=== PATIENT | male | born 1965 | race Caucasian/White ===

== ENCOUNTER 2019-05-10 18:39 | Emergency (ER) | payer MEDICARE ==
[~2019-05-10] VITALS: Ht 177.8 cm; Wt 91.0 kg
[~2019-05-10 18:39] MED LIST: LITH450T2 PO; NO HOME MEDS; ONDA8TAB9 PO
[2019-05-10 18:40] VITALS: BP 141/73
== END 2019-05-10 19:07 ==
LOC: ER 18:39
DX: S70.311A Abrasion, right thigh, initial encounter (principal); Z02.89 Encounter for other administrative examinations; F29 Unspecified psychosis not due to a substance or known physiological condition; Z88.8 Allergy status to other drugs, medicaments and biological substances; Z79.899 Other long term (current) drug therapy; Z86.73 Personal history of transient ischemic attack (TIA), and cerebral infarction without residual deficits; Z59.0 Homelessness; Z56.0 Unemployment, unspecified; W54.0XXA Bitten by dog, initial encounter; Y93.89 Activity, other specified; Y92.89 Other specified places as the place of occurrence of the external cause; Y99.8 Other external cause status
CPT/HCPCS: 99283

== ENCOUNTER 2019-12-05 11:19 | Inpatient (IN) | payer MEDICAID, OTHER ==
[~2019-12-05] VITALS: Ht 177.8 cm; Wt 95.7 kg
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
[2019-12-05] MEDS ORDERED: LORazepam 1 MG tablet PO PRN ×3 (11:30→12:10)
[2019-12-05] MEDS ORDERED: haloperidol 5mg tablet PO PRN (11:30)
[2019-12-05] MEDS ORDERED: diphenhydrAMINE 25mg capsule PO PRN ×2 (11:30→11:35)
[2019-12-05] MEDS ORDERED: LORazepam 2 mg/ml vial ONE (11:38)
[2019-12-05] MEDS ORDERED: haloperidol lactate 5mg/ml inj ONE (11:39)
[2019-12-05] MEDS ORDERED: diphenhydrAMINE 50 mg/ml inj ONE (11:39)
[2019-12-05] MEDS ORDERED: LORazepam 2 mg/ml vial IM PRN (12:10)
[2019-12-05] MEDS ORDERED: ziprasidone 20mg capsule PO PRN (12:10)
[2019-12-05] MEDS ORDERED: ziprasidone IM 20mg inj **IM only IM PRN (12:10)
[2019-12-05] MEDS ORDERED: diphenhydrAMINE 50 mg/ml inj IM PRN (12:10)
[2019-12-05] MEDS ORDERED: loperamide 2mg capsule PO PRN (12:55)
[2019-12-05] MEDS ORDERED: acetaminophen 325mg tablet PO PRN (12:55)
--- NOTE | 2019-12-05 14:00 | NUR ---
Pt. awoke to use toilet. RN offered urinal but pt. reports he cannot use urinal. Pt. contracted for safety with this RN. Pt. states, "I'm sorry, please forgive me". Pt. released from restraints and used toilet. Pt. then escorted to his room and fell asleep.
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
[2019-12-05] MEDS: carBAMazepine Ext. Release 200 MG TAB.ER.12H PO SCH (20:00)
[2019-12-05 20:17] VITALS: BP 112/62
[2019-12-05] MEDS ORDERED: risperiDONE 0.5mg tablet PO SCH (21:00)
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
[2019-12-06 08:00] VITALS: BP 115/68
[2019-12-06] MEDS: carBAMazepine Ext. Release 200 MG TAB.ER.12H PO SCH ×2 (08:00→20:00)
[2019-12-06] MEDS ORDERED: OLANZapine **IM** 10 mg inj. IM PRN (18:00)
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
[2019-12-06 20:00] VITALS: BP 153/75
[2019-12-06] MEDS: OLANZapine 5mg rapidly disint. tablet PO SCH (20:15)
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
[2019-12-06] MEDS: LORazepam 1 MG tablet PO PRN ×2 (21:58→22:35)
[2019-12-07] MEDS: LORazepam 1 MG tablet PO PRN (04:56)
[2019-12-07] MEDS: OLANZapine 5mg rapidly disint. tablet PO SCH ×4 (07:30→21:30)
[2019-12-07] MEDS: carBAMazepine Ext. Release 200 MG TAB.ER.12H PO SCH (08:00)
[2019-12-07 08:58] VITALS: BP 93/48
[2019-12-07] MEDS: acetaminophen 325mg tablet PO PRN (11:39)
[2019-12-07] MEDS: lithium carbonate 150mg capsule PO SCH ×3 (12:51→21:30)
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
[2019-12-07 19:59] VITALS: BP 124/84
[2019-12-08] MEDS: LORazepam 1 MG tablet PO PRN (00:35)
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
[2019-12-08] MEDS: OLANZapine 5mg rapidly disint. tablet PO SCH ×2 (07:30→12:30)
[2019-12-08] MEDS: lithium carbonate 150mg capsule PO SCH ×3 (08:00→21:52)
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
[2019-12-08 20:00] VITALS: BP 142/79
[2019-12-08] MEDS ORDERED: OLANZapine 5mg rapidly disint. tablet PO SCH (21:00)
--- NOTE | 2019-12-08 23:43 | NUR ---
Nursing Progress Note: Legal hold: 1370 Client on involuntary status due to 1370 Report received from DAISY Honeycutt with use of SBAR Why are they here: Pt. admitted directly from the [facility] accompanied by state troopers. Pt. has been in the snf since May 10, 2019 after a misdemeanor of one count of "Resist Obstruct Delay Officer" and "possibly trespassing" at one of his friends house. Pt was demonstrating psychotic/paranoid behavior, trying to barricade himself into his friends house and "speaking in unknown languages". Pt. arrested in 2013 for cruelty to animals. During his incarceration, pt.'s behavior described as "constantly provocative", pt. "throwing water on people and dumping water under the doors of other inmates and continually yelling through his cell door and challenging both deputies and inmates to a fight". Pt. also had been refusing medical treatment. Pt. was considered a risk due to his aggression and refusal of treatment for his psychosis. According to Psychologist report, pt. is found incompetent to stand trial and requires antipsychotic medication in order to return him to competency and is a danger to himself and to others if unmedicated. Assessment What has happened this shift : Patient is intrusive with staff and peers, and is told to give peers thier own personal space. Pt is aggravated and delusional, talking about how he will ruben the [employer] for 400 trillion dollars and fix the [place]. Pt is scheduled to get 300 mg of lithium and 15 mg of zyprexa HS. PT will only take 150 mg of lithium and 10 mg of zyprexa because, "This is what I took last night and I will not take anymore, or I won't take it at all." Pt states that this is unconstitutional and wants a blood test done on him to prove the medications we are giving him are really the medications. He says he is going to bring us to court and engineering writer will have to testify. Pt is very persecutory, paranoid, and refuses any PRN medications. He paces the halls even after being encouraged to try to lay down. S/I, H/I: Denies A/VH: Denies Sleep: Currently sleeping, see sleep assessment ADL's: Independent Group attendance: None Were meds taken: refused half of medication dosage. Any med S/E: none Mental Status Exam Appearance: Wearing street clothes Eye contact: Direct Behavior: Labile, intrusive Speech: High volume; pressured at times Mood: Irritable, labile, energetic Affect: Congruent to mood Thought process: Delusional, grandiose Thought Content: Not needing medications, wanting to ruben everyone Cognition: Impaired Insight: Poor Judgment: poor Interventions PRN's used: NA Therapeutic interventions: therapeutic communication and active listening, medication administration/education/monitoring, encouraged group participation, Q 15 min safety checks. Restraints/seclusion/emergency medication: N/A Justification of Continued Inpatient Treatment: Pt is on court ordered 1370 for mental health stabilization
[2019-12-09] MEDS: LORazepam 1 MG tablet PO PRN (01:26)
[2019-12-09] MEDS: OLANZapine 5mg rapidly disint. tablet PO SCH (07:30)
[2019-12-09] MEDS ORDERED: lithium carbonate 150mg capsule PO SCH (08:30)
--- NOTE | 2019-12-09 11:56 | NUR ---
Eating 75-100%, meeting needs. No nutrition problems at this time. Will follow. Recommend: 1. continue regular diet 2. weekly weights 3. bowel care as needed Addendum: 12/09/19 at [address] Amended: Links added.
[2019-12-09] MEDS ORDERED: benztropine 1 mg/ml 2ml ampule IM PRN (13:10)
--- NOTE | 2019-12-09 18:10 | NUR ---
Nursing Progress Note: Legal hold: 1370 Client on involuntary status due to 1370 Report received from nurse with use of SBAR Why are they here: Pt. admitted directly from the [facility] accompanied by state troopers. Pt. has been in the assisted since May 10, 2019 after a misdemeanor of one count of "Resist Obstruct Delay Officer" and "possibly trespassing" at one of his friends house. Pt was demonstrating psychotic/paranoid behavior, trying to barricade himself into his friends house and "speaking in unknown languages". Pt. arrested in 2013 for cruelty to animals. During his incarceration, pt.'s behavior described as "constantly provocative", pt. "throwing water on people and dumping water under the doors of other inmates and continually yelling through his cell door and challenging both deputies and inmates to a fight". Pt. also had been refusing medical treatment. Pt. was considered a risk due to his aggression and refusal of treatment for his psychosis. According to Psychologist report, pt. is found incompetent to stand trial and requires antipsychotic medication in order to return him to competency and is a danger to himself and to others if unmedicated. Assessment What has happened this shift : Received Pt sleeping in bed on the ground w/o distress at change of shift. Pt refused vitals when aroused in morning and irritated about being woken up. Pt argued with staff about eating in the community room but conceded when security arrived on the unit, although he continued to express anger for a bit. 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 Pt got into argument with another Pt in group and was asked to leave. He became very angry and yelling when he was told he was confronted with the reality of his criminal charges. Pt escorted to his room and was able to de-escalate with verbal intervention. He enjoys listening to music with headphones and walking the halls. Spent time writing in his room. He continues to speak about grandiouse ideas of self and accomplishments. S/I, H/I: Denies A/VH: Denies Sleep: None ADL's: Independent Group attendance: Asked to leave AM group Were meds taken: No, pt refused Any med S/E: None Mental Status Exam Appearance: Casual in his own clothes Eye contact: Direct at times Behavior: Labile Speech: High volume; pressured at times Mood: Pleasant except when asked to do something he disagrees with. Affect: Congruent with behavior Thought process: Delusional Thought Content: Injustice in many forms. Cognition: Impaired Insight: Poor Judgment: Poor Interventions PRN's used: None Therapeutic interventions: therapeutic communication and active listening, medication administration/education/monitoring, encouraged group participation, Q 15 min safety checks. Restraints/seclusion/emergency medication: N/A Justification of Continued Inpatient Treatment: Pt is on court ordered 1370 for mental health stabilization/ Reeturn to competency.
[2019-12-09 20:00] VITALS: BP 118/65
[2019-12-09] MEDS: lithium carbonate 150mg capsule PO SCH (20:36)
[2019-12-09] MEDS: mag hydrox/Alum hydrox/simeth 30ml oral suspension PO PRN (20:58)
[2019-12-09] MEDS ORDERED: haloperidol lactate 5mg/ml inj IM SCH (21:00)
[2019-12-09] MEDS ORDERED: haloperidol 5mg tablet PO SCH (21:00)
--- NOTE | 2019-12-10 01:27 | NUR ---
Nursing Progress Note: Legal hold: 1370 Client on involuntary status due to 1370 Report received from DAISY Honeycutt with use of SBAR Why are they here: Pt. admitted directly from the [facility] accompanied by state troopers. Pt. has been in the correction since May 10, 2019 after a misdemeanor of one count of "Resist Obstruct Delay Officer" and "possibly trespassing" at one of his friends house. Pt was demonstrating psychotic/paranoid behavior, trying to barricade himself into his friends house and "speaking in unknown languages". Pt. arrested in 2013 for cruelty to animals. During his incarceration, pt.'s behavior described as "constantly provocative", pt. "throwing water on people and dumping water under the doors of other inmates and continually yelling through his cell door and challenging both deputies and inmates to a fight". Pt. also had been refusing medical treatment. Pt. was considered a risk due to his aggression and refusal of treatment for his psychosis. According to Psychologist report, pt. is found incompetent to stand trial and requires antipsychotic medication in order to return him to competency and is a danger to himself and to others if unmedicated. Assessment What has happened this shift : Patient listens to headphones and sits in community room at shift change. Structural Iron Erector approaches him and asks how his day has been and explains to him what medications he is prescribed for the night, 10 mg Haldol and 300 mg lithium PO. Pt escalates quickly and says he refuses to take Haldol and will only take 150mg of lithium. Structural Iron Erector informs patient that he has to take his medication and he begins yelling at field underwriter , "you are a fucking moron!" Security is called and stands by while patient berates staff. He finally agrees to take the medication, take sit, then afterwards says, "fuck you, and fuck you, and fuck you!." Pt escorted to his room because h is frightening his peers. Pt stands in his room and screams as loud as he can "Do you want me to get loud? Do you want to hear me fucking scream?" He screams for a few minutes straight profanities and tells staff to "go to hell" repeatedly. Structural Iron Erector offers pt ativan, but he refuses. Pt tells staff we will all be going to correction and that the legal hold he is on is illegal. Pt is left alone, given snacks in his room and headphones. Pt eventually calms down and remains in his room. S/I, H/I: Denies A/VH: Denies Sleep: Currently sleeping, see sleep assessment ADL's: Independent Group attendance: None Were meds taken: yes Any med S/E: none Mental Status Exam Appearance: Wearing street clothes Eye contact: Direct Behavior: aggressive, verbally abusive Speech: High volume; pressured at times Mood: Irritable, labile, accusatory Affect: Congruent to mood Thought process: Delusional, grandiose Thought Content: Not needing medications, wanting to ruben everyone Cognition: Impaired Insight: Poor Judgment: poor Interventions PRN's used: NA Therapeutic interventions: therapeutic communication and active listening, medication administration/education/monitoring, encouraged group participation, Q 15 min safety checks. Restraints/seclusion/emergency medication: N/A Justification of Continued Inpatient Treatment: Pt is on court ordered 1370 for mental health stabilization
[2019-12-10 07:00] VITALS: BP 107/67
[2019-12-10] MEDS ORDERED: haloperidol decanoate***LONG-ACTING*** 100mg/ml **IM only** inj. IM ONE ×2 (16:30→21:00)
--- NOTE | 2019-12-10 17:25 | NUR ---
Nursing Progress Note: Hayden Legal hold: 1370 Client on involuntary status due to 1370 Report received from nurse with use of SBAR Why are they here: Pt. admitted directly from the [facility] accompanied by state troopers. Pt. has been in the retirement since May 10, 2019 after a misdemeanor of one count of "Resist Obstruct Delay Officer" and "possibly trespassing" at one of his friends house. Pt was demonstrating psychotic/paranoid behavior, trying to barricade himself into his friends house and "speaking in unknown languages". Pt. arrested in 2013 for cruelty to animals. During his incarceration, pt.'s behavior described as "constantly provocative", pt. "throwing water on people and dumping water under the doors of other inmates and continually yelling through his cell door and challenging both deputies and inmates to a fight". Pt. also had been refusing medical treatment. Pt. was considered a risk due to his aggression and refusal of treatment for his psychosis. According to Psychologist report, pt. is found incompetent to stand trial and requires antipsychotic medication in order to return him to competency and is a danger to himself and to others if unmedicated. Assessment What has happened this shift : Patient laying on his mattress on the floor, sleeping. Patient awakens and requests to fold clothing from clothing closet. Another patient started to go into his room to look at clothes. NA stopped pt from entering room. Pt. Became verbally aggressive and was de-escalated by Yinka VILLA. Patient is having paranoid delusions, and delusions of grandeur AEB patient came to nurses station and starting telling us of all of his accomplishments. He states I have an endless supply of money, I want to buy everyone in the hospital a pizza. He also stated that he did a power move to take down the [employer] banking system. He also stated that I let someone have 1.5 billion [place] money and I wanted to become President in 2007. The police are trying to frame me with guns at my residence. Patient spends his time pacing hallways with earphones. Ordered double portions for patient as he stated he has lost 35 pounds from being in retirement and that he is always hungry. S/I, H/I: Denies A/VH: Denies Sleep: None ADL's: Independent Group attendance: No. Were meds taken: No a.m. meds Any med S/E: None Mental Status Exam Appearance: Clean and neat in personal attire. Eye contact: Direct Behavior: Labile Speech: High volume; pressured at times Mood: Elevated. Affect: Congruent with behavior Thought process: Paranoid delusions, delusions of grandeur. Thought Content: I am on the defensive. Cognition: Impaired Insight: Poor Judgment: Poor Interventions PRN's used: None Therapeutic interventions: therapeutic communication and active listening, medication administration/education/monitoring, encouraged group participation, Q 15 min safety checks. Restraints/seclusion/emergency medication: N/A Justification of Continued Inpatient Treatment: Pt is on court ordered 1370 for mental health stabilization/ Return to competency.
[2019-12-10] MEDS: ascorbic acid 500mg tablet PO SCH (17:42)
[2019-12-10] MEDS ORDERED: paliperidone palmitate inj 234 MG/1.5 ML SYRINGE IM ONE (19:15)
[2019-12-10] MEDS: omega-3 acid ethyl esters 1GM capsule PO SCH (20:00)
[2019-12-10 20:19] VITALS: BP 125/92
[2019-12-10] MEDS: lithium carbonate 150mg capsule PO SCH (21:31)
[2019-12-10] MEDS: LORazepam 1 MG tablet PO PRN ×2 (21:56→22:51)
[2019-12-10] MEDS ORDERED: zolpidem 5mg tablet PO ONE (23:35)
[2019-12-11] MEDS ORDERED: zolpidem 5mg tablet PO ONE (00:50)
--- NOTE | 2019-12-11 01:18 | NUR ---
Nursing Progress Note: Hayden Legal hold: 1370 Client on involuntary status due to 1370 Report received from nurse with use of SBAR Why are they here: Pt. admitted directly from the [facility] accompanied by state troopers. Pt. has been in the [facility]dc since May 10, 2019 after a misdemeanor of one count of "Resist Obstruct Delay Officer" and "possibly trespassing" at one of his friends house. Pt was demonstrating psychotic/paranoid behavior, trying to barricade himself into his friends house and "speaking in unknown languages". Pt. arrested in 2013 for cruelty to animals. During his incarceration, pt.'s behavior described as "constantly provocative", pt. "throwing water on people and dumping water under the doors of other inmates and continually yelling through his cell door and challenging both deputies and inmates to a fight". Pt. also had been refusing medical treatment. Pt. was considered a risk due to his aggression and refusal of treatment for his psychosis. According to Psychologist report, pt. is found incompetent to stand trial and requires antipsychotic medication in order to return him to competency and is a danger to himself and to others if unmedicated. Assessment What has happened this shift: Pt Was pleasant and cooperative at start of shift. No delusional or paranoid statements. Did not want to take Haldol long acting injection because per pt Haldol causes him to have restless leg syndrome. He said he would be willing to take long acting Invega injection. He talked to JUNI Moreno and the order was changed. Pt took injection and other HS meds willingly. Pt refuses to wear wrist band so meds given after pt supplies name and date of at each administration. Pt slept for about 45 minutes. When he woke up he paced hallways with earphones. He was agitated and delusional. Pt maintains he was framed and he committed no crimes. He says he saw 2 inmates murdered in nursing home. 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 Pt said he had been in [place] and they provided him with tennis shoes so we should too. Order for Ambien 5mg may repeat times one received. Pt given both doses. Patient laying on his mattress on the floor, sleeping at this time. S/I, H/I: Denies A/VH: Denies Sleep: None ADL's: Independent Group attendance: No. Were meds taken: Yes Any med S/E: None Mental Status Exam Appearance: Clean and neat in personal attire. Eye contact: Direct Behavior: Labile Speech: High volume; pressured at times Mood: Elevated. Affect: Congruent with behavior Thought process: Paranoid delusions, delusions of grandeur. Thought Content: I am on the defensive. Cognition: Impaired Insight: Poor Judgment: Poor Interventions PRN's used: None Therapeutic interventions: therapeutic communication and active listening, medication administration/education/monitoring, encouraged group participation, Q 15 min safety checks. Restraints/seclusion/emergency medication: N/A Justification of Continued Inpatient Treatment: Pt is on court ordered 1370 for mental health stabilization/ Return to competency.
[2019-12-11 08:00] VITALS: BP 102/61
[2019-12-11] MEDS: multivitamins, therapeutics tablet PO SCH (08:23)
[2019-12-11] MEDS: ascorbic acid 500mg tablet PO SCH ×2 (08:23→17:55)
[2019-12-11] MEDS: omega-3 acid ethyl esters 1GM capsule PO SCH ×2 (08:23→20:00)
--- NOTE | 2019-12-11 17:34 | NUR ---
Nursing Progress Note: Legal hold: 1370 Client on involuntary status due to 1370 Report received from nurse, Kimberly VILLA with use of SBAR Why are they here: Pt. admitted directly from the [facility] accompanied by state troopers. Pt. 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 Pt was demonstrating psychotic/paranoid behavior, trying to barricade himself into his friends house and "speaking in unknown languages". Pt. arrested in 2013 for cruelty to animals. During his incarceration, pt.'s behavior described as "constantly provocative", pt. "throwing water on people and dumping water under the doors of other inmates and continually yelling through his cell door and challenging both deputies and inmates to a fight". Pt. also had been refusing medical treatment. Pt. was considered a risk due to his aggression and refusal of treatment for his psychosis. According to Psychologist report, pt. is found incompetent to stand trial and requires antipsychotic medication in order to return him to competency and is a danger to himself and to others if unmedicated. Assessment What has happened this shift : Received patient awake on unit interacting with peers. Overheard the topic of conversation as complaining about staff and unit. Patient conversation able to be redirected in a different direction by staff. Patient visible on the unit most of the day with small periods of time standing in his room organizing his paperwork patient did go on both outdoor walks and was present on unit for all meals. Patient denies depression and denies suicidal thoughts. Patient denies auditory hallucinations. Patient thought process is overwhelmingly delusional with grandiose thoughts. Patient heard telling another patient, drinking [place] hot chocolate is better than taking psych meds Liset been framed by the Internet Im going to end the Internet [facility] linked to the [employer] I am a secret member of the [employer] I am [employer] these are just a few of his endless stream of grandiose delusions. Patient is hyper verbal and makes staff and patients uncomfortable with his constant stream of delusional thoughts. Patient given a behavioral plan which can be found in the treatment plan book. boundaries set with patient this afternoon and he was given his additional behavioral plan which includes three points: -When a person youre talking to disagrees with your point, do not become agitated. -Do not enter interject your thoughts when a staff member is talking to another patient. -Do not share negativity or complaints with other patients. S/I, H/I: Denies A/VH: Denies Sleep: None ADL's: Independent Group attendance: No. Were meds taken: No a.m. meds Any med S/E: None Mental Status Exam Appearance: Clean and neat in personal attire. Eye contact: Direct Behavior: Labile Speech: High volume; pressured at times Mood: Elevated. Affect: Congruent with behavior Thought process: Paranoid delusions, delusions of grandeur. Thought Content: I am on the defensive. Cognition: Impaired Insight: Poor Judgment: Poor Interventions PRN's used: None Therapeutic interventions: therapeutic communication and active listening, medication administration/education/monitoring, encouraged group participation, Q 15 min safety checks. Restraints/seclusion/emergency medication: N/A Justification of Continued Inpatient Treatment: Pt is on court ordered 1370 for mental health stabilization/ Return to competency.
[2019-12-11] MEDS: lithium carbonate 150mg capsule PO SCH (20:01)
[2019-12-11 20:39] VITALS: BP 146/89
[2019-12-11] MEDS: LORazepam 1 MG tablet PO PRN (22:40)
[2019-12-12] MEDS: zolpidem 5mg tablet PO PRN ×2 (00:05→23:02)
--- NOTE | 2019-12-12 01:58 | NUR ---
Nursing Progress Note: Hayden Legal hold: 1370 Client on involuntary status due to 1370 Report received from nurse with use of SBAR Why are they here: Pt. admitted directly from the [facility] accompanied by state troopers. Pt. has been in the long term since May 10, 2019 after a misdemeanor of one count of "Resist Obstruct Delay Officer" and "possibly trespassing" at one of his friends house. Pt was demonstrating psychotic/paranoid behavior, trying to barricade himself into his friends house and "speaking in unknown languages". Pt. arrested in 2013 for cruelty to animals. During his incarceration, pt.'s behavior described as "constantly provocative", pt. "throwing water on people and dumping water under the doors of other inmates and continually yelling through his cell door and challenging both deputies and inmates to a fight". Pt. also had been refusing medical treatment. Pt. was considered a risk due to his aggression and refusal of treatment for his psychosis. According to Psychologist report, pt. is found incompetent to stand trial and requires antipsychotic medication in order to return him to competency and is a danger to himself and to others if unmedicated. Assessment What has happened this shift: The patient was seen in the hallway. He was making delusional statements, "I'm a maniac...too dangerous to be out. I'm of the [employer] and I'm [employer]. I'm perfectly fine." The patient reports that there's an identical twin of his that he somehow came across in his daily living. He claims they were at and he never knew about his brother until recently, when he somehow came across him. Patient blames this twin of being the one doing crimes and getting him blamed for it. During 1:1 the patient stated, "all the young ladies around here love me. I don't know why...I'm ugly and have no hair, but they find me irresistible." The patient was cooperative with med pass, but stayed up late seeking attention from whoever he could get it from. S/I, H/I: Denies A/VH: Denies Sleep: See sleep assessment ADL's: Independent Group attendance: No night groups. Were meds taken: Yes Any med S/E: None Mental Status Exam Appearance: Clean and neat in personal attire. Eye contact: Direct Behavior: Labile, delusional, intrusive, loud, hyperverbal. Speech: High volume; pressured at times Mood: "I'm fine". Affect: Congruent with behavior Thought process: Paranoid delusions, delusions of grandeur. Thought Content: I am a maniac." Cognition: Impaired Insight: Poor Judgment: Poor Interventions PRN's used: Ativan Ambien. Therapeutic interventions: therapeutic communication and active listening, medication administration/education/monitoring, encouraged group participation, Q 15 min safety checks. Restraints/seclusion/emergency medication: N/A Justification of Continued Inpatient Treatment: Pt is on court ordered 1370 for mental health stabilization/ Return to competency.
[2019-12-12 08:05] VITALS: BP 109/61
[2019-12-12] MEDS: omega-3 acid ethyl esters 1GM capsule PO SCH (08:06)
[2019-12-12] MEDS: ascorbic acid 500mg tablet PO SCH ×2 (08:07→17:11)
[2019-12-12] MEDS: multivitamins, therapeutics tablet PO SCH (08:07)
[2019-12-12] MEDS: lithium carbonate 150mg capsule PO SCH ×2 (08:07→20:32)
--- NOTE | 2019-12-12 17:05 | NUR ---
Nursing Progress Note: Legal hold: 1370 Client on involuntary status due to 1370 Report received from nurse, Kimberly VILLA with use of SBAR Why are they here: Pt. admitted directly from the [facility] accompanied by state troopers. Pt. 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 Pt was demonstrating psychotic/paranoid behavior, trying to barricade himself into his friends house and "speaking in unknown languages". Pt. arrested in 2013 for cruelty to animals. During his incarceration, pt.'s behavior described as "constantly provocative", pt. "throwing water on people and dumping water under the doors of other inmates and continually yelling through his cell door and challenging both deputies and inmates to a fight". Pt. also had been refusing medical treatment. Pt. was considered a risk due to his aggression and refusal of treatment for his psychosis. According to Psychologist report, pt. is found incompetent to stand trial and requires antipsychotic medication in order to return him to competency and is a danger to himself and to others if unmedicated. Assessment What has happened this shift : Pt up and visible on the unit. Pt went to all meals in the dining room. Pt asking for many different things, but was polite and appropriate. Pt did not attend groups. Pt spent most of the day pacing in the hallway listening to music on the headphones. Pt remains hyperverbal, but less so than yesterday and presented as less agitated r/t his grandiose delusions, which remain present, but less encompasing. Pt continues to talk about his twin brother whom possibly doesnt exist and is actually himself. Pt voiced less persucatory delusions today as well. S/I, H/I: Denies A/VH: Denies Sleep: None ADL's: Independent Group attendance: No. Were meds taken: yes Any med S/E: None Mental Status Exam Appearance: Clean and neat in personal attire. Eye contact: Direct Behavior: Labile Speech: more appropriate; pressured at times Mood: Elevated. Affect: Congruent with behavior Thought process: Paranoid delusions, delusions of grandeur. Thought Content: r/t delusional material Cognition: Impaired Insight: Poor Judgment: Poor Interventions PRN's used: None Therapeutic interventions: therapeutic communication and active listening, medication administration/education/monitoring, encouraged group participation, Q 15 min safety checks. Restraints/seclusion/emergency medication: N/A Justification of Continued Inpatient Treatment: Pt is on court ordered 1370 for mental health stabilization/ Return to competency.
[2019-12-12] MEDS: OMEGA-3/DHA/EPA/FISH OIL 1 EACH CAPSULE.DR PO SCH (20:31)
[2019-12-12 20:58] VITALS: BP 125/74
[2019-12-12] MEDS: LORazepam 1 MG tablet PO PRN (22:03)
--- NOTE | 2019-12-13 03:57 | NUR ---
Nursing Progress Note: Legal hold: 1370 Client on involuntary status due to 1370 Report received from DAISY Honeycutt with use of SBAR Why are they here: Pt. admitted directly from the [facility] accompanied by state troopers. Pt. has been in the half-way since May 10, 2019 after a misdemeanor of one count of "Resist Obstruct Delay Officer" and "possibly trespassing" at one of his friends house. Pt was demonstrating psychotic/paranoid behavior, trying to barricade himself into his friends house and "speaking in unknown languages". Pt. arrested in 2013 for cruelty to animals. During his incarceration, pt.'s behavior described as "constantly provocative", pt. "throwing water on people and dumping water under the doors of other inmates and continually yelling through his cell door and challenging both deputies and inmates to a fight". Pt. also had been refusing medical treatment. Pt. was considered a risk due to his aggression and refusal of treatment for his psychosis. According to Psychologist report, pt. is found incompetent to stand trial and requires antipsychotic medication in order to return him to competency and is a danger to himself and to others if unmedicated. Assessment What has happened this shift: The patient was seen at his bedside. He started by ranting about art group and how stupid he thinks it is. "I told them art is stupid and if they want me to participate they need to go to [facility] and get me something to build." He didn't want to hear the reasons why that can't happen. "Then they ruined my day when they took my headphones away. They're denying my rights here. I have a right to those headphones." He doesn't. They are a privilege that can be taken away. Moving on, "I had a really good day. Been sharing life experiences. 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 Next he started on marijuana, "I won the [employer] twice in a row. 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 When it was med pass, the patient refused to take the increase in [place] to 450mg Bid. JUNI Moreno wrote in her note that she bartered with him to take it. "She's lying, nobody ever told me anything about an increase." The patient paced the halls with headphones until ~midnight, then finally went to bed. S/I, H/I: Denies A/VH: Denies Sleep: See sleep assessment ADL's: Independent Group attendance: No night groups. Were meds taken: Yes Any med S/E: None Mental Status Exam Appearance: Clean and neat in personal attire. Eye contact: Direct Behavior: Labile, delusional, intrusive, loud, hyperverbal. Speech: High volume; pressured at times Mood: "I'm fine". Affect: Congruent with behavior Thought process: Paranoid delusions, delusions of grandeur. Thought Content: His many perceived grievances Cognition: Impaired Insight: Poor Judgment: Poor Interventions PRN's used: Ativan, Ambien. Therapeutic interventions: therapeutic communication and active listening, medication administration/education/monitoring, encouraged group participation, Q 15 min safety checks. Restraints/seclusion/emergency medication: N/A Justification of Continued Inpatient Treatment: Pt is on court ordered 1370 for mental health stabilization/ Return to competency.
[2019-12-13] MEDS: vitamin D (cholecalciferol) 1,000 unit tablet PO SCH (08:04)
[2019-12-13] MEDS: vitamin E 400 unit capsule PO SCH (08:04)
[2019-12-13] MEDS: OMEGA-3/DHA/EPA/FISH OIL 1 EACH CAPSULE.DR PO SCH ×2 (08:04→20:34)
[2019-12-13] MEDS: multivitamins, therapeutics tablet PO SCH (08:05)
[2019-12-13] MEDS: lithium carbonate 150mg capsule PO SCH ×2 (08:05→20:36)
[2019-12-13] MEDS: ascorbic acid 500mg tablet PO SCH ×2 (10:53→17:22)
[2019-12-13] MEDS: magnesium hydroxide 30ml (MOM) UD suspension PO PRN (11:35)
--- NOTE | 2019-12-13 14:30 | NUR ---
Nursing Progress Note Legal hold: 1370 Client on involuntary status due to 1370 Report received from nurse, WALESKA Prather with use of SBAR Why are they here: Pt. admitted directly from the [facility]. Pt. has been in the halfway since May 10, 2019 after a misdemeanor of one count of "Resist Obstruct Delay Officer" and "possibly trespassing" at one of his friends house. Pt demonstrated psychotic/paranoid behavior, trying to barricade himself into his friends house and "speaking in unknown languages". Pt. arrested in 2013 for cruelty to animals. During his incarceration, pt.'s behavior described as "constantly provocative", pt. "throwing water on people and dumping water under the doors of other inmates and continually yelling through his cell door and challenging both deputies and inmates to a fight". Pt. also had been refusing medical treatment. Pt. was considered a risk due to his aggression and refusal of treatment for his psychosis. According to Psychologist report, pt. is found incompetent to stand trial and requires antipsychotic medication in order to return him to competency and is a danger to himself and to others if unmedicated. Assessment What has happened this shift: Pt up in the halls at start of shift. Pt is intrusive and hyperverbal. He is constantly walking up to staff and/or peers asking for anything and everything e.g. cologne, MOM, prune juice, coffee, water, clothing, phone, go outside, telephone, etc. Then once those needs are met he starts never ending conversations. He is respectable and cooperative when redirected by staff. S/I, H/I: Denies A/VH: Denies Sleep: None ADL's: Independent Group attendance: No. Were Meds taken: yes Any med S/E: None noted or reported Mental Status Exam Appearance: Personal clothes; clean Eye contact: Direct Behavior: Labile Speech: Rapid; somewhat pressured Mood: Elated Affect: Euphoric Thought process: Circumstantial Thought Content: jumps around from topic to topic Cognition: Impaired Insight: Poor Judgment: Poor Interventions PRN's used: None Therapeutic interventions: 1:1 assessment, therapeutic communication w/active listening, medication administration/education/monitoring, encouraged group participation, Q 15 min safety checks. Restraints/seclusion/emergency medication: N/A Justification of Continued Inpatient Treatment: Pt is on court ordered 1370 for mental health stabilization/ Return to competency.
[2019-12-13 20:50] VITALS: BP 131/85
[2019-12-13] MEDS: LORazepam 1 MG tablet PO PRN (22:18)
[2019-12-13] MEDS: zolpidem 5mg tablet PO PRN (22:18)
--- NOTE | 2019-12-14 02:23 | NUR ---
Nursing Progress Note: Legal hold: 1370 Client on involuntary status due to 1370 Report received from DAISY Honeycutt with use of SBAR Why are they here: Pt. admitted directly from the [facility] accompanied by state troopers. Pt. has been in the [facility] since May 10, 2019 after a misdemeanor of one count of "Resist Obstruct Delay Officer" and "possibly trespassing" at one of his friends house. Pt was demonstrating psychotic/paranoid behavior, trying to barricade himself into his friends house and "speaking in unknown languages". Pt. arrested in 2013 for cruelty to animals. During his incarceration, pt.'s behavior described as "constantly provocative", pt. "throwing water on people and dumping water under the doors of other inmates and continually yelling through his cell door and challenging both deputies and inmates to a fight". Pt. also had been refusing medical treatment. Pt. was considered a risk due to his aggression and refusal of treatment for his psychosis. According to Psychologist report, pt. is found incompetent to stand trial and requires antipsychotic medication in order to return him to competency and is a danger to himself and to others if unmedicated. Assessment What has happened this shift: The patient was in the hallway pacing quickly with headphones on. He agreed to assessment at bedside. 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 "My brother's ranch is next to mine in [place]. " I was Autistic...did you know that? I know I don't act like it, but my brother is expert at Autism. I was Autistic, fear is the problem, he cured it for me." The patient then asked this life insurance underwriter to pass another patient a note, I declined. The patient is 54 y/o and believes that a female patient cares for him. She does not, in fact, she is isolating in her room because she fears him. She has seen the "love letter" and is disgusted by it. See chart for a copy. The female patient believes she will leave tomorrow. "At least I can go home, and he can't." When the patient was told that she is not interested. He called this life insurance underwriter a liar and became very angry and made threatening posture, but did not act on it. "I was just helping her. I don't even need a radio, I know when people need help. She's better because I helped cure her. I'm from the [place] [facility]...My brother and I are the last of the line. They only brought me here because I got bit by a dog. Those fucking parer are evil and lie...I can prove it. I have our phones hidden at the law firm." During med pass, the patient again refused the increase in [place]. "I didn't even see a Doctor today, so there's no way I could have been told. They can't just change my meds without telling me. I have rights." The patient was reminded that he doesn't enjoy the same rights as the other patient's on the unit, due to his 1370 order. He was told that he must take the medicine or possibly be returned to [facility]. "I don't care, I margaret had fun there fucking with all them assholes. They claim that I gassed them, but it was milk. How can you gas someone with milk?" The patient still attempted to resist the medicine, but was told if he doesn't accept the [place] increase, he may be Reise'd again and forced to take them. The patient relented and took it. He will probably be writing more ill-perceived grievance letters. "I need to do this for my records and evidence when I ruben the police and this Hospital." S/I, H/I: Denies A/VH: Denies Sleep: See sleep assessment ADL's: Independent Group attendance: No night groups. Were meds taken: Yes Any med S/E: None Mental Status Exam Appearance: Clean and neat in personal attire, wearing headphones. Eye contact: Direct Behavior: Labile, delusional, intrusive, loud, hyperverbal, angry, predatory. Speech: High volume; pressured at times Mood: "I'm fine". Affect: Congruent with behavior Thought process: Paranoid delusions, delusions of grandeur. Thought Content: His many perceived grievances Cognition: Impaired Insight: Poor Judgment: Poor Interventions PRN's used: Opal Carr. Therapeutic interventions: therapeutic communication and active listening, medication administration/education/monitoring, encouraged group participation, Q 15 min safety checks. Restraints/seclusion/emergency medication: N/A Justification of Continued Inpatient Treatment: Pt is on court ordered 1370 for mental health stabilization/ Return to competency.
[2019-12-14 07:43] VITALS: BP 116/70
[2019-12-14 07:44] VITALS: BP 102/64
[2019-12-14] MEDS: multivitamins, therapeutics tablet PO SCH (07:50)
[2019-12-14] MEDS: OMEGA-3/DHA/EPA/FISH OIL 1 EACH CAPSULE.DR PO SCH ×2 (07:50→20:36)
[2019-12-14] MEDS: vitamin E 400 unit capsule PO SCH (07:50)
[2019-12-14] MEDS: vitamin D (cholecalciferol) 1,000 unit tablet PO SCH (07:50)
[2019-12-14] MEDS: lithium carbonate 150mg capsule PO SCH ×2 (07:53→20:36)
[2019-12-14] MEDS: ascorbic acid 500mg tablet PO SCH ×2 (07:56→17:28)
[2019-12-14] MEDS: LORazepam 1 MG tablet PO PRN ×2 (14:23→21:23)
--- NOTE | 2019-12-14 16:41 | NUR ---
Nursing Progress Note Legal hold: 1370 Client on involuntary status due to 1370 Report received from nurse, WALESKA Prather with use of SBAR Why are they here: Pt. admitted directly from the [facility]. Pt. has been in the [facility] since May 10, 2019 after a misdemeanor of one count of "Resist Obstruct Delay Officer" and "possibly trespassing" at one of his friends house. Pt demonstrated psychotic/paranoid behavior, trying to barricade himself into his friends house and "speaking in unknown languages". Pt. arrested in 2013 for cruelty to animals. During his incarceration, pt.'s behavior described as "constantly provocative", pt. "throwing water on people and dumping water under the doors of other inmates and continually yelling through his cell door and challenging both deputies and inmates to a fight". Pt. also had been refusing medical treatment. Pt. was considered a risk due to his aggression and refusal of treatment for his psychosis. According to Psychologist report, pt. is found incompetent to stand trial and requires antipsychotic medication in order to return him to competency and is a danger to himself and to others if unmedicated. Assessment What has happened this shift: Pt sleeping at start of shift. He was given strict boundaries on a younger female and followed them for most of the day. Prior to her discharge he began trying to get her to talk to him by standing at her door and making noises to get her attention. He stopped after being reminded of the boundaries he had agreed to earlier. He spent the rest of the day pacing the halls while wearing a headset. Labs for [place] level and BMP ordered for [address] Harrell. S/I, H/I: Denies A/VH: Denies Sleep: None ADL's: Independent Group attendance: No. Were Meds taken: yes Any med S/E: None noted or reported Mental Status Exam Appearance: Personal clothes; clean Eye contact: Direct Behavior: Labile Speech: less pressured this shift and less intrusive Mood: calm Affect: dysphoric Thought process: Circumstantial Thought Content: kept to himself today Cognition: Impaired Insight: Poor Judgment: Poor Interventions PRN's used: None Therapeutic interventions: 1:1 assessment, therapeutic communication w/active listening, medication administration/education/monitoring, encouraged group participation, Q 15 min safety checks. Restraints/seclusion/emergency medication: N/A
[2019-12-14] MEDS ORDERED: paliperidone palmitate 156 mg/ml inj.**IM only IM ONE (19:20)
[2019-12-14 19:52] LABS: ANION GAP 7 (8-16); BLOOD UREA NITROGEN 17 MG/DL (7-18); CALCIUM 9.4 MG/DL (8.5-10.1); CHLORIDE 104 MMOL/L (99-107); CREATININE 0.81 MG/DL (0.60-1.10); GLUCOSE 145 MG/DL (70-104); POTASSIUM 4.8 MMOL/L (3.5-5.1); SODIUM 143 MMOL/L (135-145); TOTAL CARBON DIOXIDE 31.9 MMOL/L (24-32); eGFR > 90 ML/MIN
[2019-12-14 20:59] VITALS: BP 127/72
[2019-12-14] MEDS: zolpidem 5mg tablet PO PRN (21:23)
--- NOTE | 2019-12-14 23:22 | NUR ---
Nursing Progress Note: Legal hold: 1370 Client on involuntary status due to 1370 Report received from DAISY Cardoza with use of SBAR Why are they here: Pt. admitted directly from the [facility] accompanied by state troopers. Pt. has been in the long-term since May 10, 2019 after a misdemeanor of one count of "Resist Obstruct Delay Officer" and "possibly trespassing" at one of his friends house. Pt was demonstrating psychotic/paranoid behavior, trying to barricade himself into his friends house and "speaking in unknown languages". Pt. arrested in 2013 for cruelty to animals. During his incarceration, pt.'s behavior described as "constantly provocative", pt. "throwing water on people and dumping water under the doors of other inmates and continually yelling through his cell door and challenging both deputies and inmates to a fight". Pt. also had been refusing medical treatment. Pt. was considered a risk due to his aggression and refusal of treatment for his psychosis. According to Psychologist report, pt. is found incompetent to stand trial and requires antipsychotic medication in order to return him to competency and is a danger to himself and to others if unmedicated. Assessment What has happened this shift: Pt. was observed wearing headphones and pacing the solomon at shift change. Pt. was pleasant upon introduction. 1:1 was completed at bedside. When asked about SI, pt. scoffs and becomes tangential about how he is here on bogus charges. The newspaper distributor supervisor are dirty and he is going to ruben the long-term. Pt. then showed this group underwriter his collection of folders with His legal documents. When I go to court I will be more prepared then they are. Pt. denies SI, A/VH. Pt. took medications without incident. Pt. continued with his pacing the requested his Ambien and Ativan around 2129 I just want to go to bed and sleep. Pt. sleeps with his mattress on the floor. Current [place] level 0.4 drawn on 12/14/19. S/I, H/I: Pt. denies, none observed. A/VH: Pt denies, none observed. Sleep: Currently sleeping, pt. administered Ambien 5mg. See Sleep Assessment for total hours. 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 Were meds taken: Takes medication without hesitation. Any med S/E: None reported or observed. Mental Status Exam Appearance: Clean and neat, wearing personal clothes. Eye contact: Direct Behavior: Labile, delusional, intrusive, loud, predatory. Speech: Pressured at times, hyperverbal Mood: "I'm fine". Affect: Congruent with behavior Thought process: Paranoid delusions, delusions of grandeur, tangential. Thought Content: His many perceived grievances Cognition: Impaired Insight: Poor Judgment: Poor Interventions PRN's used: AtOpal tanner. Therapeutic interventions: therapeutic communication and active listening, medication administration/education/monitoring, encouraged group participation, Q 15 min safety checks. Restraints/seclusion/emergency medication: None Justification of Continued Inpatient Treatment: Pt is on court ordered 1370 for mental health stabilization.
[2019-12-15] MEDS: vitamin E 400 unit capsule PO SCH (07:51)
[2019-12-15] MEDS: lithium carbonate 150mg capsule PO SCH ×2 (07:51→20:42)
[2019-12-15] MEDS: OMEGA-3/DHA/EPA/FISH OIL 1 EACH CAPSULE.DR PO SCH ×2 (07:52→20:41)
[2019-12-15] MEDS: ascorbic acid 500mg tablet PO SCH ×2 (07:52→17:38)
[2019-12-15] MEDS: vitamin D (cholecalciferol) 1,000 unit tablet PO SCH (07:52)
[2019-12-15] MEDS: multivitamins, therapeutics tablet PO SCH (07:52)
[2019-12-15 08:00] VITALS: BP 108/67
--- NOTE | 2019-12-15 11:20 | NUR ---
Reassessment: Pt PO 100% avg meals meeting needs. LBM 12/14. -5kg initial bed scale vs new standing scale wt likely no change. No nutrition concerns at this time. Will continue to monitor. Recommend: 1. continue regular diet 2. bowel care as needed 3. wt per rx Addendum: 12/15/19 at [address] Amended: Links added.
[2019-12-15] MEDS: LORazepam 1 MG tablet PO PRN ×2 (13:24→21:48)
--- NOTE | 2019-12-15 16:38 | NUR ---
Nursing Progress Note: VIVIANA Legal hold: 1370 Client on involuntary status due to 1370 Report received from DAISY Prather with use of SBAR Why are they here: Pt. admitted directly from the [facility] accompanied by state troopers. Pt. has been in the alf since May 10, 2019 after a misdemeanor of one count of "Resist Obstruct Delay Officer" and "possibly trespassing" at one of his friends house. Pt was demonstrating psychotic/paranoid behavior, trying to barricade himself into his friends house and "speaking in unknown languages". Pt. arrested in 2013 for cruelty to animals. During his incarceration, pt.'s behavior described as "constantly provocative", pt. "throwing water on people and dumping water under the doors of other inmates and continually yelling through his cell door and challenging both deputies and inmates to a fight". Pt. also had been refusing medical treatment. Pt. was considered a risk due to his aggression and refusal of treatment for his psychosis. According to Psychologist report, pt. is found incompetent to stand trial and requires antipsychotic medication in order to return him to competency and is a danger to himself and to others if unmedicated. Assessment What has happened this shift: Pt. was observed wearing headphones and pacing the solomon at shift change. Pt. was pleasant upon introduction. 1:1 was completed at bedside. He was very tangential in speech, defensive in nature. He speaks of the crooked justice system and how employees here are against me because I helped another female patient. He reports, Theres nothing wrong with a young woman and older man being together. Hydraulic Boom Operator reminded him of unit rules and encouraged him to focus on bettering himself. He reports that, I am fine, I shouldn'tt even be here. Im here to help other people. Pt appears to have grandeur delusions and does not believe he committed the crimes that he has been charged of. Pt got into a hostile verbal disagreement with another pt about religious. Pt was advised to go to his room and disengage. He was unable to refrain from pacing in front of the other pts room in an antagonizing manner. Hours later pt requests to have a PRN Ativan to unwind which was dispensed. Pt rested for many hours and was angry once awake. He denies any SEs to medications and none were objectively observed. S/I, H/I: Pt. denies, none observed. A/VH: Pt denies, none observed. Sleep: 6.5hrs NOC ADL's: Independent Group attendance: Yes Were meds taken: Yes Any med S/E: None reported or observed. Mental Status Exam Appearance: Clean and neat, wearing personal clothes. Eye contact: Direct Behavior: Labile, delusional, intrusive, loud, predatory. Speech: Pressured at times, hyperverbal Mood: "I shouldnt even be here, Im fine! Affect: Congruent with behavior Thought process: Paranoid delusions, delusions of grandeur, tangential. Thought Content: Many grievances Cognition: Impaired Insight: Poor Judgment: Poor Interventions PRN's used: Ativan X1 Therapeutic interventions: therapeutic communication and active listening, medication administration/education/monitoring, encouraged group participation, Q 15 min safety checks. Restraints/seclusion/emergency medication: None Justification of Continued Inpatient Treatment: Pt is on court ordered 1370 for mental health stabilization.
[2019-12-15 19:38] VITALS: BP 141/88
[2019-12-15] MEDS: zolpidem 5mg tablet PO PRN (21:48)
--- NOTE | 2019-12-15 23:51 | NUR ---
Nursing Progress Note: Legal hold: 1370 Client on involuntary status due to 1370 Report received from RN with use of SBAR Why are they here: Pt. admitted directly from the [facility] accompanied by state troopers. Pt. has been in the detention since May 10, 2019 after a misdemeanor of one count of "Resist Obstruct Delay Officer" and "possibly trespassing" at one of his friends house. Pt was demonstrating psychotic/paranoid behavior, trying to barricade himself into his friends house and "speaking in unknown languages". Pt. arrested in 2013 for cruelty to animals. During his incarceration, pt.'s behavior described as "constantly provocative", pt. "throwing water on people and dumping water under the doors of other inmates and continually yelling through his cell door and challenging both deputies and inmates to a fight". Pt. also had been refusing medical treatment. Pt. was considered a risk due to his aggression and refusal of treatment for his psychosis. According to Psychologist report, pt. is found incompetent to stand trial and requires antipsychotic medication in order to return him to competency and is a danger to himself and to others if unmedicated. Assessment What has happened this shift: Pt observed walking the halls with headphones and engaging in conversation with staff and peers. Pt is cooperative with 1:1 and medication compliant. Pt expresses to bond underwriter that the police are falsely charging him and that he didn't commit any of those crimes, his twin brother did. Pt is very grandiose and completely denies ever owning guns, or any charge that is brought up. He is hyperverbal and adamant that he has a twin brother with the same name. "Don't believe anything you read or hear about me. The reason why I haven't gone to court yet is because they know I have all the evidence to disprove the things they said I did and proof that they framed me." "They are scared of me." Pt is also perseverating on a female patient that is younger than him that he thinks is inlove with him. Pt requests Ambien and Ativan at 2200, which was given to him. Current [place] level 0.4 drawn on 12/14/19. S/I, H/I: Pt. denies, none observed. A/VH: Pt denies, none observed. Sleep:See Sleep Assessment for total hours. 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 Were meds taken: Takes medication without hesitation. Any med S/E: None reported or observed. Mental Status Exam Appearance: Clean and neat, wearing personal clothes. Eye contact: Direct Behavior: Labile, delusional, intrusive Speech: Pressured at times, hyperverbal Mood: labile Affect: Congruent with behavior Thought process: Paranoid delusions, delusions of grandeur, tangential. Thought Content: His many perceived grievances Cognition: Impaired Insight: Poor Judgment: Poor Interventions PRN's used: Opal Carr. Therapeutic interventions: therapeutic communication and active listening, medication administration/education/monitoring, encouraged group participation, Q 15 min safety checks. Restraints/seclusion/emergency medication: None Justification of Continued Inpatient Treatment: Pt is on court ordered 1370 for mental health stabilization.
[2019-12-16 08:00] VITALS: BP 120/57
[2019-12-16] MEDS: OMEGA-3/DHA/EPA/FISH OIL 1 EACH CAPSULE.DR PO SCH ×2 (08:01→20:35)
[2019-12-16] MEDS: multivitamins, therapeutics tablet PO SCH (08:01)
[2019-12-16] MEDS: ascorbic acid 500mg tablet PO SCH ×2 (08:01→17:38)
[2019-12-16] MEDS: vitamin D (cholecalciferol) 1,000 unit tablet PO SCH (08:01)
[2019-12-16] MEDS: vitamin E 400 unit capsule PO SCH (08:01)
[2019-12-16] MEDS: lithium carbonate 150mg capsule PO SCH ×2 (08:02→20:36)
[2019-12-16] MEDS: LORazepam 1 MG tablet PO PRN ×2 (10:59→21:52)
--- NOTE | 2019-12-16 14:18 | NUR ---
Nursing Progress Note: VIVIANA Legal hold: 1370 Client on involuntary status due to 1370 Report received from DAISY Aguilera with use of SBAR Why are they here: Pt. admitted directly from the [facility] accompanied by state troopers. Pt. has been in the intermediate since May 10, 2019 after a misdemeanor of one count of "Resist Obstruct Delay Officer" and "possibly trespassing" at one of his friends house. Pt was demonstrating psychotic/paranoid behavior, trying to barricade himself into his friends house and "speaking in unknown languages". Pt. arrested in 2013 for cruelty to animals. During his incarceration, pt.'s behavior described as "constantly provocative", pt. "throwing water on people and dumping water under the doors of other inmates and continually yelling through his cell door and challenging both deputies and inmates to a fight". Pt. also had been refusing medical treatment. Pt. was considered a risk due to his aggression and refusal of treatment for his psychosis. According to Psychologist report, pt. is found incompetent to stand trial and requires antipsychotic medication in order to return him to competency and is a danger to himself and to others if unmedicated. Assessment What has happened this shift: Pt is cooperative with 1:1 and medication compliant. Pt observed walking the halls with headphones. Pt continues to be grandiose and completely denies all of his charges. He remains hyperverbal and intrusive. Pt is narcissitic and often tries to bait this selling underwriter to compliment him. He continues to be inappropriate by calling this nurse "beautiful" and is reminded of unit rules and firm boundaries were set. Pt reports he is "an all natural rahul" and would like to switch his Ambien to Melatonin. Pt reports sleeping "10 hours" last night, denies nightmares. Page Technician advised the pt to speak with his provider about this. Pt took all medications offered and denies any SE's to medications. None were objectively observed by this selling underwriter. 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 Pt reports, "You know what else I like to do when I'm stressed is shop. Can you let me into the clothing closet to look for some clothes?" Page Technician educated pt on the clothing closet and informed him that the clothing is intended for homeless individuals. Current [place] level 0.4 drawn on 12/14/19. S/I, H/I: Pt. denies, none observed A/VH: Pt denies, none observed Sleep: 6.75hrs NOC ADL's: Independent Group attendance: Pt refused, "That doesnt help me" Were meds taken: Questions medications, pt educated and took them quickly. Any med S/E: None reported or observed Mental Status Exam Appearance: Clean and neat, wearing personal clothes. Eye contact: Direct Behavior: delusional, intrusive Speech: Pressured at times, hyperverbal Mood: Mostly euthymic Affect: Congruent with behavior Thought process: Paranoid delusions, delusions of grandeur, tangential. Thought Content: His many perceived grievances Cognition: Impaired Insight: Poor Judgment: Poor Interventions PRN's used: Ativan Therapeutic interventions: therapeutic communication and active listening, medication administration/education/monitoring, encouraged group participation, Q 15 min safety checks. Restraints/seclusion/emergency medication: None Justification of Continued Inpatient Treatment: Pt is on court ordered 1370 for mental health stabilization.
[2019-12-16] MEDS: benztropine 1mg tablet PO PRN (16:32)
[2019-12-16 19:00] VITALS: BP 141/71
[2019-12-16] MEDS: mag hydrox/Alum hydrox/simeth 30ml oral suspension PO PRN (20:56)
[2019-12-16] MEDS: zolpidem 5mg tablet PO PRN (21:52)
--- NOTE | 2019-12-17 00:42 | NUR ---
Nursing Progress Note: Legal hold: 1370 Client on involuntary status due to 1370 Report received from Charlotte VILLA with use of SBAR Why are they here: Pt. admitted directly from the [facility] accompanied by state troopers. Pt. has been in the alf since May 10, 2019 after a misdemeanor of one count of "Resist Obstruct Delay Officer" and "possibly trespassing" at one of his friends house. Pt was demonstrating psychotic/paranoid behavior, trying to barricade himself into his friends house and "speaking in unknown languages". Pt. arrested in 2013 for cruelty to animals. During his incarceration, pt.'s behavior described as "constantly provocative", pt. "throwing water on people and dumping water under the doors of other inmates and continually yelling through his cell door and challenging both deputies and inmates to a fight". Pt. also had been refusing medical treatment. Pt. was considered a risk due to his aggression and refusal of treatment for his psychosis. According to Psychologist report, pt. is found incompetent to stand trial and requires antipsychotic medication in order to return him to competency and is a danger to himself and to others if unmedicated. Assessment What has happened this shift: Pt remains delusional and grandiose. 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 He remains pleasant this shift with peers and staff but perseverates on police brutality and being commercial insulator. Pt requests Ambien and Ativan which was given to him. Current [place] level 0.4 drawn on 12/14/19. S/I, H/I: Pt. denies, none observed. A/VH: Pt denies, none observed. Sleep:See Sleep Assessment for total hours. 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 Were meds taken: Takes medication without hesitation. Any med S/E: None reported or observed. Mental Status Exam Appearance: Clean and neat, wearing personal clothes. Eye contact: Direct Behavior: Labile, delusional, intrusive Speech: Pressured at times, hyperverbal Mood: labile Affect: Congruent with behavior Thought process: Paranoid delusions, delusions of grandeur, tangential. Thought Content: His many perceived grievances Cognition: Impaired Insight: Poor Judgment: Poor Interventions PRN's used: Opal Carr. Therapeutic interventions: therapeutic communication and active listening, medication administration/education/monitoring, encouraged group participation, Q 15 min safety checks. Restraints/seclusion/emergency medication: None Justification of Continued Inpatient Treatment: Pt is on court ordered 1370 for mental health stabilization.
[2019-12-17] MEDS: LORazepam 1 MG tablet PO PRN ×2 (05:48→21:55)
[2019-12-17] MEDS: benztropine 1mg tablet PO PRN ×2 (05:48→23:49)
[2019-12-17 07:57] VITALS: BP 121/74
[2019-12-17] MEDS: vitamin E 400 unit capsule PO SCH (08:35)
[2019-12-17] MEDS: OMEGA-3/DHA/EPA/FISH OIL 1 EACH CAPSULE.DR PO SCH ×2 (08:35→20:21)
[2019-12-17] MEDS: vitamin D (cholecalciferol) 1,000 unit tablet PO SCH (08:36)
[2019-12-17] MEDS: multivitamins, therapeutics tablet PO SCH (08:36)
[2019-12-17] MEDS: lithium carbonate 150mg capsule PO SCH ×2 (08:36→20:20)
[2019-12-17] MEDS: ascorbic acid 500mg tablet PO SCH ×2 (08:39→17:34)
--- NOTE | 2019-12-17 15:13 | NUR ---
Nursing Progress Note: Hayden Legal hold: 1370 Client on involuntary status due to 1370 Report received from Patricia Aguilera RN with use of SBAR Why are they here: Pt. admitted directly from the [facility] accompanied by state troopers. Pt. 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 Pt was demonstrating psychotic/paranoid behavior, trying to barricade himself into his friends house and "speaking in unknown languages". Pt. arrested in 2013 for cruelty to animals. During his incarceration, pt.'s behavior described as "constantly provocative", pt. "throwing water on people and dumping water under the doors of other inmates and continually yelling through his cell door and challenging both deputies and inmates to a fight". Pt. also had been refusing medical treatment. Pt. was considered a risk due to his aggression and refusal of treatment for his psychosis. According to Psychologist report, pt. is found incompetent to stand trial and requires antipsychotic medication in order to return him to competency and is a danger to himself and to others if unmedicated. Assessment What has happened this shift: Patient was awake ambulating in hallway at change of shift. Immediately requested a juice box. Initially appeared to be appropriate with thought process and content however, once he began speaking about why he was admitted, became very agitated and defensive. States that he was set up by the police, that a dog was licking him then became vicious attacking and biting him. Continued this conversation for several minutes before being asked by this director underwriter sales to stop. It was explained to him, that he isnt here to determine guilt or innocence, but to assist in helping him to face his charges. Very intrusive with others, during visiting hours, interrupted others and engaged in conversations which he was not part of. Attempted to redirect without success. Continues to be hyperverbal requiring staff to actually walk away in order to complete other tasks. Remains delusional about factors leading up to arrest stating that all law enforcement, DA, and judges are crooked. S/I, H/I: Patient states no to both, no observed aggressive behaviors A/VH: Denies Sleep:7 hours ADL's: Independent Group attendance: No Were meds taken: took all medications Any med S/E: none observed, patient did not report any Mental Status Exam Appearance: neatly groomed, wearing street clothes Eye contact: Direct Behavior: initially calm, becomes agitated when speaking about pending legal matters. Speech: Normal tone, pressured, at times hyperverbal Mood: irritable Affect: Congruent with behavior Thought process: concrete, circumstantial Thought Content: delusional thoughts related to being arrested Cognition: A & O to person, place, time Insight: Poor Judgment: Poor Interventions PRN's used: Therapeutic interventions: therapeutic communication and active listening, medication administration/education/monitoring, encouraged group participation, Q 15 min safety checks. Restraints/seclusion/emergency medication: None Justification of Continued Inpatient Treatment: Pt is on court ordered 1370 for mental health stabilization.
[2019-12-17] MEDS ORDERED: PEG 400/HYPROMELLOSE/GLYCERIN 15ml bottle EACHEYE PRN (18:20)
[2019-12-17 20:00] VITALS: BP 143/87
--- NOTE | 2019-12-17 21:34 | NUR ---
Nursing Progress Note: Hayden Legal hold: 1370 Client on involuntary status due to 1370 Report received from Patricia Castillo RN with use of SBAR Why are they here: Pt. admitted directly from the [facility] accompanied by state troopers. Pt. has been in the detention since May 10, 2019 after a misdemeanor of one count of "Resist Obstruct Delay Officer" and "possibly trespassing" at one of his friends house. Pt was demonstrating psychotic/paranoid behavior, trying to barricade himself into his friends house and "speaking in unknown languages". Pt. arrested in 2013 for cruelty to animals. During his incarceration, pt.'s behavior described as "constantly provocative", pt. "throwing water on people and dumping water under the doors of other inmates and continually yelling through his cell door and challenging both deputies and inmates to a fight". Pt. also had been refusing medical treatment. Pt. was considered a risk due to his aggression and refusal of treatment for his psychosis. According to Psychologist report, pt. is found incompetent to stand trial and requires antipsychotic medication in order to return him to competency and is a danger to himself and to others if unmedicated. Assessment What has happened this shift: Patient was awake ambulating in hallway at change of shift. Initially appeared to be appropriate with thought process and content however, once he began speaking about how he is a law officer. He talked about how active he is in the community. Very intrusive with others, interrupted others and engaged in conversations which he was not part of. Continues to be hyperverbal requiring staff to actually walk away in order to complete other tasks. Remains delusional about factors leading up to arrest stating that all law enforcement, DA, and judges are crooked. S/I, H/I: Patient states no to both, no observed aggressive behaviors A/VH: Denies Sleep:7 hours ADL's: Independent Group attendance: No Were meds taken: took all medications Any med S/E: none observed, patient did not report any Mental Status Exam Appearance: neatly groomed, wearing street clothes Eye contact: Direct Behavior: initially calm, becomes agitated when speaking about pending legal matters. Speech: Normal tone, pressured, at times hyperverbal Mood: irritable Affect: Congruent with behavior Thought process: concrete, circumstantial Thought Content: delusional thoughts related to being arrested Cognition: A & O to person, place, time Insight: Poor Judgment: Poor Interventions PRN's used: Therapeutic interventions: therapeutic communication and active listening, medication administration/education/monitoring, encouraged group participation, Q 15 min safety checks. Restraints/seclusion/emergency medication: None Justification of Continued Inpatient Treatment: Pt is on court ordered 1370 for mental health stabilization.
[2019-12-17] MEDS: zolpidem 5mg tablet PO PRN (21:55)
[2019-12-18 07:15] VITALS: BP 118/67
[2019-12-18] MEDS: OMEGA-3/DHA/EPA/FISH OIL 1 EACH CAPSULE.DR PO SCH ×2 (08:00→20:32)
[2019-12-18] MEDS: vitamin E 400 unit capsule PO SCH (09:00)
[2019-12-18] MEDS: multivitamins, therapeutics tablet PO SCH (09:01)
[2019-12-18] MEDS: lithium carbonate 150mg capsule PO SCH ×2 (09:01→20:31)
[2019-12-18] MEDS: vitamin D (cholecalciferol) 1,000 unit tablet PO SCH (09:01)
[2019-12-18] MEDS: ascorbic acid 500mg tablet PO SCH ×2 (09:01→17:41)
[2019-12-18] MEDS: benztropine 1mg tablet PO PRN (13:41)
--- NOTE | 2019-12-18 15:14 | NUR ---
Nursing Progress Note Legal hold: 1370 Client on involuntary status due to 1370 Report received from with use of SBAR Why are they here: Pt. admitted directly from the [facility] accompanied by state troopers. Pt. has been in the long term since May 10, 2019 after a misdemeanor of one count of "Resist Obstruct Delay Officer" and "possibly trespassing" at one of his friends house. Pt was demonstrating psychotic/paranoid behavior, trying to barricade himself into his friends house and "speaking in unknown languages". Pt. arrested in 2013 for cruelty to animals. During his incarceration, pt.'s behavior described as "constantly provocative", pt. "throwing water on people and dumping water under the doors of other inmates and continually yelling through his cell door and challenging both deputies and inmates to a fight". Pt. also had been refusing medical treatment. Pt. was considered a risk due to his aggression and refusal of treatment for his psychosis. According to Psychologist report, pt. is found incompetent to stand trial and requires antipsychotic medication in order to return him to competency and is a danger to himself and to others if unmedicated. Assessment What has happened this shift: Pt up at start of shift. He spent most of the shift isolating and walking the halls listening to a headset, "music." Pt is calm and cooperative. He takes his medications as prescribed without compliant. Spent time alone drawing in his room. S/I, H/I: Denies A/VH: Denies Sleep: Up all shift ADL's: Independent Group attendance: No Were Meds taken: Yes Any med S/E: no s/s and none reported Mental Status Exam Appearance: Clean shorts and shirt Eye contact: Direct Behavior: Calm; able to take redirection Speech: Normal rate and rhythm; decreased verbal pressure Mood: Calm Affect: Congruent with behavior Thought process: concrete, circumstantial Thought Content: focused on a pain he had three months ago in the long term Cognition: A & O to person, place, time Insight: Poor Judgment: Poor Interventions PRN's used: Therapeutic interventions: therapeutic communication and active listening, medication administration/education/monitoring, encouraged group participation, Q 15 min safety checks. Restraints/seclusion/emergency medication: None Justification of Continued Inpatient Treatment: Pt is on court ordered 1370 for mental health stabilization.
[2019-12-18 20:00] VITALS: BP 133/75
--- NOTE | 2019-12-18 20:52 | NUR ---
Nursing Progress Note Legal hold: 1370 Client on involuntary status due to 1370 Report received from DAISY Castillo with use of SBAR Why are they here: Pt. admitted directly from the [facility] accompanied by state troopers. Pt. has been in the halfway since May 10, 2019 after a misdemeanor of one count of "Resist Obstruct Delay Officer" and "possibly trespassing" at one of his friends house. Pt was demonstrating psychotic/paranoid behavior, trying to barricade himself into his friends house and "speaking in unknown languages". Pt. arrested in 2013 for cruelty to animals. During his incarceration, pt.'s behavior described as "constantly provocative", pt. "throwing water on people and dumping water under the doors of other inmates and continually yelling through his cell door and challenging both deputies and inmates to a fight". Pt. also had been refusing medical treatment. Pt. was considered a risk due to his aggression and refusal of treatment for his psychosis. According to Psychologist report, pt. is found incompetent to stand trial and requires antipsychotic medication in order to return him to competency and is a danger to himself and to others if unmedicated. Assessment What has happened this shift: Pt up at start of shift. He spent most of the shift isolating and walking the halls listening to a headset, "music." Pt is calm and cooperative. He takes his medications as prescribed without compliant. Pt ate snack in group room S/I, H/I: Denies A/VH: Denies Sleep: Up all shift ADL's: Independent Group attendance: No Were Meds taken: Yes Any med S/E: no s/s and none reported Mental Status Exam Appearance: Clean shorts and shirt Eye contact: Direct Behavior: Calm; able to take redirection Speech: Normal rate and rhythm; decreased verbal pressure Mood: Calm Affect: Congruent with behavior Thought process: concrete, circumstantial Thought Content: focused on a pain he had three months ago in the halfway Cognition: A & O to person, place, time Insight: Poor Judgment: Poor Interventions PRN's used: Therapeutic interventions: therapeutic communication and active listening, medication administration/education/monitoring, encouraged group participation, Q 15 min safety checks. Restraints/seclusion/emergency medication: None Justification of Continued Inpatient Treatment: Pt is on court ordered 1370 for mental health stabilization.
[2019-12-18] MEDS: LORazepam 1 MG tablet PO PRN (21:29)
[2019-12-18] MEDS: zolpidem 5mg tablet PO PRN (21:29)
[2019-12-18] MEDS: diphenhydrAMINE 25mg capsule PO PRN (22:32)
[2019-12-19] MEDS: lithium carbonate 150mg capsule PO SCH ×2 (08:31→21:11)
[2019-12-19] MEDS: vitamin E 400 unit capsule PO SCH (08:32)
[2019-12-19] MEDS: ascorbic acid 500mg tablet PO SCH ×2 (08:32→18:04)
[2019-12-19] MEDS: multivitamins, therapeutics tablet PO SCH (08:32)
[2019-12-19] MEDS: OMEGA-3/DHA/EPA/FISH OIL 1 EACH CAPSULE.DR PO SCH ×2 (08:32→21:11)
[2019-12-19] MEDS: vitamin D (cholecalciferol) 1,000 unit tablet PO SCH (08:32)
[2019-12-19] MEDS: benztropine 1mg tablet PO PRN (11:22)
--- NOTE | 2019-12-19 13:39 | NUR ---
Nursing Progress Note Legal hold: 1370 Client on involuntary status due to 1370 Report received from with use of SBAR Why are they here: Pt. admitted directly from the [facility] accompanied by state troopers. Pt. has been in the senior living since May 10, 2019 after a misdemeanor of one count of "Resist Obstruct Delay Officer" and "possibly trespassing" at one of his friends house. Pt was demonstrating psychotic/paranoid behavior, trying to barricade himself into his friends house and "speaking in unknown languages". Pt. arrested in 2013 for cruelty to animals. During his incarceration, pt.'s behavior described as "constantly provocative", pt. "throwing water on people and dumping water under the doors of other inmates and continually yelling through his cell door and challenging both deputies and inmates to a fight". Pt. also had been refusing medical treatment. Pt. was considered a risk due to his aggression and refusal of treatment for his psychosis. According to Psychologist report, pt. is found incompetent to stand trial and requires antipsychotic medication in order to return him to competency and is a danger to himself and to others if unmedicated. Assessment What has happened this shift: Pt sleeping at start of shift. After breakfast he stayed up for the rest of the day. Pt paces halls wearing a headset occasionally sits and talks with staff rarely a patient. Again he tells Dr. Harrell he does not want to take his [place] then agrees to take it "for now." S/I, H/I: Denies A/VH: Denies Sleep: Up all shift ADL's: Independent Group attendance: No Were Meds taken: Yes Any med S/E: no s/s and none reported Mental Status Exam Appearance: Clean jeans and shirt Eye contact: Direct Behavior: Calm; able to take redirection Speech: Normal rate and rhythm; decreased verbal pressure Mood: Calm Affect: Congruent with behavior Thought process: concrete, circumstantial Thought Content: focused on a pain he had three months ago in the senior living Cognition: A & O to person, place, time Insight: Poor Judgment: Poor Interventions PRN's used: Therapeutic interventions: therapeutic communication and active listening, medication administration/education/monitoring, encouraged group participation, Q 15 min safety checks. Restraints/seclusion/emergency medication: None Justification of Continued Inpatient Treatment: Pt is on court ordered 1370 for mental health stabilization.
[2019-12-19 20:33] VITALS: BP 138/69
[2019-12-19] MEDS: diphenhydrAMINE 25mg capsule PO PRN (21:30)
[2019-12-19] MEDS: zolpidem 5mg tablet PO PRN (21:30)
--- NOTE | 2019-12-19 21:41 | NUR ---
Nursing Progress Note Legal hold: 1370 Client on involuntary status due to 1370 Report received from Anna with use of SBAR Why are they here: Pt. admitted directly from the [facility] accompanied by state troopers. Pt. has been in the long term since May 10, 2019 after a misdemeanor of one count of "Resist Obstruct Delay Officer" and "possibly trespassing" at one of his friends house. Pt was demonstrating psychotic/paranoid behavior, trying to barricade himself into his friends house and "speaking in unknown languages". Pt. arrested in 2013 for cruelty to animals. During his incarceration, pt.'s behavior described as "constantly provocative", pt. "throwing water on people and dumping water under the doors of other inmates and continually yelling through his cell door and challenging both deputies and inmates to a fight". Pt. also had been refusing medical treatment. Pt. was considered a risk due to his aggression and refusal of treatment for his psychosis. According to Psychologist report, pt. is found incompetent to stand trial and requires antipsychotic medication in order to return him to competency and is a danger to himself and to others if unmedicated. Assessment What has happened this shift: Pt up pacing at start of shift. Pt paces halls wearing a headset occasionally sits and talks with staff rarely a patient. Again he tells Dr. Harrell he does not want to take his [place] then agrees to take it "for now." Pt sleeping well and is compliant. S/I, H/I: Denies A/VH: Denies Sleep: Up all shift ADL's: Independent Group attendance: No Were Meds taken: Yes Any med S/E: no s/s and none reported Mental Status Exam Appearance: Clean jeans and shirt Eye contact: Direct Behavior: Calm; able to take redirection Speech: Normal rate and rhythm; decreased verbal pressure Mood: Calm Affect: Congruent with behavior Thought process: concrete, circumstantial Thought Content: focused on a pain he had three months ago in the long term Cognition: A & O to person, place, time Insight: Poor Judgment: Poor Interventions PRN's used: Katia Joseph Therapeutic interventions: therapeutic communication and active listening, medication administration/education/monitoring, encouraged group participation, Q 15 min safety checks. Restraints/seclusion/emergency medication: None Justification of Continued Inpatient Treatment: Pt is on court ordered 1370 for mental health stabilization.
[2019-12-20 08:00] VITALS: BP 134/79
[2019-12-20] MEDS: OMEGA-3/DHA/EPA/FISH OIL 1 EACH CAPSULE.DR PO SCH ×2 (08:22→20:20)
[2019-12-20] MEDS: vitamin E 400 unit capsule PO SCH (08:22)
[2019-12-20] MEDS: lithium carbonate 150mg capsule PO SCH (08:23)
[2019-12-20] MEDS: vitamin D (cholecalciferol) 1,000 unit tablet PO SCH (08:23)
[2019-12-20] MEDS: multivitamins, therapeutics tablet PO SCH (08:23)
[2019-12-20] MEDS: ascorbic acid 500mg tablet PO SCH ×2 (08:23→17:14)
[2019-12-20] MEDS: benztropine 1mg tablet PO PRN (14:05)
[2019-12-20] MEDS: LORazepam 1 MG tablet PO PRN (14:05)
--- NOTE | 2019-12-20 15:17 | NUR ---
Nursing Progress Note: Hayden Legal hold: 1370 Client on involuntary status due to 1370 Report received from Yamilka GALEANO with use of SBAR Why are they here: Pt. admitted directly from the [facility] accompanied by state troopers. Pt. has been in the prison since May 10, 2019 after a misdemeanor of one count of "Resist Obstruct Delay Officer" and "possibly trespassing" at one of his friends house. Pt was demonstrating psychotic/paranoid behavior, trying to barricade himself into his friends house and "speaking in unknown languages". Pt. arrested in 2013 for cruelty to animals. During his incarceration, pt.'s behavior described as "constantly provocative", pt. "throwing water on people and dumping water under the doors of other inmates and continually yelling through his cell door and challenging both deputies and inmates to a fight". Pt. also had been refusing medical treatment. Pt. was considered a risk due to his aggression and refusal of treatment for his psychosis. According to Psychologist report, pt. is found incompetent to stand trial and requires antipsychotic medication in order to return him to competency and is a danger to himself and to others if unmedicated. Assessment What has happened this shift: Patient awake, ambulating in hallway at time of shift change. Continues to have no loss of words and redirects any communication towards the injustices done to him in relation to his arrest and pending charges. Will direct more easily and allow one to end the conversation without showing irritation. Continues to deny any history of mental illnes, is medication compliant. Allowed RN to perform both physical and MH assessment. Requested shower, shaved and stated he felt more like himself. Continues to have mattress on the floor refusing to sleep on bed. Is out of room frequently pacing the hallway. Speaks of gradiouse delusions I am going to run for [employer] because [facility], when I found out they only appointed the [facility] Sherriff, I decided to run for [employer] here too. When evaluated by Dr. Mccarthy began stating that he had been poisoned in the prison, and other vague symptoms, I have lumps here pointing to bilateral groins. S/I, H/I: no I have never had depression A/VH: No, I dont Sleep: 6.75 ADL's: Independent Group attendance: No I talk to much Were Meds taken: Yes Any med S/E: none observed or reported Mental Status Exam Appearance: Clean shorts, and shirt, freshly shaven Eye contact: Direct Behavior: cooperative Speech: Clear, normal rate, rhythm difficult to interrupt Mood: cynical Affect: congruent with mood Thought process: concrete, circumstantial Thought Content: unfairness of treatment of arrest and time in prison they are all crocked, I am going to ruben them when I am out Cognition: A & O to person, place, time Insight: Poor Judgment: Poor Interventions PRN's used: Therapeutic interventions: therapeutic communication and active listening, medication administration/education/monitoring, encouraged group participation, Q 15 min safety checks. Restraints/seclusion/emergency medication: None Justification of Continued Inpatient Treatment: Pt is on court ordered 1370 for mental health stabilization.
[2019-12-20 20:00] VITALS: BP 129/68
[2019-12-20] MEDS: zolpidem 5mg tablet PO PRN (20:55)
[2019-12-20] MEDS: diphenhydrAMINE 25mg capsule PO PRN (20:56)
--- NOTE | 2019-12-20 21:09 | NUR ---
Nursing Progress Note: Hayden Legal hold: 1370 Client on involuntary status due to 1370 Report received from Anna GALEANO with use of SBAR Why are they here: Pt. admitted directly from the [facility] accompanied by state troopers. Pt. has been in the [facility] since May 10, 2019 after a misdemeanor of one count of "Resist Obstruct Delay Officer" and "possibly trespassing" at one of his friends house. Pt was demonstrating psychotic/paranoid behavior, trying to barricade himself into his friends house and "speaking in unknown languages". Pt. arrested in 2013 for cruelty to animals. During his incarceration, pt.'s behavior described as "constantly provocative", pt. "throwing water on people and dumping water under the doors of other inmates and continually yelling through his cell door and challenging both deputies and inmates to a fight". Pt. also had been refusing medical treatment. Pt. was considered a risk due to his aggression and refusal of treatment for his psychosis. According to Psychologist report, pt. is found incompetent to stand trial and requires antipsychotic medication in order to return him to competency and is a danger to himself and to others if unmedicated. Assessment What has happened this shift: Patient was asleep at shift change. He was awakened for meds. Pt states he is tired today "I got a lot of work done today and a lot of letters written. Pt was Med compliant and requested Prn Ambien and Benadryl for sleep. S/I, H/I: no I have never had depression A/VH: No, I dont Sleep: 6.75 ADL's: Independent Group attendance: No I talk to much Were Meds taken: Yes Any med S/E: none observed or reported Mental Status Exam Appearance: Clean shorts, and shirt, freshly shaven Eye contact: Direct Behavior: cooperative Speech: Clear, normal rate, rhythm difficult to interrupt Mood: cynical Affect: congruent with mood Thought process: concrete, circumstantial Thought Content: unfairness of treatment of arrest and time in [facility] they are all crocked, I am going to ruben them when I am out Cognition: A & O to person, place, time Insight: Poor Judgment: Poor Interventions PRN's used: Therapeutic interventions: therapeutic communication and active listening, medication administration/education/monitoring, encouraged group participation, Q 15 min safety checks. Restraints/seclusion/emergency medication: None Justification of Continued Inpatient Treatment: Pt is on court ordered 1370 for mental health stabilization
[2019-12-21] MEDS: multivitamins, therapeutics tablet PO SCH (07:55)
[2019-12-21] MEDS: vitamin D (cholecalciferol) 1,000 unit tablet PO SCH (07:55)
[2019-12-21] MEDS: vitamin E 400 unit capsule PO SCH (07:55)
[2019-12-21] MEDS: ascorbic acid 500mg tablet PO SCH ×2 (07:55→18:17)
[2019-12-21] MEDS: OMEGA-3/DHA/EPA/FISH OIL 1 EACH CAPSULE.DR PO SCH ×2 (07:55→20:19)
[2019-12-21 08:00] VITALS: BP 112/64
[2019-12-21] MEDS: LORazepam 1 MG tablet PO PRN (13:10)
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
[2019-12-21 20:00] VITALS: BP 131/69
[2019-12-21] MEDS: Melatonin 3mg tablet PO PRN ×2 (20:19→21:36)
[2019-12-21] MEDS: zolpidem 5mg tablet PO PRN (21:36)
--- NOTE | 2019-12-22 02:20 | NUR ---
Nursing Progress Note: Legal hold: 1370 Client on involuntary status due to 1370 Report received from Sony GALEANO with use of SBAR Why are they here: Pt. admitted directly from the [facility] accompanied by state troopers. Pt. has been in the senior living since May 10, 2019 after a misdemeanor of one count of "Resist Obstruct Delay Officer" and "possibly trespassing" at one of his friends house. Pt was demonstrating psychotic/paranoid behavior, trying to barricade himself into his friends house and "speaking in unknown languages". Pt. arrested in 2013 for cruelty to animals. During his incarceration, pt.'s behavior described as "constantly provocative", pt. "throwing water on people and dumping water under the doors of other inmates and continually yelling through his cell door and challenging both deputies and inmates to a fight". Pt. also had been refusing medical treatment. Pt. was considered a risk due to his aggression and refusal of treatment for his psychosis. According to Psychologist report, pt. is found incompetent to stand trial and requires antipsychotic medication in order to return him to competency and is a danger to himself and to others if unmedicated. Assessment What has happened this shift:Pt walking the halls sans headphones majority of shift. Pt conversational, and while talkative not as hyperverbal as previous encounters. Denies all signs and symptoms. 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 It's hard to talk about, ya know? 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 Pt remains grandiose, "Oh, I won a lot fo awards. But it was tough." Pt also discussed puzzle books, and shared his favorites. "They keep me occupied. Crosswords are difficult, though!" Pt friendly and all interactions with staff and peers was appropriate. Compliant with HS medications and requested PRNs to help him sleep. S/I, H/I: Denies Both, and states I have never had depression A/VH: Denies Both Sleep: See Sleep Assessment, Places mattress on the floor ADL's: Independent Group attendance: N/A Were Meds taken: Yes Any med S/E: none observed nor reported Mental Status Exam Appearance: Clean and neat in street clothes, and nonskid socks Eye contact: Direct Behavior: Cooperative, Conversational, Walking halls, attending HS snack Speech: Clear, talkative Mood: "I had an alright day" Pt presents as friendly and pleasant Affect: Bright Thought process: Linear, endorses a few delusions Thought Content: puzzle games, improving sleep hygiene Cognition: A&Ox3, off for circumstance Insight: Poor Judgment: Poor to fair Interventions PRN's used: Melatonin 6mg, Ambien 5mg Therapeutic interventions: therapeutic communication and active listening, medication administration/education/monitoring, encouraged group participation, Q 15 min safety checks. Restraints/seclusion/emergency medication: None Justification of Continued Inpatient Treatment: Pt is on court ordered 1370 for mental health stabilization.
[2019-12-22] MEDS: LORazepam 1 MG tablet PO PRN (04:15)
[2019-12-22] MEDS: ascorbic acid 500mg tablet PO SCH ×2 (08:26→17:45)
[2019-12-22] MEDS: vitamin E 400 unit capsule PO SCH (08:26)
[2019-12-22] MEDS: multivitamins, therapeutics tablet PO SCH (08:26)
[2019-12-22] MEDS: vitamin D (cholecalciferol) 1,000 unit tablet PO SCH (08:26)
[2019-12-22] MEDS: OMEGA-3/DHA/EPA/FISH OIL 1 EACH CAPSULE.DR PO SCH ×2 (08:26→20:54)
[2019-12-22] MEDS: lithium carbonate 150mg capsule PO SCH ×2 (08:28→20:55)
[2019-12-22 08:32] VITALS: BP 105/65
[2019-12-22] MEDS: diphenhydrAMINE 25mg capsule PO PRN ×2 (08:48→14:57)
--- NOTE | 2019-12-22 13:39 | NUR ---
Reassessment: Pt PO 100% avg meals meeting needs. LBM 12/21. No nutrition concerns at this time. Will continue to monitor. Recommend: 1. continue regular diet 2. bowel care as needed 3. wt per rx Addendum: 12/22/19 at [address] Amended: Links added.
--- NOTE | 2019-12-22 15:21 | NUR ---
Nursing Progress Note: Legal hold: 1370 Client on involuntary status due to 1370 Report received from nurse with use of SBAR Why are they here: Pt. admitted directly from the [facility] accompanied by state troopers. Pt. 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 Pt was demonstrating psychotic/paranoid behavior, trying to barricade himself into his friends house and "speaking in unknown languages". Pt. arrested in 2013 for cruelty to animals. During his incarceration, pt.'s behavior described as "constantly provocative", pt. "throwing water on people and dumping water under the doors of other inmates and continually yelling through his cell door and challenging both deputies and inmates to a fight". Pt. also had been refusing medical treatment. Pt. was considered a risk due to his aggression and refusal of treatment for his psychosis. According to Psychologist report, pt. is found incompetent to stand trial and requires antipsychotic medication in order to return him to competency and is a danger to himself and to others if unmedicated. Assessment What has happened this shift: Pt up for meals and groups. Hayden shared that he is feeling stressed after being brought some papers regarding court in the future. He states he is unsure if he wants to fill them out; then says, "but I will." PRN Benadryl given as requested for "stress causing anxiety." S/I, H/I: Denies A/VH: Denies Sleep: None ADL's: Independent Group attendance: No Were Meds taken: Yes Any med S/E: None Mental Status Exam Appearance: cut off shorts and a t-shirt Eye contact: Direct Behavior: Labile Speech: Can be pressured Mood: Pleasant Affect: Congruent with behavior Thought process: Concerned about papers he needs to fill out Thought Content: States he has been treated unfairly by the courts Cognition: Impaired Insight: Poor Judgment: Poor Interventions PRN's used: Benadryl x1 Therapeutic interventions: therapeutic communication and active listening, medication administration/education/monitoring, encouraged group participation, Q 15 min safety checks. Restraints/seclusion/emergency medication: N/A Justification of Continued Inpatient Treatment: Pt is on court ordered 1370 for mental health stabilization/ Reeturn to competency.
[2019-12-22 20:06] VITALS: BP 149/82
[2019-12-22] MEDS: hydrOXYzine 25 MG tablet PO PRN (20:55)
[2019-12-22] MEDS: Melatonin 3mg tablet PO PRN (20:55)
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
[2019-12-23 08:00] VITALS: BP 128/82
[2019-12-23] MEDS: multivitamins, therapeutics tablet PO SCH (08:23)
[2019-12-23] MEDS: lithium carbonate 150mg capsule PO SCH ×2 (08:23→20:11)
[2019-12-23] MEDS: OMEGA-3/DHA/EPA/FISH OIL 1 EACH CAPSULE.DR PO SCH ×2 (08:23→20:11)
[2019-12-23] MEDS: vitamin E 400 unit capsule PO SCH (08:23)
[2019-12-23] MEDS: vitamin D (cholecalciferol) 1,000 unit tablet PO SCH (08:23)
[2019-12-23] MEDS: ascorbic acid 500mg tablet PO SCH ×2 (08:23→17:35)
[2019-12-23] MEDS: LORazepam 1 MG tablet PO PRN (08:57)
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
[2019-12-23 19:50] VITALS: BP 119/73
[2019-12-23] MEDS: Melatonin 3mg tablet PO PRN (20:30)
[2019-12-23] MEDS: hydrOXYzine 25 MG tablet PO PRN (20:31)
--- NOTE | 2019-12-23 23:45 | NUR ---
Nursing Progress Note: Legal hold: 1370 Client on involuntary status due to 1370 Report received from DAISY Honeycutt with use of SBAR Why are they here: Pt. admitted directly from the [facility] accompanied by state troopers. Pt. has been in the nursing home since May 10, 2019 after a misdemeanor of one count of "Resist Obstruct Delay Officer" and "possibly trespassing" at one of his friends house. Pt was demonstrating psychotic/paranoid behavior, trying to barricade himself into his friends house and "speaking in unknown languages". Pt. arrested in 2013 for cruelty to animals. During his incarceration, pt.'s behavior described as "constantly provocative", pt. "throwing water on people and dumping water under the doors of other inmates and continually yelling through his cell door and challenging both deputies and inmates to a fight". Pt. also had been refusing medical treatment. Pt. was considered a risk due to his aggression and refusal of treatment for his psychosis. According to Psychologist report, pt. is found incompetent to stand trial and requires antipsychotic medication in order to return him to competency and is a danger to himself and to others if unmedicated. Assessment What has happened this shift: Patient was sleeping at shift change. Pt was easy to arouse, "I am just tired." Pt is remains in bed, but is up after HS medications were administered. Pt. request Atarax, Melatonin and a bag of chips then goes back to bed. 1:1 was completed at bedside. Pt. remains asleep, will continue to monitor. SI/HI: Denies both AH/VH: Denies both Sleep: Currently sleeping. Administered Melatonin 3mg and Atarax 50mg. See Sleep Assessment for total hours. Places mattress on the floor. 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 Were Meds taken: Takes medication without incident. Any med S/E: None reported or observed. Mental Status Exam Appearance: Clean and neat in street clothes, and nonskid socks Eye contact: Direct Behavior: Cooperative, sleepy. Speech: Clear, normal rate and rhythm. Mood: Sleepy Affect: Sleepy Thought process: Linear, Endorses fixed delusions Thought Content: Sleeping Cognition: A&Ox3 Insight: Poor Judgment: Poor to fair Interventions PRN's used: Melatonin 3mg, Atarax 50mg Therapeutic interventions: therapeutic communication and active listening, medication administration/education/monitoring, limit setting, Q 15 min safety checks. Restraints/seclusion/emergency medication: None Justification of Continued Inpatient Treatment: Pt is on court ordered 1370 for mental health stabilization.
[2019-12-24 07:30] VITALS: BP 126/82
[2019-12-24] MEDS: vitamin E 400 unit capsule PO SCH (08:01)
[2019-12-24] MEDS: OMEGA-3/DHA/EPA/FISH OIL 1 EACH CAPSULE.DR PO SCH ×2 (08:01→20:49)
[2019-12-24] MEDS: vitamin D (cholecalciferol) 1,000 unit tablet PO SCH (08:01)
[2019-12-24] MEDS: multivitamins, therapeutics tablet PO SCH (08:01)
[2019-12-24] MEDS: lithium carbonate 150mg capsule PO SCH ×2 (08:01→20:50)
[2019-12-24] MEDS: ascorbic acid 500mg tablet PO SCH ×2 (08:02→17:32)
[2019-12-24] MEDS: LORazepam 1 MG tablet PO PRN (09:10)
--- NOTE | 2019-12-24 16:08 | NUR ---
Nursing Progress Note: Legal hold: 1370 Client on involuntary status due to 1370 Report received from DAISY Gonzalez with use of SBAR Why are they here: Pt. admitted directly from the [facility] accompanied by state troopers. Pt. has been in the snf since May 10, 2019 after a misdemeanor of one count of "Resist Obstruct Delay Officer" and "possibly trespassing" at one of his friends house. Pt was demonstrating psychotic/paranoid behavior, trying to barricade himself into his friends house and "speaking in unknown languages". Pt. arrested in 2013 for cruelty to animals. During his incarceration, pt.'s behavior described as "constantly provocative", pt. "throwing water on people and dumping water under the doors of other inmates and continually yelling through his cell door and challenging both deputies and inmates to a fight". Pt. also had been refusing medical treatment. Pt. was considered a risk due to his aggression and refusal of treatment for his psychosis. According to Psychologist report, pt. is found incompetent to stand trial and requires antipsychotic medication in order to return him to competency and is a danger to himself and to others if unmedicated. Assessment What has happened this shift: Pt was up for breakfast. Pt requested prn Ativan 1 mg @ 0910, "I'm having some anxiety issues." Pt maintains that he is innocent, that he has never been jailed for an accurate charge. He perseverates on being wrongly charged. He stated that it was a "kangaroo case" and explains how this means that the trial's outcome was pre-decided. Pt stated that he decided to run for [facility] but it was a bad idea because he knew the rn cardiovascular icu of the [facility] at the time, stated that he attended youth camp through [employer] with him years ago. Pt is adamant that the police report is wrong, that he did not have an ax. Pt stated that he had a vision that his neighbor had kidnapped his daughter and had her in his house. Pt states that in the vision the neighbor had a split nose. Pt states he went to his neighbor's house with a walking stick in his hand as protection against the neighborhood dogs that were running loose. Pt describes seeing his neighbor with a split and blood on his nose. Pt admits to pushing the door in. Pt went on to defend and to justify his actions. Pt states, "you don't know what was going on in my mind...in my mind, he had my daughter." Reflection and reality testing/orientation utilized. Discussed how his thinking and behavior was not rational. Reminded him that he was in the situation as a consequence of his own behaviors. Pointed out that what he was describing were mental health symptoms; that he had paranoid ideas and thinking his neighbor kidnapped his daughter was a delusion. Pt went back to how this RN doesn't understand, that what he was trying to say was that he was unjustly charged. Acknowledged that perhaps some of the police reports may not have been entirely accurate,however the reason he ended up in snf was because he was mentally ill and needed help. Pointed out that what this RN wasn't hearing was acknowledgement that he did what he did because he was sick or any type of accountability for the outcome. Pt defensively stated that "I know I wasn't in my right mind." Also reluctantly admits that he may have needed help. Asked pt what he can do in the future to avoid ending up in snf again. Pt did not wish to continue the conversation. Pt was quiet and more isolative to self today, mostly avoided this RN except to ask for a snack right after lunch then to ask for a yogurt after eating popcorn for afternoon snack. SI/HI: Pt denies. AH/VH: Pt denies. Sleep: Pt slept 9.5 hours per noc shift report, napped for awhile this afternoon. ADL's: Independent Group attendance: No Were Meds taken: Yes Any med S/E: None noted or reported Mental Status Exam Appearance: Clean and neat in street clothes, and nonskid socks Eye contact: Good Behavior: Cooperative, snack-seeking, more isolative to self today Speech: Clear, audible Mood: Anxious Affect: Anxious Thought process: Reality distortion, perseverative delusions of persecution, ruminates, circumstantial at times. Thought Content: Apprehensive about court, maintains his innocence, perseverates on false charges and being railroaded, fixates on food. Cognition: A/O X 3, some disorientation to situation. Insight: Poor Judgment: Poor to fair Interventions PRN's used: Ativan 1 mg Therapeutic interventions: 1:1 assessment, active listening, therapeutic communication, reflection, reality testing, reality orientation, medication administration/education/monitoring, encouragement to attend groups, behavior monitoring, limit setting, Q 15 min safety checks. Restraints/seclusion/emergency medication: None Justification of Continued Inpatient Treatment: Pt is on court ordered 1370 for establishment of competency.
[2019-12-24 19:46] VITALS: BP 122/62
[2019-12-24] MEDS: Melatonin 3mg tablet PO PRN (20:49)
[2019-12-24] MEDS: hydrOXYzine 25 MG tablet PO PRN (20:49)
--- NOTE | 2019-12-24 22:58 | NUR ---
Nursing Progress Note: Legal hold: 1370 Client on involuntary status due to 1370 Report received from WALESKA Honeycutt with use of SBAR Why are they here: Pt. admitted directly from the [facility] accompanied by state troopers. Pt. has been in the correction since May 10, 2019 after a misdemeanor of one count of "Resist Obstruct Delay Officer" and "possibly trespassing" at one of his friends house. Pt was demonstrating psychotic/paranoid behavior, trying to barricade himself into his friends house and "speaking in unknown languages". Pt. arrested in 2013 for cruelty to animals. During his incarceration, pt.'s behavior described as "constantly provocative", pt. "throwing water on people and dumping water under the doors of other inmates and continually yelling through his cell door and challenging both deputies and inmates to a fight". Pt. also had been refusing medical treatment. Pt. was considered a risk due to his aggression and refusal of treatment for his psychosis. According to Psychologist report, pt. is found incompetent to stand trial and requires antipsychotic medication in order to return him to competency and is a danger to himself and to others if unmedicated. Assessment What has happened this shift: Pt is in his room during shift change and appeared to be sleeping. Pt got up for snack after napping for a while. This RN introduced self to pt and he was pleasant. Later he came up to this report writer and requested his HS meds. He states that he did not have such a great day. Jus been dealing with anxiety and other things. Pt appeared to be a bit guarded as he did not want to talk much. Asked pt about getting a lithium level lab drawn and he states I just wasn't in the mood to do it today." Says he might be agreeable to do this tomorrow. Explained pt why it is important to have this done. Pt was cooperative during 1:1 physical assessment and took all his HS meds without any issues. He requests Atarax and melatonin. He denies any S/I, H/I, AV/H, and states, no Im solid today. I've been having some rough times but I feel good today. Pt got up and paced the isles before going to sleep. SI/HI: Denies both AH/VH: Denies both Sleep: Currently sleeping, see sleep assessment for total hours. Places mattress on the floor. 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 Were Meds taken: Yes. Any med S/E: None reported or observed. Mental Status Exam Appearance: Clean and neat in street clothes, and nonskid socks Eye contact: Direct Behavior: Cooperative, calm, somewhat guarded Speech: Clear, normal rate and rhythm. Mood: Euthymic Affect: Congruent with mood Thought process: Linear Thought Content: Being able to sleep Cognition: A&Ox3 Insight: Poor Judgment: Poor to fair Interventions PRN's used: Melatonin 3mg, Atarax 50mg Therapeutic interventions: therapeutic communication and active listening, medication administration/education/monitoring, limit setting, Q 15 min safety checks. Restraints/seclusion/emergency medication: None Justification of Continued Inpatient Treatment: Pt is on court ordered 1370 for mental health stabilization.
[2019-12-25 08:00] VITALS: BP 106/69
[2019-12-25] MEDS ORDERED: lithium carbonate 150mg capsule PO SCH (08:00)
[2019-12-25] MEDS: vitamin D (cholecalciferol) 1,000 unit tablet PO SCH (08:21)
[2019-12-25] MEDS: multivitamins, therapeutics tablet PO SCH (08:21)
[2019-12-25] MEDS: OMEGA-3/DHA/EPA/FISH OIL 1 EACH CAPSULE.DR PO SCH ×2 (08:21→20:47)
[2019-12-25] MEDS: LORazepam 1 MG tablet PO PRN ×2 (08:21→18:02)
[2019-12-25] MEDS: ascorbic acid 500mg tablet PO SCH ×2 (08:22→17:46)
[2019-12-25] MEDS: vitamin E 400 unit capsule PO SCH (08:22)
--- NOTE | 2019-12-25 17:57 | NUR ---
Nursing Progress Note: Legal hold: 1370 Client on involuntary status due to 1370 Report received from DAISY Flores with use of SBAR Why are they here: Pt. admitted directly from the [facility] accompanied by state troopers. Pt. has been in the senior living since May 10, 2019 after a misdemeanor of one count of "Resist Obstruct Delay Officer" and "possibly trespassing" at one of his friends house. Pt was demonstrating psychotic/paranoid behavior, trying to barricade himself into his friends house and "speaking in unknown languages". Pt. arrested in 2013 for cruelty to animals. During his incarceration, pt.'s behavior described as "constantly provocative", pt. "throwing water on people and dumping water under the doors of other inmates and continually yelling through his cell door and challenging both deputies and inmates to a fight". Pt. also had been refusing medical treatment. Pt. was considered a risk due to his aggression and refusal of treatment for his psychosis. According to Psychologist report, pt. is found incompetent to stand trial and requires antipsychotic medication in order to return him to competency and is a danger to himself and to others if unmedicated. Assessment What has happened this shift: Pt up for meals and some pacing of the unit, but mostly he stayed in his room. When questioned at dinner that hed been pretty quiet and withdrawn today, pt became tearful and said he was just dealing with a lot of stuff. Pt was cooperative with am lithium level and took his lithium, but this afternoon, pt c/o that his vision was blurry and he was blaming it on the lithium. SI/HI: Pt denies. AH/VH: Pt denies. Sleep: nap on and off today ADL's: Independent Group attendance: No Were Meds taken: Yes Any med S/E: None noted or reported Mental Status Exam Appearance: Clean and neat in street clothes, and nonskid socks Eye contact: Good Behavior: Cooperative, snack-seeking, more isolative to self today Speech: Clear, audible Mood: Anxious Affect: Anxious Thought process: Reality distortion, perseverative delusions of persecution, ruminates, circumstantial at times. Thought Content: Apprehensive about court, maintains his innocence, perseverates on false charges and being railroaded, fixates on food. Cognition: A/O X 3, some disorientation to situation. Insight: Poor Judgment: Poor to fair Interventions PRN's used: Ativan 1 mg Therapeutic interventions: 1:1 assessment, active listening, therapeutic communication, reflection, reality testing, reality orientation, medication administration/education/monitoring, encouragement to attend groups, behavior monitoring, limit setting, Q 15 min safety checks. Restraints/seclusion/emergency medication: None Justification of Continued Inpatient Treatment: Pt is on court ordered 1370 for establishment of competency.
[2019-12-25 19:28] VITALS: BP 133/79
[2019-12-25] MEDS: hydrOXYzine 25 MG tablet PO PRN (20:47)
[2019-12-25] MEDS: lithium carbonate 150mg capsule PO SCH (20:47)
--- NOTE | 2019-12-26 03:31 | NUR ---
Nursing Progress Note: Legal hold: 1370 Client on involuntary status due to 1370 Report received from WALESKA Honeycutt with use of SBAR Why are they here: Pt. admitted directly from the [facility] accompanied by state troopers. Pt. has been in the correction since May 10, 2019 after a misdemeanor of one count of "Resist Obstruct Delay Officer" and "possibly trespassing" at one of his friends house. Pt was demonstrating psychotic/paranoid behavior, trying to barricade himself into his friends house and "speaking in unknown languages". Pt. arrested in 2013 for cruelty to animals. During his incarceration, pt.'s behavior described as "constantly provocative", pt. "throwing water on people and dumping water under the doors of other inmates and continually yelling through his cell door and challenging both deputies and inmates to a fight". Pt. also had been refusing medical treatment. Pt. was considered a risk due to his aggression and refusal of treatment for his psychosis. According to Psychologist report, pt. is found incompetent to stand trial and requires antipsychotic medication in order to return him to competency and is a danger to himself and to others if unmedicated. Assessment What has happened this shift: Pt up in [place] at start of shift Cheerful and pleasant Denies Depression or SI "just trying to catch up on my sleep they never let you sleep in care home" When asked about future plans pt said I am going to straighten things out in court. Came to group room for pt carol democrat asleep on mattress on floor by 2014 woke up for meds back to sleep. SI/HI: Pt denies. AH/VH: Pt denies. Sleep: Asleep at this time ADL's: Independent Group attendance: NA Were Meds taken: Yes Any med S/E: None noted or reported Mental Status Exam Appearance: Clean and neat in street clothes, and nonskid socks Eye contact: Good Behavior: Cooperative, snack-seeking, more isolative to self today Speech: Clear, audible Mood: Anxious Affect: Anxious Thought process: Reality distortion, perseverative delusions of persecution, ruminates, circumstantial at times. Thought Content: Apprehensive about court, maintains his innocence, perseverates on false charges and being railroaded, fixates on food. Cognition: A/O X 3, some disorientation to situation. Insight: Poor Judgment: Poor to fair Interventions PRN's used: Ativan 1 mg Therapeutic interventions: 1:1 assessment, active listening, therapeutic communication, reflection, reality testing, reality orientation, medication administration/education/monitoring, encouragement to attend groups, behavior monitoring, limit setting, Q 15 min safety checks. Restraints/seclusion/emergency medication: None Justification of Continued Inpatient Treatment: Pt is on court ordered 1370 for establishment of competency.
[2019-12-26 08:00] VITALS: BP 100/64
[2019-12-26] MEDS: OMEGA-3/DHA/EPA/FISH OIL 1 EACH CAPSULE.DR PO SCH ×2 (08:22→20:31)
[2019-12-26] MEDS: vitamin E 400 unit capsule PO SCH (08:22)
[2019-12-26] MEDS: multivitamins, therapeutics tablet PO SCH (08:23)
[2019-12-26] MEDS: vitamin D (cholecalciferol) 1,000 unit tablet PO SCH (08:23)
[2019-12-26] MEDS: ascorbic acid 500mg tablet PO SCH ×2 (08:23→17:37)
[2019-12-26] MEDS: LORazepam 1 MG tablet PO PRN ×2 (08:23→20:32)
[2019-12-26] MEDS: lithium carbonate 150mg capsule PO SCH ×2 (08:23→20:31)
--- NOTE | 2019-12-26 18:24 | NUR ---
Nursing Progress Note: Legal hold: 1370 Client on involuntary status due to 1370 Report received from DAISY Flores with use of SBAR Why are they here: Pt. admitted directly from the [facility] accompanied by state troopers. Pt. has been in the detention since May 10, 2019 after a misdemeanor of one count of "Resist Obstruct Delay Officer" and "possibly trespassing" at one of his friends house. Pt was demonstrating psychotic/paranoid behavior, trying to barricade himself into his friends house and "speaking in unknown languages". Pt. arrested in 2013 for cruelty to animals. During his incarceration, pt.'s behavior described as "constantly provocative", pt. "throwing water on people and dumping water under the doors of other inmates and continually yelling through his cell door and challenging both deputies and inmates to a fight". Pt. also had been refusing medical treatment. Pt. was considered a risk due to his aggression and refusal of treatment for his psychosis. According to Psychologist report, pt. is found incompetent to stand trial and requires antipsychotic medication in order to return him to competency and is a danger to himself and to others if unmedicated. Assessment What has happened this shift: Patient was asleep at change of shift and up for meals and afternoon snack only. Patient wanted to sleep the day away because he said he didn't get enough sleep in the detention. Patient denies depression and turned over and slept. SI/HI: Pt denies. AH/VH: Pt denies. Sleep: napped the entire day ADL's: Independent Group attendance: No Were Meds taken: Yes Any med S/E: None noted or reported Mental Status Exam Appearance: Clean and neat in street clothes, and nonskid socks Eye contact: Good Behavior: Cooperative, snack-seeking, more isolative to self today Speech: Clear, audible Mood: sleeping Affect: sleeping Thought process: Wanting to sleep Thought Content: UNK Cognition: A/O X 3, some disorientation to situation. Insight: Poor Judgment: Poor to fair Interventions PRN's used: None Therapeutic interventions: 1:1 assessment, active listening, therapeutic communication, reflection, reality testing, reality orientation, medication administration/education/monitoring, encouragement to attend groups, behavior monitoring, limit setting, Q 15 min safety checks. Restraints/seclusion/emergency medication: None Justification of Continued Inpatient Treatment: Pt is on court ordered 1370 for establishment of competency.
[2019-12-26] MEDS: Melatonin 3mg tablet PO PRN (20:31)
[2019-12-26] MEDS: hydrOXYzine 25 MG tablet PO PRN (20:32)
[2019-12-26 20:40] VITALS: BP 124/74
--- NOTE | 2019-12-26 21:18 | NUR ---
Nursing Progress Note: Legal hold: 1370 Client on involuntary status due to 1370 Report received from DAISY Honeycutt with use of SBAR Why are they here: Pt. admitted directly from the [facility] accompanied by state troopers. Pt. has been in the [facility] since May 10, 2019 after a misdemeanor of one count of "Resist Obstruct Delay Officer" and "possibly trespassing" at one of his friends house. Pt was demonstrating psychotic/paranoid behavior, trying to barricade himself into his friends house and "speaking in unknown languages". Pt. arrested in 2013 for cruelty to animals. During his incarceration, pt.'s behavior described as "constantly provocative", pt. "throwing water on people and dumping water under the doors of other inmates and continually yelling through his cell door and challenging both deputies and inmates to a fight". Pt. also had been refusing medical treatment. Pt. was considered a risk due to his aggression and refusal of treatment for his psychosis. According to Psychologist report, pt. is found incompetent to stand trial and requires antipsychotic medication in order to return him to competency and is a danger to himself and to others if unmedicated. Assessment What has happened this shift: Patient was up at change of shift walking the halls. Pt ate snack in group room with peers and took his medication. Pt asked for his Hs prns for sleep and went to bed Patient denies depression and turned over and slept. SI/HI: Pt denies. AH/VH: Pt denies. Sleep: napped the entire day ADL's: Independent Group attendance: No Were Meds taken: Yes Any med S/E: None noted or reported Mental Status Exam Appearance: Clean and neat in street clothes, and nonskid socks Eye contact: Good Behavior: Cooperative, snack-seeking, more isolative to self today Speech: Clear, audible Mood: sleeping Affect: sleeping Thought process: Wanting to sleep Thought Content: UNK Cognition: A/O X 3, some disorientation to situation. Insight: Poor Judgment: Poor to fair Interventions PRN's used: Atarax, Ativan,Melatonin Therapeutic interventions: 1:1 assessment, active listening, therapeutic communication, reflection, reality testing, reality orientation, medication administration/education/monitoring, encouragement to attend groups, behavior monitoring, limit setting, Q 15 min safety checks. Restraints/seclusion/emergency medication: None Justification of Continued Inpatient Treatment: Pt is on court ordered 1370 for establishment of competency.
[2019-12-27 08:00] VITALS: BP 101/63
[2019-12-27] MEDS: lithium carbonate 150mg capsule PO SCH ×3 (08:00→20:23)
[2019-12-27] MEDS: OMEGA-3/DHA/EPA/FISH OIL 1 EACH CAPSULE.DR PO SCH ×2 (08:39→20:22)
[2019-12-27] MEDS: vitamin E 400 unit capsule PO SCH (08:40)
[2019-12-27] MEDS: vitamin D (cholecalciferol) 1,000 unit tablet PO SCH (08:40)
[2019-12-27] MEDS: ascorbic acid 500mg tablet PO SCH ×2 (08:40→18:42)
[2019-12-27] MEDS: multivitamins, therapeutics tablet PO SCH (08:40)
[2019-12-27] MEDS: LORazepam 1 MG tablet PO PRN ×2 (08:40→20:23)
[2019-12-27] MEDS ORDERED: paliperidone palmitate 156 mg/ml inj.**IM only IM ONE (11:10)
--- NOTE | 2019-12-27 15:40 | NUR ---
Nursing Progress Note: Legal hold: 1370 Client on involuntary status due to 1370 Report received from DAISY Prather with use of SBAR Why are they here: Pt. admitted directly from the [facility] accompanied by state troopers. Pt. has been in the detention since May 10, 2019 after a misdemeanor of one count of "Resist Obstruct Delay Officer" and "possibly trespassing" at one of his friends house. Pt was demonstrating psychotic/paranoid behavior, trying to barricade himself into his friends house and "speaking in unknown languages". Pt. arrested in 2013 for cruelty to animals. During his incarceration, pt.'s behavior described as "constantly provocative", pt. "throwing water on people and dumping water under the doors of other inmates and continually yelling through his cell door and challenging both deputies and inmates to a fight". Pt. also had been refusing medical treatment. Pt. was considered a risk due to his aggression and refusal of treatment for his psychosis. According to Psychologist report, pt. is found incompetent to stand trial and requires antipsychotic medication in order to return him to competency and is a danger to himself and to others if unmedicated. Assessment What has happened this shift: Patient is observed sleeping at change of shift. He wakes to join others for breakfast and greets this RN appropriately. After breakfast he politely says that he is going to return to his room. Patient reports that he is feeling anxious and requests ativan with his morning medications. AM meds are gone over with patient and patient states that per discussion with prescriber yesterday, [place] was to be decreased to 450mg BID, prescribers note from 12/25 confirms this. Patient takes [place] 450mg and all other medications without issue. Patient returns to sleep. When he wakes he is tearful and states that he is feeling depressed. When asked if he feels like he cycles through highs and lows he states he does not. He says that he has a lot of court things going on and just too many things in the fire. Patient continues to discuss his fixed delusions in a grandiose manner. SI/HI: Pt denies. AH/VH: Pt denies. Sleep: 7.5hrs NOC and rested during the day ADL's: Independent Group attendance: No Were Meds taken: Yes Any med S/E: None noted or reported Mental Status Exam Appearance: Clean and neat in street clothes, and nonskid socks Eye contact: direct Behavior: Cooperative, isolative, depressed Speech: Clear, audible Mood: depressed Affect: congruent to mood Thought process: Disorganized, grandiose Thought Content: court and various injustices Cognition: A/O X 3, some disorientation to situation. Insight: Poor Judgment: Poor to fair Interventions PRN's used: Ativan for anxiety Therapeutic interventions: 1:1 assessment, active listening, therapeutic communication, reflection, reality testing, reality orientation, medication administration/education/monitoring, encouragement to attend groups, behavior monitoring, limit setting, Q 15 min safety checks. Restraints/seclusion/emergency medication: None Justification of Continued Inpatient Treatment: Pt is on court ordered 1370 for establishment of competency.
[2019-12-27 20:00] VITALS: BP 124/69
[2019-12-27] MEDS: Melatonin 3mg tablet PO PRN (20:23)
[2019-12-27] MEDS: hydrOXYzine 25 MG tablet PO PRN (20:23)
--- NOTE | 2019-12-27 21:52 | NUR ---
Nursing Progress Note: Legal hold: 1370 Client on involuntary status due to 1370 Report received from DAISY Honeycutt with use of SBAR Why are they here: Pt. admitted directly from the [facility] accompanied by state troopers. Pt. 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 Pt was demonstrating psychotic/paranoid behavior, trying to barricade himself into his friends house and "speaking in unknown languages". Pt. arrested in 2013 for cruelty to animals. During his incarceration, pt.'s behavior described as "constantly provocative", pt. "throwing water on people and dumping water under the doors of other inmates and continually yelling through his cell door and challenging both deputies and inmates to a fight". Pt. also had been refusing medical treatment. Pt. was considered a risk due to his aggression and refusal of treatment for his psychosis. According to Psychologist report, pt. is found incompetent to stand trial and requires antipsychotic medication in order to return him to competency and is a danger to himself and to others if unmedicated. Assessment What has happened this shift: Patient is observed sleeping at change of shift. He wakes to join others for snack . Patient states that per discussion with prescriber yesterday, [place] was to be decreased to 450mg BID, prescribers note from 12/25 confirms this. Patient takes [place] 450mg and all other medications without issue. Patient returns to bed. SI/HI: Pt denies. AH/VH: Pt denies. Sleep: 7.5hrs NOC and rested during the day ADL's: Independent Group attendance: No Were Meds taken: Yes Any med S/E: None noted or reported Mental Status Exam Appearance: Clean and neat in street clothes, and nonskid socks Eye contact: direct Behavior: Cooperative, isolative, depressed Speech: Clear, audible Mood: depressed Affect: congruent to mood Thought process: Disorganized, grandiose Thought Content: court and various injustices Cognition: A/O X 3, some disorientation to situation. Insight: Poor Judgment: Poor to fair Interventions PRN's used: Ativan ,Atarax,Melatonin Therapeutic interventions: 1:1 assessment, active listening, therapeutic communication, reflection, reality testing, reality orientation, medication administration/education/monitoring, encouragement to attend groups, behavior monitoring, limit setting, Q 15 min safety checks. Restraints/seclusion/emergency medication: None Justification of Continued Inpatient Treatment: Pt is on court ordered 1370 for establishment of competency.
[2019-12-28 07:57] VITALS: BP 106/61
[2019-12-28] MEDS: vitamin E 400 unit capsule PO SCH (08:21)
[2019-12-28] MEDS: OMEGA-3/DHA/EPA/FISH OIL 1 EACH CAPSULE.DR PO SCH ×2 (08:21→20:40)
[2019-12-28] MEDS: vitamin D (cholecalciferol) 1,000 unit tablet PO SCH (08:22)
[2019-12-28] MEDS: lithium carbonate 150mg capsule PO SCH ×2 (08:22→20:41)
[2019-12-28] MEDS: multivitamins, therapeutics tablet PO SCH (08:22)
[2019-12-28] MEDS: ascorbic acid 500mg tablet PO SCH ×2 (08:22→18:09)
[2019-12-28] MEDS: LORazepam 1 MG tablet PO PRN ×2 (08:24→20:41)
[2019-12-28 20:00] VITALS: BP 123/79
[2019-12-28] MEDS: Melatonin 3mg tablet PO PRN (20:41)
[2019-12-28] MEDS: hydrOXYzine 25 MG tablet PO PRN (20:41)
--- NOTE | 2019-12-28 21:42 | NUR ---
Nursing Progress Note: Legal hold: 1370 Client on involuntary status due to 1370 Report received from DAISY Barcenas with use of SBAR Why are they here: Pt. admitted directly from the [facility] accompanied by state troopers. Pt. 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 Pt was demonstrating psychotic/paranoid behavior, trying to barricade himself into his friends house and "speaking in unknown languages". Pt. arrested in 2013 for cruelty to animals. During his incarceration, pt.'s behavior described as "constantly provocative", pt. "throwing water on people and dumping water under the doors of other inmates and continually yelling through his cell door and challenging both deputies and inmates to a fight". Pt. also had been refusing medical treatment. Pt. was considered a risk due to his aggression and refusal of treatment for his psychosis. According to Psychologist report, pt. is found incompetent to stand trial and requires antipsychotic medication in order to return him to competency and is a danger to himself and to others if unmedicated. Assessment What has happened this shift: Patient is observed sleeping at change of shift. He wakes to join others for snack. Patient takes [place] 450mg and all other medications without issue.Pt stats he feels tired and concerned about his legal issue. Pt is social at times and paces the solomon.Prn's are effective for sleep. SI/HI: Pt denies. AH/VH: Pt denies. Sleep: 7.5hrs NOC and rested during the day ADL's: Independent Group attendance: No Were Meds taken: Yes Any med S/E: None noted or reported Mental Status Exam Appearance: Clean and neat in street clothes, and nonskid socks Eye contact: direct Behavior: Cooperative, isolative, depressed Speech: Clear, audible Mood: depressed Affect: congruent to mood Thought process: Disorganized, grandiose Thought Content: court and various injustices Cognition: A/O X 3, some disorientation to situation. Insight: Poor Judgment: Poor to fair Interventions PRN's used: Ativan ,Atarax,Melatonin Therapeutic interventions: 1:1 assessment, active listening, therapeutic communication, reflection, reality testing, reality orientation, medication administration/education/monitoring, encouragement to attend groups, behavior monitoring, limit setting, Q 15 min safety checks. Restraints/seclusion/emergency medication: None Justification of Continued Inpatient Treatment: Pt is on court ordered 1370 for establishment of competency.
[2019-12-29 07:54] VITALS: BP 120/63
[2019-12-29] MEDS: ascorbic acid 500mg tablet PO SCH ×2 (08:41→16:43)
[2019-12-29] MEDS: LORazepam 1 MG tablet PO PRN ×2 (08:41→23:21)
[2019-12-29] MEDS: lithium carbonate 150mg capsule PO SCH ×2 (08:41→21:15)
[2019-12-29] MEDS: multivitamins, therapeutics tablet PO SCH (08:42)
[2019-12-29] MEDS: OMEGA-3/DHA/EPA/FISH OIL 1 EACH CAPSULE.DR PO SCH ×2 (08:42→21:15)
[2019-12-29] MEDS: vitamin E 400 unit capsule PO SCH (08:42)
[2019-12-29] MEDS: vitamin D (cholecalciferol) 1,000 unit tablet PO SCH (08:42)
--- NOTE | 2019-12-29 09:59 | NUR ---
Reassessment: Patient's wt is -4 kg since admit, likely change is r/t bed scale vs standing scale. Pt continues with 100% PO intake of meals meeting nutrient needs. LBM 12/27. No nutrition intervention warranted at this time. Will continue to follow. Recommend: 1. continue regular diet 2. bowel care as needed 3. wt per rx Addendum: 12/29/19 at [address] Amended: Links added.
[2019-12-29 12:55] LABS: BASOPHILS % (AUTO) 0.6 % (0-1); EOSINOPHILS # (AUTO) 0.2 X10'3 (0-0.9); EOSINOPHILS % (AUTO) 2.3 % (0-6); HEMATOCRIT 45.1 % (42.0-52.0); HEMOGLOBIN 15.4 g/dl (14.0-17.9); LYMPHOCYTES # (AUTO) 1.4 X10'3 (1.1-4.8); LYMPHOCYTES % (AUTO) 20.3 % (21-51); MEAN CORPUSCULAR HEMOGLOBIN 31.4 PG (27.0-31.0); MEAN CORPUSCULAR HGB CONC 34.1 g/dL (33.0-36.5); MEAN PLATELET VOLUME 7.7 FL (7.4-10.4); MONOCYTES # (AUTO) 0.5 X10'3 (0-0.9); MONOCYTES % (AUTO) 6.7 % (2-12); NEUTROPHILS # (AUTO) 4.8 X10'3 (1.8-7.7); NEUTROPHILS % (AUTO) 70.1 % (42-75); PLATELET COUNT 198 X10'3 (140-440); RED CELL DISTRIBUTION WIDTH 13.7 % (11.5-14.5); WHITE BLOOD COUNT 6.8 X10'3 (4.5-11.0)
[2019-12-29] MEDS: diphenhydrAMINE 25mg capsule PO PRN (13:29)
--- NOTE | 2019-12-29 17:31 | NUR ---
Nursing Progress Note: Legal hold: 1370 Client on involuntary status due to 1370 Report received from DAISY Prather with use of SBAR Why are they here: Pt. admitted directly from the [facility] accompanied by state troopers. Pt. has been in the custodial since May 10, 2019 after a misdemeanor of one count of "Resist Obstruct Delay Officer" and "possibly trespassing" at one of his friends house. Pt was demonstrating psychotic/paranoid behavior, trying to barricade himself into his friends house and "speaking in unknown languages". Pt. arrested in 2013 for cruelty to animals. During his incarceration, pt.'s behavior described as "constantly provocative", pt. "throwing water on people and dumping water under the doors of other inmates and continually yelling through his cell door and challenging both deputies and inmates to a fight". Pt. also had been refusing medical treatment. Pt. was considered a risk due to his aggression and refusal of treatment for his psychosis. According to Psychologist report, pt. is found incompetent to stand trial and requires antipsychotic medication in order to return him to competency and is a danger to himself and to others if unmedicated. Assessment What has happened this shift: Patient is observed sleeping at change of shift. He wakes to join others for breakfast and greets this RN appropriately. After breakfast he agian politely says that he is going to return to his room. Patient, as per prior shifts, reports that he is feeling anxious and requests ativan with his morning medications. Patient returns to sleep. When patient wakes in the afternoon he requests to take a shower and shave. When asked if he is feeling better he states maybe 1/2 a step up the ladder. Patient agrees that even if small this is an improvement. SI/HI: Pt denies. AH/VH: Pt denies. Sleep: 8hrs NOC and rested during the day ADL's: Independent Group attendance: No Were Meds taken: Yes Any med S/E: None noted or reported Mental Status Exam Appearance: Clean and neat in street clothes, and nonskid socks Eye contact: direct Behavior: Cooperative, isolative, depressed Speech: Clear, audible Mood: depressed, very mildly improved Affect: congruent to mood with occasional brightening Thought process: linear Thought Content: court and various injustices Cognition: A/O X 3, some disorientation to situation. Insight: Poor Judgment: Poor to fair Interventions PRN's used: Ativan for anxiety Therapeutic interventions: 1:1 assessment, active listening, therapeutic communication, reflection, reality testing, reality orientation, medication administration/education/monitoring, encouragement to attend groups, behavior monitoring, limit setting, Q 15 min safety checks. Restraints/seclusion/emergency medication: None Justification of Continued Inpatient Treatment: Pt is on court ordered 1370 for establishment of competency.
[2019-12-29 20:00] VITALS: BP 139/77
[2019-12-29] MEDS ORDERED: CLOZAPINE 25 MG oral disintegrating tablet PO SCH (21:00)
[2019-12-29] MEDS: hydrOXYzine 25 MG tablet PO PRN (21:16)
[2019-12-29] MEDS: Melatonin 3mg tablet PO PRN (21:16)
[2019-12-29] MEDS: zolpidem 5mg tablet PO PRN ×2 (22:57→23:52)
[2019-12-30] MEDS: LORazepam 1 MG tablet PO PRN (00:24)
[2019-12-30 01:30] VITALS: BP 111/55
[2019-12-30] MEDS: diphenhydrAMINE 25mg capsule PO PRN (01:30)
--- NOTE | 2019-12-30 04:37 | NUR ---
Nursing Progress Note: Legal hold: 1370 Client on involuntary status for 1370 Report received from nurse with use of SBAR: DAISY Castillo Why are they here: Pt. admitted directly from the [facility] accompanied by state troopers. Pt. 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 Pt was demonstrating psychotic/paranoid behavior, trying to barricade himself into his friends house and "speaking in unknown languages". Pt. arrested in 2013 for cruelty to animals. During his incarceration, pt.'s behavior described as "constantly provocative", pt. "throwing water on people and dumping water under the doors of other inmates; and continually yelling through his cell door and challenging both deputies and inmates to a fight". Pt. also had been refusing medical treatment. Pt. was considered a risk due to his aggression and refusal of treatment for his psychosis. According to Psychologist report, pt. is found incompetent to stand trial and requires antipsychotic medication in order to return him to competency and is a danger to himself and to others if unmedicated. Assessment What has happened this shift: Pt. up pacing the hallway wearing headphones at the beginning of the shift. He later attends HS snack, and is observed to be interacting minimally, although appropriately with others throughout the shift. 1:1 completed later at bedside, pt. denies any S/I, H/I, A/V/JIMENEZ, or paranoid delusional thoughts. However, he speaks in a somewhat circumstantial/delusional manner about the injustices he feels he experienced while in retirement, and how he was forced by the officers to tell the poultry farmer meat that he wanted to hurt himself. Pt. also reports anxiety r/t his upcoming court date, and shows this manual writer the packet of questions he must answer in order to prepare himself. He states, "I don't even think I will have enough room on the paper to answer the questions, maybe I will just use a notepad to write on." Pt. is cooperative with HS medications, however continues to present as somewhat withdrawn, restless, and anxious throughout the shift. He experiences insomnia reportedly r/t anxiety AEB pacing, and making frequent requests for food throughout the shift. Despite administration of PRN anxiolytics and sleep aides, pt. is only able to sleep approximately 3 hours off-an-on throughout the shift. At approximately 0130, pt. states, "My chest feels anxious, I feel all spun out, like I am taking the corners too fast." V/S obtained and WNL, PRN Benadryl administered for slight agitation and pt. encouraged to try and relax. However, he remained able to only sleep in short intervals throughout the shift, will endorse to AM shift and continue to monitor. S/I, H/I: Denies A/VH: Denies, does not appear internally preoccupied Sleep: Pt. experiencing insomnia reportedly r/t anxiety AEB pacing, and making frequent requests throughout the shift. Despite administration of PRN anxiolytics and sleep aides, pt. was only able to sleep approximately 3 hours off-an-on throughout the shift. Pt. continues to sleep with his bed mattress on the floor. ADL's: Independent Group attendance: Pt. attends HS snack Were meds taken: Yes Any med S/E: Pt. repots feeling increased anxiety this shift, will endorse to AM shift and continue to monitor. Mental Status Exam Appearance: Neat and appropriately dressed Eye contact: Good Behavior: Cooperative, restless, and anxious Speech: WNL Mood: Guarded with restlessness Affect: Constricted Thought process: Circumstantial Thought Content: Possible ongoing paranoid delusions and anxiety r/t upcoming court date Cognition: A&O X4 Insight: Fair Judgment: Fair Interventions PRN's used: Atrax, Melatonin, Ativan X2, Ambien X2, and Benadryl Therapeutic interventions: Established rapport, maintained a safe and therapeutic environment, ensured contract for safety, provided clear and simple instructions, attempted to reorient to reality as needed, monitored behavior and need for intervention, provided positive encouragement, and maintained Q 15min safety checks. Restraints/seclusion/emergency medication: N/A Justification of Continued Inpatient Treatment: Pt. requires a safe and supportive environment and medication adjustments. Per JUNI Moreno, he continues to be restored to competency so he can be returned to retirement and stand trial.
[2019-12-30 07:30] VITALS: BP 102/51
[2019-12-30] MEDS: ascorbic acid 500mg tablet PO SCH ×2 (08:26→17:32)
[2019-12-30] MEDS: multivitamins, therapeutics tablet PO SCH (08:26)
[2019-12-30] MEDS: OMEGA-3/DHA/EPA/FISH OIL 1 EACH CAPSULE.DR PO SCH ×2 (08:26→20:55)
[2019-12-30] MEDS: lithium carbonate 150mg capsule PO SCH ×2 (08:27→20:57)
[2019-12-30] MEDS: vitamin E 400 unit capsule PO SCH (08:27)
[2019-12-30] MEDS: vitamin D (cholecalciferol) 1,000 unit tablet PO SCH (08:29)
--- NOTE | 2019-12-30 16:21 | NUR ---
Nursing Progress Note: Hayden Legal hold: 1370 Client on involuntary status for 1370 Report received from DAISY Daigle with use of SBAR: Why are they here: Pt. admitted directly from the [facility] accompanied by state troopers. Pt. 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 Pt was demonstrating psychotic/paranoid behavior, trying to barricade himself into his friends house and "speaking in unknown languages". Pt. arrested in 2013 for cruelty to animals. During his incarceration, pt.'s behavior described as "constantly provocative", pt. "throwing water on people and dumping water under the doors of other inmates; and continually yelling through his cell door and challenging both deputies and inmates to a fight". Pt. also had been refusing medical treatment. Pt. was considered a risk due to his aggression and refusal of treatment for his psychosis. According to Psychologist report, pt. is found incompetent to stand trial and requires antipsychotic medication in order to return him to competency and is a danger to himself and to others if unmedicated. Assessment What has happened this shift: Patient sleeping at shift change, attempted to administer meds and patient requested to take them after breakfast. C/O fatigue, states unable to sleep well the night before. Laying on bed appearing to be sleeping from just after breakfast until lunch. Did not get up for snacks. Spoke with patient briefly after lunch, continues to c/o of significant fatigue do to inability to sleep for the past two nights. Although encouraged to stay up this afternoon to help improve his ability to sleep tonight, he continues to sleep. S/I, H/I: Denies A/VH: Denies Sleep: 3.5 ADL's: Independent Group attendance: No Were meds taken: Yes Any med S/E: Patient reported chest fluttering after taking cogentin Mental Status Exam Appearance: Neatly groomed, wearing street clothes Eye contact: Direct Behavior: calm, cooperative Speech: normal rate, rhythm, tone Mood: Anxious related to court hearing Affect: Congruent with mood Thought process: constricted Thought Content: lack of sleep, medication SE Cognition: A & O X 4 Insight: poor Judgment: poor related to delusions regarding law enforcement Interventions PRN's used: Therapeutic interventions: Established rapport, maintained a safe and therapeutic environment, ensured contract for safety, provided clear and simple instructions, attempted to reorient to reality as needed, monitored behavior and need for intervention, provided positive encouragement, and maintained Q 15min safety checks. Restraints/seclusion/emergency medication: N/A Justification of Continued Inpatient Treatment: Pt. requires a safe and supportive environment and medication adjustments. Per JUNI Moreno, he continues to be restored to competency so he can be returned to retirement and stand trial.
[2019-12-30 19:28] VITALS: BP 110/70
[2019-12-30] MEDS: Melatonin 3mg tablet PO PRN (20:54)
[2019-12-30] MEDS: benztropine 1mg tablet PO SCH (20:55)
[2019-12-30] MEDS: hydrOXYzine 25 MG tablet PO PRN (20:56)
[2019-12-30] MEDS ORDERED: CLOZAPINE 25 MG oral disintegrating tablet PO SCH (21:00)
--- NOTE | 2019-12-31 01:21 | NUR ---
The next note is on the wrong patient. Please disregard.
--- NOTE | 2019-12-31 01:23 | NUR ---
Nursing Progress Note: Hayden Messina Legal hold: 1370 Client on involuntary status for 1370 Report received from DAISY Daigle with use of SBAR: Why are they here: Pt. admitted directly from the [facility] accompanied by state troopers. Pt. 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 Pt was demonstrating psychotic/paranoid behavior, trying to barricade himself into his friends house and "speaking in unknown languages". Pt. arrested in 2013 for cruelty to animals. During his incarceration, pt.'s behavior described as "constantly provocative", pt. "throwing water on people and dumping water under the doors of other inmates; and continually yelling through his cell door and challenging both deputies and inmates to a fight". Pt. also had been refusing medical treatment. Pt. was considered a risk due to his aggression and refusal of treatment for his psychosis. According to Psychologist report, pt. is found incompetent to stand trial and requires antipsychotic medication in order to return him to competency and is a danger to himself and to others if unmedicated. Assessment What has happened this shift: Patient is self isolating in his room. Patient exhibits anger and refuses to talk to this typewriter mechanic. Patient is also yelling at other staff. This is untoward his normal behavior. This typewriter mechanic engaged multiple strategies to engage the patient. Patient responded well to cars as a topic. Patients attitude brightened. Patient tells this typewriter mechanic he was angry with his mother. When talking patients hands trembled. Initially eye contact was poor. Gradually patient smiled and joked. Patient states "I've been depressed, nothing works." He then states, "Nothing turns me on more than my power, I can use it to take control." The patient then went for snacks and socialized some. Later the patient requested this typewriter mechanic to show him pictures of fast cars. Patient followed by coming medication compliant and went to sleep. Patient Denies S/I or H/I at this time. No signs of internal stimuli noted. S/I, H/I: Denies A/VH: Denies Sleep: Will tally in late am. ADL's: Independent Group attendance: Not on days. Were meds taken: Yes, patient is medication compliant. Any med S/E: None noted. Mental Status Exam Appearance: Clean, wearing street clothes. Eye contact: Direct Behavior: Patient interacting well with staff and others. Speech: Normal rate, rhythm, tone. Mood: Some anxiety. Affect: Congruent with mood. Thought process: Constricted Thought Content: Concerned about getting promised cogentin. Cognition: A & O X 4 Insight: Poor. Judgment: Poor. Interventions PRN's used: Therapeutic interventions: Established rapport, maintained a safe and therapeutic environment, ensured contract for safety, provided clear and simple instructions, attempted to reorient to reality as needed, monitored behavior and need for intervention, provided positive encouragement, and maintained Q 15min safety checks. Restraints/seclusion/emergency medication: N/A Justification of Continued Inpatient Treatment: Pt. requires a safe and supportive environment and medication adjustments. Per JUNI Moreno, he continues to be restored to competency so he can be returned to fdc and stand trial. Addendum: 12/31/19 at 0239 by Murphy Ham RN Disregard this note. It was put on the wrong patient.
--- NOTE | 2019-12-31 02:56 | NUR ---
Nursing Progress Note: Hayden Messina Legal hold: 1370 Client on involuntary status for 1370 Report received from DAISY Daigle with use of SBAR: Why are they here: Pt. admitted directly from the [facility] accompanied by state troopers. Pt. 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 Pt was demonstrating psychotic/paranoid behavior, trying to barricade himself into his friends house and "speaking in unknown languages". Pt. arrested in 2013 for cruelty to animals. During his incarceration, pt.'s behavior described as "constantly provocative", pt. "throwing water on people and dumping water under the doors of other inmates; and continually yelling through his cell door and challenging both deputies and inmates to a fight". Pt. also had been refusing medical treatment. Pt. was considered a risk due to his aggression and refusal of treatment for his psychosis. According to Psychologist report, pt. is found incompetent to stand trial and requires antipsychotic medication in order to return him to competency and is a danger to himself and to others if unmedicated. Assessment What has happened this shift: Patient is pacing the hallways and interacting with others. Patient is well oriented tonight. Patient complains of some anxiety. Patient states he desires cogentin for his anxiety and stress, the PA. This patient was informed that it is available. Patient has a complaint of hip pain where a recent Invegra shot was given. Patient denies S/I or H/I at this time. He denies hallucination. Patient is medication compliant. Patient is medication complaint. This morning this patient awoke and complained of stomach upset. He requested crackers and milk which he was provided. The patient then returned to his room and went to sleep. S/I, H/I: Denies A/VH: Denies Sleep: Will tally in late am. ADL's: Independent Group attendance: Not on days. Were meds taken: Yes, patient is medication compliant. Any med S/E: None noted. Mental Status Exam Appearance: Clean, wearing street clothes. Eye contact: Direct Behavior: Patient interacting well with staff and others. Speech: Normal rate, rhythm, tone. Mood: Some anxiety. Affect: Congruent with mood. Thought process: Constricted Thought Content: Concerned about getting promised cogentin. Cognition: A & O X 4 Insight: Poor. Judgment: Poor. Interventions PRN's used: Therapeutic interventions: Established rapport, maintained a safe and therapeutic environment, ensured contract for safety, provided clear and simple instructions, attempted to reorient to reality as needed, monitored behavior and need for intervention, provided positive encouragement, and maintained Q 15min safety checks. Restraints/seclusion/emergency medication: N/A
[2019-12-31 08:00] VITALS: BP 105/66
[2019-12-31] MEDS: OMEGA-3/DHA/EPA/FISH OIL 1 EACH CAPSULE.DR PO SCH ×2 (08:50→20:48)
[2019-12-31] MEDS: multivitamins, therapeutics tablet PO SCH (08:50)
[2019-12-31] MEDS: vitamin E 400 unit capsule PO SCH (08:50)
[2019-12-31] MEDS: lithium carbonate 150mg capsule PO SCH ×2 (08:50→20:49)
[2019-12-31] MEDS: vitamin D (cholecalciferol) 1,000 unit tablet PO SCH (08:51)
[2019-12-31] MEDS: ascorbic acid 500mg tablet PO SCH ×2 (08:53→17:39)
--- NOTE | 2019-12-31 15:26 | NUR ---
Nursing Progress Note: Hayden Legal hold: 1370 Client on involuntary status for 1370 Report received from DAISY Arrington with use of SBAR: Why are they here: Pt. admitted directly from the [facility] accompanied by state troopers. Pt. 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 Pt was demonstrating psychotic/paranoid behavior, trying to barricade himself into his friends house and "speaking in unknown languages". Pt. arrested in 2013 for cruelty to animals. During his incarceration, pt.'s behavior described as "constantly provocative", pt. "throwing water on people and dumping water under the doors of other inmates; and continually yelling through his cell door and challenging both deputies and inmates to a fight". Pt. also had been refusing medical treatment. Pt. was considered a risk due to his aggression and refusal of treatment for his psychosis. According to Psychologist report, pt. is found incompetent to stand trial and requires antipsychotic medication in order to return him to competency and is a danger to himself and to others if unmedicated. Assessment What has happened this shift: Out of room only for breakfast and then returned to bed, did not initially engage in any conversation, took meds. Caught patient out of room following lunch and he was willing to engage in conversation. States he isnt depressed but needs space to rest his mind. I have been dealing with theses legal issues for so long, I just need time to not focus on it.. Denies excessive anxiety but says he feels a constant fluttering in his chest (which is relieved with cogentin). Sometimes it gets worse but has been okay. Returned to room and remained isolated. Did not discuss previous anger with law enforcement, stated he knows of 3 misdemeanor charges and has heard that one was dropped. States he is feeling significantly better than when he was in fpc. Observed out of room late afternoon, pacing in hallway while listening to headphones. S/I, H/I: Denies A/VH: Denies Sleep: 8 ADL's: independent Group attendance: no Were meds taken: yes Any med S/E: non reported Mental Status Exam Appearance: bed head, remains in room lying down only up for meals Eye contact: direct Behavior: cooperative Speech: Calm, normal rate, rhythm Mood: overwhelmed Affect: Calm, withdrawn Thought process: linear Thought Content: calming brain Cognition: Oriented X 4 Insight: Fair Judgment: Poor. Interventions PRN's used: Therapeutic interventions: Established rapport, maintained a safe and therapeutic environment, ensured contract for safety, provided clear and simple instructions, attempted to reorient to reality as needed, monitored behavior and need for intervention, provided positive encouragement, and maintained Q 15min safety checks. Restraints/seclusion/emergency medication: N/A
[2019-12-31 20:00] VITALS: BP 116/68
[2019-12-31] MEDS: Melatonin 3mg tablet PO PRN (20:49)
[2019-12-31] MEDS: hydrOXYzine 25 MG tablet PO PRN (20:49)
[2019-12-31] MEDS: benztropine 1mg tablet PO SCH (20:53)
[2019-12-31] MEDS: LORazepam 1 MG tablet PO PRN (20:53)
[2019-12-31] MEDS: CLOZAPINE 25 MG oral disintegrating tablet PO SCH (21:23)
--- NOTE | 2019-12-31 22:09 | NUR ---
Nursing Progress Note: Hayden Legal hold: 1370 Client on involuntary status for 1370 Report received from DAISY Castillo with use of SBAR: Why are they here: Pt. admitted directly from the [facility] accompanied by state troopers. Pt. 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 Pt was demonstrating psychotic/paranoid behavior, trying to barricade himself into his friends house and "speaking in unknown languages". Pt. arrested in 2013 for cruelty to animals. During his incarceration, pt.'s behavior described as "constantly provocative", pt. "throwing water on people and dumping water under the doors of other inmates; and continually yelling through his cell door and challenging both deputies and inmates to a fight". Pt. also had been refusing medical treatment. Pt. was considered a risk due to his aggression and refusal of treatment for his psychosis. According to Psychologist report, pt. is found incompetent to stand trial and requires antipsychotic medication in order to return him to competency and is a danger to himself and to others if unmedicated. Assessment What has happened this shift: Patient is pacing the hallways, he later rests in his room. Patient is well oriented. He ate his dinner. Patient is medication compliant. Patient denies S/I or H/I, he denies hallucinations. Patients affect is flat. Patient exhibits anxiety on two occasions. Atarax was given. Patients nigh time clozapine was increased from 50mg to 75mg. This was discussed with the patient by this underwriter solicitation director. The patient exhibits understanding. S/I, H/I: Denies. A/VH: Denies. Sleep: Will tally in am. ADL's: Independent. Group attendance: No groups on nights. Were meds taken: Yes, patient is medication compliant. Any med S/E: None. Mental Status Exam Appearance: Patient is clean but unkept. Eye contact: Direct. Behavior: Cooperative with staff. Speech: WNL. Mood: Patient presents as anxious, at one point he thought he was hyperventilating. Affect: Self isolating with some intermittent anxiety. Thought process: Linear. Thought Content: Just wants to rest. Cognition: Oriented X 4 Insight: Fair Judgment: Poor. Interventions PRN's used: Therapeutic interventions: Established rapport, maintained a safe and therapeutic environment, ensured contract for safety, provided clear and simple instructions, attempted to reorient to reality as needed, monitored behavior and need for intervention, provided positive encouragement, and maintained Q 15min safety checks. Restraints/seclusion/emergency medication: N/A
[2019-12-31] MEDS: zolpidem 5mg tablet PO PRN (22:43)
--- NOTE | 2019-12-31 22:43 | NUR ---
Patient is awake and complaining of anxiety, patient states he can't sleep. Patient requests and was given an Ambien.
[2020-01-01] MEDS: diphenhydrAMINE 25mg capsule PO PRN (00:59)
[2020-01-01 07:54] VITALS: BP 114/65
[2020-01-01] MEDS: OMEGA-3/DHA/EPA/FISH OIL 1 EACH CAPSULE.DR PO SCH ×2 (08:23→20:24)
[2020-01-01] MEDS: lithium carbonate 150mg capsule PO SCH ×2 (08:23→20:24)
[2020-01-01] MEDS: vitamin E 400 unit capsule PO SCH (08:24)
[2020-01-01] MEDS: multivitamins, therapeutics tablet PO SCH (08:24)
[2020-01-01] MEDS: vitamin B comp w/Vit. C tab 1 TAB TABLET PO SCH (08:24)
[2020-01-01] MEDS: ascorbic acid 500mg tablet PO SCH ×2 (08:24→17:14)
[2020-01-01] MEDS: vitamin D (cholecalciferol) 1,000 unit tablet PO SCH (08:24)
[2020-01-01] MEDS: benztropine 1mg tablet PO PRN (10:19)
[2020-01-01] MEDS ORDERED: benztropine 1mg tablet PO ONE (12:30)
--- NOTE | 2020-01-01 15:39 | NUR ---
Nursing Progress Note: Hayden Legal hold: 1370 Client on involuntary status for 1370 Report received from DAISY Hurley with use of SBAR: Why are they here: Pt. admitted directly from the [facility] accompanied by state troopers. Pt. 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 Pt was demonstrating psychotic/paranoid behavior, trying to barricade himself into his friends house and "speaking in unknown languages". Pt. arrested in 2013 for cruelty to animals. During his incarceration, pt.'s behavior described as "constantly provocative", pt. "throwing water on people and dumping water under the doors of other inmates; and continually yelling through his cell door and challenging both deputies and inmates to a fight". Pt. also had been refusing medical treatment. Pt. was considered a risk due to his aggression and refusal of treatment for his psychosis. According to Psychologist report, pt. is found incompetent to stand trial and requires antipsychotic medication in order to return him to competency and is a danger to himself and to others if unmedicated. Assessment What has happened this shift: Approached patient following breakfast to administer medications. Although reported to have only had one hour of sleep, he states he slept okay and felt he had at least several hours of sleep. When asked about AVH, depression or anxiety he became agitated why do you people have to always ask these questions then began speaking about his experience at the long term and how the deputies tortured him into saying he wanted to hurt himself. Continued with grandiose delusions regarding being set up and falsely accused of the crimes, though does not add any specifics. Also, c/o slurred speech and feeling extremely jittery. S/I, H/I: Denies and becomes agitated when asked A/VH: denies, states appearance of mental illness due to being tortured by SO Sleep: reported 1 hours but states slept longer ADL's: Independent Group attendance: no Were meds taken: yes Any med S/E: slurred speech, and jitters (reported by patient) Mental Status Exam Appearance: wearing street clothes, disheveled but demonstrates effective hygiene Eye contact: direct Behavior: withdrawn, agitated at times Speech: slightly pressured when making delusional statements regarding arrest and incarceration Mood: guarded Affect: flat Thought process: linear, able to stay on one topic Thought Content: delusions of mistreatment and being set up by law enforcement, SE of meds Cognition: Oriented X 4 Insight: Poor Judgment: Poor Interventions PRN's used: Benztropine Therapeutic interventions: Established rapport, maintained a safe and therapeutic environment, ensured contract for safety, provided clear and simple instructions, attempted to reorient to reality as needed, monitored behavior and need for intervention, provided positive encouragement, and maintained Q 15min safety checks. Restraints/seclusion/emergency medication: N/A Justification of Continued Inpatient Treatment: Pt. Remains delusional in relation to his mental health diagnosis and criminal charges. Will need to remain under treatment until competency can be determined.
[2020-01-01 19:52] VITALS: BP 129/67
[2020-01-01] MEDS: benztropine 1mg tablet PO SCH (20:24)
[2020-01-01] MEDS: CLOZAPINE 25 MG oral disintegrating tablet PO SCH (20:24)
[2020-01-01] MEDS: zolpidem 5mg tablet PO PRN (20:25)
[2020-01-01] MEDS: hydrOXYzine 25 MG tablet PO PRN (20:25)
--- NOTE | 2020-01-02 00:20 | NUR ---
Nursing Progress Note: Hayden Legal hold: 1370 Client on involuntary status for 1370 Report received from DAISY Castillo with use of SBAR: Why are they here: Pt. admitted directly from the [facility] accompanied by state troopers. Pt. 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 Pt was demonstrating psychotic/paranoid behavior, trying to barricade himself into his friends house and "speaking in unknown languages". Pt. arrested in 2013 for cruelty to animals. During his incarceration, pt.'s behavior described as "constantly provocative", pt. "throwing water on people and dumping water under the doors of other inmates; and continually yelling through his cell door and challenging both deputies and inmates to a fight". Pt. also had been refusing medical treatment. Pt. was considered a risk due to his aggression and refusal of treatment for his psychosis. According to Psychologist report, pt. is found incompetent to stand trial and requires antipsychotic medication in order to return him to competency and is a danger to himself and to others if unmedicated. Assessment What has happened this shift: The patient was found sleeping in his room. he was sleeping on the floor which is his normal. He later got up for med pass and snack time. He reports that he's having a hard time with his meds, "I got that long-acting Invega shot and it hurt for 2 days." At this time, the patient stopped answering questions, "I got a lot of things going on, but I don't want to talk about it." After HS med pass, the patient went back to bed. S/I, H/I: Denies. A/VH: Denies. Sleep: See sleep assessment. ADL's: Independent. Group attendance: No groups on nights. Were meds taken: Yes. Any med S/E: patient reports fine hand tremors. Mental Status Exam Appearance: Disheveled, unkept, hair uncombed, wears street clothes. Eye contact: Direct. Behavior: Isolative, fatigues, anxious.. Speech: Normal. Mood: "I don't know". Affect: flat. Thought process: Linear. Thought Content: Just wants to rest. Cognition: Oriented X 4 Insight: Fair Judgment: Poor. Interventions PRN's used: Ambien, Melatonin Therapeutic interventions: Established rapport, maintained a safe and therapeutic environment, ensured contract for safety, provided clear and simple instructions, attempted to reorient to reality as needed, monitored behavior and need for intervention, provided positive encouragement, and maintained Q 15min safety checks. Restraints/seclusion/emergency medication: N/A
[2020-01-02 07:30] VITALS: BP 119/74
[2020-01-02] MEDS: vitamin B comp w/Vit. C tab 1 TAB TABLET PO SCH (07:53)
[2020-01-02] MEDS: benztropine 1mg tablet PO SCH ×2 (07:54→20:28)
[2020-01-02] MEDS: vitamin E 400 unit capsule PO SCH (07:54)
[2020-01-02] MEDS: vitamin D (cholecalciferol) 1,000 unit tablet PO SCH (07:54)
[2020-01-02] MEDS: lithium carbonate 150mg capsule PO SCH ×2 (07:54→20:28)
[2020-01-02] MEDS: multivitamins, therapeutics tablet PO SCH (07:54)
[2020-01-02] MEDS: OMEGA-3/DHA/EPA/FISH OIL 1 EACH CAPSULE.DR PO SCH ×2 (07:54→20:28)
[2020-01-02] MEDS: ascorbic acid 500mg tablet PO SCH ×2 (07:54→17:44)
--- NOTE | 2020-01-02 16:24 | NUR ---
Nursing Progress Note: Hayden Legal hold: 1370 Client on involuntary status for 1370 Report received from DAISY Mccauley with use of SBAR: Why are they here: Pt. admitted directly from the [facility] accompanied by state troopers. Pt. 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 Pt was demonstrating psychotic/paranoid behavior, trying to barricade himself into his friends house and "speaking in unknown languages". Pt. arrested in 2013 for cruelty to animals. During his incarceration, pt.'s behavior described as "constantly provocative", pt. "throwing water on people and dumping water under the doors of other inmates; and continually yelling through his cell door and challenging both deputies and inmates to a fight". Pt. also had been refusing medical treatment. Pt. was considered a risk due to his aggression and refusal of treatment for his psychosis. According to Psychologist report, pt. is found incompetent to stand trial and requires antipsychotic medication in order to return him to competency and is a danger to himself and to others if unmedicated. Assessment What has happened this shift: Was up at change of shift. States he slept well and continues to have difficulty speaking clearly and significant hand tremors. Also states that he was told by the provider there would be some adjustments to his medications but as of this am, no changes have been made. Clozapine dosage decreased to 50mg. Observed walking in hallway intermittently, and joined others on the patio, otherwise only out of room for meals. /I, H/I: Denies A/VH: denies Sleep: 4.0 ADL's: Independent Group attendance: no Were meds taken: yes Any med S/E: difficulty speaking clearly and demonstrates hand tremors Mental Status Exam Appearance: wearing pajamas disheveled but demonstrates effective hygiene Eye contact: direct Behavior: guarded Speech: slightly slurred, slow Mood: guarded Affect: flat Thought process: linear, able to stay on one topic Thought Content: delusions of mistreatment and being set up by law enforcement, SE of meds Cognition: Oriented X 4 Insight: Poor Judgment: Poor Interventions PRN's used: Therapeutic interventions: Established rapport, maintained a safe and therapeutic environment, ensured contract for safety, provided clear and simple instructions, attempted to reorient to reality as needed, monitored behavior and need for intervention, provided positive encouragement, and maintained Q 15min safety checks. Restraints/seclusion/emergency medication: N/A Justification of Continued Inpatient Treatment: Pt. Remains delusional in relation to his mental health diagnosis and criminal charges. Will need to remain under treatment until competency can be determined.
[2020-01-02 20:00] VITALS: BP 125/57
[2020-01-02] MEDS: Melatonin 3mg tablet PO PRN (20:29)
[2020-01-02] MEDS: LORazepam 1 MG tablet PO PRN (20:29)
[2020-01-02] MEDS: zolpidem 5mg tablet PO PRN (20:29)
[2020-01-02] MEDS ORDERED: CLOZAPINE 25 MG oral disintegrating tablet PO SCH (21:00)
[2020-01-02 21:04] VITALS: BP 125/57
--- NOTE | 2020-01-02 22:48 | NUR ---
Nursing Progress Note: Hayden Legal hold: 1370 Client on involuntary status for 1370 Report received from DAISY Castillo with use of SBAR: Why are they here: Pt. admitted directly from the [facility] accompanied by state troopers. Pt. 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 Pt was demonstrating psychotic/paranoid behavior, trying to barricade himself into his friends house and "speaking in unknown languages". Pt. arrested in 2013 for cruelty to animals. During his incarceration, pt.'s behavior described as "constantly provocative", pt. "throwing water on people and dumping water under the doors of other inmates; and continually yelling through his cell door and challenging both deputies and inmates to a fight". Pt. also had been refusing medical treatment. Pt. was considered a risk due to his aggression and refusal of treatment for his psychosis. According to Psychologist report, pt. is found incompetent to stand trial and requires antipsychotic medication in order to return him to competency and is a danger to himself and to others if unmedicated. Assessment What has happened this shift: Patient asleep at shift change. He woke to his name. The patient appears fatigued and confused, "what day is it, how long have I been asleep?" When he was told that he's been asleep since I got here, he denied it and said it's only been an hour. He had been sleeping 2 hours at least. "I'm done talking, you people want to talk all the time about same stuff." He was found in his room for med pass. He was compliant for med pass, and lay back down. The patient still having trouble talking and making sense. he comes out to look around frequentl, but goes back to bed. S/I, H/I: Denies. A/VH: Denies. Sleep: See sleep assessment. ADL's: Independent. Group attendance: No groups on nights. Were meds taken: Yes. Any med S/E: patient reports fine hand tremors. Mental Status Exam Appearance: Disheveled, unkept, hair uncombed, wears street clothes. Eye contact: Direct. Behavior: Isolative, fatigues, anxious.. Speech: Slowed. Mood: "Bad". Affect: flat. Thought process: Linear. Thought Content: Just wants to rest. Cognition: Oriented X 4 Insight: Fair Judgment: Poor. Interventions PRN's used: Ambien, Melatonin, Ativan Therapeutic interventions: Established rapport, maintained a safe and therapeutic environment, ensured contract for safety, provided clear and simple instructions, attempted to reorient to reality as needed, monitored behavior and need for intervention, provided positive encouragement, and maintained Q 15min safety checks. Restraints/seclusion/emergency medication: N/A
--- NOTE | 2020-01-03 05:15 | NUR ---
Multiple times through the night the patient would get up, ask questions that were odd, he appeared confused, his speech was slurred, I instructed the patient to return to bed as he appeared sedated.
[2020-01-03 07:00] VITALS: BP 118/70
[2020-01-03] MEDS: OMEGA-3/DHA/EPA/FISH OIL 1 EACH CAPSULE.DR PO SCH ×2 (08:38→20:19)
[2020-01-03] MEDS: vitamin E 400 unit capsule PO SCH (08:38)
[2020-01-03] MEDS: benztropine 1mg tablet PO SCH ×2 (08:39→20:20)
[2020-01-03] MEDS: lithium carbonate 150mg capsule PO SCH ×2 (08:39→20:20)
[2020-01-03] MEDS: ascorbic acid 500mg tablet PO SCH ×2 (08:39→17:52)
[2020-01-03] MEDS: multivitamins, therapeutics tablet PO SCH (08:39)
[2020-01-03] MEDS: vitamin B comp w/Vit. C tab 1 TAB TABLET PO SCH (08:39)
[2020-01-03] MEDS: vitamin D (cholecalciferol) 1,000 unit tablet PO SCH (08:39)
--- NOTE | 2020-01-03 17:22 | NUR ---
Nursing Progress Note: Hayden Legal hold: 1370 Client on involuntary status for 1370 Report received from DAISY Prather with use of SBAR: Why are they here: Pt. admitted directly from the [facility] accompanied by state troopers. Pt. 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 Pt was demonstrating psychotic/paranoid behavior, trying to barricade himself into his friends house and "speaking in unknown languages". Pt. arrested in 2013 for cruelty to animals. During his incarceration, pt.'s behavior described as "constantly provocative", pt. "throwing water on people and dumping water under the doors of other inmates; and continually yelling through his cell door and challenging both deputies and inmates to a fight". Pt. also had been refusing medical treatment. Pt. was considered a risk due to his aggression and refusal of treatment for his psychosis. According to Psychologist report, pt. is found incompetent to stand trial and requires antipsychotic medication in order to return him to competency and is a danger to himself and to others if unmedicated. Assessment What has happened this shift: It was reported during shift change that patient is overmedicated. Notified Dr. Harrell in a.m. Patient did awaken enough to take his morning medications, but then went right back to sleep. He is laying on his mattress on the floor sleeping this shift. Patient is having difficulty waking up today, but is arousable to calling name repetitively. Pt. awoke at 13:00 for lunch and was able to hold a conversation. Dr. Harrell will DC Clozaril since patient is on Invega Sustenna. S/I, H/I: Denies A/VH: denies Sleep: 7.25 hrs NOC, slept until 13:00. ADL's: Independent Group attendance: no Were meds taken: yes Any med S/E: difficulty speaking clearly and demonstrates hand tremors, oversedation. Mental Status Exam Appearance: Sleeping in pajama bottoms, shirtless. Eye contact: direct Behavior: Sleeping, sedated Speech: slightly slurred, slow Mood: Depressed Affect: flat Thought process: Circumstantial. Thought Content: Sleeping. Satellites in the celso. Cognition: Confused. Insight: Poor Judgment: Poor Interventions PRN's used: None. Therapeutic interventions: Established rapport, maintained a safe and therapeutic environment, ensured contract for safety, provided clear and simple instructions, attempted to reorient to reality as needed, monitored behavior and need for intervention, provided positive encouragement, and maintained Q 15min safety checks. Restraints/seclusion/emergency medication: N/A Justification of Continued Inpatient Treatment: Pt. Remains delusional in relation to his mental health diagnosis and criminal charges. Will need to remain under treatment until competency can be determined.
[2020-01-03 20:00] VITALS: BP 122/72
[2020-01-03] MEDS: zolpidem 5mg tablet PO PRN (20:20)
[2020-01-03] MEDS: Melatonin 3mg tablet PO PRN (20:20)
[2020-01-03] MEDS: LORazepam 1 MG tablet PO PRN (20:23)
--- NOTE | 2020-01-03 21:53 | NUR ---
Nursing Progress Note: Legal hold: 1370 Client on involuntary status for 1370 Report received from DAISY Castillo with use of SBAR: Why are they here: Pt. admitted directly from the [facility] accompanied by state troopers. Pt. 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 Pt was demonstrating psychotic/paranoid behavior, trying to barricade himself into his friends house and "speaking in unknown languages". Pt. arrested in 2013 for cruelty to animals. During his incarceration, pt.'s behavior described as "constantly provocative", pt. "throwing water on people and dumping water under the doors of other inmates; and continually yelling through his cell door and challenging both deputies and inmates to a fight". Pt. also had been refusing medical treatment. Pt. was considered a risk due to his aggression and refusal of treatment for his psychosis. According to Psychologist report, pt. is found incompetent to stand trial and requires antipsychotic medication in order to return him to competency and is a danger to himself and to others if unmedicated. Assessment What has happened this shift: Patient asleep at shift change. He woke to his name and sat up. "Today, I feel more wiped out than ever before. I got up for dinner and ate, but my body was saying go lay down. After all I've been through I just feel like my body needs rest." When he was asked if he feels better tonight, "I don't know if I feel better. I'm not ready for conversation right now." When he spoke, he was much more clear than last night and could be understood. Clozaril has been DC'd and patient took all other medication then went back to his room. He still appears fatigued and guarded. S/I, H/I: Denies. A/VH: Denies. Sleep: See sleep assessment. ADL's: Independent. Group attendance: No groups on nights. Were meds taken: Yes. Any med S/E: patient reports fine hand tremors. Mental Status Exam Appearance: Disheveled, unkept, hair uncombed, face unshaved, wears street clothes. Eye contact: Direct. Behavior: Isolative, fatigues, anxious.. Speech: Slowed. Mood: "I'm feeling subdued." Affect: flat. Thought process: Linear. Thought Content: Just wants to rest. Cognition: Oriented X 4 Insight: Fair Judgment: Poor. Interventions PRN's used: Ambien, Melatonin, Ativan Therapeutic interventions: Established rapport, maintained a safe and therapeutic environment, ensured contract for safety, provided clear and simple instructions, attempted to reorient to reality as needed, monitored behavior and need for intervention, provided positive encouragement, and maintained Q 15min safety checks. Restraints/seclusion/emergency medication: N/A Justification of Continued Inpatient Treatment: Pt is on court ordered 1370 for mental health stabilization/ Return to competency.
[2020-01-03 22:33] VITALS: BP 125/75
[2020-01-04 07:40] VITALS: BP 108/65
[2020-01-04] MEDS: benztropine 1mg tablet PO SCH ×2 (08:21→20:29)
[2020-01-04] MEDS: vitamin E 400 unit capsule PO SCH (08:21)
[2020-01-04] MEDS: multivitamins, therapeutics tablet PO SCH (08:21)
[2020-01-04] MEDS: OMEGA-3/DHA/EPA/FISH OIL 1 EACH CAPSULE.DR PO SCH ×2 (08:21→20:28)
[2020-01-04] MEDS: vitamin B comp w/Vit. C tab 1 TAB TABLET PO SCH (08:21)
[2020-01-04] MEDS: vitamin D (cholecalciferol) 1,000 unit tablet PO SCH (08:21)
[2020-01-04] MEDS: ascorbic acid 500mg tablet PO SCH ×2 (08:21→17:55)
[2020-01-04] MEDS: lithium carbonate 150mg capsule PO SCH ×2 (08:22→20:28)
--- NOTE | 2020-01-04 17:40 | NUR ---
Nursing Progress Note: Hayden Legal hold: 1370 Client on involuntary status for 1370 Report received from DAISY Prather with use of SBAR: Why are they here: Pt. admitted directly from the [facility] accompanied by state troopers. Pt. 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 Pt was demonstrating psychotic/paranoid behavior, trying to barricade himself into his friends house and "speaking in unknown languages". Pt. arrested in 2013 for cruelty to animals. During his incarceration, pt.'s behavior described as "constantly provocative", pt. "throwing water on people and dumping water under the doors of other inmates; and continually yelling through his cell door and challenging both deputies and inmates to a fight". Pt. also had been refusing medical treatment. Pt. was considered a risk due to his aggression and refusal of treatment for his psychosis. According to Psychologist report, pt. is found incompetent to stand trial and requires antipsychotic medication in order to return him to competency and is a danger to himself and to others if unmedicated. Assessment What has happened this shift: Received pt. sleeping on mattress on floor in his room. Patient attends all meals in the dining room and takes medications without incident. Patient states that he is feeling much better today with the discontinuation of his Clozaril. He is pacing hallways with headphones on for several hours today. S/I, H/I: Denies A/VH: denies Sleep: 9 hrs NOC, napped after breakfast. ADL's: Independent Group attendance: Patio group Were meds taken: yes Any med S/E: None noted. Mental Status Exam Appearance: Clean and neat wearing personal attire. Eye contact: direct Behavior: Calm and cooperative. Speech: Clear, normal rhythm/volume. Mood: Depressed. Affect: Blunted. Thought process: Linear. Guarded. Thought Content: Feeling better. Cognition: A&O x 4 Insight: Poor Judgment: Poor Interventions PRN's used: None. Therapeutic interventions: Established rapport, maintained a safe and therapeutic environment, ensured contract for safety, provided clear and simple instructions, attempted to reorient to reality as needed, monitored behavior and need for intervention, provided positive encouragement, and maintained Q 15min safety checks. Restraints/seclusion/emergency medication: N/A Justification of Continued Inpatient Treatment: Pt. Remains delusional in relation to his mental health diagnosis and criminal charges. Will need to remain under treatment until competency can be determined.
[2020-01-04 20:00] VITALS: BP 120/72
[2020-01-04] MEDS: LORazepam 1 MG tablet PO PRN (20:28)
[2020-01-04] MEDS: zolpidem 5mg tablet PO PRN (20:29)
[2020-01-04] MEDS: Melatonin 3mg tablet PO PRN (20:54)
--- NOTE | 2020-01-05 00:50 | NUR ---
Nursing Progress Note: Hayden Legal hold: 1370 Client on involuntary status for 1370 Report received from DAISY Cardoza with use of SBAR: Why are they here: Pt. admitted directly from the [facility] accompanied by state troopers. Pt. 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 Pt was demonstrating psychotic/paranoid behavior, trying to barricade himself into his friends house and "speaking in unknown languages". Pt. arrested in 2013 for cruelty to animals. During his incarceration, pt.'s behavior described as "constantly provocative", pt. "throwing water on people and dumping water under the doors of other inmates; and continually yelling through his cell door and challenging both deputies and inmates to a fight". Pt. also had been refusing medical treatment. Pt. was considered a risk due to his aggression and refusal of treatment for his psychosis. According to Psychologist report, pt. is found incompetent to stand trial and requires antipsychotic medication in order to return him to competency and is a danger to himself and to others if unmedicated. Assessment What has happened this shift: Patient is up pacing the unit at change of shift. He is friendly when approached. He reports "Feeling better today." and talks about how he was on a medication that made him drowsy and stay in bed. He then reports "This is the first day I've actually had energy and walked around." He reports being pleased with his current medication changes and requests evening PRN medications to help him get rest this evening. Patient spends the majority of the evening pacing the halls and listening to headphones. He is complaint with all his evening medications and gores to bed shortly after HS medication pas. S/I, H/I: Denies A/VH: Denies Sleep: Currently sleeping, see sleep assessment ADL's: Independent Group attendance: No group this shift Were meds taken: Yes Any med S/E: None noted or observed Mental Status Exam Appearance: Clean and neat wearing personal attire. Eye contact: Direct Behavior: Calm and cooperative. Speech: Clear, normal rhythm/volume. Mood: Depressed. Affect: Blunted. Thought process: Linear. Guarded. Thought Content: Feeling better, having more energy Cognition: A&O x 4 Insight: Poor Judgment: Poor Interventions PRN's used: Ambien, Ativan, Melatonin Therapeutic interventions: Established rapport, maintained a safe and therapeutic environment, ensured contract for safety, provided clear and simple instructions, attempted to reorient to reality as needed, monitored behavior and need for intervention, provided positive encouragement, and maintained Q 15min safety checks. Restraints/seclusion/emergency medication: N/A Justification of Continued Inpatient Treatment: Pt. Remains delusional in relation to his mental health diagnosis and criminal charges. Will need to remain under treatment until competency can be established.
[2020-01-05] MEDS: diphenhydrAMINE 25mg capsule PO PRN (03:45)
[2020-01-05 08:00] VITALS: BP 106/66
[2020-01-05] MEDS: multivitamins, therapeutics tablet PO SCH (08:31)
[2020-01-05] MEDS: vitamin B comp w/Vit. C tab 1 TAB TABLET PO SCH (08:31)
[2020-01-05] MEDS: vitamin E 400 unit capsule PO SCH (08:31)
[2020-01-05] MEDS: ascorbic acid 500mg tablet PO SCH ×2 (08:31→17:30)
[2020-01-05] MEDS: lithium carbonate 150mg capsule PO SCH ×2 (08:31→20:20)
[2020-01-05] MEDS: vitamin D (cholecalciferol) 1,000 unit tablet PO SCH (08:31)
[2020-01-05] MEDS: benztropine 1mg tablet PO SCH ×2 (08:31→20:19)
[2020-01-05] MEDS: OMEGA-3/DHA/EPA/FISH OIL 1 EACH CAPSULE.DR PO SCH ×2 (08:31→20:19)
[2020-01-05 08:43] LABS: BASOPHILS % (AUTO) 0.7 % (0-1); EOSINOPHILS # (AUTO) 0.2 X10'3 (0-0.9); EOSINOPHILS % (AUTO) 3.6 % (0-6); HEMATOCRIT 42.7 % (42.0-52.0); HEMOGLOBIN 14.6 g/dl (14.0-17.9); LYMPHOCYTES # (AUTO) 1.4 X10'3 (1.1-4.8); LYMPHOCYTES % (AUTO) 22.2 % (21-51); MEAN CORPUSCULAR HEMOGLOBIN 31.4 PG (27.0-31.0); MEAN CORPUSCULAR HGB CONC 34.3 g/dL (33.0-36.5); MEAN CORPUSCULAR VOLUME 91.6 FL (78-98); MEAN PLATELET VOLUME 7.9 FL (7.4-10.4); MONOCYTES # (AUTO) 0.5 X10'3 (0-0.9); MONOCYTES % (AUTO) 7.5 % (2-12); NEUTROPHILS # (AUTO) 4.3 X10'3 (1.8-7.7); PLATELET COUNT 163 X10'3 (140-440); RED BLOOD COUNT 4.66 X10'6 (4.70-6.10); RED CELL DISTRIBUTION WIDTH 13.5 % (11.5-14.5); WHITE BLOOD COUNT 6.5 X10'3 (4.5-11.0)
[2020-01-05] MEDS: LORazepam 1 MG tablet PO PRN ×2 (09:00→20:20)
--- NOTE | 2020-01-05 11:25 | NUR ---
Reassessment: No changes in wt since last RD assessment. Pt continues with 75-100% PO intake meeting nutrient needs. LB 01/02. No nutrition intervention warranted at this time. Will continue to follow. Recommend: 1. continue regular diet 2. bowel care as needed 3. wt per rx Addendum: 01/05/20 at [address] Amended: Links added.
--- NOTE | 2020-01-05 17:32 | NUR ---
Nursing Progress Note: Legal hold: 1370 Client on involuntary status for 1370 Report received from DAISY Prather with use of SBAR: Why are they here: Pt. admitted directly from the [facility] accompanied by state troopers. Pt. 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 Pt was demonstrating psychotic/paranoid behavior, trying to barricade himself into his friends house and "speaking in unknown languages". Pt. arrested in 2013 for cruelty to animals. During his incarceration, pt.'s behavior described as "constantly provocative", pt. "throwing water on people and dumping water under the doors of other inmates; and continually yelling through his cell door and challenging both deputies and inmates to a fight". Pt. also had been refusing medical treatment. Pt. was considered a risk due to his aggression and refusal of treatment for his psychosis. According to Psychologist report, pt. is found incompetent to stand trial and requires antipsychotic medication in order to return him to competency and is a danger to himself and to others if unmedicated. Assessment What has happened this shift: Pt slept until breakfast. Pt up for meal, interacting appropriately with staff and peers. Pt did request ativan stating he felt anxiety; though, he appeared calm with relaxed facial expression. Pt pacing at times, but spent most of the days free time lying in bed. S/I, H/I: Denies A/VH: denies Sleep: 6.25 hrs NOC, napped after breakfast. ADL's: Independent Group attendance: Patio group Were meds taken: yes Any med S/E: None noted. Mental Status Exam Appearance: Clean and neat wearing personal attire. Eye contact: direct Behavior: Calm and cooperative. Speech: Clear, normal rhythm/volume. Mood: Depressed. Affect: Blunted. Thought process: Linear. Guarded. Thought Content: Feeling better. Cognition: A&O x 4 Insight: Poor Judgment: Poor Interventions PRN's used: ativan Therapeutic interventions: Established rapport, maintained a safe and therapeutic environment, ensured contract for safety, provided clear and simple instructions, attempted to reorient to reality as needed, monitored behavior and need for intervention, provided positive encouragement, and maintained Q 15min safety checks. Restraints/seclusion/emergency medication: N/A Justification of Continued Inpatient Treatment: Pt. Remains delusional in relation to his mental health diagnosis and criminal charges. Will need to remain under treatment until competency can be determined.
[2020-01-05 19:00] VITALS: BP 128/80
[2020-01-05] MEDS: Melatonin 3mg tablet PO PRN (20:19)
[2020-01-05] MEDS: zolpidem 5mg tablet PO PRN (20:20)
--- NOTE | 2020-01-06 03:51 | NUR ---
Nursing Progress Note: Hayden Legal hold: 1370 Client on involuntary status for 1370 Report received from DAISY Honeycutt with use of SBAR: Why are they here: Pt. admitted directly from the [facility] accompanied by state troopers. Pt. 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 Pt was demonstrating psychotic/paranoid behavior, trying to barricade himself into his friends house and "speaking in unknown languages". Pt. arrested in 2013 for cruelty to animals. During his incarceration, pt.'s behavior described as "constantly provocative", pt. "throwing water on people and dumping water under the doors of other inmates; and continually yelling through his cell door and challenging both deputies and inmates to a fight". Pt. also had been refusing medical treatment. Pt. was considered a risk due to his aggression and refusal of treatment for his psychosis. According to Psychologist report, pt. is found incompetent to stand trial and requires antipsychotic medication in order to return him to competency and is a danger to himself and to others if unmedicated. Assessment What has happened this shift: Patient is up pacing the unit at change of shift. He reports that his day was uneventful and spent his day trying to keep busy by walking the halls and listening to head phones. He does not make any delusional or grandiose statements this shift. He is compliant with all HS medications and puts himself to bed shortly after medication pass. S/I, H/I: Denies A/VH: Denies Sleep: Currently sleeping, see sleep assessment ADL's: Independent Group attendance: No group this shift Were meds taken: Yes Any med S/E: None noted or observed Mental Status Exam Appearance: Clean and neat wearing personal attire. Eye contact: Direct Behavior: Calm and cooperative. Speech: Clear, normal rhythm/volume. Mood: Depressed. Affect: Blunted. Thought process: Linear. Guarded. Thought Content: Feeling better, having more energy Cognition: A&O x 4 Insight: Poor Judgment: Poor Interventions PRN's used: Ambien, Ativan, Melatonin Therapeutic interventions: Established rapport, maintained a safe and therapeutic environment, ensured contract for safety, provided clear and simple instructions, attempted to reorient to reality as needed, monitored behavior and need for intervention, provided positive encouragement, and maintained Q 15min safety checks. Restraints/seclusion/emergency medication: N/A Justification of Continued Inpatient Treatment: Pt. Remains delusional in relation to his mental health diagnosis and criminal charges. Will need to remain under treatment until competency can be established
[2020-01-06 07:34] VITALS: BP 100/59
[2020-01-06] MEDS: multivitamins, therapeutics tablet PO SCH (08:16)
[2020-01-06] MEDS: vitamin D (cholecalciferol) 1,000 unit tablet PO SCH (08:16)
[2020-01-06] MEDS: ascorbic acid 500mg tablet PO SCH ×2 (08:16→17:48)
[2020-01-06] MEDS: LORazepam 1 MG tablet PO PRN ×2 (08:16→20:10)
[2020-01-06] MEDS: benztropine 1mg tablet PO SCH ×2 (08:16→20:10)
[2020-01-06] MEDS: lithium carbonate 150mg capsule PO SCH ×2 (08:16→20:11)
[2020-01-06] MEDS: OMEGA-3/DHA/EPA/FISH OIL 1 EACH CAPSULE.DR PO SCH ×2 (08:16→20:10)
[2020-01-06] MEDS: vitamin B comp w/Vit. C tab 1 TAB TABLET PO SCH (08:16)
[2020-01-06] MEDS: vitamin E 400 unit capsule PO SCH (08:16)
--- NOTE | 2020-01-06 15:18 | NUR ---
Nursing Progress Note: Legal hold: 1370 Client on involuntary status for 1370 Report received from DAISY Prather with use of SBAR: Why are they here: Pt. admitted directly from the [facility] accompanied by state troopers. Pt. 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 Pt was demonstrating psychotic/paranoid behavior, trying to barricade himself into his friends house and "speaking in unknown languages". Pt. arrested in 2013 for cruelty to animals. During his incarceration, pt.'s behavior described as "constantly provocative", pt. "throwing water on people and dumping water under the doors of other inmates; and continually yelling through his cell door and challenging both deputies and inmates to a fight". Pt. also had been refusing medical treatment. Pt. was considered a risk due to his aggression and refusal of treatment for his psychosis. According to Psychologist report, pt. is found incompetent to stand trial and requires antipsychotic medication in order to return him to competency and is a danger to himself and to others if unmedicated. Assessment What has happened this shift: Pt visible in the dayroom for all meals and partially for groups. Pt has flat affect and says hes trying to figure things out, I know point A and point B, Im just trying to figure out how to get there Pt partially attended group and did walk in hallway for a while, at one point interacting appropriately with female pt. Pt denies S.I. / H.I. Pt denies AV hallucinations.. Pt napped on and off throughout the day. S/I, H/I: Denies A/VH: denies Sleep: 6.25 hrs NOC, napped after breakfast. ADL's: Independent Group attendance: Patio group Were meds taken: yes Any med S/E: None noted. Mental Status Exam Appearance: Clean and neat wearing personal attire. Eye contact: direct Behavior: Calm and cooperative. Speech: Clear, normal rhythm/volume. Mood: Depressed. Affect: Blunted. Thought process: Linear. Guarded. Thought Content: Feeling better. Cognition: A&O x 4 Insight: Poor Judgment: Poor Interventions PRN's used: ativan Therapeutic interventions: Established rapport, maintained a safe and therapeutic environment, ensured contract for safety, provided clear and simple instructions, attempted to reorient to reality as needed, monitored behavior and need for intervention, provided positive encouragement, and maintained Q 15min safety checks. Restraints/seclusion/emergency medication: N/A Justification of Continued Inpatient Treatment: Pt. Remains delusional in relation to his mental health diagnosis and criminal charges. Will need to remain under treatment until competency can be determined.
[2020-01-06 20:04] VITALS: BP 125/79
[2020-01-06] MEDS: Melatonin 3mg tablet PO PRN (20:11)
[2020-01-06] MEDS: zolpidem 5mg tablet PO PRN (20:13)
--- NOTE | 2020-01-07 01:52 | NUR ---
Nursing Progress Note: Legal hold: 1370 Client on involuntary status for 1370 Report received from DAISY Honeycutt with use of SBAR: Why are they here: Pt. admitted directly from the [facility] accompanied by state troopers. Pt. 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 Pt was demonstrating psychotic/paranoid behavior, trying to barricade himself into his friends house and "speaking in unknown languages". Pt. arrested in 2013 for cruelty to animals. During his incarceration, pt.'s behavior described as "constantly provocative", pt. "throwing water on people and dumping water under the doors of other inmates; and continually yelling through his cell door and challenging both deputies and inmates to a fight". Pt. also had been refusing medical treatment. Pt. was considered a risk due to his aggression and refusal of treatment for his psychosis. According to Psychologist report, pt. is found incompetent to stand trial and requires antipsychotic medication in order to return him to competency and is a danger to himself and to others if unmedicated. Assessment What has happened this shift: Patient is visible on the unit at change of shift, listening to headphones and pacing the halls as he does most evenings. He reports that his day was "uneventful" and that he is "just trying to keep busy." He spends time in the group room eating snack but does not interact with his peers. Patient requests his medications early this shift stating that he is "Tired and falling out fast." Patient is given evening medications shortly after 1999, then patient puts himself to bed. S/I, H/I: Denies A/VH: Denies Sleep: Currently sleeping, see sleep assessment ADL's: Independent Group attendance: No groups this shift Were meds taken: Yes Any med S/E: None noted or observed Mental Status Exam Appearance: Clean and neat wearing personal attire. Eye contact: Direct Behavior: Calm and cooperative. Speech: Clear, normal rhythm/volume. Mood: Depressed. Affect: Blunted, flat. Thought process: Linear. Guarded. Thought Content: Trying to keep self busy Cognition: A&O x 4 Insight: Poor Judgment: Poor Interventions PRN's used: Melatonin, Ativan, Ambien Therapeutic interventions: Established rapport, maintained a safe and therapeutic environment, ensured contract for safety, provided clear and simple instructions, attempted to reorient to reality as needed, monitored behavior and need for intervention, provided positive encouragement, and maintained Q 15min safety checks. Restraints/seclusion/emergency medication: N/A Justification of Continued Inpatient Treatment: Pt. Remains delusional in relation to his mental health diagnosis and criminal charges. Will need to remain under treatment until competency can be determined.
[2020-01-07 08:00] VITALS: BP 120/81
[2020-01-07] MEDS: lithium carbonate 150mg capsule PO SCH ×2 (08:27→20:59)
[2020-01-07] MEDS: multivitamins, therapeutics tablet PO SCH (08:27)
[2020-01-07] MEDS: OMEGA-3/DHA/EPA/FISH OIL 1 EACH CAPSULE.DR PO SCH ×2 (08:27→20:59)
[2020-01-07] MEDS: benztropine 1mg tablet PO SCH ×2 (08:27→20:59)
[2020-01-07] MEDS: vitamin E 400 unit capsule PO SCH (08:27)
[2020-01-07] MEDS: vitamin B comp w/Vit. C tab 1 TAB TABLET PO SCH (08:27)
[2020-01-07] MEDS: ascorbic acid 500mg tablet PO SCH ×2 (08:27→17:45)
[2020-01-07] MEDS: vitamin D (cholecalciferol) 1,000 unit tablet PO SCH (08:27)
[2020-01-07] MEDS: LORazepam 1 MG tablet PO PRN (08:27)
[2020-01-07] MEDS: hydrOXYzine 25 MG tablet PO PRN (13:25)
--- NOTE | 2020-01-07 17:14 | NUR ---
Nursing Progress Note: Legal hold: 1370 Client on involuntary status for 1370 Report received from DAISY Lezama with use of SBAR: Why are they here: Pt. admitted directly from the [facility] accompanied by state troopers. Pt. 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 Pt was demonstrating psychotic/paranoid behavior, trying to barricade himself into his friends house and "speaking in unknown languages". Pt. arrested in 2013 for cruelty to animals. During his incarceration, pt.'s behavior described as "constantly provocative", pt. "throwing water on people and dumping water under the doors of other inmates; and continually yelling through his cell door and challenging both deputies and inmates to a fight". Pt. also had been refusing medical treatment. Pt. was considered a risk due to his aggression and refusal of treatment for his psychosis. According to Psychologist report, pt. is found incompetent to stand trial and requires antipsychotic medication in order to return him to competency and is a danger to himself and to others if unmedicated. Assessment What has happened this shift: Pt up for meals, calm and cooperative. Pt affect is flat, and pt states he is just trying to figure things out. Pt took his meds without complaint. Pt did request ativan this morning for anxiety. Pt states this was effective. Pt did pace the unit at times. Pt mostly stays to himself without much interaction with others. S/I, H/I: Denies A/VH: denies Sleep: 67.5 hrs NOC, napped after breakfast. ADL's: Independent Group attendance: partial Were meds taken: yes Any med S/E: None noted. Mental Status Exam Appearance: Clean and neat wearing personal attire. Eye contact: direct Behavior: Calm and cooperative. Speech: Clear, normal rhythm/volume. Mood: Depressed. Affect: Blunted. Thought process: Linear. Guarded. Thought Content: Feeling better. Cognition: A&O x 4 Insight: Poor Judgment: Poor Interventions PRN's used: ativan Therapeutic interventions: Established rapport, maintained a safe and therapeutic environment, ensured contract for safety, provided clear and simple instructions, attempted to reorient to reality as needed, monitored behavior and need for intervention, provided positive encouragement, and maintained Q 15min safety checks. Restraints/seclusion/emergency medication: N/A Justification of Continued Inpatient Treatment: Pt. Remains delusional in relation to his mental health diagnosis and criminal charges. Will need to remain under treatment until competency can be determined.
[2020-01-07 19:00] VITALS: BP 119/72
[2020-01-07] MEDS: zolpidem 5mg tablet PO PRN (20:59)
[2020-01-07] MEDS: Melatonin 3mg tablet PO PRN (21:03)
--- NOTE | 2020-01-08 01:47 | NUR ---
Nursing Progress Note: Legal hold: 1370 Client on involuntary status for 1370 Report received from DAISY Honeycutt with use of SBAR: Why are they here: Pt. admitted directly from the [facility] accompanied by state troopers. Pt. 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 Pt was demonstrating psychotic/paranoid behavior, trying to barricade himself into his friends house and "speaking in unknown languages". Pt. arrested in 2013 for cruelty to animals. During his incarceration, pt.'s behavior described as "constantly provocative", pt. "throwing water on people and dumping water under the doors of other inmates; and continually yelling through his cell door and challenging both deputies and inmates to a fight". Pt. also had been refusing medical treatment. Pt. was considered a risk due to his aggression and refusal of treatment for his psychosis. According to Psychologist report, pt. is found incompetent to stand trial and requires antipsychotic medication in order to return him to competency and is a danger to himself and to others if unmedicated. Assessment What has happened this shift: Patient self isolates in room following shift change. Patient is well oriented, laying on his bed mattress which he has placed on the floor. 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 The patient denies S/I, H/I, or any hallucinations. Patients thought process is linear. Patients focus is the paperwork he needs to complete, "I've been procrastinating." Patients thought process is linear. He is cooperative with staff and medication compliant. Folling dinner and medication administration the patient paces the hallway and listens to music on headphones. S/I, H/I: Denies. A/VH: Patient denies. Sleep: Will tally in am. ADL's: Independent. 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 Were meds taken: Yes, patient is medication compliant. Any med S/E: None. Mental Status Exam Appearance: Clean and neat wearing personal attire. Eye contact: Direct. Behavior: Calm and cooperative. Speech: Clear, normal rhythm/volume. Mood: Depressed. Affect: Blunted. Thought process: Linear.. Thought Content: On completing paperwork to leave the unit. Cognition: A&O x 4. Insight: Poor. Judgment: Poor. Interventions PRN's used: Atarax/Ativan. Therapeutic interventions: Established rapport, maintained a safe and therapeutic environment, ensured contract for safety, provided clear and simple instructions, attempted to reorient to reality as needed, monitored behavior and need for intervention, provided positive encouragement, and maintained Q 15min safety checks. Restraints/seclusion/emergency medication: N/A Justification of Continued Inpatient Treatment: Pt. Remains delusional in relation to his mental health diagnosis and criminal charges. Will need to remain under treatment until competency can be determined.
[2020-01-08 07:00] VITALS: BP 103/61
[2020-01-08] MEDS: vitamin B comp w/Vit. C tab 1 TAB TABLET PO SCH (08:08)
[2020-01-08] MEDS: OMEGA-3/DHA/EPA/FISH OIL 1 EACH CAPSULE.DR PO SCH ×2 (08:08→20:22)
[2020-01-08] MEDS: lithium carbonate 150mg capsule PO SCH ×2 (08:08→20:23)
[2020-01-08] MEDS: benztropine 1mg tablet PO SCH ×2 (08:09→20:22)
[2020-01-08] MEDS: vitamin D (cholecalciferol) 1,000 unit tablet PO SCH (08:09)
[2020-01-08] MEDS: vitamin E 400 unit capsule PO SCH (08:09)
[2020-01-08] MEDS: multivitamins, therapeutics tablet PO SCH (08:09)
[2020-01-08] MEDS: ascorbic acid 500mg tablet PO SCH ×2 (08:12→18:07)
[2020-01-08] MEDS: LORazepam 1 MG tablet PO PRN ×2 (08:18→18:14)
[2020-01-08] MEDS: diphenhydrAMINE 25mg capsule PO PRN ×2 (13:41→22:48)
--- NOTE | 2020-01-08 17:10 | NUR ---
Nursing Progress Note: Hayden Legal hold: 1370 Client on involuntary status for 1370 Report received from DAISY Gonzalez with use of SBAR: Why are they here: Pt. admitted directly from the [facility] accompanied by state troopers. Pt. 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 Pt was demonstrating psychotic/paranoid behavior, trying to barricade himself into his friends house and "speaking in unknown languages". Pt. arrested in 2013 for cruelty to animals. During his incarceration, pt.'s behavior described as "constantly provocative", pt. "throwing water on people and dumping water under the doors of other inmates; and continually yelling through his cell door and challenging both deputies and inmates to a fight". Pt. also had been refusing medical treatment. Pt. was considered a risk due to his aggression and refusal of treatment for his psychosis. According to Psychologist report, pt. is found incompetent to stand trial and requires antipsychotic medication in order to return him to competency and is a danger to himself and to others if unmedicated. Assessment What has happened this shift: Received pt. sleeping in bed at shift change. Patient attends all meals in the dining room, eats 100% of meals. Patient requests Atarax, but only available at h.s., Ativan given with good result. Patient states that he is stresssed getting his paperwork ready for court. Later in shift, patient requests Benadryl and was administered. Patient has been quiet, withdrawn and isolative. S/I, H/I: Denies A/VH: denies Sleep: 7.25 hrs NOC, napped x 2 ADL's: Independent Group attendance: No. Were meds taken: yes Any med S/E: None noted. Mental Status Exam Appearance: Clean and neat wearing personal attire. Eye contact: direct Behavior: Calm and cooperative. Speech: Clear, normal rhythm/volume. Mood: Depressed. Affect: Blunted. Thought process: Linear. Constricted. Thought Content: Patient states he is feeling stressed about getting ready for court. Cognition: A&O x 4 Insight: Poor Judgment: Poor Interventions PRN's used: ativan, Benadryl Therapeutic interventions: Established rapport, maintained a safe and therapeutic environment, ensured contract for safety, provided clear and simple instructions, attempted to reorient to reality as needed, monitored behavior and need for intervention, provided positive encouragement, and maintained Q 15min safety checks. Restraints/seclusion/emergency medication: N/A Justification of Continued Inpatient Treatment: Pt. Remains delusional in relation to his mental health diagnosis and criminal charges. Will need to remain under treatment until competency can be determined.
[2020-01-08 20:14] VITALS: BP 120/70
[2020-01-08] MEDS: Melatonin 3mg tablet PO PRN (20:23)
[2020-01-08] MEDS: zolpidem 5mg tablet PO PRN (20:23)
[2020-01-08] MEDS: hydrOXYzine 25 MG tablet PO PRN (20:23)
--- NOTE | 2020-01-08 22:01 | NUR ---
Nursing Progress Note: Hayden Legal hold: 1370 Client on involuntary status for 1370 Report received from DAISY Honeycutt with use of SBAR: Why are they here: Pt. admitted directly from the [facility] accompanied by state troopers. Pt. 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 Pt was demonstrating psychotic/paranoid behavior, trying to barricade himself into his friends house and "speaking in unknown languages". Pt. arrested in 2013 for cruelty to animals. During his incarceration, pt.'s behavior described as "constantly provocative", pt. "throwing water on people and dumping water under the doors of other inmates; and continually yelling through his cell door and challenging both deputies and inmates to a fight". Pt. also had been refusing medical treatment. Pt. was considered a risk due to his aggression and refusal of treatment for his psychosis. According to Psychologist report, pt. is found incompetent to stand trial and requires antipsychotic medication in order to return him to competency and is a danger to himself and to others if unmedicated. Assessment What has happened this shift: Received pt. sleeping in bed at shift change. Patient attends snack in the dining room. Patient requests Atarax, Ambien and Melatonin with good result. Patient states that he is stressed getting his paperwork ready for court. Patient has been quiet, withdrawn and isolativeor pacing the solomon with headphones on. S/I, H/I: Denies A/VH: denies Sleep: 7.25 hrs NOC, napped x 2 ADL's: Independent Group attendance: No. Were meds taken: yes Any med S/E: None noted. Mental Status Exam Appearance: Clean and neat wearing personal attire. Eye contact: direct Behavior: Calm and cooperative. Speech: Clear, normal rhythm/volume. Mood: Depressed. Affect: Blunted. Thought process: Linear. Constricted. Thought Content: Patient states he is feeling stressed about getting ready for court. Cognition: A&O x 4 Insight: Poor Judgment: Poor Interventions PRN's used: Ambien,Atarax,Melatonin Therapeutic interventions: Established rapport, maintained a safe and therapeutic environment, ensured contract for safety, provided clear and simple instructions, attempted to reorient to reality as needed, monitored behavior and need for intervention, provided positive encouragement, and maintained Q 15min safety checks. Restraints/seclusion/emergency medication: N/A Justification of Continued Inpatient Treatment: Pt. Remains delusional in relation to his mental health diagnosis and criminal charges. Will need to remain under treatment until competency can be determined.
[2020-01-09 08:00] VITALS: BP 110/62
[2020-01-09] MEDS: vitamin E 400 unit capsule PO SCH (08:24)
[2020-01-09] MEDS: LORazepam 1 MG tablet PO PRN ×2 (08:24→20:26)
[2020-01-09] MEDS: OMEGA-3/DHA/EPA/FISH OIL 1 EACH CAPSULE.DR PO SCH ×2 (08:24→20:26)
[2020-01-09] MEDS: vitamin D (cholecalciferol) 1,000 unit tablet PO SCH (08:25)
[2020-01-09] MEDS: vitamin B comp w/Vit. C tab 1 TAB TABLET PO SCH (08:26)
[2020-01-09] MEDS: benztropine 1mg tablet PO SCH ×2 (08:26→20:26)
[2020-01-09] MEDS: multivitamins, therapeutics tablet PO SCH (08:26)
[2020-01-09] MEDS: ascorbic acid 500mg tablet PO SCH ×2 (08:26→18:10)
[2020-01-09] MEDS: lithium carbonate 150mg capsule PO SCH ×2 (08:26→20:27)
--- NOTE | 2020-01-09 18:04 | NUR ---
Nursing Progress Note Legal hold: 1370 Client on involuntary status for 1370 Report received from ERIC Chavez with use of SBAR: Why are they here: Pt. admitted directly from the [facility] accompanied by state troopers. Pt. 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 Pt was demonstrating psychotic/paranoid behavior, trying to barricade himself into his friends house and "speaking in unknown languages". Pt. arrested in 2013 for cruelty to animals. During his incarceration, pt.'s behavior described as "constantly provocative", pt. "throwing water on people and dumping water under the doors of other inmates; and continually yelling through his cell door and challenging both deputies and inmates to a fight". Pt. also had been refusing medical treatment. Pt. was considered a risk due to his aggression and refusal of treatment for his psychosis. According to Psychologist report, pt. is found incompetent to stand trial and requires antipsychotic medication in order to return him to competency and is a danger to himself and to others if unmedicated. Assessment What has happened this shift: Received pt. sleeping in bed at shift change. Patient attends all meals in the dining room, eats 100% of meals. Patient requests Ativan for anxiety with good effect. Pt. stressed about paper work. Pt. denies SI/HI, A/V halluciantions. S/I, H/I: Denies A/VH: denies Sleep: Pt. did not nap on day shift. ADL's: Independent Group attendance: No. Were meds taken: yes Any med S/E: None noted. Mental Status Exam Appearance: Clean and neat wearing street clothes Eye contact: direct Behavior: Calm and cooperative. Speech: Clear, normal rhythm/volume. Mood: Depressed Affect: Congruent with mood Thought process: Linear. Thought Content: Focused on court Cognition: A&O x 4 Insight: Poor Judgment: Poor Interventions PRN's used: Ativan Therapeutic interventions: Established rapport, maintained a safe and therapeutic environment, ensured contract for safety, provided clear and simple instructions, attempted to reorient to reality as needed, monitored behavior and need for intervention, provided positive encouragement, and maintained Q 15min safety checks. Restraints/seclusion/emergency medication: N/A Justification of Continued Inpatient Treatment: Pt. Remains delusional in relation to his mental health diagnosis and criminal charges. Will need to remain under treatment until competency can be determined.
[2020-01-09 20:00] VITALS: BP 128/76
[2020-01-09] MEDS: Melatonin 3mg tablet PO PRN (20:26)
[2020-01-09] MEDS: zolpidem 5mg tablet PO PRN (20:26)
--- NOTE | 2020-01-09 21:27 | NUR ---
Nursing Progress Note Legal hold: 1370 Client on involuntary status for 1370 Report received from DAISY Cardoza with use of SBAR: Why are they here: Pt. admitted directly from the [facility] accompanied by state troopers. Pt. 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 Pt was demonstrating psychotic/paranoid behavior, trying to barricade himself into his friends house and "speaking in unknown languages". Pt. arrested in 2013 for cruelty to animals. During his incarceration, pt.'s behavior described as "constantly provocative", pt. "throwing water on people and dumping water under the doors of other inmates; and continually yelling through his cell door and challenging both deputies and inmates to a fight". Pt. also had been refusing medical treatment. Pt. was considered a risk due to his aggression and refusal of treatment for his psychosis. According to Psychologist report, pt. is found incompetent to stand trial and requires antipsychotic medication in order to return him to competency and is a danger to himself and to others if unmedicated. Assessment What has happened this shift: Received pt. up and pacing the solomon at shift change. Patient attended snack in the dining room. Patient requests Ativan for anxiety with good effect. Pt. stressed about paper work. Pt. denies SI/HI, A/V hallucinations. S/I, H/I: Denies A/VH: denies Sleep: Pt. did not nap on day shift. ADL's: Independent Group attendance: No. Were meds taken: yes Any med S/E: None noted. Mental Status Exam Appearance: Clean and neat wearing street clothes Eye contact: direct Behavior: Calm and cooperative. Speech: Clear, normal rhythm/volume. Mood: Depressed Affect: Congruent with mood Thought process: Linear. Thought Content: Focused on court Cognition: A&O x 4 Insight: Poor Judgment: Poor Interventions PRN's used: Ativan Therapeutic interventions: Established rapport, maintained a safe and therapeutic environment, ensured contract for safety, provided clear and simple instructions, attempted to reorient to reality as needed, monitored behavior and need for intervention, provided positive encouragement, and maintained Q 15min safety checks. Restraints/seclusion/emergency medication: N/A Justification of Continued Inpatient Treatment: Pt. Remains delusional in relation to his mental health diagnosis and criminal charges. Will need to remain under treatment until competency can be determined.
[2020-01-10 07:44] VITALS: BP 107/70
[2020-01-10] MEDS: lithium carbonate 150mg capsule PO SCH ×2 (08:11→20:23)
[2020-01-10] MEDS: vitamin B comp w/Vit. C tab 1 TAB TABLET PO SCH (08:11)
[2020-01-10] MEDS: ascorbic acid 500mg tablet PO SCH ×2 (08:12→18:15)
[2020-01-10] MEDS: OMEGA-3/DHA/EPA/FISH OIL 1 EACH CAPSULE.DR PO SCH ×2 (08:12→20:23)
[2020-01-10] MEDS: vitamin E 400 unit capsule PO SCH (08:12)
[2020-01-10] MEDS: vitamin D (cholecalciferol) 1,000 unit tablet PO SCH (08:13)
[2020-01-10] MEDS: benztropine 1mg tablet PO SCH ×2 (08:13→20:23)
[2020-01-10] MEDS: multivitamins, therapeutics tablet PO SCH (08:15)
[2020-01-10] MEDS: LORazepam 1 MG tablet PO PRN ×2 (08:17→20:23)
--- NOTE | 2020-01-10 18:03 | NUR ---
Nursing Progress Note Legal hold: 1370 Client on involuntary status for 1370 Report received from ERIC Chavez with use of SBAR: Why are they here: Pt. admitted directly from the [facility] accompanied by state troopers. Pt. 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 Pt was demonstrating psychotic/paranoid behavior, trying to barricade himself into his friends house and "speaking in unknown languages". Pt. arrested in 2013 for cruelty to animals. During his incarceration, pt.'s behavior described as "constantly provocative", pt. "throwing water on people and dumping water under the doors of other inmates; and continually yelling through his cell door and challenging both deputies and inmates to a fight". Pt. also had been refusing medical treatment. Pt. was considered a risk due to his aggression and refusal of treatment for his psychosis. According to Psychologist report, pt. is found incompetent to stand trial and requires antipsychotic medication in order to return him to competency and is a danger to himself and to others if unmedicated. Assessment What has happened this shift: Received pt. sleeping in bed at shift change. Patient attends all meals in the community room, eats 100% of meals. Patient requests Ativan for anxiety with good effect. Pt. reports being stressed about defending himself in court. Pt. reports he is writing a lot about his past but does not want to discuss this. Pt. denies SI/HI, A/V halluciantions. S/I, H/I: Denies A/VH: Denies Sleep: Pt. did not nap on day shift. ADL's: Independent Group attendance: No Were meds taken: Yes Any med S/E: None noted. Mental Status Exam Appearance: Clean and neat wearing street clothes Eye contact: direct Behavior: Calm and cooperative. Speech: Clear, normal rhythm/volume. Mood: Depressed Affect: Congruent with mood Thought process: Linear. Thought Content: Focused on documenting his past Cognition: A&O x 4 Insight: Poor Judgment: Poor Interventions PRN's used: Ativan Therapeutic interventions: Established rapport, maintained a safe and therapeutic environment, ensured contract for safety, provided clear and simple instructions, attempted to reorient to reality as needed, monitored behavior and need for intervention, provided positive encouragement, and maintained Q 15min safety checks. Restraints/seclusion/emergency medication: N/A Justification of Continued Inpatient Treatment: Pt. Remains delusional in relation to his mental health diagnosis and criminal charges. Will need to remain under treatment until competency can be determined.
[2020-01-10 19:41] VITALS: BP 126/78
[2020-01-10] MEDS: zolpidem 5mg tablet PO PRN (20:23)
[2020-01-10] MEDS: Melatonin 3mg tablet PO PRN (20:23)
--- NOTE | 2020-01-10 22:13 | NUR ---
Nursing Progress Note Legal hold: 1370 Client on involuntary status for 1370 Report received from ERIC Chavez with use of SBAR: Why are they here: Pt. admitted directly from the [facility] accompanied by state troopers. Pt. 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 Pt was demonstrating psychotic/paranoid behavior, trying to barricade himself into his friends house and "speaking in unknown languages". Pt. arrested in 2013 for cruelty to animals. During his incarceration, pt.'s behavior described as "constantly provocative", pt. "throwing water on people and dumping water under the doors of other inmates; and continually yelling through his cell door and challenging both deputies and inmates to a fight". Pt. also had been refusing medical treatment. Pt. was considered a risk due to his aggression and refusal of treatment for his psychosis. According to Psychologist report, pt. is found incompetent to stand trial and requires antipsychotic medication in order to return him to competency and is a danger to himself and to others if unmedicated. Assessment What has happened this shift: Pt was walking in the hallway at change of shift. Pt c/o having a new roommate states he couldnt sleep much last night and his feeling anxious. Pt requested prn ativan and melatonin at bedtime. Pt spent evening isolating to himself and listening to headphones. He sat alone in the group room eating his snack. S/I, H/I: Denies A/VH: Denies Sleep: Pt states didnt sleep well last night . ADL's: Independent Group attendance: No Were meds taken: Yes Any med S/E: None noted. Mental Status Exam Appearance: Clean and neat wearing street clothes Eye contact: direct Behavior: Calm and cooperative. Speech: Clear, normal rhythm/volume. Mood: Depressed Affect: Congruent with mood Thought process: Linear. Thought Content: wanting to sleep better tonight Cognition: A&O x 4 Insight: Poor Judgment: Poor Interventions PRN's used: Ativan, melatonin Therapeutic interventions: Established rapport, maintained a safe and therapeutic environment, ensured contract for safety, provided clear and simple instructions, attempted to reorient to reality as needed, monitored behavior and need for intervention, provided positive encouragement, and maintained Q 15min safety checks. Restraints/seclusion/emergency medication: N/A Justification of Continued Inpatient Treatment: Pt. Remains delusional in relation to his mental health diagnosis and criminal charges. Will need to remain under treatment until competency can be determined.
[2020-01-11] MEDS: vitamin D (cholecalciferol) 1,000 unit tablet PO SCH (08:14)
[2020-01-11] MEDS: vitamin B comp w/Vit. C tab 1 TAB TABLET PO SCH (08:14)
[2020-01-11] MEDS: ascorbic acid 500mg tablet PO SCH ×2 (08:14→17:23)
[2020-01-11] MEDS: vitamin E 400 unit capsule PO SCH (08:14)
[2020-01-11] MEDS: benztropine 1mg tablet PO SCH ×2 (08:14→20:09)
[2020-01-11] MEDS: lithium carbonate 150mg capsule PO SCH ×2 (08:14→20:08)
[2020-01-11] MEDS: OMEGA-3/DHA/EPA/FISH OIL 1 EACH CAPSULE.DR PO SCH ×2 (08:14→20:08)
[2020-01-11] MEDS: multivitamins, therapeutics tablet PO SCH (08:14)
[2020-01-11] MEDS: LORazepam 1 MG tablet PO PRN ×3 (08:18→20:12)
[2020-01-11 08:21] VITALS: BP 120/61
--- NOTE | 2020-01-11 13:41 | NUR ---
NURSING PROGRESS NOTE Legal hold: 1370 Client on involuntary status for 1370 Report received from WALESKA Prather with use of SBAR Why are they here: Pt. admitted directly from the [facility] accompanied by state troopers. Pt. 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 Pt was demonstrating psychotic/paranoid behavior, trying to barricade himself into his friends house and "speaking in unknown languages". Pt. arrested in 2013 for cruelty to animals. During his incarceration, pt.'s behavior described as "constantly provocative", pt. "throwing water on people and dumping water under the doors of other inmates; and continually yelling through his cell door and challenging both deputies and inmates to a fight". Pt. also had been refusing medical treatment. Pt. was considered a risk due to his aggression and refusal of treatment for his psychosis. According to Psychologist report, pt. is found incompetent to stand trial and requires antipsychotic medication in order to return him to competency and is a danger to himself and to others if unmedicated. Assessment What has happened this shift: Up walking in hallway before breakfast. Eats all meals 100%. Asked for Ativan at breakfast due to increased anxiety. Reports increased anxiety due to disturbances with other patients on the unit last night as well as his roommate being noisy and dropping a bloody bandaid on the floor of their room. He was given Ativan with good effect. He paced all morning but remained calm, polite and conversational. Denies SI/Hi, A/V hallucinations and made no delusional statements this shift. S/I, H/I: Denies A/VH: Denies Sleep: none ADL's: Independent Group attendance: No Were meds taken: Yes Any med S/E: None noted. Mental Status Exam Appearance: Clean and groomed Eye contact: direct Behavior: Calm and cooperative. Speech: Clear Mood: Depressed with some brightening Affect: blunted Thought process: Linear. Thought Content: Focused on roommate Cognition: Alert Insight: Poor Judgment: Poor Interventions PRN's used: Ativan Therapeutic interventions: Established rapport, maintained a safe and therapeutic environment, ensured contract for safety, provided clear and simple instructions, attempted to reorient to reality as needed, monitored behavior and need for intervention, provided positive encouragement, and maintained Q 15min safety checks. Restraints/seclusion/emergency medication: N/A Justification of Continued Inpatient Treatment: Pt. Remains delusional in relation to his mental health diagnosis and criminal charges. Will need to remain under treatment until competency can be determined.
--- NOTE | 2020-01-11 14:37 | NUR ---
Reassessment: Pt 100% PO intake meeting nutrient needs. LBM 01/10. No nutrition intervention warranted at this time. Will continue to follow. Recommend: 1. continue regular diet 2. bowel care as needed 3. wt per rx Addendum: 01/11/20 at [address] Amended: Links added.
[2020-01-11 20:00] VITALS: BP 122/75
[2020-01-11] MEDS: zolpidem 5mg tablet PO PRN (20:08)
[2020-01-11] MEDS: Melatonin 3mg tablet PO PRN (20:09)
--- NOTE | 2020-01-11 23:32 | NUR ---
NURSING PROGRESS NOTE Legal hold: 1370 Client on involuntary status for 1370 Report received from WALESKA Prather with use of SBAR Why are they here: Pt. admitted directly from the [facility] accompanied by state troopers. Pt. 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 Pt was demonstrating psychotic/paranoid behavior, trying to barricade himself into his friends house and "speaking in unknown languages". Pt. arrested in 2013 for cruelty to animals. During his incarceration, pt.'s behavior described as "constantly provocative", pt. "throwing water on people and dumping water under the doors of other inmates; and continually yelling through his cell door and challenging both deputies and inmates to a fight". Pt. also had been refusing medical treatment. Pt. was considered a risk due to his aggression and refusal of treatment for his psychosis. According to Psychologist report, pt. is found incompetent to stand trial and requires antipsychotic medication in order to return him to competency and is a danger to himself and to others if unmedicated. Assessment What has happened this shift: Pt was watching tv at change of shift. Pt is pleasant and cooperative this evening. Denies s/i, denies h/i, reports not being able to sleep well at night because of roommate and requests ambien, ativan and melatonin at bedtime. S/I, H/I: Denies A/VH: Denies Sleep: reports not sleeping well due to having roommate ADL's: Independent Group attendance: No Were meds taken: Yes Any med S/E: None noted. Mental Status Exam Appearance: Clean and groomed Eye contact: direct Behavior: Calm and cooperative. Speech: Clear Mood: Depressed with some brightening Affect: blunted Thought process: Linear. Thought Content: Focused on roommate Cognition: Alert Insight: Poor Judgment: Poor Interventions PRN's used: Ativan Therapeutic interventions: Established rapport, maintained a safe and therapeutic environment, ensured contract for safety, provided clear and simple instructions, attempted to reorient to reality as needed, monitored behavior and need for intervention, provided positive encouragement, and maintained Q 15min safety checks. Restraints/seclusion/emergency medication: N/A Justification of Continued Inpatient Treatment: Pt. Remains delusional in relation to his mental health diagnosis and criminal charges. Will need to remain under treatment until competency can be determined.
[2020-01-12 08:00] VITALS: BP 130/84
[2020-01-12] MEDS: OMEGA-3/DHA/EPA/FISH OIL 1 EACH CAPSULE.DR PO SCH ×2 (08:00→20:14)
[2020-01-12] MEDS: lithium carbonate 150mg capsule PO SCH ×2 (08:01→20:13)
[2020-01-12] MEDS: ascorbic acid 500mg tablet PO SCH ×2 (08:01→16:28)
[2020-01-12] MEDS: vitamin E 400 unit capsule PO SCH (08:01)
[2020-01-12] MEDS: vitamin B comp w/Vit. C tab 1 TAB TABLET PO SCH (08:01)
[2020-01-12] MEDS: benztropine 1mg tablet PO SCH ×2 (08:01→20:14)
[2020-01-12] MEDS: multivitamins, therapeutics tablet PO SCH (08:01)
[2020-01-12] MEDS: vitamin D (cholecalciferol) 1,000 unit tablet PO SCH (08:01)
[2020-01-12] MEDS: LORazepam 1 MG tablet PO PRN ×2 (08:17→20:14)
[2020-01-12] MEDS: diphenhydrAMINE 25mg capsule PO PRN (08:35)
--- NOTE | 2020-01-12 15:49 | NUR ---
NURSING PROGRESS NOTE Legal hold: 1370 Client on involuntary status for 1370 Report received from WALESKA Prather with use of SBAR Why are they here: Pt. admitted directly from the [facility] accompanied by state troopers. Pt. 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 Pt was demonstrating psychotic/paranoid behavior, trying to barricade himself into his friends house and "speaking in unknown languages". Pt. arrested in 2013 for cruelty to animals. During his incarceration, pt.'s behavior described as "constantly provocative", pt. "throwing water on people and dumping water under the doors of other inmates; and continually yelling through his cell door and challenging both deputies and inmates to a fight". Pt. also had been refusing medical treatment. Pt. was considered a risk due to his aggression and refusal of treatment for his psychosis. According to Psychologist report, pt. is found incompetent to stand trial and requires antipsychotic medication in order to return him to competency and is a danger to himself and to others if unmedicated. Assessment What has happened this shift: Slept in this morning, up to breakfast stating he is very tired and anxious due to his roommate's noise at night. He requests Ativan and would like to go back to sleep which he did. A bit later was given benedryl for anxiety which had good effect. Stated twice to nurse he had been working and writing on his court questions and was observed in his room doing so. Denies hallucinations and made no delusional statements this shift. S/I, H/I: Denies A/VH: Denies Sleep: none ADL's: Independent Group attendance: No Were meds taken: Yes Any med S/E: None noted. Mental Status Exam Appearance: Clean and groomed Eye contact: direct Behavior: Calm and cooperative. Speech: Clear Mood: Depressed with some brightening Affect: blunted Thought process: Linear. Thought Content: Focused on sleep Cognition: Alert Insight: Poor Judgment: good Interventions PRN's used: Ativan, benedryl Therapeutic interventions: Established rapport, maintained a safe and therapeutic environment, ensured contract for safety, provided clear and simple instructions, attempted to reorient to reality as needed, monitored behavior and need for intervention, provided positive encouragement, and maintained Q 15min safety checks. Restraints/seclusion/emergency medication: N/A Justification of Continued Inpatient Treatment: Pt. Remains delusional in relation to his mental health diagnosis and criminal charges. Will need to remain under treatment until competency can be determined.
[2020-01-12] MEDS: Melatonin 3mg tablet PO PRN (20:14)
[2020-01-12] MEDS: zolpidem 5mg tablet PO PRN (20:14)
[2020-01-12 20:30] VITALS: BP 122/73
--- NOTE | 2020-01-12 22:59 | NUR ---
NURSING PROGRESS NOTE Legal hold: 1370 Client on involuntary status for 1370 Report received from WALESKA Castillo with use of SBAR Why are they here: Pt. admitted directly from the [facility] accompanied by state troopers. Pt. 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 Pt was demonstrating psychotic/paranoid behavior, trying to barricade himself into his friends house and "speaking in unknown languages". Pt. arrested in 2013 for cruelty to animals. During his incarceration, pt.'s behavior described as "constantly provocative", pt. "throwing water on people and dumping water under the doors of other inmates; and continually yelling through his cell door and challenging both deputies and inmates to a fight". Pt. also had been refusing medical treatment. Pt. was considered a risk due to his aggression and refusal of treatment for his psychosis. According to Psychologist report, pt. is found incompetent to stand trial and requires antipsychotic medication in order to return him to competency and is a danger to himself and to others if unmedicated. Assessment What has happened this shift: Pt was walking in the hallway at change of shift. Pt states he had a good day but continues to be bothered by having a roommate. He states his roommate has "gotten better". He states he is getting used to wearing ear plugs to sleep but maintains that he needs prns at bedtime or he doesnt sleep. pt isolates to himself for duration of shift. He sits alone during time in group room. S/I, H/I: Denies A/VH: Denies Sleep: none ADL's: Independent Group attendance: No Were meds taken: Yes Any med S/E: None noted. Mental Status Exam Appearance: Clean and groomed Eye contact: direct Behavior: Calm and cooperative. Speech: Clear Mood: Depressed with some brightening Affect: blunted Thought process: Linear. Thought Content: Focused on noise roommate makes Cognition: Alert Insight: Poor Judgment: good Interventions PRN's used: Ativan, Melatonin Therapeutic interventions: Established rapport, maintained a safe and therapeutic environment, ensured contract for safety, provided clear and simple instructions, attempted to reorient to reality as needed, monitored behavior and need for intervention, provided positive encouragement, and maintained Q 15min safety checks. Restraints/seclusion/emergency medication: N/A Justification of Continued Inpatient Treatment: Pt. Remains delusional in relation to his mental health diagnosis and criminal charges. Will need to remain under treatment until competency can be determined.
[2020-01-13 07:47] VITALS: BP 113/76
[2020-01-13] MEDS: vitamin B comp w/Vit. C tab 1 TAB TABLET PO SCH (08:13)
[2020-01-13] MEDS: multivitamins, therapeutics tablet PO SCH (08:13)
[2020-01-13] MEDS: diphenhydrAMINE 25mg capsule PO PRN (08:13)
[2020-01-13] MEDS: vitamin D (cholecalciferol) 1,000 unit tablet PO SCH (08:14)
[2020-01-13] MEDS: ascorbic acid 500mg tablet PO SCH ×2 (08:14→17:01)
[2020-01-13] MEDS: OMEGA-3/DHA/EPA/FISH OIL 1 EACH CAPSULE.DR PO SCH ×2 (08:14→20:27)
[2020-01-13] MEDS: LORazepam 1 MG tablet PO PRN ×2 (08:14→20:34)
[2020-01-13] MEDS: lithium carbonate 150mg capsule PO SCH ×2 (08:14→20:26)
[2020-01-13] MEDS: benztropine 1mg tablet PO SCH (08:14)
[2020-01-13] MEDS: vitamin E 400 unit capsule PO SCH (08:15)
--- NOTE | 2020-01-13 11:45 | NUR ---
NURSING PROGRESS NOTE Legal hold: 1370 Client on involuntary status for 1370 Report received from DAISY Curran with use of SBAR Why are they here: Pt. admitted directly from the [facility] accompanied by state troopers. Pt. 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 Pt was demonstrating psychotic/paranoid behavior, trying to barricade himself into his friends house and "speaking in unknown languages". Pt. arrested in 2013 for cruelty to animals. During his incarceration, pt.'s behavior described as "constantly provocative", pt. "throwing water on people and dumping water under the doors of other inmates; and continually yelling through his cell door and challenging both deputies and inmates to a fight". Pt. also had been refusing medical treatment. Pt. was considered a risk due to his aggression and refusal of treatment for his psychosis. According to Psychologist report, pt. is found incompetent to stand trial and requires antipsychotic medication in order to return him to competency and is a danger to himself and to others if unmedicated. Assessment What has happened this shift: Slept in this morning, up to breakfast stating he is very tired stating although he is getting used to his roommate's noise level at night he is still not sleeping well. He requests Ativan for increased anxiety and benedryl as he would like to go back to sleep which he did. He continues to work on court documents. Doing well, cooperative. Denies hallucinations and made no delusional statements this shift. S/I, H/I: Denies A/VH: Denies Sleep: none ADL's: Independent Group attendance: No Were meds taken: Yes Any med S/E: None noted. Mental Status Exam Appearance: Clean and groomed Eye contact: direct Behavior: Calm and cooperative. Speech: Clear Mood: Depressed with some brightening Affect: blunted Thought process: Linear. Thought Content: Focused on sleep Cognition: Alert Insight: Poor Judgment: good Interventions PRN's used: Ativan, benedryl Therapeutic interventions: Established rapport, maintained a safe and therapeutic environment, ensured contract for safety, provided clear and simple instructions, attempted to reorient to reality as needed, monitored behavior and need for intervention, provided positive encouragement, and maintained Q 15min safety checks. Restraints/seclusion/emergency medication: N/A Justification of Continued Inpatient Treatment: Pt. Remains delusional in relation to his mental health diagnosis and criminal charges. Will need to remain under treatment until competency can be determined.
--- NOTE | 2020-01-13 18:42 | NUR ---
Patient is on bed 23. Patient is awake and well oriented. Patient states recent anxiety and depression. Patient states he was going to soon feel suicidal, he has no plan. Patient states "I got a nasty moy from the [employer]." Patient states that the IRS letter was a stressor. Patient states marital problems with his estranged over child issues. Patient states he consumed homemade wine, about a 5 gallon consumption since this past Thursday. Patient denies alcoholism, he states Bipolar Type 1 with psychotic features history. Patient states a PTSD history too. Patients medication history is stated. [facility] Patient states mild nausea now, he had N/V the past few days, he consumed approximately 1 gallon of water today. Mild nausea is present.
--- NOTE | 2020-01-13 18:56 | NUR ---
Wrong patient, wrong room.
[2020-01-13 19:00] VITALS: BP 123/75
[2020-01-13] MEDS: Melatonin 3mg tablet PO PRN (20:27)
[2020-01-13] MEDS: benztropine 1mg tablet PO PRN (20:27)
[2020-01-13] MEDS: zolpidem 5mg tablet PO PRN (20:27)
--- NOTE | 2020-01-13 23:00 | NUR ---
NURSING PROGRESS NOTE Legal hold: 1370 Client on involuntary status for 1370 Report received from DAISY Vallejo with use of SBAR Why are they here: Pt. admitted directly from the [facility] accompanied by state troopers. Pt. 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 Pt was demonstrating psychotic/paranoid behavior, trying to barricade himself into his friends house and "speaking in unknown languages". Pt. arrested in 2013 for cruelty to animals. During his incarceration, pt.'s behavior described as "constantly provocative", pt. "throwing water on people and dumping water under the doors of other inmates; and continually yelling through his cell door and challenging both deputies and inmates to a fight". Pt. also had been refusing medical treatment. Pt. was considered a risk due to his aggression and refusal of treatment for his psychosis. According to Psychologist report, pt. is found incompetent to stand trial and requires antipsychotic medication in order to return him to competency and is a danger to himself and to others if unmedicated. Assessment What has happened this shift: Patient is up walking the unit at change of shift. He is friendly and cooperative for assessment. He spends the majority of his evening just pacing the halls and makes a couple jokes during his assessment and laughs. He is appropriate to all peers and staff and does not make any delusional or grandiose statements this evening. If not talking to staff patient keeps to himself. He is cooperative for all HS medications and goes to bed on his own. S/I, H/I: Denies A/VH: Denies Sleep: Currently sleeping, see sleep assessment ADL's: Independent Group attendance: No groups this shift Were meds taken: Yes Any med S/E: Patient reports feeling restless and requests Cogentin this evening Mental Status Exam Appearance: Clean and groomed Eye contact: Direct Behavior: Calm and cooperative. Speech: Clear Mood: Depressed with some brightening Affect: Blunted Thought process: Linear. Thought Content: Focused on sleep Cognition: Alert Insight: Poor Judgment: Good Interventions PRN's used: Ativan, Cogentin, Ambien, Melatonin Therapeutic interventions: Established rapport, maintained a safe and therapeutic environment, ensured contract for safety, provided clear and simple instructions, attempted to reorient to reality as needed, monitored behavior and need for intervention, provided positive encouragement, and maintained Q 15min safety checks. Restraints/seclusion/emergency medication: N/A Justification of Continued Inpatient Treatment: Pt. Remains delusional in relation to his mental health diagnosis and criminal charges. Will need to remain under treatment until competency can be determined.
[2020-01-14 07:37] VITALS: BP 113/68
[2020-01-14] MEDS: multivitamins, therapeutics tablet PO SCH (08:35)
[2020-01-14] MEDS: lithium carbonate 150mg capsule PO SCH ×2 (08:35→20:21)
[2020-01-14] MEDS: vitamin B comp w/Vit. C tab 1 TAB TABLET PO SCH (08:35)
[2020-01-14] MEDS: OMEGA-3/DHA/EPA/FISH OIL 1 EACH CAPSULE.DR PO SCH ×2 (08:36→20:21)
[2020-01-14] MEDS: ascorbic acid 500mg tablet PO SCH ×2 (08:36→17:47)
[2020-01-14] MEDS: vitamin D (cholecalciferol) 1,000 unit tablet PO SCH (08:36)
[2020-01-14] MEDS: vitamin E 400 unit capsule PO SCH (08:36)
[2020-01-14] MEDS: LORazepam 1 MG tablet PO PRN ×2 (08:37→20:21)
[2020-01-14] MEDS: hydrOXYzine 25 MG tablet PO PRN (16:12)
--- NOTE | 2020-01-14 17:44 | NUR ---
[facility] NURSING PROGRESS NOTE Legal hold: 1370 Client on involuntary status for 1370 Report received from nayeli Perdue RN with use of SBAR Why are they here: Pt. admitted directly from the [facility] accompanied by state troopers. Pt. 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 Pt was demonstrating psychotic/paranoid behavior, trying to barricade himself into his friends house and "speaking in unknown languages". Pt. arrested in 2013 for cruelty to animals. During his incarceration, pt.'s behavior described as "constantly provocative", pt. "throwing water on people and dumping water under the doors of other inmates; and continually yelling through his cell door and challenging both deputies and inmates to a fight". Pt. also had been refusing medical treatment. Pt. was considered a risk due to his aggression and refusal of treatment for his psychosis. According to Psychologist report, pt. is found incompetent to stand trial and requires antipsychotic medication in order to return him to competency and is a danger to himself and to others if unmedicated. Assessment What has happened this shift: Patient is quiet today and his eyes are red. He asked for medication for anxiety right away. During 1:1 pt states he is having a rough day today as he is feeling emotional about his kids. 12 and 17 y/o. He states he talked to Isabel about it a lot today and doesnt feel like talking more. RN offered therapeutic listening if needed. He took naps in room and paced the halls with headphones on. He requested prns a few times for feeling restless and anxious. He states he wants to save Cogentin to take before bed tonight. S/I, H/I: Denies A/VH: Denies Sleep: 8.25 h per assessment ADL's: Independent Group attendance: No groups at this time. Were meds taken: Yes Any med S/E: None noted Mental Status Exam Appearance: Wearing pajama pants, t- shirt a hat and crocs shoes. Eye contact: Direct Behavior: Calm and cooperative, withdrawn. Speech: WNL Mood: Emotional Affect: Sad Thought process: Linear. Thought Content: Thinking about his kids. Cognition: AxOx4 Insight: Poor Judgment: Good Interventions PRN's used: Ativan, Atarax. Therapeutic interventions: Established rapport, maintained a safe and therapeutic environment, ensured contract for safety, provided clear and simple instructions, attempted to reorient to reality as needed, monitored behavior and need for intervention, provided positive encouragement, and maintained Q 15min safety checks. Restraints/seclusion/emergency medication: N/A Justification of Continued Inpatient Treatment: Pt. Remains delusional in relation to his mental health diagnosis and criminal charges. Will need to remain under treatment until competency can be determined.
[2020-01-14 19:00] VITALS: BP 102/65
[2020-01-14] MEDS: oseltamivir phos 75mg capsule PO SCH (20:00)
[2020-01-14] MEDS: Melatonin 3mg tablet PO PRN (20:21)
[2020-01-14] MEDS: zolpidem 5mg tablet PO PRN (20:21)
[2020-01-14] MEDS: benztropine 1mg tablet PO PRN (20:21)
--- NOTE | 2020-01-15 03:57 | NUR ---
NURSING PROGRESS NOTE Legal hold: 1370 Client on involuntary status for 1370 Report received from DAISY Castillo with use of SBAR Why are they here: Pt. admitted directly from the [facility] accompanied by state troopers. Pt. 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 Pt was demonstrating psychotic/paranoid behavior, trying to barricade himself into his friends house and "speaking in unknown languages". Pt. arrested in 2013 for cruelty to animals. During his incarceration, pt.'s behavior described as "constantly provocative", pt. "throwing water on people and dumping water under the doors of other inmates; and continually yelling through his cell door and challenging both deputies and inmates to a fight". Pt. also had been refusing medical treatment. Pt. was considered a risk due to his aggression and refusal of treatment for his psychosis. According to Psychologist report, pt. is found incompetent to stand trial and requires antipsychotic medication in order to return him to competency and is a danger to himself and to others if unmedicated. Assessment What has happened this shift: Patient is in his room sleeping at change of shift. he gets up around snack time and reports to this RN during his assessment that "It was a rough day, but I am doing a bit better now." He spends some time pacing the halls this evening before requesting his evening medications for bed. He requests his Cogentin this evening for feeling "restless". Patient takes all his medications without difficulty, then goes to bed. S/I, H/I: Denies A/VH: Denies Sleep: Currently sleeping, see sleep assessment ADL's: Independent Group attendance: No groups at this time. Were meds taken: Yes Any med S/E: None noted Mental Status Exam Appearance: Dressed on street clothes, unkempt Eye contact: Direct Behavior: Calm and cooperative, withdrawn. Speech: WNL Mood: "Rough day" Affect: Sad, isolative Thought process: Linear. Thought Content: Thinking about his kids. Cognition: AxOx4 Insight: Poor Judgment: Good Interventions PRN's used: Ativan, Cogentin, Ambien, Melatonin Therapeutic interventions: Established rapport, maintained a safe and therapeutic environment, ensured contract for safety, provided clear and simple instructions, attempted to reorient to reality as needed, monitored behavior and need for intervention, provided positive encouragement, and maintained Q 15min safety checks. Restraints/seclusion/emergency medication: N/A Justification of Continued Inpatient Treatment: Pt. Remains delusional in relation to his mental health diagnosis and criminal charges. Will need to remain under treatment until competency can be determined.
[2020-01-15 08:00] VITALS: BP 115/61
[2020-01-15] MEDS: oseltamivir phos 75mg capsule PO SCH (08:00)
[2020-01-15] MEDS: OMEGA-3/DHA/EPA/FISH OIL 1 EACH CAPSULE.DR PO SCH ×2 (08:19→20:18)
[2020-01-15] MEDS: vitamin E 400 unit capsule PO SCH (08:20)
[2020-01-15] MEDS: vitamin B comp w/Vit. C tab 1 TAB TABLET PO SCH (08:20)
[2020-01-15] MEDS: LORazepam 1 MG tablet PO PRN (08:20)
[2020-01-15] MEDS: vitamin D (cholecalciferol) 1,000 unit tablet PO SCH (08:20)
[2020-01-15] MEDS: ascorbic acid 500mg tablet PO SCH ×2 (08:20→17:39)
[2020-01-15] MEDS: lithium carbonate 150mg capsule PO SCH ×2 (08:20→20:19)
[2020-01-15] MEDS: multivitamins, therapeutics tablet PO SCH (08:20)
--- NOTE | 2020-01-15 17:55 | NUR ---
Nursing Progress Note: VIVIANA Legal hold: 1370 Client on involuntary status for 1370 Report received from Veronica Zapata RN with use of SBAR Why are they here: Pt. admitted directly from the [facility] accompanied by state troopers. Pt. 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 Pt was demonstrating psychotic/paranoid behavior, trying to barricade himself into his friends house and "speaking in unknown languages". Pt. arrested in 2013 for cruelty to animals. During his incarceration, pt.'s behavior described as "constantly provocative", pt. "throwing water on people and dumping water under the doors of other inmates; and continually yelling through his cell door and challenging both deputies and inmates to a fight". Pt. also had been refusing medical treatment. Pt. was considered a risk due to his aggression and refusal of treatment for his psychosis. According to Psychologist report, pt. is found incompetent to stand trial and requires antipsychotic medication in order to return him to competency and is a danger to himself and to others if unmedicated. Assessment What has happened this shift: Patient is asleep in his room at change of shift. He appears tired and melancholy. He reports feeling bad today because he had a rough day yesterday. Reports that he misses his two kids and feels guilty that he cannot be more active in their lives. Pt reflects on his past with regret but still harbors ill feelings because of his fixated delusions of the police harming him. He denies any SEs to medications, none were objectively observed. Pt had 99.1F temp, Tamiflu was educated on and administered. S/I, H/I: Denies A/VH: Denies Sleep: 8hrs NOC ADL's: Independent Group attendance: Yes Were meds taken: Yes Any med S/E: None noted Mental Status Exam Appearance: Dressed on street clothes, unkempt Eye contact: Direct Behavior: Calm and cooperative Speech: WNL Mood: "Rough day" Affect: Sad, isolative Thought process: Linear. Thought Content: Thinking about his kids, past bx Cognition: AxOx4 Insight: Poor Judgment: Good Interventions PRN's used: Ativan X1 Therapeutic interventions: Established rapport, maintained a safe and therapeutic environment, ensured contract for safety, provided clear and simple instructions, attempted to reorient to reality as needed, monitored behavior and need for intervention, provided positive encouragement, and maintained Q 15min safety checks. Restraints/seclusion/emergency medication: N/A Justification of Continued Inpatient Treatment: Pt. Remains delusional in relation to his mental health diagnosis and criminal charges. Will need to remain under treatment until competency can be determined.
[2020-01-15] MEDS: Melatonin 3mg tablet PO PRN (20:19)
[2020-01-15] MEDS: hydrOXYzine 25 MG tablet PO PRN (20:20)
[2020-01-15] MEDS: zolpidem 5mg tablet PO PRN (20:20)
[2020-01-15 20:45] VITALS: BP 151/70
--- NOTE | 2020-01-15 21:11 | NUR ---
Nursing Progress Note: VIVIANA Legal hold: 1370 Client on involuntary status for 1370 Report received from DAISY Castillo with use of SBAR Why are they here: Pt. admitted directly from the [facility] accompanied by state troopers. Pt. 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 Pt was demonstrating psychotic/paranoid behavior, trying to barricade himself into his friends house and "speaking in unknown languages". Pt. arrested in 2013 for cruelty to animals. During his incarceration, pt.'s behavior described as "constantly provocative", pt. "throwing water on people and dumping water under the doors of other inmates; and continually yelling through his cell door and challenging both deputies and inmates to a fight". Pt. also had been refusing medical treatment. Pt. was considered a risk due to his aggression and refusal of treatment for his psychosis. According to Psychologist report, pt. is found incompetent to stand trial and requires antipsychotic medication in order to return him to competency and is a danger to himself and to others if unmedicated. Assessment What has happened this shift: Patient is up walking in [place] at change of shift. He appears tired and melancholy. He reports feeling depressed today. Reports that he misses his two kids and feels guilty that he cannot be more active in their lives. He denies any SEs to medications, none were objectively observed. Pt had 99.1F temp, Tamiflu was educated on and administered. Influenza rapid test done waiting results. S/I, H/I: Denies A/VH: Denies Sleep: 8hrs NOC ADL's: Independent Group attendance: Yes Were meds taken: Yes Any med S/E: None noted Mental Status Exam Appearance: Dressed on street clothes, unkempt Eye contact: Direct Behavior: Calm and cooperative Speech: WNL Mood: "Rough day" Affect: Sad, isolative Thought process: Linear. Thought Content: Thinking about his kids, past bx Cognition: AxOx4 Insight: Poor Judgment: Good Interventions PRN's used: Ambien,Atarax,Melatonin Therapeutic interventions: Established rapport, maintained a safe and therapeutic environment, ensured contract for safety, provided clear and simple instructions, attempted to reorient to reality as needed, monitored behavior and need for intervention, provided positive encouragement, and maintained Q 15min safety checks. Restraints/seclusion/emergency medication: N/A Justification of Continued Inpatient Treatment: Pt. Remains delusional in relation to his mental health diagnosis and criminal charges. Will need to remain under treatment until competency can be determined.
[2020-01-16 07:49] VITALS: BP 105/60
[2020-01-16] MEDS: vitamin E 400 unit capsule PO SCH (08:13)
[2020-01-16] MEDS: lithium carbonate 450mg CR tablet PO SCH (08:13)
[2020-01-16] MEDS: multivitamins, therapeutics tablet PO SCH (08:13)
[2020-01-16] MEDS: oseltamivir phos 75mg capsule PO SCH (08:13)
[2020-01-16] MEDS: LORazepam 1 MG tablet PO PRN (08:13)
[2020-01-16] MEDS: ascorbic acid 500mg tablet PO SCH ×2 (08:13→18:01)
[2020-01-16] MEDS: vitamin D (cholecalciferol) 1,000 unit tablet PO SCH (08:13)
[2020-01-16] MEDS: vitamin B comp w/Vit. C tab 1 TAB TABLET PO SCH (08:13)
[2020-01-16] MEDS: OMEGA-3/DHA/EPA/FISH OIL 1 EACH CAPSULE.DR PO SCH ×2 (08:13→20:21)
[2020-01-16] MEDS: diphenhydrAMINE 25mg capsule PO PRN (13:03)
--- NOTE | 2020-01-16 16:23 | NUR ---
Nursing Progress Note: VIVIANA Legal hold: 1370 Client on involuntary status for 1370 Report received from DAISY Chavez with use of SBAR Why are they here: Pt. admitted directly from the [facility] accompanied by state troopers. Pt. 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 Pt was demonstrating psychotic/paranoid behavior, trying to barricade himself into his friends house and "speaking in unknown languages". Pt. arrested in 2013 for cruelty to animals. During his incarceration, pt.'s behavior described as "constantly provocative", pt. "throwing water on people and dumping water under the doors of other inmates; and continually yelling through his cell door and challenging both deputies and inmates to a fight". Pt. also had been refusing medical treatment. Pt. was considered a risk due to his aggression and refusal of treatment for his psychosis. According to Psychologist report, pt. is found incompetent to stand trial and requires antipsychotic medication in order to return him to competency and is a danger to himself and to others if unmedicated. Assessment What has happened this shift: Patient is up walking in [place] at change of shift. He requests Ativan with his morning medications, states that he is feeling anxious for unknown reasons. He appears tired. He reports feeling depressed today. He denies any SEs to medications, none were objectively observed. Pt reports feeling out of it after lunch, requests Benadryl to assist him with rest. No other concerns voiced at this time. S/I, H/I: Denies A/VH: Denies Sleep: 5.75 hrs NOC ADL's: Independent Group attendance: n/a Were meds taken: Yes Any med S/E: None noted Mental Status Exam Appearance: Dressed on street clothes, unkempt Eye contact: Direct Behavior: Calm and cooperative Speech: WNL Mood: "Out of it" Affect: isolative Thought process: Linear. Thought Content: mood, lack of interest Cognition: AxOx4 Insight: Poor Judgment: Good Interventions PRN's used: Benadryl X1, Ativan X1 Therapeutic interventions: Established rapport, maintained a safe and therapeutic environment, ensured contract for safety, provided clear and simple instructions, attempted to reorient to reality as needed, monitored behavior and need for intervention, provided positive encouragement, and maintained Q 15min safety checks. Restraints/seclusion/emergency medication: N/A Justification of Continued Inpatient Treatment: Pt. Remains delusional in relation to his mental health diagnosis and criminal charges. Will need to remain under treatment until competency can be determined.
[2020-01-16] MEDS: benztropine 1mg tablet PO PRN (18:42)
[2020-01-16 20:20] VITALS: BP 108/71
[2020-01-16] MEDS: Melatonin 3mg tablet PO PRN (20:22)
[2020-01-16] MEDS: hydrOXYzine 25 MG tablet PO PRN (20:22)
[2020-01-16] MEDS: zolpidem 5mg tablet PO PRN (20:22)
[2020-01-16] MEDS: lithium carbonate 150mg capsule PO SCH (20:23)
--- NOTE | 2020-01-16 20:57 | NUR ---
Nursing Progress Note: VIVIANA Legal hold: 1370 Client on involuntary status for 1370 Report received from DAISY Castillo with use of SBAR Why are they here: Pt. admitted directly from the [facility] accompanied by state troopers. Pt. 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 Pt was demonstrating psychotic/paranoid behavior, trying to barricade himself into his friends house and "speaking in unknown languages". Pt. arrested in 2013 for cruelty to animals. During his incarceration, pt.'s behavior described as "constantly provocative", pt. "throwing water on people and dumping water under the doors of other inmates; and continually yelling through his cell door and challenging both deputies and inmates to a fight". Pt. also had been refusing medical treatment. Pt. was considered a risk due to his aggression and refusal of treatment for his psychosis. According to Psychologist report, pt. is found incompetent to stand trial and requires antipsychotic medication in order to return him to competency and is a danger to himself and to others if unmedicated. Assessment What has happened this shift: Patient is up walking in [place] at change of shift. He appears tired. He reports feeling depressed today. He denies any SEs to medications, none were objectively observed. Pt reports feeling out of it No other concerns voiced at this time. S/I, H/I: Denies A/VH: Denies Sleep: 5.75 hrs NOC ADL's: Independent Group attendance: n/a Were meds taken: Yes Any med S/E: None noted Mental Status Exam Appearance: Dressed on street clothes, unkempt Eye contact: Direct Behavior: Calm and cooperative Speech: WNL Mood: "Out of it" Affect: isolative Thought process: Linear. Thought Content: mood, lack of interest Cognition: AxOx4 Insight: Poor Judgment: Good Interventions PRN's used: Atarax,Ambien,Melatonin Therapeutic interventions: Established rapport, maintained a safe and therapeutic environment, ensured contract for safety, provided clear and simple instructions, attempted to reorient to reality as needed, monitored behavior and need for intervention, provided positive encouragement, and maintained Q 15min safety checks. Restraints/seclusion/emergency medication: N/A Justification of Continued Inpatient Treatment: Pt. Remains delusional in relation to his mental health diagnosis and criminal charges. Will need to remain under treatment until competency can be determined.
[2020-01-17 07:52] VITALS: BP 97/60
[2020-01-17] MEDS: LORazepam 1 MG tablet PO PRN ×3 (08:15→20:32)
[2020-01-17] MEDS: lithium carbonate 450mg CR tablet PO SCH (08:16)
[2020-01-17] MEDS: OMEGA-3/DHA/EPA/FISH OIL 1 EACH CAPSULE.DR PO SCH ×2 (08:16→20:33)
[2020-01-17] MEDS: ascorbic acid 500mg tablet PO SCH ×2 (08:16→16:52)
[2020-01-17] MEDS: vitamin B comp w/Vit. C tab 1 TAB TABLET PO SCH (08:16)
[2020-01-17] MEDS: vitamin E 400 unit capsule PO SCH (08:17)
[2020-01-17] MEDS: multivitamins, therapeutics tablet PO SCH (08:17)
[2020-01-17] MEDS: oseltamivir phos 75mg capsule PO SCH (08:17)
[2020-01-17] MEDS: vitamin D (cholecalciferol) 1,000 unit tablet PO SCH (08:17)
[2020-01-17] MEDS: hydrOXYzine 25 MG tablet PO PRN (12:21)
[2020-01-17] MEDS: benztropine 1mg tablet PO PRN (16:52)
--- NOTE | 2020-01-17 17:34 | NUR ---
Nursing Progress Note: Legal hold: 1370 Client on involuntary status for 1370 Report received from DAISY Bowens with use of SBAR Why are they here: Pt. admitted directly from the [facility] accompanied by state troopers. Pt. 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 Pt was demonstrating psychotic/paranoid behavior, trying to barricade himself into his friends house and "speaking in unknown languages". Pt. arrested in 2013 for cruelty to animals. During his incarceration, pt.'s behavior described as "constantly provocative", pt. "throwing water on people and dumping water under the doors of other inmates; and continually yelling through his cell door and challenging both deputies and inmates to a fight". Pt. also had been refusing medical treatment. Pt. was considered a risk due to his aggression and refusal of treatment for his psychosis. According to Psychologist report, pt. is found incompetent to stand trial and requires antipsychotic medication in order to return him to competency and is a danger to himself and to others if unmedicated. Assessment What has happened this shift: Pt. is asleep at start of shift. Pt. laying on mat on floor instead of bed due to paranoia about the bed monitoring him. Pt. ate all his meals. Pt. took all medications. Pt. requesting Ativan with morning medications, pt. reporting anxiety that he "does not want to go into right now". Pt. denies SI/HI, A/V hallucinations. Pt. guarded and withdrawn. Pt. requested Atarx in afternoon reporting anxiety due to his roomates paranoia. @ 1400 pt. requested another Ativan due to continued anxiety. Pt. then slept. Pt. awake after an hour and requesting cogentin for restlessness. Pt. receiving cogentin 1mg with good effect. S/I, H/I: Denies A/VH: Denies Sleep: Pt. napped during day shift. ADL's: Independent Group attendance: n/a Were meds taken: Yes Any med S/E: None noted Mental Status Exam Appearance: Dressed on street clothes, unkempt Eye contact: Direct Behavior: Cooperative, guarded, isolates to room. Speech: WNL Mood: "Anious" Affect: Depressed Thought process: Linear. Thought Content: Agitation with roomate. Cognition: AxOx4 Insight: Fair Judgment: Good Interventions PRN's used: Atarax x1, Ativan x2 Therapeutic interventions: Established rapport, maintained a safe and therapeutic environment, ensured contract for safety, provided clear and simple instructions, attempted to reorient to reality as needed, monitored behavior and need for intervention, provided positive encouragement, and maintained Q 15min safety checks. Restraints/seclusion/emergency medication: N/A Justification of Continued Inpatient Treatment: Pt. Remains delusional in relation to his mental health diagnosis and criminal charges. Will need to remain under treatment until competency can be determined.
[2020-01-17 18:55] LABS: ALBUMIN 3.8 G/DL (3.4-5.0); ANION GAP 7 (8-16); BLOOD UREA NITROGEN 20 MG/DL (7-18); BUN/CREATININE RATIO 18.9 (5.4-32.0); CALCIUM 9.4 MG/DL (8.5-10.1); CHLORIDE 104 MMOL/L (99-107); CREATININE 1.06 MG/DL (0.60-1.10); GLUCOSE 123 MG/DL (70-104); POTASSIUM 3.9 MMOL/L (3.5-5.1); SODIUM 142 MMOL/L (135-145); TOTAL CARBON DIOXIDE 31.3 MMOL/L (24-32); eGFR 73 ML/MIN
[2020-01-17 20:00] VITALS: BP 127/75
[2020-01-17] MEDS: Melatonin 3mg tablet PO PRN (20:32)
[2020-01-17] MEDS: benztropine 1mg tablet PO SCH (20:32)
[2020-01-17] MEDS: lithium carbonate 150mg capsule PO SCH (20:33)
[2020-01-17] MEDS: zolpidem 5mg tablet PO PRN (20:33)
--- NOTE | 2020-01-17 21:07 | NUR ---
Nursing Progress Note: Legal hold: 1370 Client on involuntary status for 1370 Report received from DAISY Cardoza with use of SBAR Why are they here: Pt. admitted directly from the [facility] accompanied by state troopers. Pt. 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 Pt was demonstrating psychotic/paranoid behavior, trying to barricade himself into his friends house and "speaking in unknown languages". Pt. arrested in 2013 for cruelty to animals. During his incarceration, pt.'s behavior described as "constantly provocative", pt. "throwing water on people and dumping water under the doors of other inmates; and continually yelling through his cell door and challenging both deputies and inmates to a fight". Pt. also had been refusing medical treatment. Pt. was considered a risk due to his aggression and refusal of treatment for his psychosis. According to Psychologist report, pt. is found incompetent to stand trial and requires antipsychotic medication in order to return him to competency and is a danger to himself and to others if unmedicated. Assessment What has happened this shift: Pt. was up in [place] at start of shift. Pt. took all medications. Pt. denies SI/HI, A/V hallucinations. Pt. guarded and withdrawn. Pt states he feels down but not as bad I feel like it's getting better. S/I, H/I: Denies A/VH: Denies Sleep: Pt. napped during day shift. ADL's: Independent Group attendance: n/a Were meds taken: Yes Any med S/E: None noted Mental Status Exam Appearance: Dressed on street clothes, unkempt Eye contact: Direct Behavior: Cooperative, guarded, isolates to room. Speech: WNL Mood: "Anious" Affect: Depressed Thought process: Linear. Thought Content: Agitation with roomate. Cognition: AxOx4 Insight: Fair Judgment: Good Interventions PRN's used: Ativan, Melatonin,Ambien Therapeutic interventions: Established rapport, maintained a safe and therapeutic environment, ensured contract for safety, provided clear and simple instructions, attempted to reorient to reality as needed, monitored behavior and need for intervention, provided positive encouragement, and maintained Q 15min safety checks. Restraints/seclusion/emergency medication: N/A Justification of Continued Inpatient Treatment: Pt. Remains delusional in relation to his mental health diagnosis and criminal charges. Will need to remain under treatment until competency can be determined.
[2020-01-18] MEDS: ascorbic acid 500mg tablet PO SCH ×2 (07:52→17:28)
[2020-01-18] MEDS: vitamin D (cholecalciferol) 1,000 unit tablet PO SCH (07:52)
[2020-01-18] MEDS: OMEGA-3/DHA/EPA/FISH OIL 1 EACH CAPSULE.DR PO SCH ×2 (07:52→20:56)
[2020-01-18] MEDS: oseltamivir phos 75mg capsule PO SCH (07:52)
[2020-01-18] MEDS: benztropine 1mg tablet PO SCH ×2 (07:52→20:56)
[2020-01-18] MEDS: multivitamins, therapeutics tablet PO SCH (07:52)
[2020-01-18] MEDS: vitamin B comp w/Vit. C tab 1 TAB TABLET PO SCH (07:52)
[2020-01-18] MEDS: vitamin E 400 unit capsule PO SCH (07:52)
[2020-01-18] MEDS: lithium carbonate 450mg CR tablet PO SCH (07:52)
[2020-01-18] MEDS: LORazepam 1 MG tablet PO PRN ×3 (07:58→20:21)
[2020-01-18] MEDS: diphenhydrAMINE 25mg capsule PO PRN ×2 (07:58→14:10)
[2020-01-18 08:38] VITALS: BP 98/60
--- NOTE | 2020-01-18 09:45 | NUR ---
Reassessment: Pt 100% PO intake meeting nutrient needs. LBM 01/15. No nutrition intervention warranted at this time. Will continue to follow. Recommend: 1. continue regular diet 2. bowel care as needed 3. wt per rx Addendum: 01/18/20 at [address] Amended: Links added.
--- NOTE | 2020-01-18 14:49 | NUR ---
Nursing Progress Note: Legal hold: 1370 Client on involuntary status for 1370 Report received from DAISY Prather with use of SBAR Why are they here: Pt. admitted directly from the [facility] accompanied by state troopers. Pt. 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 Pt was demonstrating psychotic/paranoid behavior, trying to barricade himself into his friends house and "speaking in unknown languages". Pt. arrested in 2013 for cruelty to animals. During his incarceration, pt.'s behavior described as "constantly provocative", pt. "throwing water on people and dumping water under the doors of other inmates; and continually yelling through his cell door and challenging both deputies and inmates to a fight". Pt. also had been refusing medical treatment. Pt. was considered a risk due to his aggression and refusal of treatment for his psychosis. According to Psychologist report, pt. is found incompetent to stand trial and requires antipsychotic medication in order to return him to competency and is a danger to himself and to others if unmedicated. Assessment What has happened this shift: Pt initially stated that he didn't wish to take his medications this morning until 0830 but then changed his mind and took them sooner. Pt requested prn Ativan 1 mg and Benadryl 50 mg @ 0758 and again at 1410 for increased anxiety. Pt was mostly isolative to self today. Pt stated that he spoke with Dr Harrell about some medications being changed,"...getting it straightened out." Pt stated that he had a lot on his mind, that he was stressed about court, "this next part of the paperwork I have to do is pretty extensive." Pt also expressed that his roommate was contributing to his stress and anxiety due to the tension in the room. Pt stated that it's "not anything he's saying to me or anything like that but he's just going through a lot." S/I, H/I: Pt denies A/VH: Pt denies Sleep: Pt slept 8.75 hours last night per noc shift report, pt will not sleep in the bed but places his mattress on the floor. ADL's: Independent Group attendance: N/A, no groups today. Were meds taken: Yes Any med S/E: None noted or reported. Mental Status Exam Appearance: Dressed on sweats, messy hair, unkempt. Eye contact: Good. Behavior: Cooperative, mostly isolative to self though comes out of room and approaches RN when needs something. Speech: Clear, audible. Mood: Anxious Affect: WNL Thought process: Linear Thought Content: Focused on court paperwork, feels increased anxiety/stress because of unhappy roommate. Cognition: A/O X 4 Insight: Poor Judgment: Fair Interventions PRN's used: Ativan 1 mg and Benadryl 50 mg X 2 Therapeutic interventions: 1:1 assessment, encouragement to express thoughts and feelings, active listening, medication administration/education/monitoring, positive reinforcement, Q 15 minute safety checks. Restraints/seclusion/emergency medication: N/A Justification of Continued Inpatient Treatment: Pt. Remains delusional in relation to his mental health diagnosis and criminal charges. Will need to remain under treatment until competency can be determined.
[2020-01-18 20:33] VITALS: BP 108/73
[2020-01-18] MEDS: lithium carbonate 150mg capsule PO SCH (20:56)
[2020-01-18] MEDS: Melatonin 3mg tablet PO PRN (20:56)
[2020-01-18] MEDS: zolpidem 5mg tablet PO PRN (20:56)
--- NOTE | 2020-01-19 02:12 | NUR ---
Nursing Progress Note: Legal hold: 1370 Client on involuntary status for 1370 Report received from DAISY Barcenas with use of SBAR Why are they here: Pt. admitted directly from the [facility] accompanied by state troopers. Pt. 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 Pt was demonstrating psychotic/paranoid behavior, trying to barricade himself into his friends house and "speaking in unknown languages". Pt. arrested in 2013 for cruelty to animals. During his incarceration, pt.'s behavior described as "constantly provocative", pt. "throwing water on people and dumping water under the doors of other inmates; and continually yelling through his cell door and challenging both deputies and inmates to a fight". Pt. also had been refusing medical treatment. Pt. was considered a risk due to his aggression and refusal of treatment for his psychosis. According to Psychologist report, pt. is found incompetent to stand trial and requires antipsychotic medication in order to return him to competency and is a danger to himself and to others if unmedicated. Assessment What has happened this shift: Pt paced during most of the shift and stated he is feeling better today since his roommate discharge "he just had a lot of stuff going on yeah know" that he is concerned regarding his court paperwork. "I have to fill out a lot, and I just need to make sure I fill it out really well. Make it count this time." Pt states he is anxious 5/10 but denies all other signs and symptoms. No delusional or paranoid statements, and pt further inquired about the pandemic and checked to see whether this RN had any insight as to when the courts would open and it would business as usual. Unable to give a time frame, pt repeated the sentiment that he must try his hardest completing his court paperwork in the meantime. S/I, H/I: Denies Both A/VH: Denies Both Sleep: See Sleep Assessment ADL's: Independent Group attendance: N/A Were meds taken: Yes Any med S/E: None noted nor reported Mental Status Exam Appearance: Dressed on sweats and tshirt, nonskid socks, with cap. Eye contact: Good Behavior: Cooperative, Pacing halls until bedtime, watching TV Speech: Clear, audible Mood: "Better", Presents as anxious Affect: Blunted Thought process: Linear Thought Content: Doing court paperwork "really well", Feeling less stress since roommate was discharged Cognition: A/Ox4 Insight: Poor Judgment: Fair Interventions PRN's used: Ativan 1 mg, Ambien 5mg, Melatonin 3mg Therapeutic interventions: 1:1 assessment, encouragement to express thoughts and feelings, active listening, medication administration/education/monitoring, positive reinforcement, Q 15 minute safety checks. Restraints/seclusion/emergency medication: N/A Justification of Continued Inpatient Treatment: Pt. Remains delusional in relation to his mental health diagnosis and criminal charges. Will need to remain under treatment until competency can be determined.
[2020-01-19 07:58] VITALS: BP 101/62
[2020-01-19] MEDS: vitamin D (cholecalciferol) 1,000 unit tablet PO SCH (08:22)
[2020-01-19] MEDS: vitamin E 400 unit capsule PO SCH (08:22)
[2020-01-19] MEDS: benztropine 1mg tablet PO SCH ×2 (08:22→20:56)
[2020-01-19] MEDS: ascorbic acid 500mg tablet PO SCH ×2 (08:22→17:46)
[2020-01-19] MEDS: vitamin B comp w/Vit. C tab 1 TAB TABLET PO SCH (08:22)
[2020-01-19] MEDS: multivitamins, therapeutics tablet PO SCH (08:22)
[2020-01-19] MEDS: oseltamivir phos 75mg capsule PO SCH (08:22)
[2020-01-19] MEDS: OMEGA-3/DHA/EPA/FISH OIL 1 EACH CAPSULE.DR PO SCH ×2 (08:23→20:56)
[2020-01-19] MEDS: diphenhydrAMINE 25mg capsule PO PRN ×2 (08:23→14:25)
[2020-01-19] MEDS: LORazepam 1 MG tablet PO PRN ×3 (08:23→20:56)
[2020-01-19] MEDS: lithium carbonate 450mg CR tablet PO SCH (08:23)
--- NOTE | 2020-01-19 14:30 | NUR ---
Nursing Progress Note: Legal hold: 1370 Client on involuntary status for 1370 Report received from DAISY Prather with use of SBAR Why are they here: Pt. admitted directly from the [facility] accompanied by state troopers. Pt. 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 Pt was demonstrating psychotic/paranoid behavior, trying to barricade himself into his friends house and "speaking in unknown languages". Pt. arrested in 2013 for cruelty to animals. During his incarceration, pt.'s behavior described as "constantly provocative", pt. "throwing water on people and dumping water under the doors of other inmates; and continually yelling through his cell door and challenging both deputies and inmates to a fight". Pt. also had been refusing medical treatment. Pt. was considered a risk due to his aggression and refusal of treatment for his psychosis. According to Psychologist report, pt. is found incompetent to stand trial and requires antipsychotic medication in order to return him to competency and is a danger to himself and to others if unmedicated. Assessment What has happened this shift: Pt c/o an upset stomach this morning after breakfast. He stated that he wished to go back to bed soon and wanted to know how soon he could get his morning medications. Medications administered at 0815. Pt asked if there was a difference between the Lamesa capsules with the powder and the 450 mg tablets he is now receiving. He stated that he thought the tablet made him feel "a little weird" one day. Educated that that 450 mg tab was CR, a gradual release and that pt had taken the pill yesterday morning and not noticed anything unusual. Pt did not c/o feeling "weird" from the med today. Pt requested prn Ativan 1 mg and Benadryl 50 mg X 2 today for anxiety at 0823 & 1425. Asked pt if he felt he had been sleeping too much lately. Pt replied that it was the first time these past couple of days where he really felt like he could sleep and unwind. Pt appeared disheveled today with greasy hair sticking up like horns. Asked pt when he had last showered. Pt stated that he thinks it was a couple of days ago and he was thinking about taking a shower tonight. Pt refuses to wear a wristband and continues to sleep with his mattress on the floor, will not sleep in the bed. S/I, H/I: Pt denies A/VH: Pt denies Sleep: Pt slept 9 hours last night per noc shift report, pt will not sleep in the bed but places his mattress on the floor. ADL's: Independent Group attendance: N/A, no groups today. Were meds taken: Yes Any med S/E: None noted or reported today, stated a few days ago the Lamesa CR 450 mg tab made him feel "a little weird." Mental Status Exam Appearance: Unkempt, dressed in sweats and a T-shirt with disheveled/messy hair. Eye contact: Good. Behavior: Cooperative, mostly isolative to self though comes out of room and approaches RN when needs something. Speech: Clear, audible. Mood: Anxious Affect: Calm Thought process: Linear Thought Content: Focused on relaxing and getting sleep. Cognition: A/O X 4 Insight: Poor Judgment: Fair Interventions PRN's used: Ativan 1 mg and Benadryl 50 mg X 2 Therapeutic interventions: 1:1 assessment, encouragement to express thoughts and feelings, active listening, therapeutic conversation,medication administration/education/monitoring, encouragement to shower/perform personal hygiene, positive reinforcement, Q 15 minute safety checks. Restraints/seclusion/emergency medication: N/A Justification of Continued Inpatient Treatment: Pt remains delusional in relation to his mental health diagnosis and criminal charges. He is here to establish competency for court hearing. Addendum: 01/19/20 at 1626 by Beth Brush RN (Lee) Pt c/o "deonnaess" and wondered when he could next have his Cogentin, let him know it is due at 1999, reminded him that he had taken Ativan and Benadryl not too long ago which should help with this. Pt showered.
[2020-01-19 19:00] VITALS: BP 111/72
[2020-01-19] MEDS: lithium carbonate 150mg capsule PO SCH (20:56)
[2020-01-19] MEDS: Melatonin 3mg tablet PO PRN (20:56)
[2020-01-19] MEDS: zolpidem 5mg tablet PO PRN (21:39)
--- NOTE | 2020-01-20 05:04 | NUR ---
Nursing Progress Note: Legal hold: 1370 Client on involuntary status for 1370 Report received from DAISY Honeycutt with use of SBAR Why are they here: Pt. admitted directly from the [facility] accompanied by state troopers. Pt. 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 Pt was demonstrating psychotic/paranoid behavior, trying to barricade himself into his friends house and "speaking in unknown languages". Pt. arrested in 2013 for cruelty to animals. During his incarceration, pt.'s behavior described as "constantly provocative", pt. "throwing water on people and dumping water under the doors of other inmates; and continually yelling through his cell door and challenging both deputies and inmates to a fight". Pt. also had been refusing medical treatment. Pt. was considered a risk due to his aggression and refusal of treatment for his psychosis. According to Psychologist report, pt. is found incompetent to stand trial and requires antipsychotic medication in order to return him to competency and is a danger to himself and to others if unmedicated. Assessment What has happened this shift: Patient laying on his mattress, continues to refuse to keep mattress on bed, at the beginning of shift. Patient is pleasant and cooperative with care; compliant with medication. Began pacing the hallway before approaching technical proposal writer for Ambien, Ativan and Cogentin. Patient remains slightly anxious for court. He denies SI, HI, A/VH this shift. Patient pleasant and cooperative with med pass and when technical proposal writer explained order reads Ambien only to be given if Melatonin ineffective he remained pleasant. Patient later requested Ambien and went to bed for the remainder of the shift. Patient shaved this shift and agreed to shower next shift. S/I, H/I: Pt denies A/VH: Pt denies Sleep: Refer to sleep assessment ADL's: Independent Group attendance: No groups this shift Were meds taken: Yes Any med S/E: None reported or observed Mental Status Exam Appearance: Facial shave, unshowered (agreed to shower next shift), sweats and sweater. Eye contact: Good. Behavior: Cooperative, mostly isolative to self but continues to express needs Speech: Clear, audible, steady rate and rhythm Mood: Anxious Affect: Calm Thought process: Linear Thought Content: Getting sleep. Cognition: A/O X 4 Insight: Poor Judgment: Fair Interventions PRN's used: Ativan, Melatonin, Ambien Therapeutic interventions: 1:1 assessment, encouragement to express thoughts and feelings, active listening, therapeutic conversation,medication administration/education/monitoring, encouragement to shower/perform personal hygiene, positive reinforcement, Q 15 minute safety checks. Restraints/seclusion/emergency medication: N/A Justification of Continued Inpatient Treatment: Pt remains delusional in relation to his mental health diagnosis and criminal charges. He is here to establish competency for court hearing.
[2020-01-20 07:17] VITALS: BP 108/71
[2020-01-20] MEDS: multivitamins, therapeutics tablet PO SCH (08:05)
[2020-01-20] MEDS: vitamin D (cholecalciferol) 1,000 unit tablet PO SCH (08:05)
[2020-01-20] MEDS: vitamin B comp w/Vit. C tab 1 TAB TABLET PO SCH (08:05)
[2020-01-20] MEDS: benztropine 1mg tablet PO SCH ×2 (08:05→20:19)
[2020-01-20] MEDS: lithium carbonate 450mg CR tablet PO SCH (08:05)
[2020-01-20] MEDS: vitamin E 400 unit capsule PO SCH (08:05)
[2020-01-20] MEDS: OMEGA-3/DHA/EPA/FISH OIL 1 EACH CAPSULE.DR PO SCH ×2 (08:05→20:19)
[2020-01-20] MEDS: ascorbic acid 500mg tablet PO SCH ×2 (08:05→17:57)
[2020-01-20] MEDS: oseltamivir phos 75mg capsule PO SCH (08:06)
[2020-01-20] MEDS: LORazepam 1 MG tablet PO PRN ×2 (10:31→20:19)
--- NOTE | 2020-01-20 13:09 | NUR ---
1:1 with Hayden Paced the halls with Hayden. He reported he was feeling anxious today and had a panic attack. He continues to endorse paranoid and grandiose delusions regarding his legal issues. He reported in his defense he was under "psychological warfare" and someone was putting medications in his coffee against his will. Hayden talked at length about his plans for [facility] as he was running for [facility]. ELLI Burciaga
--- NOTE | 2020-01-20 15:24 | NUR ---
Nursing Progress Note: Legal hold: 1370 Client on involuntary status for 1370 Report received from Veronica Zapata RN with use of SBAR Why are they here: Pt. admitted directly from the [facility] accompanied by state troopers. Pt. 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 Pt was demonstrating psychotic/paranoid behavior, trying to barricade himself into his friends house and "speaking in unknown languages". Pt. arrested in 2013 for cruelty to animals. During his incarceration, pt.'s behavior described as "constantly provocative", pt. "throwing water on people and dumping water under the doors of other inmates; and continually yelling through his cell door and challenging both deputies and inmates to a fight". Pt. also had been refusing medical treatment. Pt. was considered a risk due to his aggression and refusal of treatment for his psychosis. According to Psychologist report, pt. is found incompetent to stand trial and requires antipsychotic medication in order to return him to competency and is a danger to himself and to others if unmedicated. Assessment What has happened this shift: Pt approached this RN before breakfast to request that Ativan and Benadryl be brought with his morning meds. Pt appeared fatigued. Discussed with patient how he seemed to be sleeping too much during the day lately and requesting the prn Ativan and Benadryl routinely in the morning and afternoon on day shift. Pt stated, "I just wanted to go back to bed and not have to deal with my paperwork this morning." Pt seems to be using sleep as a form of procrastination or escape from having to cope/deal with his problems. Suggested that pt take his routine meds which included Tabiona CR 450 mg and then see if he can nap after breakfast for awhile without taking the Ativan and the Benadryl. Reminded pt that Tabiona has the effect of making him a little tired. Pt was able to return to bed after breakfast and nap without taking any prn medication. Pt approached this RN around 1015 to say that he felt like he was having "a little panic attack." Administered prn Ativan 1 mg @ 1031. When went to give pt the medication he was sitting on his mattress on the floor in his room wearing only underwear though he had a blanket wrapped around his waist. Pt stated that he had been sleeping with his earplugs in and when he woke up he couldn't hear so it freaked him out. Pt's Atarax time was changed to 50 mg HS PRN. S/I, H/I: Pt denies A/VH: Pt denies Sleep: Pt slept 7.25 hours last night per noc shift report, pt will not sleep in the bed but places his mattress on the floor. ADL's: Independent Group attendance: N/A, no groups today. Were meds taken: Yes Any med S/E: None noted or reported. Mental Status Exam Appearance: Unkempt, dressed in sweats and a T-shirt with disheveled/messy hair. Eye contact: Good. Behavior: Cooperative, mostly isolative to self though comes out of room and approaches RN when needs something, paces the unit and watches TV in the rec room at times. Speech: Clear, audible. Mood: Anxious Affect: Calm Thought process: Linear Thought Content: Wants to sleep and not have to think about or deal with his court paperwork. Cognition: A/O X 4 Insight: Poor Judgment: Poor Interventions PRN's used: Ativan 1 mg Therapeutic interventions: 1:1 assessment, encouragement to express thoughts and feelings, active listening, therapeutic conversation, medication administration/education/monitoring, encouragement to sleep less during the day, encouragement to try other coping mechanisms besides prn anxiety medication, positive reinforcement, Q 15 minute safety checks. Restraints/seclusion/emergency medication: N/A Justification of Continued Inpatient Treatment: Pt remains delusional in relation to his mental health diagnosis and criminal charges. He is here to establish competency for court hearing.
[2020-01-20 19:07] VITALS: BP 117/74
[2020-01-20] MEDS: Melatonin 3mg tablet PO PRN ×2 (20:19→21:41)
[2020-01-20] MEDS: lithium carbonate 150mg capsule PO SCH (20:19)
[2020-01-20] MEDS: ibuprofen tablet 400 MG TABLET PO PRN (21:41)
--- NOTE | 2020-01-21 03:45 | NUR ---
Nursing Progress Note: Legal hold: 1370 Client on involuntary status for 1370 Report received from DAISY Honeycutt with use of SBAR Why are they here: Pt. admitted directly from the [facility] accompanied by state troopers. Pt. 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 Pt was demonstrating psychotic/paranoid behavior, trying to barricade himself into his friends house and "speaking in unknown languages". Pt. arrested in 2013 for cruelty to animals. During his incarceration, pt.'s behavior described as "constantly provocative", pt. "throwing water on people and dumping water under the doors of other inmates; and continually yelling through his cell door and challenging both deputies and inmates to a fight". Pt. also had been refusing medical treatment. Pt. was considered a risk due to his aggression and refusal of treatment for his psychosis. According to Psychologist report, pt. is found incompetent to stand trial and requires antipsychotic medication in order to return him to competency and is a danger to himself and to others if unmedicated. Assessment What has happened this shift: Patient pacing the solomon at the beginning of shift and immediately approached staff to request Ambien and Ativan with his HS medications. Patient reminded Ambien can only be given if Melatonin is ineffective. Patient pleasant and cooperative; compliant with all medication. Patient provided Ativan and Melatonin with HS medication and shortly after requested Ambien once again, however, it was explained to patient that he has a may repeat for Melatonin and he agreed to take it. Patient has not requested sleep aid and appears to be sleeping without difficulty since. Patient denies SI, HI, A/VH with no delusion thought content provided this shift. Patient describes himself as bored and anxious. Anxiety reported to be r/t court. He continued to report he just wants to sleep. S/I, H/I: Pt denies A/VH: Pt denies Sleep: Refer to sleep assessment, Melatonin 3mg x2 provided ADL's: Independent Group attendance: No groups this shift Were meds taken: Yes Any med S/E: None reported or observed Mental Status Exam Appearance: Facial hair well groomed, appropriate personal attire Eye contact: Good. Behavior: Cooperative, pacing solomon, isolative to self Speech: Clear, audible, steady rate and rhythm Mood: Anxious, bored Affect: Blunted Thought process: Linear Thought Content: Sleep and court Cognition: A/O X 4 Insight: Poor Judgment: Fair Interventions PRN's used: Ativan 1mg, Melatonin 3mgx2 Therapeutic interventions: 1:1 assessment, encouragement to express thoughts and feelings, active listening, therapeutic conversation,medication administration/education/monitoring, encouragement to shower/perform personal hygiene, positive reinforcement, Q 15 minute safety checks. Restraints/seclusion/emergency medication: N/A Justification of Continued Inpatient Treatment: Pt remains delusional in relation to his mental health diagnosis and criminal charges. He is here to establish competency for court hearing. Addendum: 01/21/20 at 0448 by Edna King RN Patient awoke at 0430 requesting sleep aid. Operations Trainer explained it is too late in the shift to provide sleep aid. Patient stated, "I don't understand why they took my Ambien away." Operations Trainer explained they did not take away Ambien but order reads Ambien to be provided only if Melatonin ineffective and it was explained to patient it was received in report that patient appears over sedated in the mornings. At this time patient has received approximately six hours on this shift. Patient cooperative and went back to bed.
[2020-01-21] MEDS: vitamin D (cholecalciferol) 1,000 unit tablet PO SCH (08:20)
[2020-01-21] MEDS: lithium carbonate 450mg CR tablet PO SCH (08:20)
[2020-01-21] MEDS: benztropine 1mg tablet PO SCH ×2 (08:20→21:09)
[2020-01-21] MEDS: oseltamivir phos 75mg capsule PO SCH (08:20)
[2020-01-21] MEDS: OMEGA-3/DHA/EPA/FISH OIL 1 EACH CAPSULE.DR PO SCH ×2 (08:20→21:09)
[2020-01-21] MEDS: ascorbic acid 500mg tablet PO SCH ×2 (08:20→17:40)
[2020-01-21] MEDS: vitamin E 400 unit capsule PO SCH (08:20)
[2020-01-21] MEDS: multivitamins, therapeutics tablet PO SCH (08:20)
[2020-01-21] MEDS: vitamin B comp w/Vit. C tab 1 TAB TABLET PO SCH (08:20)
[2020-01-21] MEDS: LORazepam 1 MG tablet PO PRN ×2 (08:25→21:09)
[2020-01-21 08:53] VITALS: BP 104/63
--- NOTE | 2020-01-21 13:34 | NUR ---
Nursing Progress Note: Legal hold: 1370 Client on involuntary status for 1370 Report received from Veronica Zapata RN with use of SBAR Why are they here: Pt. admitted directly from the [facility] accompanied by state troopers. Pt. 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 Pt was demonstrating psychotic/paranoid behavior, trying to barricade himself into his friends house and "speaking in unknown languages". Pt. arrested in 2013 for cruelty to animals. During his incarceration, pt.'s behavior described as "constantly provocative", pt. "throwing water on people and dumping water under the doors of other inmates; and continually yelling through his cell door and challenging both deputies and inmates to a fight". Pt. also had been refusing medical treatment. Pt. was considered a risk due to his aggression and refusal of treatment for his psychosis. According to Psychologist report, pt. is found incompetent to stand trial and requires antipsychotic medication in order to return him to competency and is a danger to himself and to others if unmedicated. Assessment What has happened this shift: Slept in until breakfast, ate well, c/o being tired and getting "no sleep." Calm and cooperative most of day. Mid morning asks for prn Ativan for anxiety related to "not being able to sleep." Pacing in hallway at times, otherwise no changes. No delusional statements this shift. Denies SI.HI, VH, AH. Per Dr. Harrell will stop melatonin and put back on Ambien. S/I, H/I: Pt denies A/VH: Pt denies Sleep: naps ADL's: Independent Group attendance: N/A, no groups today. Were meds taken: Yes Any med S/E: None Mental Status Exam Appearance: mildly disheveled Eye contact: Good. Behavior: Cooperative, calm Speech: Clear Mood: depressed Affect: blunted Thought process: Linear Thought Content: sleeping Cognition: Alert Insight: Poor Judgment: Poor Interventions PRN's used: Ativan 1 mg Therapeutic interventions: 1:1 assessment, encouragement to express thoughts and feelings, active listening, therapeutic conversation, medication administration/education/monitoring, encouragement to sleep less during the day, encouragement to try other coping mechanisms besides prn anxiety medication, positive reinforcement, Q 15 minute safety checks. Restraints/seclusion/emergency medication: N/A Justification of Continued Inpatient Treatment: Pt remains delusional in relation to his mental health diagnosis and criminal charges. He is here to establish competency for court hearing.
[2020-01-21 19:36] VITALS: BP 117/79
[2020-01-21] MEDS: lithium carbonate 150mg capsule PO SCH (21:08)
[2020-01-21] MEDS: zolpidem 5mg tablet PO PRN (21:09)
[2020-01-21] MEDS: ibuprofen tablet 400 MG TABLET PO PRN (21:48)
--- NOTE | 2020-01-22 04:34 | NUR ---
Nursing Progress Note: Legal hold: 1370 Client on involuntary status for 1370 Report received from DAISY Honeycutt with use of SBAR Why are they here: Pt. admitted directly from the [facility] accompanied by state troopers. Pt. 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 Pt was demonstrating psychotic/paranoid behavior, trying to barricade himself into his friends house and "speaking in unknown languages". Pt. arrested in 2013 for cruelty to animals. During his incarceration, pt.'s behavior described as "constantly provocative", pt. "throwing water on people and dumping water under the doors of other inmates; and continually yelling through his cell door and challenging both deputies and inmates to a fight". Pt. also had been refusing medical treatment. Pt. was considered a risk due to his aggression and refusal of treatment for his psychosis. According to Psychologist report, pt. is found incompetent to stand trial and requires antipsychotic medication in order to return him to competency and is a danger to himself and to others if unmedicated. Assessment What has happened this shift: Patient pacing the solomon at the beginning of shifted and greeted freelance writer immediately while requesting he receive Ambien and Ativan with HS medication; provided per order. Patient denies SI, HI, A/VH and no delusional thought content provided this shifty. Patient c/o R hip pain and provided PRN Motrin per request. Patient laid down shortly after. Patient appears to have slept well, observed checking the clock around 0300 and went back to bed. S/I, H/I: Pt denies A/VH: Pt denies Sleep: Refer to sleep assessment, Ambien provided ADL's: Independent Group attendance: No groups this shift Were meds taken: Yes Any med S/E: None reported or observed Mental Status Exam Appearance: Facial hair well groomed, appropriate personal attire Eye contact: Good. Behavior: Cooperative, pacing solomon, isolative to self Speech: Clear, audible, steady rate and rhythm Mood: Anxious Affect: Blunted Thought process: Linear, perseverating on sleep aid Thought Content: Sleep medication Cognition: A/O X 4 Insight: Poor Judgment: Fair Interventions PRN's used: Ativan and Ambien Therapeutic interventions: 1:1 assessment, encouragement to express thoughts and feelings, active listening, therapeutic conversation,medication administration/education/monitoring, encouragement to shower/perform personal hygiene, positive reinforcement, Q 15 minute safety checks. Restraints/seclusion/emergency medication: N/A Justification of Continued Inpatient Treatment: Pt remains delusional in relation to his mental health diagnosis and criminal charges. He is here to establish competency for court hearing.
[2020-01-22 07:27] VITALS: BP 96/62
[2020-01-22] MEDS: vitamin D (cholecalciferol) 1,000 unit tablet PO SCH (08:16)
[2020-01-22] MEDS: lithium carbonate 450mg CR tablet PO SCH (08:16)
[2020-01-22] MEDS: oseltamivir phos 75mg capsule PO SCH (08:16)
[2020-01-22] MEDS: OMEGA-3/DHA/EPA/FISH OIL 1 EACH CAPSULE.DR PO SCH ×2 (08:16→20:33)
[2020-01-22] MEDS: ascorbic acid 500mg tablet PO SCH ×2 (08:16→17:58)
[2020-01-22] MEDS: vitamin B comp w/Vit. C tab 1 TAB TABLET PO SCH (08:16)
[2020-01-22] MEDS: benztropine 1mg tablet PO SCH ×2 (08:16→20:35)
[2020-01-22] MEDS: vitamin E 400 unit capsule PO SCH (08:16)
[2020-01-22] MEDS: multivitamins, therapeutics tablet PO SCH (08:16)
[2020-01-22] MEDS: LORazepam 1 MG tablet PO PRN ×2 (08:16→14:36)
--- NOTE | 2020-01-22 17:49 | NUR ---
Nursing Progress Note: Legal hold: 1370 Client on involuntary status for 1370 Report received from Veronica Zapata RN with use of SBAR Why are they here: Pt. admitted directly from the [facility] accompanied by state troopers. Pt. 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 Pt was demonstrating psychotic/paranoid behavior, trying to barricade himself into his friends house and "speaking in unknown languages". Pt. arrested in 2013 for cruelty to animals. During his incarceration, pt.'s behavior described as "constantly provocative", pt. "throwing water on people and dumping water under the doors of other inmates; and continually yelling through his cell door and challenging both deputies and inmates to a fight". Pt. also had been refusing medical treatment. Pt. was considered a risk due to his aggression and refusal of treatment for his psychosis. According to Psychologist report, pt. is found incompetent to stand trial and requires antipsychotic medication in order to return him to competency and is a danger to himself and to others if unmedicated. Assessment What has happened this shift: Received pt asleep in bed. Pt awoke for breakfast. Pt denies depression and suicidal ideation. Pt also denies a/v hallucinations. Pt spent much of the morning and after lunch, writing in his room. Pt requested Ativan x 2 for anxiety. Pt did nap some in the afternoon. Pt pacing at times. Pt affect bright upon approach. S/I, H/I: Pt denies A/VH: Pt denies Sleep: naps ADL's: Independent Group attendance: N/A, no groups today. Were meds taken: Yes Any med S/E: None Mental Status Exam Appearance: mildly disheveled Eye contact: Good. Behavior: Cooperative, calm Speech: Clear Mood: depressed Affect: blunted Thought process: Linear Thought Content: sleeping Cognition: Alert Insight: Poor Judgment: Poor Interventions PRN's used: Ativan 1 mg x 2 Therapeutic interventions: 1:1 assessment, encouragement to express thoughts and feelings, active listening, therapeutic conversation, medication administration/education/monitoring, encouragement to sleep less during the day, encouragement to try other coping mechanisms besides prn anxiety medication, positive reinforcement, Q 15 minute safety checks. Restraints/seclusion/emergency medication: N/A Justification of Continued Inpatient Treatment: Pt remains delusional in relation to his mental health diagnosis and criminal charges. He is here to establish competency for court hearing.
[2020-01-22 19:05] VITALS: BP 137/74
[2020-01-22] MEDS: lithium carbonate 150mg capsule PO SCH (20:34)
[2020-01-22] MEDS: zolpidem 5mg tablet PO PRN ×2 (20:35→21:21)
[2020-01-22] MEDS: diphenhydrAMINE 25mg capsule PO PRN (20:35)
--- NOTE | 2020-01-22 21:15 | NUR ---
Nursing Progress Note: Legal hold: 1370 Client on involuntary status for 1370 Report received from Veronica Zapata RN with use of SBAR Why are they here: Pt. admitted directly from the [facility] accompanied by state troopers. Pt. 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 Pt was demonstrating psychotic/paranoid behavior, trying to barricade himself into his friends house and "speaking in unknown languages". Pt. arrested in 2013 for cruelty to animals. During his incarceration, pt.'s behavior described as "constantly provocative", pt. "throwing water on people and dumping water under the doors of other inmates; and continually yelling through his cell door and challenging both deputies and inmates to a fight". Pt. also had been refusing medical treatment. Pt. was considered a risk due to his aggression and refusal of treatment for his psychosis. According to Psychologist report, pt. is found incompetent to stand trial and requires antipsychotic medication in order to return him to competency and is a danger to himself and to others if unmedicated. Assessment What has happened this shift: Received pt up and pacing the solomon. Pt reports feeling good today stating I completed a lot of paper work today. Pt denies depression and suicidal ideation. Pt also denies a/v hallucinations. Pt requested Ambien and Benadryl for sleep. Pt pacing at times. Pt affect bright upon approach. S/I, H/I: Pt denies A/VH: Pt denies Sleep: naps ADL's: Independent Group attendance: N/A, no groups today. Were meds taken: Yes Any med S/E: None Mental Status Exam Appearance: mildly disheveled Eye contact: Good. Behavior: Cooperative, calm Speech: Clear Mood: depressed Affect: blunted Thought process: Linear Thought Content: sleeping Cognition: Alert Insight: Poor Judgment: Poor Interventions PRN's used: Ambien,Benadryl Therapeutic interventions: 1:1 assessment, encouragement to express thoughts and feelings, active listening, therapeutic conversation, medication administration/education/monitoring, encouragement to sleep less during the day, encouragement to try other coping mechanisms besides prn anxiety medication, positive reinforcement, Q 15 minute safety checks. Restraints/seclusion/emergency medication: N/A Justification of Continued Inpatient Treatment: Pt remains delusional in relation to his mental health diagnosis and criminal charges. He is here to establish competency for court hearing.
[2020-01-23 07:18] VITALS: BP 96/60
[2020-01-23] MEDS: benztropine 1mg tablet PO SCH ×2 (07:59→20:47)
[2020-01-23] MEDS: ascorbic acid 500mg tablet PO SCH ×2 (07:59→17:47)
[2020-01-23] MEDS: lithium carbonate 450mg CR tablet PO SCH (07:59)
[2020-01-23] MEDS: multivitamins, therapeutics tablet PO SCH (07:59)
[2020-01-23] MEDS: vitamin E 400 unit capsule PO SCH (07:59)
[2020-01-23] MEDS: OMEGA-3/DHA/EPA/FISH OIL 1 EACH CAPSULE.DR PO SCH ×2 (07:59→20:47)
[2020-01-23] MEDS: oseltamivir phos 75mg capsule PO SCH (07:59)
[2020-01-23] MEDS: vitamin D (cholecalciferol) 1,000 unit tablet PO SCH (07:59)
[2020-01-23] MEDS: vitamin B comp w/Vit. C tab 1 TAB TABLET PO SCH (07:59)
[2020-01-23] MEDS: LORazepam 1 MG tablet PO PRN (12:22)
--- NOTE | 2020-01-23 14:08 | NUR ---
Nursing Progress Note: Legal hold: 1370 Client on involuntary status for 1370 Report received from Scott REYES with use of SBAR Why are they here: Pt. admitted directly from the [facility] accompanied by state troopers. Pt. 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 Pt was demonstrating psychotic/paranoid behavior, trying to barricade himself into his friends house and "speaking in unknown languages". Pt. arrested in 2013 for cruelty to animals. During his incarceration, pt.'s behavior described as "constantly provocative", pt. "throwing water on people and dumping water under the doors of other inmates; and continually yelling through his cell door and challenging both deputies and inmates to a fight". Pt. also had been refusing medical treatment. Pt. was considered a risk due to his aggression and refusal of treatment for his psychosis. According to Psychologist report, pt. is found incompetent to stand trial and requires antipsychotic medication in order to return him to competency and is a danger to himself and to others if unmedicated. Assessment What has happened this shift: Pt was up before breakfast. Pt stated that he got a lot of paperwork done, "I think I was just stuck for awhile, I might be able to actually finish it today." Pt approached this RN before lunch and stated, "I just got a lot of paperwork done and I'm feeling anxious." PRN Ativan 1 mg given at 1222 with good effect. Pt paces around the unit, socializes with staff and select peers. S/I, H/I: Pt denies A/VH: Pt denies Sleep: Pt slept 7.5 hours per noc shift report ADL's: Independent Group attendance: N/A, no groups today. Were meds taken: Yes Any med S/E: None noted or reported. Mental Status Exam Appearance: Clean, appropriate, pt has a new haircut, shaved his head, he is wearing a baseball cap and street clothes. Eye contact: Good. Behavior: Pleasant, calm, cooperative Speech: Clear, audible Mood: Anxious Affect: Anxious Thought process: Linear, some reality distortion when comes to legal charges and mental health status. Thought Content: Focused on completing court paperwork. Cognition: A/O X 4 Insight: Poor Judgment: Fair Interventions PRN's used: Ativan 1 mg Therapeutic interventions: 1:1 assessment, active listening, therapeutic conversation, medication administration/education/monitoring, positive reinforcement, Q 15 minute safety checks. Restraints/seclusion/emergency medication: N/A Justification of Continued Inpatient Treatment: Pt remains delusional in relation to his mental health diagnosis and criminal charges. He is here to establish competency for court hearing.
[2020-01-23 20:27] VITALS: BP 128/79
[2020-01-23] MEDS: lithium carbonate 150mg capsule PO SCH (20:47)
[2020-01-23] MEDS: diphenhydrAMINE 25mg capsule PO PRN (20:47)
[2020-01-23] MEDS: zolpidem 5mg tablet PO PRN ×2 (20:47→21:38)
--- NOTE | 2020-01-23 21:51 | NUR ---
Nursing Progress Note: Legal hold: 1370 Client on involuntary status for 1370 Report received from DAISY Honeycutt with use of SBAR Why are they here: Pt. admitted directly from the [facility] accompanied by state troopers. Pt. 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 Pt was demonstrating psychotic/paranoid behavior, trying to barricade himself into his friends house and "speaking in unknown languages". Pt. arrested in 2013 for cruelty to animals. During his incarceration, pt.'s behavior described as "constantly provocative", pt. "throwing water on people and dumping water under the doors of other inmates; and continually yelling through his cell door and challenging both deputies and inmates to a fight". Pt. also had been refusing medical treatment. Pt. was considered a risk due to his aggression and refusal of treatment for his psychosis. According to Psychologist report, pt. is found incompetent to stand trial and requires antipsychotic medication in order to return him to competency and is a danger to himself and to others if unmedicated. Assessment What has happened this shift: Pt pacing most of shift, appears somewhat anxious but denies all sx/s, stating "Today is better, I took a shower and shaved my head, and I am really moving forward with the court paperwork." Pt states he "got over the hump" but still feeling a "little bogged down with the paperwork but much better than before". Pt requesting the same PRN medications he took last night to help him sleep because 'It really helped me calm down and sleep through the night." S/I, H/I: Pt denies both A/VH: Pt denies both Sleep: See Sleep Assessment ADL's: Independent Group attendance: N/A Were meds taken: Yes Any med S/E: None reported, None observed Mental Status Exam Appearance: Appropriate and clean, wearing personal clothes and ball cap Eye contact: Good Behavior: Cooperative, calm, pacing Speech: Clear Mood:"Better" Affect: Blunted Thought process: Linear Thought Content: Getting adequate sleep, finishing court paperwork Cognition: A/Ox4 Insight: Poor Judgment: Poor Interventions PRN's used: Ambien 10mg total, Benadryl 50mg Therapeutic interventions: 1:1 assessment, encouragement to express thoughts and feelings, active listening, therapeutic conversation, medication administration/education/monitoring, encouragement to sleep less during the day, encouragement to try other coping mechanisms besides prn anxiety medication, positive reinforcement, Q 15 minute safety checks. Restraints/seclusion/emergency medication: N/A Justification of Continued Inpatient Treatment: Pt remains delusional in relation to his mental health diagnosis and criminal charges. He is here to establish competency for court hearing.
[2020-01-24 07:51] VITALS: BP 100/63
[2020-01-24] MEDS: oseltamivir phos 75mg capsule PO SCH (08:20)
[2020-01-24] MEDS: benztropine 1mg tablet PO SCH ×2 (08:20→20:35)
[2020-01-24] MEDS: multivitamins, therapeutics tablet PO SCH (08:20)
[2020-01-24] MEDS: vitamin B comp w/Vit. C tab 1 TAB TABLET PO SCH (08:20)
[2020-01-24] MEDS: vitamin E 400 unit capsule PO SCH (08:20)
[2020-01-24] MEDS: OMEGA-3/DHA/EPA/FISH OIL 1 EACH CAPSULE.DR PO SCH ×2 (08:20→20:34)
[2020-01-24] MEDS: lithium carbonate 450mg CR tablet PO SCH (08:20)
[2020-01-24] MEDS: ascorbic acid 500mg tablet PO SCH ×2 (08:20→17:54)
[2020-01-24] MEDS: vitamin D (cholecalciferol) 1,000 unit tablet PO SCH (08:20)
[2020-01-24 08:50] VITALS: BP 100/63
[2020-01-24] MEDS: LORazepam 1 MG tablet PO PRN (09:41)
--- NOTE | 2020-01-24 14:02 | NUR ---
Nursing Progress Note: Legal hold: 1370 Client on involuntary status for 1370 Report received from DAISY Prather with use of SBAR Why are they here: Pt. admitted directly from the [facility] accompanied by state troopers. Pt. 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 Pt was demonstrating psychotic/paranoid behavior, trying to barricade himself into his friends house and "speaking in unknown languages". Pt. arrested in 2013 for cruelty to animals. During his incarceration, pt.'s behavior described as "constantly provocative", pt. "throwing water on people and dumping water under the doors of other inmates; and continually yelling through his cell door and challenging both deputies and inmates to a fight". Pt. also had been refusing medical treatment. Pt. was considered a risk due to his aggression and refusal of treatment for his psychosis. According to Psychologist report, pt. is found incompetent to stand trial and requires antipsychotic medication in order to return him to competency and is a danger to himself and to others if unmedicated. Assessment What has happened this shift: Pt was up pacing the unit today. Watches TV in the rec room at times and socializes with select peers. Pt approached this RN to state that he had been doing paperwork and that the paperwork brings back bad memories "...things I don't want to talk about." Pt requested prn Ativan 1 mg @ 0941 for increased anxiety with good effect. Pt calm, pleasant, and cooperative with medications and unit procedure. No delusional statements made this shift. Pt stated that he prefers the [place] capsules he receives at bedtime to the CR tab he gets in the morning. Encouraged him to discuss this with the doctor. S/I, H/I: Pt denies. A/VH: Pt denies. Sleep: Pt slept 7 hours per noc shift report. ADL's: Independent Group attendance: N/A Were meds taken: Yes Any med S/E: None reported, None observed Mental Status Exam Appearance: Appropriate and clean, wearing PJ pants, long sleeved shirt, baseball cap, and slippers. Eye contact: Good Behavior: Cooperative, calm, paces the unit, watches TV, socializes with select peers Speech: Clear Mood: Anxious Affect: WNL Thought process: Linear Thought Content: He is pleased he is making progress on his paperwork but it brings back bad memories. Cognition: A/O X 4 Insight: Fair Judgment: Fair Interventions PRN's used: Ativan 1 mg Therapeutic interventions: 1:1 assessment, encouragement to express thoughts and feelings, active listening, therapeutic conversation, medication administration/education/monitoring, positive reinforcement, Q 15 minute safety checks. Restraints/seclusion/emergency medication: N/A Justification of Continued Inpatient Treatment: Pt remains delusional in relation to his mental health diagnosis and criminal charges. He is here to establish competency for court hearing.
[2020-01-24 20:00] VITALS: BP 128/81
[2020-01-24] MEDS: lithium carbonate 150mg capsule PO SCH (20:34)
[2020-01-24] MEDS: zolpidem 5mg tablet PO PRN ×2 (20:34→21:26)
[2020-01-24] MEDS: diphenhydrAMINE 25mg capsule PO PRN (20:36)
--- NOTE | 2020-01-24 23:52 | NUR ---
Nursing Progress Note: Legal hold: 1370 Client on involuntary status for 1370 Report received from DAISY Honeycutt with use of SBAR Why are they here: Pt. admitted directly from the [facility] accompanied by state troopers. Pt. 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 Pt was demonstrating psychotic/paranoid behavior, trying to barricade himself into his friends house and "speaking in unknown languages". Pt. arrested in 2013 for cruelty to animals. During his incarceration, pt.'s behavior described as "constantly provocative", pt. "throwing water on people and dumping water under the doors of other inmates; and continually yelling through his cell door and challenging both deputies and inmates to a fight". Pt. also had been refusing medical treatment. Pt. was considered a risk due to his aggression and refusal of treatment for his psychosis. According to Psychologist report, pt. is found incompetent to stand trial and requires antipsychotic medication in order to return him to competency and is a danger to himself and to others if unmedicated. Assessment What has happened this shift: Pt pacing the halls this evening at change of shift, approached this chief writer and said brightly Youre my nurse again? Oh good. I slept so well last night, I think we should do the same combination of pills. Pt pacing most of shift, not winding down and attempting to sleep until 2230. Pt states he is having an alright day but would like to discuss his lithium " with the provider, he doesn't like the amount he is taking in the morning stating it makes him "feel out of it". Pt says he continues to make progress on his court paperwork. S/I, H/I: Pt denies both A/VH: Pt denies both Sleep: See Sleep Assessment ADL's: Independent Group attendance: N/A Were meds taken: Yes Any med S/E: None reported, None observed Mental Status Exam Appearance: Appropriate and clean, wearing personal clothes and ball cap Eye contact: Good Behavior: Cooperative, calm, pacing, occasionally engaging with staff and peers Speech: Clear Mood:"Alright" Affect: Blunted with brightening Thought process: Linear Thought Content: Getting adequate sleep, finishing court paperwork, medication changes Cognition: A/Ox4 Insight: Poor Judgment: Poor Interventions PRN's used: Ambien 10mg total, Benadryl 50mg Therapeutic interventions: 1:1 assessment, encouragement to express thoughts and feelings, active listening, therapeutic conversation, medication administration/education/monitoring, encouragement to sleep less during the day, encouragement to try other coping mechanisms besides prn anxiety medication, positive reinforcement, Q 15 minute safety checks. Restraints/seclusion/emergency medication: N/A Justification of Continued Inpatient Treatment: Pt remains delusional in relation to his mental health diagnosis and criminal charges. He is here to establish competency for court hearing.
[2020-01-25 07:58] VITALS: BP 115/67
[2020-01-25] MEDS: vitamin E 400 unit capsule PO SCH (08:02)
[2020-01-25] MEDS: OMEGA-3/DHA/EPA/FISH OIL 1 EACH CAPSULE.DR PO SCH ×2 (08:02→20:15)
[2020-01-25] MEDS: vitamin B comp w/Vit. C tab 1 TAB TABLET PO SCH (08:03)
[2020-01-25] MEDS: lithium carbonate 450mg CR tablet PO SCH (08:03)
[2020-01-25] MEDS: vitamin D (cholecalciferol) 1,000 unit tablet PO SCH (08:03)
[2020-01-25] MEDS: benztropine 1mg tablet PO SCH ×2 (08:03→20:15)
[2020-01-25] MEDS: ascorbic acid 500mg tablet PO SCH ×2 (08:03→17:33)
[2020-01-25] MEDS: multivitamins, therapeutics tablet PO SCH (08:03)
[2020-01-25] MEDS: LORazepam 1 MG tablet PO PRN ×2 (08:10→14:22)
--- NOTE | 2020-01-25 08:31 | NUR ---
Reassessment: Pt 100% PO intake meeting nutrient needs. [facility] 01/23. No nutrition problem at this time. Will continue to follow. Recommend: 1. continue regular diet 2. bowel care as needed 3. wt per rx Addendum: 01/25/20 at [address] Amended: Links added.
--- NOTE | 2020-01-25 08:38 | NUR ---
Hayden reported feeling depressed today and "struggling". He reported his father February 22 a couple years ago and this anniversary is difficult for him. He reported he tried to reconcile with his dad prior to his and his dad would not talk to him. Hayden was tearful when discussing this. Provided supportive listening and empathy. ELLI Burciaga
--- NOTE | 2020-01-25 14:50 | NUR ---
Nursing Progress Note: Legal hold: 1370 Client on involuntary status for 1370 Report received from DAISY Prather with use of SBAR Why are they here: Pt. admitted directly from the [facility] accompanied by state troopers. Pt. 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 Pt was demonstrating psychotic/paranoid behavior, trying to barricade himself into his friends house and "speaking in unknown languages". Pt. arrested in 2013 for cruelty to animals. During his incarceration, pt.'s behavior described as "constantly provocative", pt. "throwing water on people and dumping water under the doors of other inmates; and continually yelling through his cell door and challenging both deputies and inmates to a fight". Pt. also had been refusing medical treatment. Pt. was considered a risk due to his aggression and refusal of treatment for his psychosis. According to Psychologist report, pt. is found incompetent to stand trial and requires antipsychotic medication in order to return him to competency and is a danger to himself and to others if unmedicated. Assessment What has happened this shift: Pt requested a prn Ativan 1 mg at 0810. Pt stated that he was struggling with some bad memories, "my whole longterm experience." Pt also stated that he was on the 6th page, the last page of his court paperwork and that he may finish it today. Pt stated that he wished to speak with the doctor today about changing his morning [place] tab to capsules. Asked pt why he hadn't spoken to the doctor about it yesterday as he had mentioned the same thing to this RN during yesterday's med pass. Pt replied, "No, it was later in the day when we talked about it...I'm pretty sure it was later in the day." (It wasn't.) Suggested that he write it down so as not to forget today. Pt seemed a little offended at the suggestion, like there was not way he would forget to do something. At 0937, pt approached this RN again and stated, "I'm really struggling." He wanted to know if there was any more medication he could take for anxiety, mentioned Benadryl. Explained that the Benadryl would just make him feel like sleeping and not really help with his anxiety. Asked pt what was increasing his anxiety today. He stated that it was his roommate, "he's talking on the phone, he has his chair and I have my chair but he's sitting in my chair...it's okay, I don't want any confrontation, I'll just wait until he's off the phone." Pt indicated that he would just try to take a nap without taking anymore medication. Pt approached this RN awhile later to say that he had finished his paperwork and that all he had left to do was to proofread it. Pt went on to describe some of his experiences in longterm, he became a bit tearful, "they made me sleep on a cement floor for 45 days, the toilet didn't flush for 45 days, the daytime light was broken, there was no light...they treated me like an animal." After lunch, pt requested another Ativan. He mentioned how his father in January and so this was a hard month for him. Ativan 1 mg given again at 1422. S/I, H/I: Pt denies. A/VH: Pt denies. Sleep: Pt slept 8 hours per noc shift report. ADL's: Independent Group attendance: N/A Were meds taken: Yes Any med S/E: None noted or reported. Mental Status Exam Appearance: Appropriate and clean, wearing PJ pants, a t-shirt, a baseball cap, and Crocs. Eye contact: Good Behavior: Cooperative, paces the unit. Seems to have difficulty and increased anxiety when has a roommate, increased requests for anxiety meds. Speech: Clear, audible, normal rate & rhythm Mood: Anxious Affect: Anxious Thought process: Ruminates on past persecutions and losses. Thought Content: Detention was a terrible experience, January is a tough month. Cognition: A/O X 4 Insight: Fair Judgment: Fair Interventions PRN's used: Ativan 1 mg X 2 at 0810 & 1422 Therapeutic interventions: 1:1 assessment, encouragement to express thoughts and feelings, active listening, therapeutic conversation, medication administration/education/monitoring, positive reinforcement, encouragement to try other coping skills than Ativan, Q 15 minute safety checks. Restraints/seclusion/emergency medication: N/A Justification of Continued Inpatient Treatment: Pt remains delusional in relation to his mental health diagnosis and criminal charges. He is here to establish competency for court hearing.
[2020-01-25 19:55] VITALS: BP 127/78
[2020-01-25] MEDS: zolpidem 5mg tablet PO PRN ×2 (20:15→21:32)
[2020-01-25] MEDS: lithium carbonate 150mg capsule PO SCH (20:15)
--- NOTE | 2020-01-25 21:02 | NUR ---
Nursing Progress Note: Legal hold: 1370 Client on involuntary status for 1370 Report received from DAISY Cardoza with use of SBAR Why are they here: Pt. admitted directly from the [facility] accompanied by state troopers. Pt. 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 Pt was demonstrating psychotic/paranoid behavior, trying to barricade himself into his friends house and "speaking in unknown languages". Pt. arrested in 2013 for cruelty to animals. During his incarceration, pt.'s behavior described as "constantly provocative", pt. "throwing water on people and dumping water under the doors of other inmates; and continually yelling through his cell door and challenging both deputies and inmates to a fight". Pt. also had been refusing medical treatment. Pt. was considered a risk due to his aggression and refusal of treatment for his psychosis. According to Psychologist report, pt. is found incompetent to stand trial and requires antipsychotic medication in order to return him to competency and is a danger to himself and to others if unmedicated. Assessment What has happened this shift: Pt was walking in the hallway at change of shift. Pt reports that he had an "up and down" day. He states it was hard for him to work on his paperwork and recall his past. Pt states he still has more to do to finish it and states the copy machine doesnt correctly record everything so he will need to review it all. Pt spent time watching tv w/peers before bed. S/I, H/I: Pt denies. A/VH: Pt denies. Sleep: sleeps well "when I take both ambien" ADL's: Independent Group attendance: N/A Were meds taken: Yes Any med S/E: None noted or reported. Mental Status Exam Appearance: Appropriate and clean, wearing PJ pants, a t-shirt, a baseball cap, and Crocs. Eye contact: Good Behavior: Cooperative, paces the unit. Speech: Clear, audible, normal rate & rhythm Mood: Anxious Affect: congruent Thought process: linear Thought Content: getting paperwork done Cognition: A/O X 4 Insight: Fair Judgment: Fair Interventions PRN's used: nicolás Therapeutic interventions: 1:1 assessment, encouragement to express thoughts and feelings, active listening, therapeutic conversation, medication administration/education/monitoring, positive reinforcement, encouragement to try other coping skills than Ativan, Q 15 minute safety checks. Restraints/seclusion/emergency medication: N/A Justification of Continued Inpatient Treatment: Pt remains delusional in relation to his mental health diagnosis and criminal charges. He is here to establish competency for court hearing.
[2020-01-26 07:43] VITALS: BP 109/70
[2020-01-26] MEDS: vitamin D (cholecalciferol) 1,000 unit tablet PO SCH (08:36)
[2020-01-26] MEDS: ascorbic acid 500mg tablet PO SCH ×2 (08:36→18:07)
[2020-01-26] MEDS: benztropine 1mg tablet PO SCH ×2 (08:36→20:32)
[2020-01-26] MEDS: lithium carbonate 450mg CR tablet PO SCH (08:36)
[2020-01-26] MEDS: vitamin B comp w/Vit. C tab 1 TAB TABLET PO SCH (08:37)
[2020-01-26] MEDS: OMEGA-3/DHA/EPA/FISH OIL 1 EACH CAPSULE.DR PO SCH ×2 (08:37→20:32)
[2020-01-26] MEDS: multivitamins, therapeutics tablet PO SCH (08:37)
[2020-01-26] MEDS: vitamin E 400 unit capsule PO SCH (08:37)
[2020-01-26] MEDS: LORazepam 1 MG tablet PO PRN (08:40)
[2020-01-26] MEDS: ibuprofen tablet 400 MG TABLET PO PRN (13:10)
[2020-01-26] MEDS: diphenhydrAMINE 25mg capsule PO PRN (13:10)
--- NOTE | 2020-01-26 15:09 | NUR ---
Nursing Progress Note: Legal hold: 1370 Client on involuntary status for 1370 Report received from DAISY Prather with use of SBAR Why are they here: Pt. admitted directly from the [facility] accompanied by state troopers. Pt. 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 Pt was demonstrating psychotic/paranoid behavior, trying to barricade himself into his friends house and "speaking in unknown languages". Pt. arrested in 2013 for cruelty to animals. During his incarceration, pt.'s behavior described as "constantly provocative", pt. "throwing water on people and dumping water under the doors of other inmates; and continually yelling through his cell door and challenging both deputies and inmates to a fight". Pt. also had been refusing medical treatment. Pt. was considered a risk due to his aggression and refusal of treatment for his psychosis. According to Psychologist report, pt. is found incompetent to stand trial and requires antipsychotic medication in order to return him to competency and is a danger to himself and to others if unmedicated. Assessment What has happened this shift: Received Pt in bed resting w/o distress at change of shift. Pt woke for vitals and was calm and cooperative. He ate breakfast in his room and tolerated assessments well. Pt engagable in conversation. Pt depressed today r/t bad memories associated with family, deaths and poor experiences in snf. Walked halls a bit and interacted with staff and others appropriately. Pt anxious in AM and received ativan with good effect. Also c/o back pain/tightness and received motron. He napped in afternoon and did not want to be around people much. S/I, H/I: Pt denies. A/VH: Pt denies. Sleep: Napped in afternoon ADL's: Independent Group attendance: N/A Were meds taken: Yes Any med S/E: None noted or reported. Mental Status Exam Appearance: Casual in own clothes Eye contact: Good Behavior: Calm and cooperative. Speech: Clear, audible, normal rate & rhythm Mood: Anxious Affect: Anxious Thought process: Ruminating on losses. Thought Content: Halfway and fathers . Cognition: A/O X 4 Insight: Fair Judgment: Fair Interventions PRN's used: Ativan 1 mg X 1, Motrin 400mg, Benadryl 50mg. Therapeutic interventions: 1:1 assessment, encouragement to express thoughts and feelings, active listening, therapeutic conversation, medication administration/education/monitoring, positive reinforcement, encouragement to try other coping skills than Ativan, Q 15 minute safety checks. Restraints/seclusion/emergency medication: N/A Justification of Continued Inpatient Treatment: Pt remains delusional in relation to his mental health diagnosis and criminal charges. He is here to establish competency for court hearing.
[2020-01-26 19:00] VITALS: BP 117/61
[2020-01-26] MEDS: lithium carbonate 150mg capsule PO SCH (20:32)
[2020-01-26] MEDS: zolpidem 5mg tablet PO PRN ×2 (20:32→22:15)
--- NOTE | 2020-01-27 05:59 | NUR ---
Nursing Progress Note: Legal hold: 1370 Client on involuntary status for 1370 Report received from WALESKA Castillo with use of SBAR Why are they here: Pt. admitted directly from the [facility] accompanied by state troopers. Pt. 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 Pt was demonstrating psychotic/paranoid behavior, trying to barricade himself into his friends house and "speaking in unknown languages". Pt. arrested in 2013 for cruelty to animals. During his incarceration, pt.'s behavior described as "constantly provocative", pt. "throwing water on people and dumping water under the doors of other inmates; and continually yelling through his cell door and challenging both deputies and inmates to a fight". Pt. also had been refusing medical treatment. Pt. was considered a risk due to his aggression and refusal of treatment for his psychosis. According to Psychologist report, pt. is found incompetent to stand trial and requires antipsychotic medication in order to return him to competency and is a danger to himself and to others if unmedicated. Assessment What has happened this shift: Patient observed on the unit socializing and walking the solomon at the beginning of shift. Pleasant and cooperative with care; complaint with medications. PRN Ambien 5mg provide x2 per patient request for insomnia. Patient denies SI, HI, A/VH this shift and does not appear to be responding to internal stimuli. Patient provided fixed delusional thought content this shift, talking about why he's to go to court, "I was framed by the deputies." Patient expressed not wanting to continue conversation because "I don't want to re-visit bad memories." S/I, H/I: Pt denies. A/VH: Pt denies. Sleep: Refer to sleep assessment; PRN Ambien 5mg x2 provided ADL's: Independent Group attendance: N/A Were meds taken: Yes Any med S/E: None observed or reported. Mental Status Exam Appearance: Neat, clean, personal attire appropriate for the unit. Eye contact: Good Behavior: Active on the unit, socializing and walking the solomon Speech: Clear, audible, normal rate & rhythm Mood: "Better" Affect: Animated Thought process: Linear with fixed delusions Thought Content: Avoiding conversations of court. Cognition: A/O X 4 Insight: Fair Judgment: Fair Interventions PRN's used: Ambien 5mg x2 Therapeutic interventions: 1:1 assessment, encouragement to express thoughts and feelings, active listening, therapeutic conversation, medication administration/education/monitoring, positive reinforcement, encouragement to try other coping skills than Ativan, Q 15 minute safety checks. Restraints/seclusion/emergency medication: N/A Justification of Continued Inpatient Treatment: Pt remains delusional in relation to his mental health diagnosis and criminal charges. He is here to establish competency for court hearing.
[2020-01-27 07:37] VITALS: BP 115/70
[2020-01-27] MEDS ORDERED: paliperidone palmitate inj 234 MG/1.5 ML SYRINGE IM ONE (08:00)
[2020-01-27] MEDS: multivitamins, therapeutics tablet PO SCH (08:15)
[2020-01-27] MEDS: vitamin E 400 unit capsule PO SCH (08:15)
[2020-01-27] MEDS: benztropine 1mg tablet PO SCH ×2 (08:15→21:30)
[2020-01-27] MEDS: vitamin D (cholecalciferol) 1,000 unit tablet PO SCH (08:15)
[2020-01-27] MEDS: ascorbic acid 500mg tablet PO SCH ×2 (08:15→17:30)
[2020-01-27] MEDS: LORazepam 1 MG tablet PO PRN (08:15)
[2020-01-27] MEDS: OMEGA-3/DHA/EPA/FISH OIL 1 EACH CAPSULE.DR PO SCH ×2 (08:15→21:28)
[2020-01-27] MEDS: lithium carbonate 450mg CR tablet PO SCH (08:15)
[2020-01-27] MEDS: vitamin B comp w/Vit. C tab 1 TAB TABLET PO SCH (08:15)
[2020-01-27] MEDS: diphenhydrAMINE 25mg capsule PO PRN ×2 (08:16→14:26)
--- NOTE | 2020-01-27 13:21 | NUR ---
Nursing Progress Note: Legal hold: 1370 Client on involuntary status for 1370 Report received from WALESKA Hurley with use of SBAR Why are they here: Pt. admitted directly from the [facility] accompanied by state troopers. Pt. 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 Pt was demonstrating psychotic/paranoid behavior, trying to barricade himself into his friends house and "speaking in unknown languages". Pt. arrested in 2013 for cruelty to animals. During his incarceration, pt.'s behavior described as "constantly provocative", pt. "throwing water on people and dumping water under the doors of other inmates; and continually yelling through his cell door and challenging both deputies and inmates to a fight". Pt. also had been refusing medical treatment. Pt. was considered a risk due to his aggression and refusal of treatment for his psychosis. According to Psychologist report, pt. is found incompetent to stand trial and requires antipsychotic medication in order to return him to competency and is a danger to himself and to others if unmedicated. Assessment What has happened this shift: Up and was pacing the hallway. Got Invega Sustenna injection. c/o stomach upset and jaw tightening also of not sleeping well last night. Received Benedryl and Ativan with good efect. Continues delusional thought, "I was framed by the police." Otherwise cooperative and redirectable. Denies SI, HI, and AH. S/I, H/I: denies. A/VH: denies. Sleep: Napped ADL's: Independent Group attendance: N/A Were meds taken: Yes Any med S/E: None noted or reported. Mental Status Exam Appearance: Appropriate and clean Eye contact: Good Behavior: Cooperative Speech: Clear Mood: Depressed Affect: Anxious Thought process: Rumination Thought Content: "I was framed" Cognition: Alert Insight: poor Judgment: Fair Interventions PRN's used: Ativan and benedryl Therapeutic interventions: 1:1 assessment, encouragement to express thoughts and feelings, active listening, therapeutic conversation, medication administration/education/monitoring, positive reinforcement, encouragement to try other coping skills than Ativan, Q 15 minute safety checks. Restraints/seclusion/emergency medication: N/A Justification of Continued Inpatient Treatment: Pt remains delusional in relation to his mental health diagnosis and criminal charges. He is here to establish competency for court hearing.
[2020-01-27 19:16] VITALS: BP 126/72
[2020-01-27] MEDS: zolpidem 5mg tablet PO PRN (21:28)
[2020-01-27] MEDS: lithium carbonate 150mg capsule PO SCH (21:28)
--- NOTE | 2020-01-28 02:44 | NUR ---
Nursing Progress Note: Legal hold: 1370 Client on involuntary status for 1370 Report received from WALESKA Castillo with use of SBAR Why are they here: Pt. admitted directly from the [facility] accompanied by state troopers. Pt. 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 Pt was demonstrating psychotic/paranoid behavior, trying to barricade himself into his friends house and "speaking in unknown languages". Pt. arrested in 2013 for cruelty to animals. During his incarceration, pt.'s behavior described as "constantly provocative", pt. "throwing water on people and dumping water under the doors of other inmates; and continually yelling through his cell door and challenging both deputies and inmates to a fight". Pt. also had been refusing medical treatment. Pt. was considered a risk due to his aggression and refusal of treatment for his psychosis. According to Psychologist report, pt. is found incompetent to stand trial and requires antipsychotic medication in order to return him to competency and is a danger to himself and to others if unmedicated. Assessment What has happened this shift: Patient socializing and playing board game with peers at the beginning of shift. Pleasant and cooperative with care; complaint with medications. PRN Ambien provided upon request. Patient continues to perseverate on his next dose of Ambien. Patient fell asleep before second dose available and patient appears to be sleeping without difficulty at this time. Patient denies SI, HI, A/VH. Described having a "hard day" r/t receiving Invega Sustenna. S/I, H/I: Pt denies. A/VH: Pt denies. Sleep: Refer to sleep assessment; PRN Ambien 5mg provided ADL's: Independent Group attendance: N/A Were meds taken: Yes Any med S/E: None observed or reported. Mental Status Exam Appearance: Neat, clean, personal attire appropriate for the unit. Eye contact: Good Behavior: Active on the unit, socializing and walking the solomon Speech: Clear, audible, normal rate & rhythm Mood: "Hard day" Affect: Flat Thought process: Linear with fixed delusion Thought Content: Difficult day r/t Invega Sustenna; continues to avoid conversation r/t court Cognition: A/O X 4 Insight: Fair Judgment: Fair Interventions PRN's used: Ambien 5mg Therapeutic interventions: 1:1 assessment, encouragement to express thoughts and feelings, active listening, therapeutic conversation, medication administration/education/monitoring, positive reinforcement, encouragement to try other coping skills than Ativan, Q 15 minute safety checks. Restraints/seclusion/emergency medication: N/A Justification of Continued Inpatient Treatment: Pt remains delusional in relation to his mental health diagnosis and criminal charges. He is here to establish competency for court hearing.
[2020-01-28 07:07] VITALS: BP 96/58
[2020-01-28] MEDS: vitamin E 400 unit capsule PO SCH (08:13)
[2020-01-28] MEDS: ascorbic acid 500mg tablet PO SCH ×2 (08:13→18:00)
[2020-01-28] MEDS: vitamin D (cholecalciferol) 1,000 unit tablet PO SCH (08:13)
[2020-01-28] MEDS: lithium carbonate 450mg CR tablet PO SCH (08:13)
[2020-01-28] MEDS: LORazepam 1 MG tablet PO PRN (08:13)
[2020-01-28] MEDS: benztropine 1mg tablet PO SCH ×2 (08:13→20:49)
[2020-01-28] MEDS: multivitamins, therapeutics tablet PO SCH (08:13)
[2020-01-28] MEDS: OMEGA-3/DHA/EPA/FISH OIL 1 EACH CAPSULE.DR PO SCH ×2 (08:13→20:49)
[2020-01-28] MEDS: diphenhydrAMINE 25mg capsule PO PRN (08:13)
[2020-01-28] MEDS: vitamin B comp w/Vit. C tab 1 TAB TABLET PO SCH (08:14)
--- NOTE | 2020-01-28 17:29 | NUR ---
Nursing Progress Note: Hayden Legal hold: Involuntary Client on involuntary status for 1370 Report received from WALESKA Montiel with use of SBAR Why are they here: Pt. admitted directly from the [facility] accompanied by state troopers. Pt. 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 Pt was demonstrating psychotic/paranoid behavior, trying to barricade himself into his friends house and "speaking in unknown languages". Pt. arrested in 2013 for cruelty to animals. During his incarceration, pt.'s behavior described as "constantly provocative", pt. "throwing water on people and dumping water under the doors of other inmates; and continually yelling through his cell door and challenging both deputies and inmates to a fight". Pt. also had been refusing medical treatment. Pt. was considered a risk due to his aggression and refusal of treatment for his psychosis. According to Psychologist report, pt. is found incompetent to stand trial and requires antipsychotic medication in order to return him to competency and is a danger to himself and to others if unmedicated. Assessment What has happened this shift: Patient up for breakfast, reports that he did not sleep very well last night and that he had a bad day yesterday due to Invega injection. He states that he would like to take Ativan and Benadryl and go back to bed. Patient takes his medications without incident. Late in the afternoon patient awakened and was pacing hallways. S/I, H/I: denies. A/VH: denies. Sleep: Slept until 3 pm ADL's: Independent Group attendance: N/A Were meds taken: Yes Any med S/E: None noted or reported. Mental Status Exam Appearance: Clean and neat wearing personal attire. Eye contact: Good Behavior: Fatigued, cooperative. Speech: Clear Mood: Depressed Affect: Anxious Thought process: Linear, circumstantial. Thought Content: Exhaustion. Cognition: Alert Insight: poor Judgment: Fair Interventions PRN's used: Ativan and Benadryl Therapeutic interventions: 1:1 assessment, encouragement to express thoughts and feelings, active listening, therapeutic conversation, medication administration/education/monitoring, positive reinforcement, encouragement to try other coping skills than Ativan, Q 15 minute safety checks. Restraints/seclusion/emergency medication: N/A Justification of Continued Inpatient Treatment: Pt remains delusional in relation to his mental health diagnosis and criminal charges. He is here to establish competency for court hearing.
[2020-01-28] MEDS ORDERED: benztropine 1mg tablet PO ONE (18:55)
[2020-01-28 19:30] VITALS: BP 120/77
[2020-01-28] MEDS: zolpidem 5mg tablet PO PRN (20:49)
[2020-01-28] MEDS: lithium carbonate 150mg capsule PO SCH (20:51)
[2020-01-29] MEDS: zolpidem 5mg tablet PO PRN ×2 (01:45→20:32)
--- NOTE | 2020-01-29 02:30 | NUR ---
Nursing Progress Note: Legal hold: 1370 Client on involuntary status for 1370 Report received from WALESKA Castillo with use of SBAR Why are they here: Pt. admitted directly from the [facility] accompanied by state troopers. Pt. 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 Pt was demonstrating psychotic/paranoid behavior, trying to barricade himself into his friends house and "speaking in unknown languages". Pt. arrested in 2013 for cruelty to animals. During his incarceration, pt.'s behavior described as "constantly provocative", pt. "throwing water on people and dumping water under the doors of other inmates; and continually yelling through his cell door and challenging both deputies and inmates to a fight". Pt. also had been refusing medical treatment. Pt. was considered a risk due to his aggression and refusal of treatment for his psychosis. According to Psychologist report, pt. is found incompetent to stand trial and requires antipsychotic medication in order to return him to competency and is a danger to himself and to others if unmedicated. Assessment What has happened this shift: Patient c/o increased anxiety causing him to excessively clench his jaw at the beginning of shift and reported to Suzanne ALFREDO. One time order 0.5mg Cogentin PO ordered/provided and patient reported positive effect. Patient continues to perseverate on how early he's able to receive second dose of PRN Ambien. Patient awoke around 0100 and provided repeat PRN Ambien at this time. Patient continues to avoid talking about court and denies SI, HI, A/VH. Patient continues to believe he's going to court because he's been framed by deputies. S/I, H/I: Pt denies. A/VH: Pt denies. Sleep: Refer to sleep assessment; PRN Ambien 5mg provided x2 ADL's: Independent Group attendance: N/A Were meds taken: Yes Any med S/E: None observed or reported. Mental Status Exam Appearance: Neat, clean, personal attire appropriate for the unit. Eye contact: Good Behavior: Active on the unit, socializing and walking the solomon Speech: Clear, audible, normal rate & rhythm Mood: "Anxious" Affect: Depressed Thought process: Linear with fixed delusion Thought Content: Sleep Cognition: A/O X 4 Insight: Fair Judgment: Fair Interventions PRN's used: Ambien 5mg x2 Therapeutic interventions: 1:1 assessment, encouragement to express thoughts and feelings, active listening, therapeutic conversation, medication administration/education/monitoring, positive reinforcement, encouragement to try other coping skills than Ativan, Q 15 minute safety checks. Restraints/seclusion/emergency medication: N/A Justification of Continued Inpatient Treatment: Pt remains delusional in relation to his mental health diagnosis and criminal charges. He is here to establish competency for court hearing.
[2020-01-29 07:34] VITALS: BP 101/61
[2020-01-29] MEDS: diphenhydrAMINE 25mg capsule PO PRN (08:10)
[2020-01-29] MEDS: vitamin E 400 unit capsule PO SCH (08:10)
[2020-01-29] MEDS: OMEGA-3/DHA/EPA/FISH OIL 1 EACH CAPSULE.DR PO SCH ×2 (08:10→20:32)
[2020-01-29] MEDS: LORazepam 1 MG tablet PO PRN (08:10)
[2020-01-29] MEDS: benztropine 1mg tablet PO SCH ×2 (08:11→20:32)
[2020-01-29] MEDS: vitamin B comp w/Vit. C tab 1 TAB TABLET PO SCH (08:11)
[2020-01-29] MEDS: lithium carbonate 450mg CR tablet PO SCH (08:11)
[2020-01-29] MEDS: vitamin D (cholecalciferol) 1,000 unit tablet PO SCH (08:11)
[2020-01-29] MEDS: multivitamins, therapeutics tablet PO SCH (08:11)
[2020-01-29] MEDS: ascorbic acid 500mg tablet PO SCH ×2 (08:11→17:25)
[2020-01-29 08:12] LABS: BASOPHILS % (AUTO) 0.6 % (0-1); EOSINOPHILS # (AUTO) 0.2 X10'3 (0-0.9); EOSINOPHILS % (AUTO) 3.2 % (0-6); HEMATOCRIT 44.3 % (42.0-52.0); LYMPHOCYTES # (AUTO) 1.5 X10'3 (1.1-4.8); MEAN CORPUSCULAR HEMOGLOBIN 31.4 PG (27.0-31.0); MEAN CORPUSCULAR VOLUME 92.3 FL (78-98); MEAN PLATELET VOLUME 7.9 FL (7.4-10.4); MONOCYTES # (AUTO) 0.5 X10'3 (0-0.9); MONOCYTES % (AUTO) 6.4 % (2-12); NEUTROPHILS # (AUTO) 5.2 X10'3 (1.8-7.7); NEUTROPHILS % (AUTO) 69.8 % (42-75); PLATELET COUNT 159 X10'3 (140-440); RED CELL DISTRIBUTION WIDTH 13.2 % (11.5-14.5); WHITE BLOOD COUNT 7.4 X10'3 (4.5-11.0)
--- NOTE | 2020-01-29 17:02 | NUR ---
Nursing Progress Note: Legal hold: 1370 Client on involuntary status for 1370 Report received from WALESKA Montiel with use of SBAR Why are they here: Pt. admitted directly from the [facility] accompanied by state troopers. Pt. 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 Pt was demonstrating psychotic/paranoid behavior, trying to barricade himself into his friends house and "speaking in unknown languages". Pt. arrested in 2013 for cruelty to animals. During his incarceration, pt.'s behavior described as "constantly provocative", pt. "throwing water on people and dumping water under the doors of other inmates; and continually yelling through his cell door and challenging both deputies and inmates to a fight". Pt. also had been refusing medical treatment. Pt. was considered a risk due to his aggression and refusal of treatment for his psychosis. According to Psychologist report, pt. is found incompetent to stand trial and requires antipsychotic medication in order to return him to competency and is a danger to himself and to others if unmedicated. Assessment What has happened this shift: Patient awakens for medications and breakfast, requests Ativan and Benadryl so that he can go back to sleep. Patient sleeps most of the day and then gets up and vigorously walks hallways for exercise. S/I, H/I: denies. A/VH: denies. Sleep: Slept until 1 pm ADL's: Independent Group attendance: N/A Were meds taken: Yes Any med S/E: None noted or reported. Mental Status Exam Appearance: Clean and neat wearing personal attire. Eye contact: Good Behavior: Fatigued, cooperative. Speech: Clear Mood: Depressed Affect: Anxious Thought process: Linear, circumstantial. Thought Content: Exhaustion. Wanting to sleep. Cognition: Alert Insight: poor Judgment: Fair Interventions PRN's used: Ativan and Benadryl Therapeutic interventions: 1:1 assessment, encouragement to express thoughts and feelings, active listening, therapeutic conversation, medication administration/education/monitoring, positive reinforcement, encouragement to try other coping skills than Ativan, Q 15 minute safety checks. Restraints/seclusion/emergency medication: N/A Justification of Continued Inpatient Treatment: Pt remains delusional in relation to his mental health diagnosis and criminal charges. He is here to establish competency for court hearing.
[2020-01-29 19:26] VITALS: BP 136/73
[2020-01-29] MEDS: lithium carbonate 150mg capsule PO SCH (20:32)
--- NOTE | 2020-01-30 00:06 | NUR ---
Nursing Progress Note: Legal hold: 1370 Client on involuntary status for 1370 Report received from WALESKA Castillo with use of SBAR Why are they here: Pt. admitted directly from the [facility] accompanied by state troopers. Pt. 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 Pt was demonstrating psychotic/paranoid behavior, trying to barricade himself into his friends house and "speaking in unknown languages". Pt. arrested in 2013 for cruelty to animals. During his incarceration, pt.'s behavior described as "constantly provocative", pt. "throwing water on people and dumping water under the doors of other inmates; and continually yelling through his cell door and challenging both deputies and inmates to a fight". Pt. also had been refusing medical treatment. Pt. was considered a risk due to his aggression and refusal of treatment for his psychosis. According to Psychologist report, pt. is found incompetent to stand trial and requires antipsychotic medication in order to return him to competency and is a danger to himself and to others if unmedicated. Assessment What has happened this shift: Patient observed talking on the phone at the beginning of shift. Pleasant and cooperative with all care; compliant with all medication. PRN Ambien 10mg PO provided upon request with positive effect. Patient Cogentin increased to 2mg this shift; no ASE noted or reported. Patient received new roommate this shift and appears to be getting along well; they were observed socializing and in the group room before bed. Continues to deny SI, HI, A/VH and does not appear to be internally preoccupied this shift. S/I, H/I: Pt denies. A/VH: Pt denies. Sleep: Refer to sleep assessment; PRN Ambien 10mg provided. ADL's: Independent Group attendance: N/A Were meds taken: Yes Any med S/E: None observed or reported. Mental Status Exam Appearance: Neat, clean, personal attire appropriate for the unit. Eye contact: Good Behavior: Active on the unit, socializing with peers and staff, talking on the phone and walking the solomon Speech: Clear, audible, normal rate & rhythm Mood: "Alright" Affect: Bright Thought process: Linear with fixed delusion Thought Content: Happy with his med changes and new roommate Cognition: A/O X 4 Insight: Fair Judgment: Fair Interventions PRN's used: Ambien 10mg Therapeutic interventions: 1:1 assessment, encouragement to express thoughts and feelings, active listening, therapeutic conversation, medication administration/education/monitoring, positive reinforcement, encouragement to try other coping skills than Ativan, Q 15 minute safety checks. Restraints/seclusion/emergency medication: N/A Justification of Continued Inpatient Treatment: Pt remains delusional in relation to his mental health diagnosis and criminal charges. He is here to establish competency for court hearing.
[2020-01-30 07:16] VITALS: BP 108/65
[2020-01-30] MEDS: OMEGA-3/DHA/EPA/FISH OIL 1 EACH CAPSULE.DR PO SCH ×2 (07:56→20:30)
[2020-01-30] MEDS: multivitamins, therapeutics tablet PO SCH (07:56)
[2020-01-30] MEDS: vitamin B comp w/Vit. C tab 1 TAB TABLET PO SCH (07:56)
[2020-01-30] MEDS: vitamin E 400 unit capsule PO SCH (07:56)
[2020-01-30] MEDS: benztropine 1mg tablet PO SCH ×2 (07:57→20:31)
[2020-01-30] MEDS: lithium carbonate 450mg CR tablet PO SCH (07:57)
[2020-01-30] MEDS: ascorbic acid 500mg tablet PO SCH ×2 (07:57→17:44)
[2020-01-30] MEDS: vitamin D (cholecalciferol) 1,000 unit tablet PO SCH (07:57)
[2020-01-30] MEDS: LORazepam 1 MG tablet PO PRN ×2 (10:40→17:44)
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
[2020-01-30 19:31] VITALS: BP 119/73
[2020-01-30] MEDS: zolpidem 5mg tablet PO PRN (20:31)
[2020-01-30] MEDS: lithium carbonate 150mg capsule PO SCH (20:32)
--- NOTE | 2020-01-31 03:36 | NUR ---
Nursing Progress Note: Legal hold: 1370 Client on involuntary status for 1370 Report received from WALESKA Castillo with use of SBAR Why are they here: Pt. admitted directly from the [facility] accompanied by state troopers. Pt. 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 Pt was demonstrating psychotic/paranoid behavior, trying to barricade himself into his friends house and "speaking in unknown languages". Pt. arrested in 2013 for cruelty to animals. During his incarceration, pt.'s behavior described as "constantly provocative", pt. "throwing water on people and dumping water under the doors of other inmates; and continually yelling through his cell door and challenging both deputies and inmates to a fight". Pt. also had been refusing medical treatment. Pt. was considered a risk due to his aggression and refusal of treatment for his psychosis. According to Psychologist report, pt. is found incompetent to stand trial and requires antipsychotic medication in order to return him to competency and is a danger to himself and to others if unmedicated. Assessment What has happened this shift: Patient in his bedroom at the beginning of shift and shortly after observed on the unit socializing, walking the solomon and watching TV with peers. Patient reported difficulty sleeping last night and sated, "maybe it was a bad batch." Flour Tester explained he may have felt over-stimulated before bed as he had gotten a new roommate and he agreed to the possibility. Patient received PRN Ambien 10mg with HS medication with positive effect; patient went to bed approximately 2200 and has remained in bed since with no c/o insomnia. Continues to deny SI, HI, A/VH and does not appear to be responding to internal stimuli this shift. S/I, H/I: Pt denies. A/VH: Pt denies. Sleep: Refer to sleep assessment; PRN Ambien 10mg provided. ADL's: Independent Group attendance: N/A Were meds taken: Yes Any med S/E: None observed or reported. Mental Status Exam Appearance: Neat, clean, personal attire appropriate for the unit. Eye contact: Good Behavior: Active on the unit, socializing with peers and staff, talking on the phone and walking the solomon Speech: Clear, audible, normal rate & rhythm Mood: Euthymic Affect: Bright Thought process: Linear with fixed delusion Thought Content: Difficulty sleeping previous night, friends on the unit Cognition: A/O X 4 Insight: Fair Judgment: Fair Interventions PRN's used: Ambien 10mg Therapeutic interventions: 1:1 assessment, encouragement to express thoughts and feelings, active listening, therapeutic conversation, medication administration/education/monitoring, positive reinforcement, encouragement to try other coping skills than Ativan, Q 15 minute safety checks. Restraints/seclusion/emergency medication: N/A Justification of Continued Inpatient Treatment: Pt remains delusional in relation to his mental health diagnosis and criminal charges. He is here to establish competency for court hearing.
[2020-01-31] MEDS: ascorbic acid 500mg tablet PO SCH ×2 (07:52→17:49)
[2020-01-31] MEDS: vitamin E 400 unit capsule PO SCH (07:52)
[2020-01-31] MEDS: vitamin B comp w/Vit. C tab 1 TAB TABLET PO SCH (07:52)
[2020-01-31] MEDS: OMEGA-3/DHA/EPA/FISH OIL 1 EACH CAPSULE.DR PO SCH ×2 (07:52→21:10)
[2020-01-31] MEDS: vitamin D (cholecalciferol) 1,000 unit tablet PO SCH (07:52)
[2020-01-31] MEDS: multivitamins, therapeutics tablet PO SCH (07:52)
[2020-01-31] MEDS: benztropine 1mg tablet PO SCH ×2 (07:53→21:11)
[2020-01-31] MEDS: lithium carbonate 450mg CR tablet PO SCH (07:53)
[2020-01-31 08:00] VITALS: BP 100/63
[2020-01-31] MEDS: LORazepam 1 MG tablet PO PRN (08:08)
[2020-01-31] MEDS ORDERED: hydrOXYzine 25 MG tablet PO PRN ×2 (12:55)
[2020-01-31] MEDS ORDERED: LORazepam 0.5 MG tablet PO PRN (12:55)
--- NOTE | 2020-01-31 17:08 | NUR ---
Nursing Progress Note: Hayden Legal hold: 1370 Client on involuntary status for 1370 Report received from DAISY Honeycutt with use of SBAR Why are they here: Pt. admitted directly from the [facility] accompanied by state troopers. Pt. 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 Pt was demonstrating psychotic/paranoid behavior, trying to barricade himself into his friends house and "speaking in unknown languages". Pt. arrested in 2013 for cruelty to animals. During his incarceration, pt.'s behavior described as "constantly provocative", pt. "throwing water on people and dumping water under the doors of other inmates; and continually yelling through his cell door and challenging both deputies and inmates to a fight". Pt. also had been refusing medical treatment. Pt. was considered a risk due to his aggression and refusal of treatment for his psychosis. According to Psychologist report, pt. is found incompetent to stand trial and requires antipsychotic medication in order to return him to competency and is a danger to himself and to others if unmedicated. Assessment What has happened this shift: Observed patient sleeping at shift change. Up for breakfast and medications. Patient requests Ativan with a.m. meds which was provided. Patient then went back to bed to sleep. Up and social on unit after lunch time. Playing dice in group room with peers in afternoon S/I, H/I: denied A/VH: denies. Sleep: Sleeps most of the day; up for meals and meetings w/MD ADL's: Independent Group attendance: N/A Were Meds taken: Yes Any med S/E: None noted or reported. Mental Status Exam Appearance: Clean and neat wearing personal attire. Eye contact: Good Behavior: Calm and cooperative Speech: Clear Mood: Euthymic Affect: Constricted Thought process: Circumstantial. Thought Content: Worried about returning to senior care Cognition: A/O x4 Insight: Poor Judgment: Fair Interventions PRN's used: Ativan x2 Therapeutic interventions: provided therapeutic communication and active listening, medication administration/education/monitoring, positive reinforcement, Q 15 minute safety checks. Restraints/seclusion/emergency medication: N/A Justification of Continued Inpatient Treatment: Pt remains delusional in relation to his mental health diagnosis and criminal charges. He is here to establish competency for court hearing.
[2020-01-31 20:12] VITALS: BP 121/75
[2020-01-31] MEDS: lithium carbonate 150mg capsule PO SCH (21:10)
[2020-01-31] MEDS: zolpidem 5mg tablet PO PRN (21:11)
--- NOTE | 2020-02-01 00:44 | NUR ---
Nursing Progress Note: Legal hold: 1370 Client on involuntary status for 1370 Report received from WALESKA Castillo with use of SBAR Why are they here: Pt. admitted directly from the [facility] accompanied by state troopers. Pt. 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 Pt was demonstrating psychotic/paranoid behavior, trying to barricade himself into his friends house and "speaking in unknown languages". Pt. arrested in 2013 for cruelty to animals. During his incarceration, pt.'s behavior described as "constantly provocative", pt. "throwing water on people and dumping water under the doors of other inmates; and continually yelling through his cell door and challenging both deputies and inmates to a fight". Pt. also had been refusing medical treatment. Pt. was considered a risk due to his aggression and refusal of treatment for his psychosis. According to Psychologist report, pt. is found incompetent to stand trial and requires antipsychotic medication in order to return him to competency and is a danger to himself and to others if unmedicated. Assessment What has happened this shift: The patient was seen at bedside for 1:1. He reports that he's felling a little depressed and subdued. "I don't really feel like talking about anything." The patient may be feeling like this due to his starting mock trials, and the possibility of his going back to snf. He seems to have legitimate fear related to his time in snf. He seems to be at his baseline, and is able to have a decent conversation without delusional content, although there are subjects that he won't respond to. The patient spent early evening playing dice with other clients, then the remainder spent walking the halls before retiring to bed. S/I, H/I: Pt denies. A/VH: Pt denies. Sleep: See sleep assessment. ADL's: Independent Group attendance: N/A Were meds taken: Yes Any med S/E: None observed or reported. Mental Status Exam Appearance: Neat, clean, personal attire appropriate for the unit. Eye contact: Good Behavior: Appropriate, playing dice and pacing the halls Speech: Clear, audible, normal rate & rhythm Mood: Euthymic Affect: Blunted Thought process: Linear with fixed delusion Thought Content: Mock trials. Cognition: A/O X 4 Insight: Fair Judgment: Fair Interventions PRN's used: Ambien 10mg Therapeutic interventions: 1:1 assessment, encouragement to express thoughts and feelings, active listening, therapeutic conversation, medication administration/education/monitoring, positive reinforcement, encouragement to try other coping skills than Ativan, Q 15 minute safety checks. Restraints/seclusion/emergency medication: N/A Justification of Continued Inpatient Treatment: Pt remains delusional in relation to his mental health diagnosis and criminal charges. He is here to establish competency for court hearing.
[2020-02-01 08:00] VITALS: BP 101/69
[2020-02-01] MEDS: ascorbic acid 500mg tablet PO SCH ×2 (08:31→17:42)
[2020-02-01] MEDS: vitamin E 400 unit capsule PO SCH (08:31)
[2020-02-01] MEDS: OMEGA-3/DHA/EPA/FISH OIL 1 EACH CAPSULE.DR PO SCH ×2 (08:31→20:00)
[2020-02-01] MEDS: vitamin D (cholecalciferol) 1,000 unit tablet PO SCH (08:31)
[2020-02-01] MEDS: multivitamins, therapeutics tablet PO SCH (08:31)
[2020-02-01] MEDS: benztropine 1mg tablet PO SCH ×2 (08:32→20:00)
[2020-02-01] MEDS: lithium carbonate 450mg CR tablet PO SCH (08:32)
[2020-02-01] MEDS: vitamin B comp w/Vit. C tab 1 TAB TABLET PO SCH (08:32)
[2020-02-01] MEDS: LORazepam 1 MG tablet PO SCH (08:41)
--- NOTE | 2020-02-01 10:46 | NUR ---
Reassessment: Pt 75-100% PO meals intake meeting nutrient needs. LBM 01/30. No nutrition problem at this time. Will continue to follow. Recommend: 1. continue regular diet 2. bowel care as needed 3. wt per rx Addendum: 02/01/20 at [address] Amended: Links added.
--- NOTE | 2020-02-01 16:35 | NUR ---
Nursing Progress Note: Legal hold: 1370 Client on involuntary status for 1370 Report received from RN with use of SBAR Why are they here: Pt. admitted directly from the [facility] accompanied by state troopers. Pt. 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 Pt was demonstrating psychotic/paranoid behavior, trying to barricade himself into his friends house and "speaking in unknown languages". Pt. arrested in 2013 for cruelty to animals. During his incarceration, pt.'s behavior described as "constantly provocative", pt. "throwing water on people and dumping water under the doors of other inmates; and continually yelling through his cell door and challenging both deputies and inmates to a fight". Pt. also had been refusing medical treatment. Pt. was considered a risk due to his aggression and refusal of treatment for his psychosis. According to Psychologist report, pt. is found incompetent to stand trial and requires antipsychotic medication in order to return him to competency and is a danger to himself and to others if unmedicated. Assessment What has happened this shift: Received Pt in walking hallway at change of shift. Pt vitals taken, and was cooperative. He ate breakfast in his room and tolerated assessments well. Pt engagable in short conversation, although anxious about leaving and going back to [facility]. Unpleasant experiences from [facility], and the unknown causing anxiety. Pt met with Dr Harrell in AM and calmed just a little after AM meds. He was able to interact with other Pts and play dice for a short while in morning. Pt walked halls a bit and in afternoon stated I dont want to talk about it anymore. Pt enjoyed going out on patio. Pt did not engage in delusional talk, but did express fear of going back to [facility]. S/I, H/I: Pt denies. A/VH: Pt denies. Sleep: No ADL's: Independent Group attendance: N/A Were meds taken: Yes Any med S/E: None noted or reported. Mental Status Exam Appearance: Casual in own clothes Eye contact: Good Behavior: Calm and cooperative. Speech: Clear, audible, normal rate & rhythm Mood: Anxious Affect: Anxious Thought process: Ruminating on future. Thought Content: Going back to [facility]. Cognition: A/O X 4 Insight: Fair Judgment: Fair Interventions PRN's used: Therapeutic interventions: 1:1 assessment, encouragement to express thoughts and feelings, active listening, therapeutic conversation, medication administration/education/monitoring, positive reinforcement, encouragement to try other coping skills than Ativan, Q 15 minute safety checks. Restraints/seclusion/emergency medication: N/A Justification of Continued Inpatient Treatment: Pt remains delusional in relation to his mental health diagnosis and criminal charges. He is here to establish competency for court hearing.
[2020-02-01 19:30] VITALS: BP 147/76
[2020-02-01] MEDS: zolpidem 5mg tablet PO PRN (21:29)
[2020-02-01] MEDS: clonazePAM 0.5mg tablet PO SCH (21:30)
[2020-02-01] MEDS: lithium carbonate 150mg capsule PO SCH (21:31)
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
[2020-02-02] MEDS: LORazepam 1 MG tablet PO SCH (07:48)
[2020-02-02] MEDS: vitamin B comp w/Vit. C tab 1 TAB TABLET PO SCH (07:52)
[2020-02-02] MEDS: benztropine 1mg tablet PO SCH ×2 (07:52→20:56)
[2020-02-02] MEDS: lithium carbonate 450mg CR tablet PO SCH (07:52)
[2020-02-02] MEDS: clonazePAM 0.5mg tablet PO SCH ×2 (07:52→19:46)
[2020-02-02] MEDS: OMEGA-3/DHA/EPA/FISH OIL 1 EACH CAPSULE.DR PO SCH ×2 (07:52→20:56)
[2020-02-02] MEDS: multivitamins, therapeutics tablet PO SCH (07:53)
[2020-02-02] MEDS: vitamin D (cholecalciferol) 1,000 unit tablet PO SCH (07:53)
[2020-02-02] MEDS: vitamin E 400 unit capsule PO SCH (07:53)
[2020-02-02] MEDS: ascorbic acid 500mg tablet PO SCH ×2 (07:53→17:40)
[2020-02-02 08:03] VITALS: BP 108/66
[2020-02-02] MEDS: LORazepam 0.5 MG tablet PO PRN (17:56)
--- NOTE | 2020-02-02 18:18 | NUR ---
Nursing Progress Note: Legal hold: 1370 Client on involuntary status for 1370 Report received from RN with use of SBAR Why are they here: Pt. admitted directly from the [facility] accompanied by state troopers. Pt. 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 Pt was demonstrating psychotic/paranoid behavior, trying to barricade himself into his friends house and "speaking in unknown languages". Pt. arrested in 2013 for cruelty to animals. During his incarceration, pt.'s behavior described as "constantly provocative", pt. "throwing water on people and dumping water under the doors of other inmates; and continually yelling through his cell door and challenging both deputies and inmates to a fight". Pt. also had been refusing medical treatment. Pt. was considered a risk due to his aggression and refusal of treatment for his psychosis. According to Psychologist report, pt. is found incompetent to stand trial and requires antipsychotic medication in order to return him to competency and is a danger to himself and to others if unmedicated. Assessment What has happened this shift: Received pt. lying on mattress layed out on floor beside bed. Pt receptive to care and cooperative with assessments and vital sign taking. Patient had a good appetite this morning and tolerated all his medications. Engaged in short conversation, responds appropriately, although anxious about leaving and going back to [facility]. Unpleasant experiences from [facility], and the unknown causing anxiety. He was able to interact with other Pts and go out to the patio for a short while in the afternoon and enjoyed his time there. Pt did not engage in delusional talk, but did express fear of going back to [facility]. Spent most of the isolating in his room. Pt. Did initiate conversation during shift chage and was able to give a few smiles. S/I, H/I: Denies. A/VH: Denies. Sleep: No ADL's: Independent Group attendance: N/A Were meds taken: Yes Any med S/E: None observed or reported. Mental Status Exam Appearance: Casual attire with selinaie on Eye contact: Good Behavior: Calm and cooperative. Speech: Clear, audible, normal rate & rhythm Mood: Anxious Affect: Anxious Thought process: Ruminating on future. Thought Content: Going back to [facility]. Cognition: A/O X 4 Insight: Fair Judgment: Fair Interventions PRN's used: Ativan Therapeutic interventions: 1:1 assessment, encouragement to express thoughts and feelings, active listening, therapeutic conversation, medication administration/education/monitoring, positive reinforcement, encouragement to try other coping skills than Ativan, Q 15 minute safety checks. Restraints/seclusion/emergency medication: N/A Justification of Continued Inpatient Treatment: Pt remains delusional in relation to his mental health diagnosis and criminal charges. He is here to establish competency for court hearing.
[2020-02-02 19:00] VITALS: BP 128/72
[2020-02-02] MEDS: lithium carbonate 150mg capsule PO SCH (20:57)
[2020-02-02] MEDS: zolpidem 5mg tablet PO PRN (20:57)
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
[2020-02-03 07:33] VITALS: BP 97/66
[2020-02-03] MEDS: LORazepam 1 MG tablet PO SCH (08:15)
[2020-02-03] MEDS: clonazePAM 0.5mg tablet PO SCH ×2 (08:16→21:09)
[2020-02-03] MEDS: lithium carbonate 450mg CR tablet PO SCH (08:16)
[2020-02-03] MEDS: benztropine 1mg tablet PO SCH ×2 (08:16→21:09)
[2020-02-03] MEDS: OMEGA-3/DHA/EPA/FISH OIL 1 EACH CAPSULE.DR PO SCH ×2 (08:16→21:09)
[2020-02-03] MEDS: vitamin B comp w/Vit. C tab 1 TAB TABLET PO SCH (08:17)
[2020-02-03] MEDS: vitamin D (cholecalciferol) 1,000 unit tablet PO SCH (08:17)
[2020-02-03] MEDS: vitamin E 400 unit capsule PO SCH (08:17)
[2020-02-03] MEDS: multivitamins, therapeutics tablet PO SCH (08:17)
[2020-02-03] MEDS: ascorbic acid 500mg tablet PO SCH ×2 (08:22→17:36)
--- NOTE | 2020-02-03 16:37 | NUR ---
Nursing Progress Note: Legal hold: 1370 Client on involuntary status for 1370 Report received from RN with use of SBAR Why are they here: Pt. admitted directly from the [facility] accompanied by state troopers. Pt. 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 Pt was demonstrating psychotic/paranoid behavior, trying to barricade himself into his friends house and "speaking in unknown languages". Pt. arrested in 2013 for cruelty to animals. During his incarceration, pt.'s behavior described as "constantly provocative", pt. "throwing water on people and dumping water under the doors of other inmates; and continually yelling through his cell door and challenging both deputies and inmates to a fight". Pt. also had been refusing medical treatment. Pt. was considered a risk due to his aggression and refusal of treatment for his psychosis. According to Psychologist report, pt. is found incompetent to stand trial and requires antipsychotic medication in order to return him to competency and is a danger to himself and to others if unmedicated. Assessment What has happened this shift: Received Pt in bed resting w/o distress at change of shift. Pt cooperative with vitals and assessments. C/O anxiety and received AM meds which helped according to him. He isolated for most of the day and spent time in bed. He interacted minimally with others, but when he did, he was appropriate. Pt remains anxious and depressed r/t returning to custodial and traumatic experiences from past and custodial. S/I, H/I: Pt denies. A/VH: Pt denies. Sleep: No ADL's: Independent Group attendance: N/A Were meds taken: Yes Any med S/E: None noted or reported. Mental Status Exam Appearance: Casual in own clothes Eye contact: Good Behavior: Calm and cooperative. Speech: Clear, audible, normal rate & rhythm Mood: Anxious/depressed Affect: Anxious Thought process: Ruminating on future. Thought Content: Going back to custodial. Cognition: A/O X 4 Insight: Fair Judgment: Fair Interventions PRN's used: None Therapeutic interventions: 1:1 assessment, encouragement to express thoughts and feelings, active listening, therapeutic conversation, medication administration/education/monitoring, positive reinforcement, encouragement to try other coping skills than Ativan, Q 15 minute safety checks. Restraints/seclusion/emergency medication: N/A Justification of Continued Inpatient Treatment: Pt remains delusional in relation to his mental health diagnosis and criminal charges. He is here to establish competency for court hearing.
[2020-02-03] MEDS ORDERED: hydrOXYzine 25 MG tablet PO PRN (18:30)
[2020-02-03 19:00] VITALS: BP 99/69
[2020-02-03] MEDS: zolpidem 5mg tablet PO PRN (21:09)
[2020-02-03] MEDS: lithium carbonate 150mg capsule PO SCH (21:10)
--- NOTE | 2020-02-03 23:46 | NUR ---
Nursing Progress Note: Legal hold: 1370 Client on involuntary status for 1370 Report received from nurse with use of SBAR: DAISY Honeycutt Why are they here: Pt. admitted directly from the [facility] accompanied by state troopers. Pt. 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 Pt was demonstrating psychotic/paranoid behavior, trying to barricade himself into his friends house and "speaking in unknown languages". Pt. arrested in 2013 for cruelty to animals. During his incarceration, pt.'s behavior described as "constantly provocative", pt. "throwing water on people and dumping water under the doors of other inmates; and continually yelling through his cell door and challenging both deputies and inmates to a fight". Pt. also had been refusing medical treatment. Pt. was considered a risk due to his aggression and refusal of treatment for his psychosis. According to Psychologist report, pt. is found incompetent to stand trial and requires antipsychotic medication in order to return him to competency and is a danger to himself and to others if unmedicated. Assessment What has happened this shift: Pt. in his room laying in bed at the beginning of the shift, he awakens later and begins pacing the halls as he appears to do nightly. Pt. appropriately greets this freelance writer, however affect appears flat and he is much less talkative than the previous shift. 1:1 completed later at bedside, pt. denies any depression and reports decreased anxiety this shift. He states, "I just ruminate on my nightmares from a couple nights back about the deputies and then I get down." However, pt. denies having any nightmares last night and reports he slept well, but feels fatigued today. Pt. continues to deny any A/V/JIMENEZ and no delusional statements made this shift. He is later observed to be interacting appropriately with others and watching a movie in the Recreation Room. Pt. then retreats to bed where he continues to sleep on a mattress on the floor at bedside. S/I, H/I: Denies A/VH: Denies, does not appear internally preoccupied Sleep: Pt. denies having any nightmares last night and reports he slept well, but feels fatigued today. ADL's: Independent Group attendance: N/A Were meds taken: Yes Any med S/E: Pt. reports fatigue, will endorse to AM shift Mental Status Exam Appearance: Neat and appropriately dressed Eye contact: Good Behavior: Cooperative, less restlessness Mood: Pleasant, however fatigued Affect: Flat Thought process: Poverty of thought Thought Content: Ongoing fixed paranoid delusions Cognition: A&O X4 Insight: Fair Judgment: Fair Interventions PRN's used: Opal Therapeutic interventions: Maintained a safe and therapeutic environment, ensured contract for safety, provided clear and simple instructions, attempted to reorient to reality as needed, monitored behavior and need for intervention, provided active listening and positive encouragement, and maintained Q 15min safety checks. Restraints/seclusion/emergency medication: N/A Justification of Continued Inpatient Treatment: Pt. continues to be restored to competency so he can be returned to intermediate and stand trial.
[2020-02-04 07:09] VITALS: BP 102/66
[2020-02-04] MEDS: lithium carbonate 450mg CR tablet PO SCH (07:47)
[2020-02-04] MEDS: vitamin B comp w/Vit. C tab 1 TAB TABLET PO SCH (07:47)
[2020-02-04] MEDS: vitamin D (cholecalciferol) 1,000 unit tablet PO SCH (07:47)
[2020-02-04] MEDS: ascorbic acid 500mg tablet PO SCH ×2 (07:47→17:09)
[2020-02-04] MEDS: benztropine 1mg tablet PO SCH ×2 (07:47→20:46)
[2020-02-04] MEDS: clonazePAM 0.5mg tablet PO SCH (07:47)
[2020-02-04] MEDS: vitamin E 400 unit capsule PO SCH (07:47)
[2020-02-04] MEDS: multivitamins, therapeutics tablet PO SCH (07:47)
[2020-02-04] MEDS: OMEGA-3/DHA/EPA/FISH OIL 1 EACH CAPSULE.DR PO SCH ×2 (07:48→20:46)
--- NOTE | 2020-02-04 13:17 | NUR ---
NURSING PROGRESS NOTE Legal hold: 1370 Client on involuntary status for 1370 Report received from DAISY Hurley with use of SBAR Why are they here: Pt. admitted directly from the [facility] accompanied by state troopers. Pt. 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 Pt was demonstrating psychotic/paranoid behavior, trying to barricade himself into his friends house and "speaking in unknown languages". Pt. arrested in 2013 for cruelty to animals. During his incarceration, pt.'s behavior described as "constantly provocative", pt. "throwing water on people and dumping water under the doors of other inmates; and continually yelling through his cell door and challenging both deputies and inmates to a fight". Pt. also had been refusing medical treatment. Pt. was considered a risk due to his aggression and refusal of treatment for his psychosis. According to Psychologist report, pt. is found incompetent to stand trial and requires antipsychotic medication in order to return him to competency and is a danger to himself and to others if unmedicated. Assessment What has happened this shift: Slept in and then ate breakfast with minimal contact with others. Isolated to room most of day, did go out on the patio with group and stated he "walked around out there." Appeared to be sleeping but patient stated he is "very tired, just because I'm laying down doesn't mean I'm asleep, the medication is making me so tired." Reports having "paperwork" to do but he is too sleepy. Denies being depressed. S/I, H/I: denies. A/VH: denies. Sleep: napped ADL's: Independent Group attendance: yes patio Were meds taken: Yes Any med S/E: Reports sleepiness Mental Status Exam Appearance: neat and clean Eye contact: Good Behavior: Calm and cooperative. Speech: Clear Mood: appears depressed Affect: blunted Thought process: Linear Thought Content: sleepiness Cognition: Alert Insight: poor Judgment: Fair Interventions PRN's used: None Therapeutic interventions: 1:1 assessment, encouragement to express thoughts and feelings, active listening, therapeutic conversation, medication administration/education/monitoring, positive reinforcement, encouragement to try other coping skills than Ativan, Q 15 minute safety checks. Restraints/seclusion/emergency medication: N/A Justification of Continued Inpatient Treatment: Pt remains delusional in relation to his mental health diagnosis and criminal charges. He is here to establish competency for court hearing.
[2020-02-04 20:00] VITALS: BP 125/81
[2020-02-04] MEDS: lithium carbonate 150mg capsule PO SCH (20:46)
[2020-02-04] MEDS: zolpidem 5mg tablet PO PRN (20:46)
[2020-02-04] MEDS: hydrOXYzine 25 MG tablet PO PRN (21:45)
--- NOTE | 2020-02-04 23:21 | NUR ---
Nursing Progress Note: Legal hold: 1370 Client on involuntary status for 1370 Report received from nurse with use of SBAR: DAISY Honeycutt Why are they here: Pt. admitted directly from the [facility] accompanied by state troopers. Pt. 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 Pt was demonstrating psychotic/paranoid behavior, trying to barricade himself into his friends house and "speaking in unknown languages". Pt. arrested in 2013 for cruelty to animals. During his incarceration, pt.'s behavior described as "constantly provocative", pt. "throwing water on people and dumping water under the doors of other inmates; and continually yelling through his cell door and challenging both deputies and inmates to a fight". Pt. also had been refusing medical treatment. Pt. was considered a risk due to his aggression and refusal of treatment for his psychosis. According to Psychologist report, pt. is found incompetent to stand trial and requires antipsychotic medication in order to return him to competency and is a danger to himself and to others if unmedicated. Assessment What has happened this shift: Pt pacing at change of shift Stopped to inform this nurse that the PA would be putting in medication changes because I just am too tired during the day and feel over medicated. Pt appears withdrawn ans stressed, states feeling overwhelmed with the letters. I wanted to write two today but only got to one. Denies sx/symptoms. RN expressed encouragement and setting manageable goals, to which pt replied thanks for the vote of confidence. I think Ill feel better tomorrow with the med changes. Pt paced up until turning in to go to bed., only stopping to have a snack and visit with peers. During medication pass, the pt was updated pt on recent medication changes, pt was agreeable to new orders and hopes he will feel less tired over the next few days. S/I, H/I: Denies A/VH: Denies, does not appear internally preoccupied Sleep: See Sleep Assessment ADL's: Independent Group attendance: N/A Were meds taken: Yes Any med S/E: Fatigue - See MAR for medication changes to help alleviate this c/o Mental Status Exam Appearance: Neat and appropriately dressed in personal shirt, scrub pants, hat, and nonskid socks Eye contact: Good Behavior: Cooperative, Pacing Mood: Overwhelmed Affect: Blunted Thought process: Linear Thought Content: needing to complete court paperwork, wanting to alleviate fatigue from medication regimen Cognition: A&Ox4 Insight: Fair Judgment: Fair Interventions PRNs used: Ambien 10mg for sleep, Atarax 50mg for anxiety Therapeutic interventions: Maintained a safe and therapeutic environment, ensured contract for safety, provided clear and simple instructions, attempted to reorient to reality as needed, monitored behavior and need for intervention, provided active listening and positive encouragement, and maintained Q 15min safety checks. Restraints/seclusion/emergency medication: N/A Justification of Continued Inpatient Treatment: Pt. continues to be restored to competency so he can be returned to penitentiary and stand trial.
[2020-02-05 08:00] VITALS: BP 100/63
[2020-02-05] MEDS ORDERED: clonazePAM 0.5mg tablet PO SCH (08:00)
[2020-02-05] MEDS: vitamin E 400 unit capsule PO SCH (08:02)
[2020-02-05] MEDS: multivitamins, therapeutics tablet PO SCH (08:02)
[2020-02-05] MEDS: OMEGA-3/DHA/EPA/FISH OIL 1 EACH CAPSULE.DR PO SCH ×2 (08:02→20:53)
[2020-02-05] MEDS: vitamin D (cholecalciferol) 1,000 unit tablet PO SCH (08:03)
[2020-02-05] MEDS: benztropine 1mg tablet PO SCH ×2 (08:03→20:53)
[2020-02-05] MEDS: vitamin B comp w/Vit. C tab 1 TAB TABLET PO SCH (08:03)
[2020-02-05] MEDS: ascorbic acid 500mg tablet PO SCH ×2 (08:03→16:52)
[2020-02-05] MEDS: lithium carbonate 450mg CR tablet PO SCH (08:03)
[2020-02-05] MEDS: LORazepam 0.5 MG tablet PO PRN (14:47)
--- NOTE | 2020-02-05 16:42 | NUR ---
NURSING PROGRESS NOTE Legal hold: 1370 Client on involuntary status for 1370 Report received from DAISY Hurley with use of SBAR Why are they here: Pt. admitted directly from the [facility] accompanied by state troopers. Pt. 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 Pt was demonstrating psychotic/paranoid behavior, trying to barricade himself into his friends house and "speaking in unknown languages". Pt. arrested in 2013 for cruelty to animals. During his incarceration, pt.'s behavior described as "constantly provocative", pt. "throwing water on people and dumping water under the doors of other inmates; and continually yelling through his cell door and challenging both deputies and inmates to a fight". Pt. also had been refusing medical treatment. Pt. was considered a risk due to his aggression and refusal of treatment for his psychosis. According to Psychologist report, pt. is found incompetent to stand trial and requires antipsychotic medication in order to return him to competency and is a danger to himself and to others if unmedicated. Assessment What has happened this shift: Isolated to room most of day. Minimal contact with others. Eating well, denies SI and depression. S/I, H/I: denies. A/VH: denies. Sleep: napped ADL's: Independent Group attendance: no Were meds taken: Yes Any med S/E: Reports sleepiness Mental Status Exam Appearance: neat and clean Eye contact: Good Behavior: Calm and cooperative. Speech: Clear Mood: euthymic Affect: congruent to mood Thought process: Linear Thought Content: sleepiness Cognition: Alert Insight: poor Judgment: Fair Interventions PRN's used: Ativan x1 Therapeutic interventions: 1:1 assessment, encouragement to express thoughts and feelings, active listening, therapeutic conversation, medication administration/education/monitoring, positive reinforcement, encouragement to try other coping skills than Ativan, Q 15 minute safety checks. Restraints/seclusion/emergency medication: N/A Justification of Continued Inpatient Treatment: Pt remains delusional in relation to his mental health diagnosis and criminal charges. He is here to establish competency for court hearing.
[2020-02-05 19:14] VITALS: BP 131/78
[2020-02-05] MEDS: zolpidem 5mg tablet PO PRN (20:53)
[2020-02-05] MEDS: lithium carbonate 150mg capsule PO SCH (20:53)
[2020-02-05] MEDS: CLONAZEPAM 0.25 MG oral disentigrating tablet (ODT) PO SCH (20:53)
--- NOTE | 2020-02-06 03:10 | NUR ---
Nursing Progress Note: Legal hold: 1370 Client on involuntary status for 1370 Report received from nurse with use of SBAR: DAISY Honeycutt Why are they here: Pt. admitted directly from the [facility] accompanied by state troopers. Pt. 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 Pt was demonstrating psychotic/paranoid behavior, trying to barricade himself into his friends house and "speaking in unknown languages". Pt. arrested in 2013 for cruelty to animals. During his incarceration, pt.'s behavior described as "constantly provocative", pt. "throwing water on people and dumping water under the doors of other inmates; and continually yelling through his cell door and challenging both deputies and inmates to a fight". Pt. also had been refusing medical treatment. Pt. was considered a risk due to his aggression and refusal of treatment for his psychosis. According to Psychologist report, pt. is found incompetent to stand trial and requires antipsychotic medication in order to return him to competency and is a danger to himself and to others if unmedicated. Assessment What has happened this shift: Patient pacing the unit and socializing with peers at the beginning of shift. Pleasant and cooperative with care; compliant with medications. Patient expressed, " feeling over-medicated." He continued to explain that he felt bogged down during the previous shift and he had goals of getting ready for court and mock trials but was unable to get out of bed today. Patient participated with HS snack and continued to briefly socialize with peers prior to laying down for the remainder of shift. Denies SI, HI, A/VH and did not appear to be responding to internal stimuli. S/I, H/I: Denies A/VH: Denies, does not appear internally preoccupied Sleep: See Sleep Assessment ADL's: Independent Group attendance: N/A Were meds taken: Yes Any med S/E: Fatigue Mental Status Exam Appearance: Neat and appropriately dressed in personal shirt, scrub pants, hat, and nonskid socks Eye contact: Good Behavior: Cooperative, Pacing Mood: Overwhelmed Affect: Anxious Thought process: Linear Thought Content: needing to complete court paperwork, wanting to alleviate fatigue r/t medication Cognition: A&Ox4 Insight: Fair Judgment: Fair Interventions PRNs used: Ambien 10mg for sleep Therapeutic interventions: Maintained a safe and therapeutic environment, ensured contract for safety, provided clear and simple instructions, attempted to reorient to reality as needed, monitored behavior and need for intervention, provided active listening and positive encouragement, and maintained Q 15min safety checks. Restraints/seclusion/emergency medication: N/A Justification of Continued Inpatient Treatment: Pt. continues to be restored to competency so he can be returned to [facility] and stand trial.
[2020-02-06] MEDS: lithium carbonate 450mg CR tablet PO SCH (07:47)
[2020-02-06] MEDS: multivitamins, therapeutics tablet PO SCH (07:47)
[2020-02-06] MEDS: vitamin E 400 unit capsule PO SCH (07:48)
[2020-02-06] MEDS: benztropine 1mg tablet PO SCH ×2 (07:48→20:17)
[2020-02-06] MEDS: vitamin B comp w/Vit. C tab 1 TAB TABLET PO SCH (07:48)
[2020-02-06] MEDS: vitamin D (cholecalciferol) 1,000 unit tablet PO SCH (07:48)
[2020-02-06] MEDS: ascorbic acid 500mg tablet PO SCH ×2 (07:48→17:21)
[2020-02-06] MEDS: OMEGA-3/DHA/EPA/FISH OIL 1 EACH CAPSULE.DR PO SCH ×2 (07:48→20:17)
[2020-02-06 08:00] VITALS: BP 99/60
[2020-02-06] MEDS: LORazepam 0.5 MG tablet PO PRN ×2 (09:52→19:27)
--- NOTE | 2020-02-06 16:39 | NUR ---
NURSING PROGRESS NOTE Legal hold: 1370 Client on involuntary status for 1370 Report received from DAISY Harris with use of SBAR Why are they here: Pt. admitted directly from the [facility] accompanied by state troopers. Pt. 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 Pt was demonstrating psychotic/paranoid behavior, trying to barricade himself into his friends house and "speaking in unknown languages". Pt. arrested in 2013 for cruelty to animals. During his incarceration, pt.'s behavior described as "constantly provocative", pt. "throwing water on people and dumping water under the doors of other inmates; and continually yelling through his cell door and challenging both deputies and inmates to a fight". Pt. also had been refusing medical treatment. Pt. was considered a risk due to his aggression and refusal of treatment for his psychosis. According to Psychologist report, pt. is found incompetent to stand trial and requires antipsychotic medication in order to return him to competency and is a danger to himself and to others if unmedicated. Assessment What has happened this shift: Patient was asleep at change of shift, up for breakfast and med compliant. C/O tiredness, not sleeping well. Asked for Ativan mid morning for increased internal anxiety which was given with good effect. Did some pacing in hallway in afternoon. Isolated to room the rest of day. Denies depression and SI. Reports feeling anxious at times about court. S/I, H/I: denies. A/VH: denies. Sleep: napped ADL's: Independent Group attendance: no Were meds taken: Yes Any med S/E: Reports sleepiness Mental Status Exam Appearance: neat and clean Eye contact: Good Behavior: Calm and cooperative. Speech: Clear Mood: euthymic Affect: congruent to mood Thought process: Linear Thought Content: sleepiness, court proceedings Cognition: Alert Insight: poor Judgment: Fair Interventions PRN's used: Ativan x1 Therapeutic interventions: 1:1 assessment, encouragement to express thoughts and feelings, active listening, therapeutic conversation, medication administration/education/monitoring, positive reinforcement, encouragement to try other coping skills than Ativan, Q 15 minute safety checks. Restraints/seclusion/emergency medication: N/A Justification of Continued Inpatient Treatment: Pt remains delusional in relation to his mental health diagnosis and criminal charges. He is here to establish competency for court hearing.
[2020-02-06 20:00] VITALS: BP 127/78
[2020-02-06] MEDS: lithium carbonate 150mg capsule PO SCH (20:17)
[2020-02-06] MEDS: CLONAZEPAM 0.25 MG oral disentigrating tablet (ODT) PO SCH (20:17)
[2020-02-06] MEDS: zolpidem 5mg tablet PO PRN (20:21)
--- NOTE | 2020-02-07 01:16 | NUR ---
Nursing Progress Note: Legal hold: 1370 Client on involuntary status for 1370 Report received from nurse with use of SBAR: DAISY Honeycutt Why are they here: Pt. admitted directly from the [facility] accompanied by state troopers. Pt. 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 Pt was demonstrating psychotic/paranoid behavior, trying to barricade himself into his friends house and "speaking in unknown languages". Pt. arrested in 2013 for cruelty to animals. During his incarceration, pt.'s behavior described as "constantly provocative", pt. "throwing water on people and dumping water under the doors of other inmates; and continually yelling through his cell door and challenging both deputies and inmates to a fight". Pt. also had been refusing medical treatment. Pt. was considered a risk due to his aggression and refusal of treatment for his psychosis. According to Psychologist report, pt. is found incompetent to stand trial and requires antipsychotic medication in order to return him to competency and is a danger to himself and to others if unmedicated. Assessment What has happened this shift: The patient was found watching a movie in the community room at shift change. Patient pacing the unit and socializing with peers at the beginning of shift. Pleasant and cooperative with care; compliant with medications. Patient expressed, " feeling over-medicated." He continued to explain that he felt bogged down during the previous shift and he had goals of getting ready for court and mock trials but was unable to get out of bed today. Patient participated with HS snack and continued to briefly socialize with peers prior to laying down for the remainder of shift. Denies SI, HI, A/VH and did not appear to be responding to internal stimuli. S/I, H/I: Denies A/VH: Denies, does not appear internally preoccupied Sleep: See Sleep Assessment ADL's: Independent Group attendance: N/A Were meds taken: Yes Any med S/E: Fatigue Mental Status Exam Appearance: Neat and appropriately dressed in personal shirt, scrub pants, hat, and nonskid socks Eye contact: Good Behavior: Cooperative, Pacing Mood: Overwhelmed Affect: Anxious Thought process: Linear Thought Content: needing to complete court paperwork, wanting to alleviate fatigue r/t medication Cognition: A&Ox4 Insight: Fair Judgment: Fair Interventions PRNs used: Ambien 10mg for sleep Therapeutic interventions: Maintained a safe and therapeutic environment, ensured contract for safety, provided clear and simple instructions, attempted to reorient to reality as needed, monitored behavior and need for intervention, provided active listening and positive encouragement, and maintained Q 15min safety checks. Restraints/seclusion/emergency medication: N/A Justification of Continued Inpatient Treatment: Pt. continues to be restored to competency so he can be returned to skilled nursing and stand trial. Addendum: 02/07/20 at 0146 by Wayne Cerda RN Disregard this note.
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
[2020-02-07 07:00] VITALS: BP 122/68
[2020-02-07] MEDS: vitamin E 400 unit capsule PO SCH (07:47)
[2020-02-07] MEDS: lithium carbonate 450mg CR tablet PO SCH (07:47)
[2020-02-07] MEDS: ascorbic acid 500mg tablet PO SCH ×2 (07:47→17:30)
[2020-02-07] MEDS: OMEGA-3/DHA/EPA/FISH OIL 1 EACH CAPSULE.DR PO SCH ×2 (07:47→20:14)
[2020-02-07] MEDS: benztropine 1mg tablet PO SCH ×2 (07:47→20:18)
[2020-02-07] MEDS: multivitamins, therapeutics tablet PO SCH (07:48)
[2020-02-07] MEDS: vitamin D (cholecalciferol) 1,000 unit tablet PO SCH (07:48)
[2020-02-07] MEDS: vitamin B comp w/Vit. C tab 1 TAB TABLET PO SCH (07:48)
[2020-02-07] MEDS: LORazepam 0.5 MG tablet PO PRN (09:20)
--- NOTE | 2020-02-07 12:51 | NUR ---
Reassessment: Pt 75-100% PO meals intake meeting nutrient needs. LBM 02/04. No nutrition problem at this time. Will continue to follow. Recommend: 1. continue regular diet 2. bowel care as needed 3. wt per rx Addendum: 02/07/20 at [address] Amended: Links added.
--- NOTE | 2020-02-07 16:36 | NUR ---
NURSING PROGRESS NOTE Legal hold: 1370 Client on involuntary status for 1370 Report received from DAISY Harris with use of SBAR Why are they here: Pt. admitted directly from the [facility] accompanied by state troopers. Pt. 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 Pt was demonstrating psychotic/paranoid behavior, trying to barricade himself into his friends house and "speaking in unknown languages". Pt. arrested in 2013 for cruelty to animals. During his incarceration, pt.'s behavior described as "constantly provocative", pt. "throwing water on people and dumping water under the doors of other inmates; and continually yelling through his cell door and challenging both deputies and inmates to a fight". Pt. also had been refusing medical treatment. Pt. was considered a risk due to his aggression and refusal of treatment for his psychosis. According to Psychologist report, pt. is found incompetent to stand trial and requires antipsychotic medication in order to return him to competency and is a danger to himself and to others if unmedicated. Assessment What has happened this shift: Patient up for breakfast and medications. States that he is going to have mock court today and is anxious about this. Requested Ativan with good effect. Pt. states that he is still having daytime drowsiness, states that he feels like he is 500 lbs. Recommended he speak to M.D. regarding medication changes. Pt. again this afternoon complaining about feeling fatigued, will discuss with Dr. Harrell in a.m. S/I, H/I: denies. A/VH: denies. Sleep: napped ADL's: Independent Group attendance: NA Were meds taken: Yes Any med S/E: Reports sleepiness Mental Status Exam Appearance: Clean and neat in personal attire. Eye contact: Good Behavior: Anxious, cooperative. Speech: Clear. Normal rate and rhythm. Mood: euthymic Affect: congruent to mood Thought process: Linear Thought Content: sleepiness, court proceedings Cognition: Alert & oriented. Insight: poor Judgment: Fair Interventions PRN's used: Ativan x1 Therapeutic interventions: 1:1 assessment, encouragement to express thoughts and feelings, active listening, therapeutic conversation, medication administration/education/monitoring, positive reinforcement, encouragement to try other coping skills than Ativan, Q 15 minute safety checks. Restraints/seclusion/emergency medication: N/A Justification of Continued Inpatient Treatment: Pt remains delusional in relation to his mental health diagnosis and criminal charges. He is here to establish competency for court hearing.
[2020-02-07 19:32] VITALS: BP 126/74
[2020-02-07] MEDS: lithium carbonate 150mg capsule PO SCH (20:14)
[2020-02-07] MEDS: zolpidem 5mg tablet PO PRN (20:14)
[2020-02-07] MEDS: CLONAZEPAM 0.25 MG oral disentigrating tablet (ODT) PO SCH (20:15)
--- NOTE | 2020-02-08 01:28 | NUR ---
Nursing Progress Note: Legal hold: 1370 Client on involuntary status for 1370 Report received from DAISY Honeycutt with use of SBAR Why are they here: Pt. admitted directly from the [facility] accompanied by state troopers. Pt. 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 Pt was demonstrating psychotic/paranoid behavior, trying to barricade himself into his friends house and "speaking in unknown languages". Pt. arrested in 2013 for cruelty to animals. During his incarceration, pt.'s behavior described as "constantly provocative", pt. "throwing water on people and dumping water under the doors of other inmates; and continually yelling through his cell door and challenging both deputies and inmates to a fight". Pt. also had been refusing medical treatment. Pt. was considered a risk due to his aggression and refusal of treatment for his psychosis. According to Psychologist report, pt. is found incompetent to stand trial and requires antipsychotic medication in order to return him to competency and is a danger to himself and to others if unmedicated. Assessment What has happened this shift: The patient was seen for 1:1 in his room at bedside. He states that he just doesn't have much to say. "I went to that bullshit mock trial today. That stuff is bullshit. It was my friends house. I had a bob. I wasn't breaking and entering. I was sick and I needed a place to stay. There was no intent to steal. I've been here longer than I would have had I stayed in halfway." He continues to pace when he needs to burn energy. He denies SI/HI, or any AV/H. Takes all his medication without problem then goes to bed. S/I, H/I: Denies A/VH: Denies Sleep: See Sleep Assessment ADL's: Independent Group attendance: N/A Were meds taken: Yes Any med S/E: None reported or observed Mental Status Exam Appearance: Clean, neat, and dressed appropriate for the unit. Eye contact: Good Behavior: Paces, goes in and out of his room to look at his papers. Mood: "Sad" Affect: Anxious Thought process: Linear Thought Content: dreading possibly having to return to halfway. Cognition: A&Ox4 Insight: Fair Judgment: Fair Interventions PRNs used: Ambien 10mg for sleep Therapeutic interventions: Maintained a safe and therapeutic environment, ensured contract for safety, provided clear and simple instructions, attempted to reorient to reality as needed, monitored behavior and need for intervention, provided active listening and positive encouragement, and maintained Q 15min safety checks. Restraints/seclusion/emergency medication: N/A Justification of Continued Inpatient Treatment: Pt. continues to be restored to competency so he can be returned to halfway and stand trial.
[2020-02-08 08:09] VITALS: BP 109/70
[2020-02-08] MEDS: OMEGA-3/DHA/EPA/FISH OIL 1 EACH CAPSULE.DR PO SCH ×2 (08:09→20:29)
[2020-02-08] MEDS: vitamin E 400 unit capsule PO SCH (08:09)
[2020-02-08] MEDS: multivitamins, therapeutics tablet PO SCH (08:09)
[2020-02-08] MEDS: vitamin D (cholecalciferol) 1,000 unit tablet PO SCH (08:09)
[2020-02-08] MEDS: vitamin B comp w/Vit. C tab 1 TAB TABLET PO SCH (08:09)
[2020-02-08] MEDS: lithium carbonate 450mg CR tablet PO SCH (08:09)
[2020-02-08] MEDS: LORazepam 0.5 MG tablet PO PRN ×2 (08:09→14:33)
[2020-02-08] MEDS: ascorbic acid 500mg tablet PO SCH ×2 (08:09→17:31)
[2020-02-08] MEDS: benztropine 1mg tablet PO SCH ×2 (08:09→20:29)
[2020-02-08 11:03] LABS: BASOPHILS # (AUTO) 0.1 X10'3 (0-0.2); BASOPHILS % (AUTO) 0.8 % (0-1); EOSINOPHILS # (AUTO) 0.2 X10'3 (0-0.9); EOSINOPHILS % (AUTO) 3.1 % (0-6); HEMATOCRIT 43.9 % (42.0-52.0); HEMOGLOBIN 14.9 g/dl (14.0-17.9); LYMPHOCYTES # (AUTO) 1.3 X10'3 (1.1-4.8); LYMPHOCYTES % (AUTO) 19.5 % (21-51); MEAN CORPUSCULAR HEMOGLOBIN 30.9 PG (27.0-31.0); MEAN CORPUSCULAR HGB CONC 33.9 g/dL (33.0-36.5); MEAN CORPUSCULAR VOLUME 91.2 FL (78-98); MEAN PLATELET VOLUME 7.5 FL (7.4-10.4); MONOCYTES # (AUTO) 0.4 X10'3 (0-0.9); MONOCYTES % (AUTO) 6.1 % (2-12); NEUTROPHILS # (AUTO) 4.6 X10'3 (1.8-7.7); NEUTROPHILS % (AUTO) 70.5 % (42-75); PLATELET COUNT 163 X10'3 (140-440); RED BLOOD COUNT 4.82 X10'6 (4.70-6.10); RED CELL DISTRIBUTION WIDTH 13.2 % (11.5-14.5); WHITE BLOOD COUNT 6.6 X10'3 (4.5-11.0)
[2020-02-08 11:12] LABS: ALBUMIN 2.3 G/DL (3.4-5.0); ANION GAP 7 (8-16); BLOOD UREA NITROGEN 16 MG/DL (7-18); CALCIUM 9.4 MG/DL (8.5-10.1); CHLORIDE 107 MMOL/L (99-107); CREATININE 0.84 MG/DL (0.60-1.10); GLUCOSE 115 MG/DL (70-104); POTASSIUM 4.2 MMOL/L (3.5-5.1); SODIUM 142 MMOL/L (135-145); TOTAL CARBON DIOXIDE 28.2 MMOL/L (24-32); eGFR > 90 ML/MIN
[2020-02-08] MEDS: mag hydrox/Alum hydrox/simeth 30ml oral suspension PO PRN (11:46)
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
[2020-02-08] MEDS: hydrOXYzine 25 MG tablet PO PRN (15:46)
--- NOTE | 2020-02-08 17:48 | NUR ---
NURSING PROGRESS NOTE Legal hold: 1370 Client on involuntary status for 1370 Report received from DAISY Harris with use of SBAR Why are they here: Pt. admitted directly from the [facility] accompanied by state troopers. Pt. 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 Pt was demonstrating psychotic/paranoid behavior, trying to barricade himself into his friends house and "speaking in unknown languages". Pt. arrested in 2013 for cruelty to animals. During his incarceration, pt.'s behavior described as "constantly provocative", pt. "throwing water on people and dumping water under the doors of other inmates; and continually yelling through his cell door and challenging both deputies and inmates to a fight". Pt. also had been refusing medical treatment. Pt. was considered a risk due to his aggression and refusal of treatment for his psychosis. According to Psychologist report, pt. is found incompetent to stand trial and requires antipsychotic medication in order to return him to competency and is a danger to himself and to others if unmedicated. Assessment What has happened this shift: Patient awake for breakfast and a.m. Medications. Patient requests Ativan for anxiety. Pt. Also c/o stomach ache from chips he ate last night and received Maalox with good relief of symptoms. Patient later in the day requested another Ativan for anxiety over paperwork for the courts that he completed, however, this was not effective and Atarax was administered. Patient paces hallways at times. S/I, H/I: denies. A/VH: denies. Sleep: napped ADL's: Independent Group attendance: NA Were meds taken: Yes Any med S/E: Reports exhaustion. Mental Status Exam Appearance: Well groomed in personal attire. Eye contact: Good Behavior: Anxious, cooperative. Speech: Clear. Normal rate and rhythm. Mood: euthymic Affect: Blunted. Thought process: Linear Thought Content: sleepiness, court proceedings, paperwork. Cognition: Alert & oriented. X 4 Insight: poor Judgment: Fair Interventions PRN's used: Ativan x2, Atarax Therapeutic interventions: 1:1 assessment, encouragement to express thoughts and feelings, active listening, therapeutic conversation, medication administration/education/monitoring,
[2020-02-08] MEDS: lithium carbonate 150mg capsule PO SCH (20:27)
[2020-02-08] MEDS: CLONAZEPAM 0.25 MG oral disentigrating tablet (ODT) PO SCH (20:30)
[2020-02-08] MEDS: zolpidem 5mg tablet PO PRN (20:37)
[2020-02-08 20:42] VITALS: BP 135/84
--- NOTE | 2020-02-09 03:27 | NUR ---
Nursing Progress Note: Legal hold: 1370 Client on involuntary status for 1370 Report received from DAISY Cardoza with use of SBAR Why are they here: Pt. admitted directly from the [facility] accompanied by state troopers. Pt. 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 Pt was demonstrating psychotic/paranoid behavior, trying to barricade himself into his friends house and "speaking in unknown languages". Pt. arrested in 2013 for cruelty to animals. During his incarceration, pt.'s behavior described as "constantly provocative", pt. "throwing water on people and dumping water under the doors of other inmates; and continually yelling through his cell door and challenging both deputies and inmates to a fight". Pt. also had been refusing medical treatment. Pt. was considered a risk due to his aggression and refusal of treatment for his psychosis. According to Psychologist report, pt. is found incompetent to stand trial and requires antipsychotic medication in order to return him to competency and is a danger to himself and to others if unmedicated. Assessment What has happened this shift: Pt is visible on the unit at shift change, remains quiet and reserved but remains polite and pleasant in conversation. He states that he is very nervous about his upcoming trial, and that he wasn't sure how his mock trial went. He is cooperative with 1:1 assessment, and denies SI/HI/VH/AH at this time. Pt states that he has been feeling tired, and is going to bed. S/I, H/I: Denies A/VH: Denies Sleep: See Sleep Assessment ADL's: Independent Group attendance: N/A Were meds taken: Yes Any med S/E: None reported or observed Mental Status Exam Appearance: Clean, neat, and dressed appropriate for the unit. Eye contact: Good Behavior: Paces, goes in and out of his room to look at his papers. Mood: "Sad" Affect: Anxious Thought process: Linear Thought Content: dreading possibly having to return to prison. Cognition: A&Ox4 Insight: Fair Judgment: Fair Interventions PRNs used: Ambien 10mg for sleep Therapeutic interventions: Maintained a safe and therapeutic environment, ensured contract for safety, provided clear and simple instructions, attempted to reorient to reality as needed, monitored behavior and need for intervention, provided active listening and positive encouragement, and maintained Q 15min safety checks. Restraints/seclusion/emergency medication: N/A Justification of Continued Inpatient Treatment: Pt. continues to be restored to competency so he can be returned to prison and stand trial.
[2020-02-09 07:23] VITALS: BP 92/58
[2020-02-09] MEDS: ascorbic acid 500mg tablet PO SCH ×2 (08:07→17:33)
[2020-02-09] MEDS: vitamin D (cholecalciferol) 1,000 unit tablet PO SCH (08:07)
[2020-02-09] MEDS: vitamin E 400 unit capsule PO SCH (08:07)
[2020-02-09] MEDS: multivitamins, therapeutics tablet PO SCH (08:07)
[2020-02-09] MEDS: OMEGA-3/DHA/EPA/FISH OIL 1 EACH CAPSULE.DR PO SCH ×2 (08:07→19:56)
[2020-02-09] MEDS: lithium carbonate 450mg CR tablet PO SCH (08:08)
[2020-02-09] MEDS: benztropine 1mg tablet PO SCH ×2 (08:08→19:56)
[2020-02-09] MEDS: vitamin B comp w/Vit. C tab 1 TAB TABLET PO SCH (08:08)
[2020-02-09] MEDS: ibuprofen tablet 400 MG TABLET PO PRN ×2 (08:29→15:23)
[2020-02-09] MEDS: hydrOXYzine 25 MG tablet PO PRN ×2 (08:30→19:56)
[2020-02-09] MEDS: LORazepam 0.5 MG tablet PO PRN (17:33)
--- NOTE | 2020-02-09 17:57 | NUR ---
NURSING PROGRESS NOTE Legal hold: 1370 Client on involuntary status for 1370 Report received from DAISY Harris with use of SBAR Why are they here: Pt. admitted directly from the [facility] accompanied by state troopers. Pt. 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 Pt was demonstrating psychotic/paranoid behavior, trying to barricade himself into his friends house and "speaking in unknown languages". Pt. arrested in 2013 for cruelty to animals. During his incarceration, pt.'s behavior described as "constantly provocative", pt. "throwing water on people and dumping water under the doors of other inmates; and continually yelling through his cell door and challenging both deputies and inmates to a fight". Pt. also had been refusing medical treatment. Pt. was considered a risk due to his aggression and refusal of treatment for his psychosis. According to Psychologist report, pt. is found incompetent to stand trial and requires antipsychotic medication in order to return him to competency and is a danger to himself and to others if unmedicated. Assessment What has happened this shift: Pt. asleep at start of shift. Pt. took all medications and ate all meals in his room. Pt. denies SI/HI, A/V hallucinations. Pt. reports feeling anxious about his court proceedings. When RN informed pt. he appears depressed, pt. became defensive, stating, Im not depressed. I just got a lot on my mind But no, not depressed at all. Pt. requested Atarax for anxiety and motrin for knee pain and slept majority of the AM. Pt. more social in the afternoon talking with other pt.s as well as seen pacing in the hallway. Reported increased anxiety in the afternoon and received ativan 0.5 mg with good effect. S/I, H/I: denies. A/VH: denies. Sleep: napped for 3 hours on day shift. ADL's: Independent Group attendance: NA Were meds taken: Yes Any med S/E: None reported/none observed. Mental Status Exam Appearance: Clean, in personal attire. Eye contact: Good Behavior: Anxious, cooperative. Speech: Clear. Normal rate and rhythm. Mood: Anxious. Appears depressed but pt. denies. Affect: Blunted. Thought process: Linear Thought Content: Court proceedings, paperwork. Cognition: Alert & oriented. X 4 Insight: poor Judgment: Fair Interventions PRN's used: Atarax x1. Motrin x2. Ativan x1 Therapeutic interventions: Provided 1:1 therapeutic communication and active listening throughout the admission process; PRN Tylenol given for pain in his sinuses, q 15min safety checks. Restraints/seclusion/emergency medication: N/A Justification: Pt is in need of a safe and supportive environment due to his plan of suicidal thoughts to overdose using the pills that are currently in the car he has been living in.
[2020-02-09] MEDS: lithium carbonate 150mg capsule PO SCH (19:56)
[2020-02-09] MEDS: CLONAZEPAM 0.25 MG oral disentigrating tablet (ODT) PO SCH (19:57)
[2020-02-09] MEDS: zolpidem 5mg tablet PO PRN (20:54)
--- NOTE | 2020-02-10 02:00 | NUR ---
NURSING PROGRESS NOTE Legal hold: 1370 Client on involuntary status for 1370 Report received from WALESKA Castillo with use of SBAR Why are they here: Pt. admitted directly from the [facility] accompanied by state troopers. Pt. 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 Pt was demonstrating psychotic/paranoid behavior, trying to barricade himself into his friends house and "speaking in unknown languages". Pt. arrested in 2013 for cruelty to animals. During his incarceration, pt.'s behavior described as "constantly provocative", pt. "throwing water on people and dumping water under the doors of other inmates; and continually yelling through his cell door and challenging both deputies and inmates to a fight". Pt. also had been refusing medical treatment. Pt. was considered a risk due to his aggression and refusal of treatment for his psychosis. According to Psychologist report, pt. is found incompetent to stand trial and requires antipsychotic medication in order to return him to competency and is a danger to himself and to others if unmedicated. Assessment What has happened this shift: Pt is visible on the unit, slightly more upbeat this evening. He watches TV with peers in the rec room and is observed laughing and talking with them. He doesn't mention his court date tonight, and focuses on more positive things. Pt is cooperative with 1:1 assessment and medication compliant. He requests atarax with his 2000 medications which is given to him. Pt requests PRN ambien about an hour later to "make sure I sleep tonight." S/I, H/I: Denies A/VH: Denies Sleep: none ADL's: Independent Group attendance: No Were meds taken: Yes Any med S/E: None noted. Mental Status Exam Appearance: Clean and groomed Eye contact: direct Behavior: Calm and cooperative. Speech: Clear Mood: Depressed with some brightening Affect: blunted Thought process: Linear. Thought Content: Focused on noise roommate makes Cognition: Alert Insight: Poor Judgment: good Interventions PRN's used: atarax, ambien Therapeutic interventions: Established rapport, maintained a safe and therapeutic environment, ensured contract for safety, provided clear and simple instructions, attempted to reorient to reality as needed, monitored behavior and need for intervention, provided positive encouragement, and maintained Q 15min safety checks. Restraints/seclusion/emergency medication: N/A Justification of Continued Inpatient Treatment: Pt. Remains delusional in relation to his mental health diagnosis and criminal charges. Will need to remain under treatment until competency can be determined.
[2020-02-10] MEDS: protein shake 8oz. (237ml) PO SCH ×2 (07:30→17:30)
[2020-02-10 07:40] VITALS: BP 103/57
[2020-02-10] MEDS: vitamin B comp w/Vit. C tab 1 TAB TABLET PO SCH (08:03)
[2020-02-10] MEDS: multivitamins, therapeutics tablet PO SCH (08:03)
[2020-02-10] MEDS: OMEGA-3/DHA/EPA/FISH OIL 1 EACH CAPSULE.DR PO SCH ×2 (08:04→20:05)
[2020-02-10] MEDS: vitamin D (cholecalciferol) 1,000 unit tablet PO SCH (08:04)
[2020-02-10] MEDS: benztropine 1mg tablet PO SCH ×2 (08:04→20:08)
[2020-02-10] MEDS: vitamin E 400 unit capsule PO SCH (08:04)
[2020-02-10] MEDS: lithium carbonate 450mg CR tablet PO SCH (08:04)
[2020-02-10] MEDS: ibuprofen tablet 400 MG TABLET PO PRN (08:04)
[2020-02-10] MEDS: hydrOXYzine 25 MG tablet PO PRN ×2 (08:57→20:06)
[2020-02-10] MEDS: ascorbic acid 500mg tablet PO SCH ×2 (08:57→17:08)
[2020-02-10] MEDS: LORazepam 0.5 MG tablet PO PRN ×2 (10:20→17:09)
[2020-02-10] MEDS ORDERED: LIDOcaine 5% patch TP PRN (11:20)
--- NOTE | 2020-02-10 17:42 | NUR ---
NURSING PROGRESS NOTE Legal hold: 1370 Client on involuntary status for 1370 Report received from Veronica Ramirez RN with use of SBAR Why are they here: Pt. admitted directly from the [facility] accompanied by state troopers. Pt. 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 Pt was demonstrating psychotic/paranoid behavior, trying to barricade himself into his friends house and "speaking in unknown languages". Pt. arrested in 2013 for cruelty to animals. During his incarceration, pt.'s behavior described as "constantly provocative", pt. "throwing water on people and dumping water under the doors of other inmates; and continually yelling through his cell door and challenging both deputies and inmates to a fight". Pt. also had been refusing medical treatment. Pt. was considered a risk due to his aggression and refusal of treatment for his psychosis. According to Psychologist report, pt. is found incompetent to stand trial and requires antipsychotic medication in order to return him to competency and is a danger to himself and to others if unmedicated. Assessment What has happened this shift: Pt. asleep at start of shift. Pt. took medications and ate all meals in his room. Pt. requested Atarax for anxiety regarding court proceedings and given Atarax with good effect. Pt. napping in AM and awoke reporting panic attack 1:1 done at bedside. Pt. denies SI/HI, A/V hallucinations. Pt. gives minimal information during interview and states, "I'm just stressed about all what's going to happen in the future". Pt. given Ativan 0.5 mg po with good effect. Pt. c/o of right knee pain and given Motrin with minimal effect. Provider ordered lidocaine patch 5% and patch applied with good effect. Pt. isolated to room majority of afternoon, napping intermitently. Pt. requested ativan in afternoon for increased anxiety. Pt. received Ativan 0.5mg with good effect. Pt. declined going out to patio. Pt. states, "Not enough room to walk out there. Pt. seen pacing hallways. S/I, H/I: denies. A/VH: denies. Sleep: napped intermittently in afternoon. ADL's: Independent Group attendance: NA Were meds taken: Yes Any med S/E: Denies Mental Status Exam Appearance: Clean, in personal attire. Eye contact: Good Behavior: Anxious, cooperative. Speech: Clear. Normal rate and rhythm. Mood: Anxious. Appears depressed but pt. denies feelings of depression. Affect: Flat Thought process: Linear Thought Content: Court proceedings, paperwork. Cognition: Alert & oriented. X 4 Insight: poor Judgment: Fair Interventions PRN's used: Atarax x1. Motrin x1. Ativan x1. Lidocaine 5% patch. Therapeutic interventions: Provided 1:1 therapeutic communication and active listening throughout the admission process; PRN Tylenol given for pain in his sinuses, q 15min safety checks. Restraints/seclusion/emergency medication: N/A Justification: Pt is in need of a safe and supportive environment due to his plan of suicidal thoughts to overdose using the pills that are currently in the car he has been living in.
[2020-02-10 20:00] VITALS: BP 120/77
[2020-02-10] MEDS: CLONAZEPAM 0.25 MG oral disentigrating tablet (ODT) PO SCH (20:06)
[2020-02-10] MEDS: lithium carbonate 150mg capsule PO SCH (20:07)
[2020-02-10] MEDS: zolpidem 5mg tablet PO PRN (21:01)
--- NOTE | 2020-02-11 03:05 | NUR ---
Nursing Progress Note: Legal hold: 1370 Client on involuntary status for 1370 Report received from DAISY Castillo with use of SBAR Why are they here: Pt. admitted directly from the [facility] accompanied by state troopers. Pt. 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 Pt was demonstrating psychotic/paranoid behavior, trying to barricade himself into his friends house and "speaking in unknown languages". Pt. arrested in 2013 for cruelty to animals. During his incarceration, pt.'s behavior described as "constantly provocative", pt. "throwing water on people and dumping water under the doors of other inmates; and continually yelling through his cell door and challenging both deputies and inmates to a fight". Pt. also had been refusing medical treatment. Pt. was considered a risk due to his aggression and refusal of treatment for his psychosis. According to Psychologist report, pt. is found incompetent to stand trial and requires antipsychotic medication in order to return him to competency and is a danger to himself and to others if unmedicated. Assessment What has happened this shift: Pt is visible on the unit at shift change, he watches TV for awhile and remains quiet and reserved but remains polite and pleasant in conversation. He is cooperative with 1:1 assessment, and denies SI/HI/VH/AH at this time. He appears sullen at times, but smiles when someone speaks to him. S/I, H/I: Denies A/VH: Denies Sleep: See Sleep Assessment ADL's: Independent Group attendance: N/A Were meds taken: Yes Any med S/E: None reported or observed Mental Status Exam Appearance: Clean, well dressed Eye contact: Good Behavior: watches TV, sits quietly Mood: sullen Affect: Anxious Thought process: Linear Thought Content: dreading possibly having to return to assisted. Cognition: A&Ox4 Insight: Fair Judgment: Fair Interventions PRNs used: atarax 50 mg, Ambien 10mg for sleep Therapeutic interventions: Maintained a safe and therapeutic environment, ensured contract for safety, provided clear and simple instructions, attempted to reorient to reality as needed, monitored behavior and need for intervention, provided active listening and positive encouragement, and maintained Q 15min safety checks. Restraints/seclusion/emergency medication: N/A Justification of Continued Inpatient Treatment: Pt. continues to be restored to competency so he can be returned to assisted and stand trial.
[2020-02-11 07:40] VITALS: BP 100/64
[2020-02-11] MEDS: multivitamins, therapeutics tablet PO SCH (07:43)
[2020-02-11] MEDS: lithium carbonate 450mg CR tablet PO SCH (07:43)
[2020-02-11] MEDS: OMEGA-3/DHA/EPA/FISH OIL 1 EACH CAPSULE.DR PO SCH ×2 (07:43→19:47)
[2020-02-11] MEDS: vitamin B comp w/Vit. C tab 1 TAB TABLET PO SCH (07:43)
[2020-02-11] MEDS: benztropine 1mg tablet PO SCH ×2 (07:43→19:47)
[2020-02-11] MEDS: vitamin E 400 unit capsule PO SCH (07:43)
[2020-02-11] MEDS: ascorbic acid 500mg tablet PO SCH ×2 (07:43→17:41)
[2020-02-11] MEDS: vitamin D (cholecalciferol) 1,000 unit tablet PO SCH (07:43)
[2020-02-11] MEDS: hydrOXYzine 25 MG tablet PO PRN ×2 (07:48→20:57)
[2020-02-11] MEDS: ibuprofen tablet 400 MG TABLET PO PRN ×2 (07:51→17:46)
[2020-02-11] MEDS: LORazepam 0.5 MG tablet PO PRN ×2 (12:12→19:47)
--- NOTE | 2020-02-11 17:24 | NUR ---
NURSING PROGRESS NOTE Legal hold: 1370 Client on involuntary status for 1370 Report received from Santana REYES with use of SBAR Why are they here: Pt. admitted directly from the [facility] accompanied by state troopers. Pt. 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 Pt was demonstrating psychotic/paranoid behavior, trying to barricade himself into his friends house and "speaking in unknown languages". Pt. arrested in 2013 for cruelty to animals. During his incarceration, pt.'s behavior described as "constantly provocative", pt. "throwing water on people and dumping water under the doors of other inmates; and continually yelling through his cell door and challenging both deputies and inmates to a fight". Pt. also had been refusing medical treatment. Pt. was considered a risk due to his aggression and refusal of treatment for his psychosis. According to Psychologist report, pt. is found incompetent to stand trial and requires antipsychotic medication in order to return him to competency and is a danger to himself and to others if unmedicated. Assessment What has happened this shift: Patient awakened for medications and breakfast, requests Atarax and Motrin with morning medications. Patient then went back to bed until lunch. In the afternoon, patient requested Ativan with good effect. S/I, H/I: denies. A/VH: denies. Sleep: napped in a.m. ADL's: Independent Group attendance: NA Were meds taken: Yes Any med S/E: Denies Mental Status Exam Appearance: Well groomed in personal attire. Eye contact: Good Behavior: Cooperative, anxious. Speech: Clear. Normal rate and rhythm. Mood: Depressed. Affect: Flat Thought process: Linear Thought Content: Court proceedings, paperwork. Cognition: Alert & oriented. X 4 Insight: poor Judgment: Fair Interventions PRN's used: Atarax x1. Motrin x1. Ativan x1. Therapeutic interventions: Provided 1:1 therapeutic communication and active listening. Medication administration/education and monitoring, q 15min safety checks. Restraints/seclusion/emergency medication: N/A Justification: Patient is on a 1370 and will return to Court to determine competency.
--- NOTE | 2020-02-11 19:54 | NUR ---
Per Claudia Santiago, ok to give Ativan now and give Atarax with Ambien in an hour.
[2020-02-11] MEDS: zolpidem 5mg tablet PO PRN (20:52)
[2020-02-11] MEDS: CLONAZEPAM 0.25 MG oral disentigrating tablet (ODT) PO SCH (20:52)
[2020-02-11] MEDS: lithium carbonate 150mg capsule PO SCH (20:53)
--- NOTE | 2020-02-12 04:09 | NUR ---
NURSING PROGRESS NOTE Legal hold: 1370 Client on involuntary status for 1370 Report received from DAISY Castillo with use of SBAR Why are they here: Pt. admitted directly from the [facility] accompanied by state troopers. Pt. 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 Pt was demonstrating psychotic/paranoid behavior, trying to barricade himself into his friends house and "speaking in unknown languages". Pt. arrested in 2013 for cruelty to animals. During his incarceration, pt.'s behavior described as "constantly provocative", pt. "throwing water on people and dumping water under the doors of other inmates; and continually yelling through his cell door and challenging both deputies and inmates to a fight". Pt. also had been refusing medical treatment. Pt. was considered a risk due to his aggression and refusal of treatment for his psychosis. According to Psychologist report, pt. is found incompetent to stand trial and requires antipsychotic medication in order to return him to competency and is a danger to himself and to others if unmedicated. Assessment What has happened this shift: Patient was up and walking up and down the hallways talking to staff and other patients. Patient is alert and talkative. Patient introduce himself to me and stated that he wants his Ativan, Atarax, and his Ambien to be given together. Jack Porter stated that he can have Ativan now and Atarax and Ambien together. Patient was pre-occupied on when and hes supposed to get his medications. No suicidal thoughts. Re-oriented patient regarding schedule of his meds. He stated that he was anxious seeing a new face. Established rapport with patient. Took his medications without any problem. Slept without issues. S/I, H/I: Denies A/VH: Denies Sleep: none ADL's: Independent Group attendance: No Were meds taken: Yes Any med S/E: None noted. Mental Status Exam Appearance: Clean, neat Eye contact: Direct Behavior: Calm and cooperative. Speech: Clear Mood: Anxious Affect: Normal Thought process: Linear. Thought Content: Medication schedule Cognition: Alert Insight: Poor Judgment: good Interventions PRN's used: ativan, atarax, ambien Therapeutic interventions: Approached in a calm manner. Established nurse patient relationship. Re-oriented as [id number]. Provided a supportive environment. Frequent safety checks. Restraints/seclusion/emergency medication: N/A Justification of Continued Inpatient Treatment: Patient needs continued monitoring for crisis intervention and risk management. Patient needs safety checks and supportive environment.
[2020-02-12] MEDS: OMEGA-3/DHA/EPA/FISH OIL 1 EACH CAPSULE.DR PO SCH ×2 (08:04→20:22)
[2020-02-12 08:05] VITALS: BP 102/65
[2020-02-12] MEDS: vitamin B comp w/Vit. C tab 1 TAB TABLET PO SCH (08:05)
[2020-02-12] MEDS: vitamin D (cholecalciferol) 1,000 unit tablet PO SCH (08:05)
[2020-02-12] MEDS: multivitamins, therapeutics tablet PO SCH (08:05)
[2020-02-12] MEDS: vitamin E 400 unit capsule PO SCH (08:05)
[2020-02-12] MEDS: hydrOXYzine 25 MG tablet PO PRN ×2 (08:05→20:23)
[2020-02-12] MEDS: lithium carbonate 450mg CR tablet PO SCH (08:05)
[2020-02-12] MEDS: benztropine 1mg tablet PO SCH ×2 (08:05→20:22)
[2020-02-12] MEDS: ascorbic acid 500mg tablet PO SCH ×2 (08:36→17:57)
[2020-02-12] MEDS: LORazepam 0.5 MG tablet PO PRN (08:36)
--- NOTE | 2020-02-12 12:13 | NUR ---
NURSING PROGRESS NOTE Legal hold: 1370 Client on involuntary status for 1370 Report received from Noc RN with use of SBAR Why are they here: Pt. admitted directly from the [facility] accompanied by state troopers. Pt. 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 Pt was demonstrating psychotic/paranoid behavior, trying to barricade himself into his friends house and "speaking in unknown languages". Pt. arrested in 2013 for cruelty to animals. During his incarceration, pt.'s behavior described as "constantly provocative", pt. "throwing water on people and dumping water under the doors of other inmates; and continually yelling through his cell door and challenging both deputies and inmates to a fight". Pt. also had been refusing medical treatment. Pt. was considered a risk due to his aggression and refusal of treatment for his psychosis. According to Psychologist report, pt. is found incompetent to stand trial and requires antipsychotic medication in order to return him to competency and is a danger to himself and to others if un-medicated. Assessment What has happened this shift: Client was awake at change of shift. He is very fixated on getting his Atarax and his Ativan immediately. He became more anxious because his breakfast tray did not come. After his tray arrived he ate all of his food and then took his mattress off of his bed and threw it in the corner on the floor. He slept through the majority of the day only waking up for meals and medications. S/I, H/I: denies. A/VH: denies. Sleep: napped in a.m. ADL's: Independent Group attendance: NA Were meds taken: Yes Any med S/E: Denies Mental Status Exam Appearance: Disheveled Eye contact: Good Behavior: Cooperative, anxious, intrusive, demanding Speech: Clear. Normal rate and rhythm. Mood: Im just anxious Affect: Blunted Thought process: Linear, future oriented Thought Content: Court proceedings, paperwork, medications Cognition: Alert & oriented X 4 Insight: poor Judgment: poor Interventions PRN's used: Atarax x1 Ativan x1. Therapeutic interventions: Provided 1:1 therapeutic communication and active listening. Medication administration/education and monitoring, q 15min safety checks. Restraints/seclusion/emergency medication: N/A Justification: Patient is on a 1370 and will return to Court to determine competency.
[2020-02-12] MEDS: lithium carbonate 150mg capsule PO SCH (20:23)
[2020-02-12] MEDS: CLONAZEPAM 0.25 MG oral disentigrating tablet (ODT) PO SCH (20:23)
[2020-02-12] MEDS: zolpidem 5mg tablet PO PRN (21:05)
[2020-02-12] MEDS: ibuprofen tablet 400 MG TABLET PO PRN (21:05)
--- NOTE | 2020-02-13 02:33 | NUR ---
NURSING PROGRESS NOTE Legal hold: 1370 Client on involuntary status for 1370 Report received from Anna GALEANO with use of SBAR Why are they here: Pt. admitted directly from the [facility] accompanied by state troopers. Pt. 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 Pt was demonstrating psychotic/paranoid behavior, trying to barricade himself into his friends house and "speaking in unknown languages". Pt. arrested in 2013 for cruelty to animals. During his incarceration, pt.'s behavior described as "constantly provocative", pt. "throwing water on people and dumping water under the doors of other inmates; and continually yelling through his cell door and challenging both deputies and inmates to a fight". Pt. also had been refusing medical treatment. Pt. was considered a risk due to his aggression and refusal of treatment for his psychosis. According to Psychologist report, pt. is found incompetent to stand trial and requires antipsychotic medication in order to return him to competency and is a danger to himself and to others if un-medicated. Assessment What has happened this shift: Pt up on unit at start of Shift He immediately asked about getting his Atarax and Ativan Reviewed all medications with pt. Pt socialized on unit with pts and staff. Pleasant and cooperative with care took all meds. Pt sleeps on Mattress on floor. S/I, H/I: denies. A/VH: denies. Sleep: asleep at this time ADL's: Independent Group attendance: NA Were meds taken: Yes Any med S/E: Denies Mental Status Exam Appearance: Disheveled Eye contact: Good Behavior: Cooperative, Speech: Clear. Normal rate and rhythm. Mood: "good" Affect: Appropriate Thought process: Linear, future oriented Thought Content: Court proceedings, paperwork, medications Cognition: Alert & oriented X 4 Insight: poor Judgment: poor Interventions PRN's used: Atarax x1 Ativan x1. Motrin x1 Therapeutic interventions: Provided 1:1 therapeutic communication and active listening. Medication administration/education and monitoring, q 15min safety checks. Restraints/seclusion/emergency medication: N/A Justification: Patient is on a 1370 and will return to Court to determine competency.
[2020-02-13 08:00] VITALS: BP 109/68
[2020-02-13] MEDS: vitamin B comp w/Vit. C tab 1 TAB TABLET PO SCH (08:12)
[2020-02-13] MEDS: vitamin E 400 unit capsule PO SCH (08:12)
[2020-02-13] MEDS: multivitamins, therapeutics tablet PO SCH (08:12)
[2020-02-13] MEDS: hydrOXYzine 25 MG tablet PO PRN ×2 (08:12→20:11)
[2020-02-13] MEDS: vitamin D (cholecalciferol) 1,000 unit tablet PO SCH (08:12)
[2020-02-13] MEDS: OMEGA-3/DHA/EPA/FISH OIL 1 EACH CAPSULE.DR PO SCH ×2 (08:12→20:09)
[2020-02-13] MEDS: benztropine 1mg tablet PO SCH ×2 (08:12→20:11)
[2020-02-13] MEDS: ascorbic acid 500mg tablet PO SCH ×2 (08:12→18:00)
[2020-02-13] MEDS: lithium carbonate 450mg CR tablet PO SCH (08:12)
[2020-02-13] MEDS: ibuprofen tablet 400 MG TABLET PO PRN ×2 (15:19→21:14)
--- NOTE | 2020-02-13 15:36 | NUR ---
NURSING PROGRESS NOTE Legal hold: 1370 Client on involuntary status for 1370 Report received from Noc RN with use of SBAR Why are they here: Pt. admitted directly from the [facility] accompanied by state troopers. Pt. 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 Pt was demonstrating psychotic/paranoid behavior, trying to barricade himself into his friends house and "speaking in unknown languages". Pt. arrested in 2013 for cruelty to animals. During his incarceration, pt.'s behavior described as "constantly provocative", pt. "throwing water on people and dumping water under the doors of other inmates; and continually yelling through his cell door and challenging both deputies and inmates to a fight". Pt. also had been refusing medical treatment. Pt. was considered a risk due to his aggression and refusal of treatment for his psychosis. According to Psychologist report, pt. is found incompetent to stand trial and requires antipsychotic medication in order to return him to competency and is a danger to himself and to others if un-medicated. Assessment What has happened this shift: Pt awake at change of shift, lying awake in bed. Pt has flat to depressed affect. Pt very subdued today and spent much of the day in his room. Pt endorses depression and anxiety r/t not wanting to go back to snf. Pt denies suicidal thoughts and denies a/v hallucination. Pt did not display any delusional thoughts today. Pt did request Atarax this am for anxiety with positive results and then pt stated he felt better after speaking with Dr. Harrell, but affect remains flat. Pt requested motrin for left knee pain. S/I, H/I: denies. A/VH: denies. Sleep: napped on and off ADL's: Independent Group attendance: NA Were meds taken: Yes Any med S/E: Denies Mental Status Exam Appearance: Disheveled Eye contact: Good Behavior: Cooperative, anxious, intrusive, demanding Speech: Clear. Normal rate and rhythm. Mood: Im just anxious Affect: Blunted Thought process: Linear, future oriented Thought Content: Court proceedings, paperwork, medications Cognition: Alert & oriented X 4 Insight: poor Judgment: poor Interventions PRN's used: Atarax, motrin Therapeutic interventions: Provided 1:1 therapeutic communication and active listening. Medication administration/education and monitoring, q 15min safety checks. Restraints/seclusion/emergency medication: N/A Justification: Patient is on a 1370 and will return to Court to determine competency.
[2020-02-13] MEDS: LORazepam 0.5 MG tablet PO PRN (18:09)
[2020-02-13] MEDS: CLONAZEPAM 0.25 MG oral disentigrating tablet (ODT) PO SCH (20:10)
[2020-02-13] MEDS: propranolol 10mg tablet PO SCH (20:12)
[2020-02-13] MEDS: lithium carbonate 150mg capsule PO SCH (20:12)
[2020-02-13 20:38] VITALS: BP 128/78
[2020-02-13] MEDS: zolpidem 5mg tablet PO PRN (21:14)
--- NOTE | 2020-02-14 01:51 | NUR ---
NURSING PROGRESS NOTE Legal hold: 1370 Client on involuntary status for 1370 Report received from Anna GALEANO with use of SBAR Why are they here: Pt. admitted directly from the [facility] accompanied by state troopers. Pt. 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 Pt was demonstrating psychotic/paranoid behavior, trying to barricade himself into his friends house and "speaking in unknown languages". Pt. arrested in 2013 for cruelty to animals. During his incarceration, pt.'s behavior described as "constantly provocative", pt. "throwing water on people and dumping water under the doors of other inmates; and continually yelling through his cell door and challenging both deputies and inmates to a fight". Pt. also had been refusing medical treatment. Pt. was considered a risk due to his aggression and refusal of treatment for his psychosis. According to Psychologist report, pt. is found incompetent to stand trial and requires antipsychotic medication in order to return him to competency and is a danger to himself and to others if un-medicated. Assessment What has happened this shift: Pt up on unit at start of Shift Pt socialized on unit with pts and staff. Pleasant and cooperative with care took all meds. Pt given PRN Atarax and Ambien per pt request. Pt Pt sleeps on Mattress on floor. S/I, H/I: denies. A/VH: denies. Sleep: asleep at this time ADL's: Independent Group attendance: NA Were meds taken: Yes Any med S/E: Denies Mental Status Exam Appearance: Disheveled Eye contact: Good Behavior: Cooperative, Speech: Clear. Normal rate and rhythm. Mood: "good" Affect: Appropriate Thought process: Linear, future oriented Thought Content: Court proceedings, paperwork, medications Cognition: Alert & oriented X 4 Insight: poor Judgment: poor Interventions PRN's used: Atarax x1 Ativan x1. Motrin x1 Therapeutic interventions: Provided 1:1 therapeutic communication and active listening. Medication administration/education and monitoring, q 15min safety checks. Restraints/seclusion/emergency medication: N/A Justification: Patient is on a 1370 and will return to Court to determine competency.
[2020-02-14 07:53] VITALS: BP 96/62
[2020-02-14] MEDS: benztropine 1mg tablet PO SCH ×2 (07:58→21:06)
[2020-02-14] MEDS: ascorbic acid 500mg tablet PO SCH ×2 (07:58→17:29)
[2020-02-14] MEDS: vitamin B comp w/Vit. C tab 1 TAB TABLET PO SCH (07:58)
[2020-02-14] MEDS: vitamin E 400 unit capsule PO SCH (07:58)
[2020-02-14] MEDS: multivitamins, therapeutics tablet PO SCH (07:58)
[2020-02-14] MEDS: OMEGA-3/DHA/EPA/FISH OIL 1 EACH CAPSULE.DR PO SCH ×2 (07:58→21:06)
[2020-02-14] MEDS: ibuprofen tablet 400 MG TABLET PO PRN ×2 (07:58→20:03)
[2020-02-14] MEDS: lithium carbonate 450mg CR tablet PO SCH (07:58)
[2020-02-14] MEDS: vitamin D (cholecalciferol) 1,000 unit tablet PO SCH (07:59)
[2020-02-14] MEDS: propranolol 10mg tablet PO SCH ×3 (08:00→21:07)
[2020-02-14] MEDS: hydrOXYzine 25 MG tablet PO PRN ×2 (08:05→20:03)
--- NOTE | 2020-02-14 11:26 | NUR ---
Sent out 1370 paperwork on 02/13/2020 to: public health physician, Cesar Medrano, TAD office, [facility] attn: Nava Contreras, [facility] [address]. Let Hayden know that paperwork has been sent. He expressed anxiety about the outcome, about having to go to court, and about having to go to care home.
--- NOTE | 2020-02-14 17:18 | NUR ---
NURSING PROGRESS NOTE Legal hold: 1370 Client on involuntary status for 1370 Report received from DAISY Prather with use of SBAR Why are they here: Pt. admitted directly from the [facility] accompanied by state troopers. Pt. 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 Pt was demonstrating psychotic/paranoid behavior, trying to barricade himself into his friends house and "speaking in unknown languages". Pt. arrested in 2013 for cruelty to animals. During his incarceration, pt.'s behavior described as "constantly provocative", pt. "throwing water on people and dumping water under the doors of other inmates; and continually yelling through his cell door and challenging both deputies and inmates to a fight". Pt. also had been refusing medical treatment. Pt. was considered a risk due to his aggression and refusal of treatment for his psychosis. According to Psychologist report, pt. is found incompetent to stand trial and requires antipsychotic medication in order to return him to competency and is a danger to himself and to others if un-medicated. Assessment What has happened this shift: Received pt lying in bed sleeping at shift change. Pt. awakens for breakfast and medications. Pt. reports that he has good news, that he is going to stay here until he goes to court for his trial and he is thankful to Dr. Harrell for setting this up for him. Pt. spends most of the day in bed sleeping. Complained of knee pain and received Motrin and Atarax for anxiety with good effect. Morning dose of propanolol was held due to BP: 96/57. S/I, H/I: denies. A/VH: denies. Sleep: 7.5 hrs. NOC, napped ADL's: Independent Group attendance: No. Were meds taken: Yes Any med S/E: Denies Mental Status Exam Appearance: Well groomed male in personal attire. Eye contact: Good Behavior: Cooperative, anxious. Speech: Clear. Normal rate and rhythm. Mood: Depressed. Affect: Blunted Thought process: Linear, future oriented Thought Content: Court proceedings, paperwork, medications Cognition: Alert & oriented X 4 Insight: poor Judgment: poor Interventions PRN's used: Atarax, motrin Therapeutic interventions: Provided 1:1 therapeutic communication and active listening. Medication administration/education and monitoring, q 15min safety checks. Restraints/seclusion/emergency medication: N/A Justification: Patient is on a 1370 and will return to Court to determine competency.
[2020-02-14] MEDS: LORazepam 0.5 MG tablet PO PRN (17:35)
[2020-02-14] MEDS: lactose-reduced food (Ensure High Protein) 237ml bottle PO SCH (18:22)
[2020-02-14 20:15] VITALS: BP 115/71
[2020-02-14] MEDS: CLONAZEPAM 0.25 MG oral disentigrating tablet (ODT) PO SCH (21:05)
[2020-02-14] MEDS: lithium carbonate 150mg capsule PO SCH (21:07)
[2020-02-14] MEDS: zolpidem 5mg tablet PO PRN (21:09)
--- NOTE | 2020-02-15 00:49 | NUR ---
NURSING PROGRESS NOTE Legal hold: 1370 Client on involuntary status for 1370 Report received from Anna GALEANO with use of SBAR Why are they here: Pt. admitted directly from the [facility] accompanied by state troopers. Pt. 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 Pt was demonstrating psychotic/paranoid behavior, trying to barricade himself into his friends house and "speaking in unknown languages". Pt. arrested in 2013 for cruelty to animals. During his incarceration, pt.'s behavior described as "constantly provocative", pt. "throwing water on people and dumping water under the doors of other inmates; and continually yelling through his cell door and challenging both deputies and inmates to a fight". Pt. also had been refusing medical treatment. Pt. was considered a risk due to his aggression and refusal of treatment for his psychosis. According to Psychologist report, pt. is found incompetent to stand trial and requires antipsychotic medication in order to return him to competency and is a danger to himself and to others if un-medicated. Assessment What has happened this shift: Pt paced the unit majority if shift; observed to be laughing and engaging with peers this evening. States he is worried about court now that the paperwork has been submitted but also "glad that part is done." Pt requested both Atarax and Ambien this evening, "It helps me get a solid nights sleep." Pt compliant with evening medications and went to sleep shortly after 2100 med pass; pt continues to sleep with the mattress on the floor. S/I, H/I: Denies Both A/VH: Denies both Sleep: See Sleep Assessment ADL's: Independent Group attendance: N/A Were meds taken: Yes Any med S/E: None reported nor observed Mental Status Exam Appearance: Wearing personal clothing and baseball cap Eye contact: Good Behavior: Cooperative, pacing halls, watching tv, engaging with peers Speech: Clear. Normal rate and rhythm. Mood: Good Affect: Appropriate Thought process: Linear Thought Content: Court, medications Cognition: A/Ox4 Insight: Poor Judgment: Poor to fair Interventions PRN's used: Atarax 50mg, Ambien 10mg, Motrin 400mg Therapeutic interventions: Provided 1:1 therapeutic communication and active listening. Medication administration/education and monitoring, q 15min safety checks. Restraints/seclusion/emergency medication: N/A Justification: Patient is on a 1370 and will return to Court to determine competency.
[2020-02-15 07:00] VITALS: BP 100/62
[2020-02-15] MEDS: propranolol 10mg tablet PO SCH ×3 (07:52→21:20)
[2020-02-15] MEDS: multivitamins, therapeutics tablet PO SCH (07:52)
[2020-02-15] MEDS: vitamin B comp w/Vit. C tab 1 TAB TABLET PO SCH (07:52)
[2020-02-15] MEDS: vitamin E 400 unit capsule PO SCH (07:52)
[2020-02-15] MEDS: OMEGA-3/DHA/EPA/FISH OIL 1 EACH CAPSULE.DR PO SCH ×2 (07:52→21:18)
[2020-02-15] MEDS: ibuprofen tablet 400 MG TABLET PO PRN ×2 (07:52→17:44)
[2020-02-15] MEDS: vitamin D (cholecalciferol) 1,000 unit tablet PO SCH (07:52)
[2020-02-15] MEDS: lithium carbonate 450mg CR tablet PO SCH (07:52)
[2020-02-15] MEDS: benztropine 1mg tablet PO SCH ×2 (07:52→21:18)
[2020-02-15] MEDS: hydrOXYzine 25 MG tablet PO PRN ×2 (07:52→20:20)
[2020-02-15] MEDS: ascorbic acid 500mg tablet PO SCH ×2 (07:53→17:44)
[2020-02-15] MEDS: lactose-reduced food (Ensure High Protein) 237ml bottle PO SCH ×3 (08:59→18:10)
--- NOTE | 2020-02-15 10:13 | NUR ---
Reassessment: Pt continues with 75-100% PO intake of meals meeting nutrient needs. Noted that an Ensure High Protein TID was added on 02/13, likely for satiety given good PO intake of meals. LBM 02/14. No nutrition intervention warranted at this time. Will continue to follow. Recommend: 1. continue regular diet 2. Ensure High Protein TID 3. bowel care as needed 4. wt per rx Addendum: 02/15/20 at [address] Amended: Links added.
--- NOTE | 2020-02-15 16:55 | NUR ---
NURSING PROGRESS NOTE Legal hold: 1370 Client on involuntary status for 1370 Report received from DAISY Prather with use of SBAR Why are they here: Pt. admitted directly from the [facility] accompanied by state troopers. Pt. 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 Pt was demonstrating psychotic/paranoid behavior, trying to barricade himself into his friends house and "speaking in unknown languages". Pt. arrested in 2013 for cruelty to animals. During his incarceration, pt.'s behavior described as "constantly provocative", pt. "throwing water on people and dumping water under the doors of other inmates; and continually yelling through his cell door and challenging both deputies and inmates to a fight". Pt. also had been refusing medical treatment. Pt. was considered a risk due to his aggression and refusal of treatment for his psychosis. According to Psychologist report, pt. is found incompetent to stand trial and requires antipsychotic medication in order to return him to competency and is a danger to himself and to others if un-medicated. Assessment What has happened this shift: Received patient sleeping in bed. Patient awakens for medications and breakfast. As per his usual routine, he goes back to bed until late afternoon, then gets up for the evening. Patient complains of anxiety and pain, Motrin and Atarax given with good effect. S/I, H/I: denies. A/VH: denies. Sleep: Napped. ADL's: Independent Group attendance: No. Were meds taken: Yes Any med S/E: Denies Mental Status Exam Appearance: Clean and neat in personal attire. Eye contact: Good Behavior: Cooperative, anxious. Speech: Clear. Normal rate and rhythm. Mood: Depressed. Affect: Blunted Thought process: Linear, future oriented Thought Content: Court proceedings, paperwork, medications Cognition: Alert & oriented X 4 Insight: poor Judgment: poor Interventions PRN's used: Atarax, motrin Therapeutic interventions: Provided 1:1 therapeutic communication and active listening. Medication administration/education and monitoring, q 15min safety checks. Restraints/seclusion/emergency medication: N/A Justification: Patient is on a 1370 and will return to Court to determine competency.
[2020-02-15] MEDS: LORazepam 0.5 MG tablet PO PRN (17:47)
[2020-02-15 20:44] VITALS: BP 125/77
[2020-02-15] MEDS: lithium carbonate 150mg capsule PO SCH (21:18)
[2020-02-15] MEDS: zolpidem 5mg tablet PO PRN (21:19)
[2020-02-15] MEDS: CLONAZEPAM 0.25 MG oral disentigrating tablet (ODT) PO SCH (21:19)
--- NOTE | 2020-02-16 00:16 | NUR ---
NURSING PROGRESS NOTE Legal hold: 1370 Client on involuntary status for 1370 Report received from Sony GALEANO with use of SBAR Why are they here: Pt. admitted directly from the [facility] accompanied by state troopers. Pt. 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 Pt was demonstrating psychotic/paranoid behavior, trying to barricade himself into his friends house and "speaking in unknown languages". Pt. arrested in 2013 for cruelty to animals. During his incarceration, pt.'s behavior described as "constantly provocative", pt. "throwing water on people and dumping water under the doors of other inmates; and continually yelling through his cell door and challenging both deputies and inmates to a fight". Pt. also had been refusing medical treatment. Pt. was considered a risk due to his aggression and refusal of treatment for his psychosis. According to Psychologist report, pt. is found incompetent to stand trial and requires antipsychotic medication in order to return him to competency and is a danger to himself and to others if un-medicated. Assessment What has happened this shift: Pt paced the unit majority if shift; observed to be laughing and engaging with peers this evening and enjoy watching an [employer] film. Pt seems happier compared to last night and denies being depressed this evening. Pt requested both Atarax and Ambien this evening, "It helps me get a solid nights sleep." Pt compliant with evening medications and went to sleep shortly after 2100 med pass; pt continues to sleep with the mattress on the floor. S/I, H/I: Denies Both A/VH: Denies both Sleep: See Sleep Assessment ADL's: Independent Group attendance: N/A Were meds taken: Yes Any med S/E: None reported nor observed Mental Status Exam Appearance: Wearing personal clothing and baseball cap Eye contact: Good Behavior: Cooperative, pacing halls, watching tv, engaging with peers Speech: Clear. Normal rate and rhythm. Mood: Good Affect: Appropriate Thought process: Linear Thought Content: Court, medications Cognition: A/Ox4 Insight: Poor Judgment: Poor to fair Interventions PRN's used: Atarax 50mg, Ambien 10mg Therapeutic interventions: Provided 1:1 therapeutic communication and active listening. Medication administration/education and monitoring, q 15min safety checks. Restraints/seclusion/emergency medication: N/A Justification: Patient is on a 1370 and will return to Court to determine competency.
[2020-02-16 08:00] VITALS: BP 110/70
[2020-02-16] MEDS: OMEGA-3/DHA/EPA/FISH OIL 1 EACH CAPSULE.DR PO SCH ×2 (08:43→20:17)
[2020-02-16] MEDS: benztropine 1mg tablet PO SCH ×2 (08:43→20:17)
[2020-02-16] MEDS: lithium carbonate 450mg CR tablet PO SCH (08:43)
[2020-02-16] MEDS: vitamin B comp w/Vit. C tab 1 TAB TABLET PO SCH (08:44)
[2020-02-16] MEDS: vitamin E 400 unit capsule PO SCH (08:44)
[2020-02-16] MEDS: vitamin D (cholecalciferol) 1,000 unit tablet PO SCH (08:44)
[2020-02-16] MEDS: multivitamins, therapeutics tablet PO SCH (08:44)
[2020-02-16] MEDS: ibuprofen tablet 400 MG TABLET PO PRN (08:45)
[2020-02-16] MEDS: ascorbic acid 500mg tablet PO SCH ×2 (08:45→17:41)
[2020-02-16] MEDS: hydrOXYzine 25 MG tablet PO PRN ×2 (08:45→20:18)
[2020-02-16] MEDS: propranolol 10mg tablet PO SCH ×3 (08:47→20:17)
[2020-02-16] MEDS: lactose-reduced food (Ensure High Protein) 237ml bottle PO SCH ×3 (08:49→18:44)
[2020-02-16] MEDS: LORazepam 0.5 MG tablet PO PRN (11:41)
[2020-02-16 13:20] VITALS: BP 125/68
--- NOTE | 2020-02-16 15:40 | NUR ---
Nursing Progress Note: Legal hold: 1370 Client on involuntary status for 1370 Report received from nurse with use of SBAR: DAISY Prather Why are they here: Pt. admitted directly from the [facility] accompanied by state troopers. Pt. 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 Pt was demonstrating psychotic/paranoid behavior, trying to barricade himself into his friends house and "speaking in unknown languages". Pt. arrested in 2013 for cruelty to animals. During his incarceration, pt.'s behavior described as "constantly provocative", pt. "throwing water on people and dumping water under the doors of other inmates; and continually yelling through his cell door and challenging both deputies and inmates to a fight". Pt. also had been refusing medical treatment. Pt. was considered a risk due to his aggression and refusal of treatment for his psychosis. According to Psychologist report, pt. is found incompetent to stand trial and requires antipsychotic medication in order to return him to competency and is a danger to himself and to others if unmedicated. Assessment What has happened this shift: Received pt. sleeping in bed at the beginning of the shift, appears to be resting comfortably. He awakens for breakfast and appears groggy, is compliant with AM medications and then returns back to bed. 1:1 completed at bedside, pt. continues to deny any depression, S/I, or any A/V/JIMENEZ. He reports some ongoing anxiety r/t his upcoming court date, PRN Atrax administered with effectiveness. Pt. does not make any delusional statements this shift, he states, "I got some good news from Dr. Harrell that I may not need to go back to the [facility]." When questioned regarding his medications, pt. reports that he feels that the Propranolol is helping to decrease the restlessness in his legs, he states, "I used to not be able to sit still." Pt. requests PRN Motrin for chronic left knee pain, administered with effectiveness. Pt. proceeds to nap and pace intermittently throughout the shift. At approximately 1130, pt. reports that he feels like he is having a panic attack r/t the fire alarm that went off earlier, he requests PRN Ativan, administered with effectiveness. S/I, H/I: Denies A/VH: Denies, does not appear internally preoccupied Sleep: Pt. reports he slept well, 7.5 hours reported. Also naps periodically throughout the shift. ADL's: Independent Group attendance: No Were meds taken: Yes Any med S/E: Possible increased fatigue, will endorse to AM shift. Mental Status Exam Appearance: Neat and appropriately dressed Eye contact: Good Behavior: Cooperative, restless, fatigued, and withdrawn Mood: Pleasant, however fatigued Affect: Flat Thought process: Poverty of thought Thought Content: Continued anxiety r/t upcoming court date Cognition: A&O X4 Insight: Fair Judgment: Fair Interventions PRN's used: Atrax, Motrin, and Ativan Therapeutic interventions: Maintained a safe and therapeutic environment, ensured contract for safety, provided clear and simple instructions, attempted to reorient to reality as needed, monitored behavior and need for intervention, provided active listening and positive encouragement, and maintained Q 15min safety checks. Restraints/seclusion/emergency medication: N/A Justification of Continued Inpatient Treatment: Pt. continues to be restored to competency so he can be returned to [facility] and stand trial.
[2020-02-16 19:50] VITALS: BP 119/58
[2020-02-16] MEDS: CLONAZEPAM 0.25 MG oral disentigrating tablet (ODT) PO SCH (20:18)
[2020-02-16] MEDS: lithium carbonate 150mg capsule PO SCH (20:18)
[2020-02-16] MEDS: zolpidem 5mg tablet PO PRN (21:10)
--- NOTE | 2020-02-16 23:28 | NUR ---
NURSING PROGRESS NOTE Legal hold: 1370 Client on involuntary status for 1370 Report received from Sony GALEANO with use of SBAR Why are they here: Pt. admitted directly from the [facility] accompanied by state troopers. Pt. 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 Pt was demonstrating psychotic/paranoid behavior, trying to barricade himself into his friends house and "speaking in unknown languages". Pt. arrested in 2013 for cruelty to animals. During his incarceration, pt.'s behavior described as "constantly provocative", pt. "throwing water on people and dumping water under the doors of other inmates; and continually yelling through his cell door and challenging both deputies and inmates to a fight". Pt. also had been refusing medical treatment. Pt. was considered a risk due to his aggression and refusal of treatment for his psychosis. According to Psychologist report, pt. is found incompetent to stand trial and requires antipsychotic medication in order to return him to competency and is a danger to himself and to others if un-medicated. Assessment What has happened this shift: Pt spent quite some time in recreation room watching TV. He states that he is doing ok but feels somewhat depressed and anxious. He states that he has been having some bad dreams I had a really bad dream about being buried alive. 99% of my thoughts are good but that 1% just gets to me sometimes. Pt talks about when he was in halfway and states that this brings up some anxiety. "They treated me really bad there." Pt was cooperative during 1:1 physical assessment and took all of his HS meds without any issues. He denies any S/I, H/I, AV/H. There was no agitation noted per this shift. He requested atarax with his meds as he states this helps him with the anxiety and also helps him sleep better. He later on requested Ambien and this was given with good effect. He was observed socializing appropriately with other patients and pacing before going to sleep. S/I, H/I: Denies A/VH: Denies Sleep: Currently sleeping, see sleep assessment for total hours ADL's: Independent Group attendance: None during night nurse Were meds taken: Yes Any med S/E: None reported nor observed Mental Status Exam Appearance: Appropriate, wearing personal clothing Eye contact: Good Behavior: Cooperative, calm, socializing appropriately Speech: Clear. Normal rate and rhythm. Mood: Euthymic, pt does c/o mild anxiety Affect: Congruent with mood Thought process: Linear Thought Content: Medication, having bad dreams Cognition: A/Ox4 Insight: Poor Judgment: Poor Interventions PRN's used: Atarax 50mg, Ambien 10mg Therapeutic interventions: Provided 1:1 therapeutic communication and active listening. Medication administration/education and monitoring, q 15min safety checks. Restraints/seclusion/emergency medication: N/A Justification: Patient is on a 1370 and will return to Court to determine competency.
[2020-02-17 07:31] VITALS: BP 99/59
[2020-02-17] MEDS: OMEGA-3/DHA/EPA/FISH OIL 1 EACH CAPSULE.DR PO SCH ×2 (08:47→20:26)
[2020-02-17] MEDS: lactose-reduced food (Ensure High Protein) 237ml bottle PO SCH ×3 (08:47→18:02)
[2020-02-17] MEDS: benztropine 1mg tablet PO SCH ×2 (08:47→20:26)
[2020-02-17] MEDS: lithium carbonate 450mg CR tablet PO SCH (08:47)
[2020-02-17 08:50] VITALS: BP 120/80
[2020-02-17] MEDS: vitamin D (cholecalciferol) 1,000 unit tablet PO SCH (08:50)
[2020-02-17] MEDS: ibuprofen tablet 400 MG TABLET PO PRN ×2 (08:50→18:38)
[2020-02-17] MEDS: hydrOXYzine 25 MG tablet PO PRN ×2 (08:50→20:27)
[2020-02-17] MEDS: multivitamins, therapeutics tablet PO SCH (08:50)
[2020-02-17] MEDS: vitamin B comp w/Vit. C tab 1 TAB TABLET PO SCH (08:50)
[2020-02-17] MEDS: vitamin E 400 unit capsule PO SCH (08:50)
[2020-02-17] MEDS: ascorbic acid 500mg tablet PO SCH ×2 (08:50→17:31)
[2020-02-17] MEDS: propranolol 10mg tablet PO SCH ×3 (08:57→20:26)
[2020-02-17] MEDS: LORazepam 0.5 MG tablet PO PRN (11:02)
[2020-02-17 13:31] VITALS: BP 120/80
--- NOTE | 2020-02-17 15:17 | NUR ---
Nursing Progress Note: Legal hold: 1370 Client on involuntary status for 1370 Report received from nurse with use of SBAR: Veronica Zapata RN Why are they here: Pt. admitted directly from the [facility] accompanied by state troopers. Pt. 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 Pt was demonstrating psychotic/paranoid behavior, trying to barricade himself into his friends house and "speaking in unknown languages". Pt. arrested in 2013 for cruelty to animals. During his incarceration, pt.'s behavior described as "constantly provocative", pt. "throwing water on people and dumping water under the doors of other inmates; and continually yelling through his cell door and challenging both deputies and inmates to a fight". Pt. also had been refusing medical treatment. Pt. was considered a risk due to his aggression and refusal of treatment for his psychosis. According to Psychologist report, pt. is found incompetent to stand trial and requires antipsychotic medication in order to return him to competency and is a danger to himself and to others if unmedicated. Assessment What has happened this shift: Pt. laying in bed asleep at the beginning of the shift, he awakens for breakfast and continues to appear groggy. 1:1 completed at bedside, pt. reports anxiety, states, "I had that dream again this morning that I was nailed in a coffin." PRN Atrax requested and administered with effectiveness. Pt. continues to deny any depression, S/I, or any A/V/JIMENEZ. He states, "I am more excited and hopeful about the future." He reports that he continues to work with Dr. Harrell to make a plan for his upcoming court date, and is hopeful that he will not have to return back to custodial. Pt. does not make any delusional statements this shift, and no episodes of agitation exhibited. Pt. returns back to bed following breakfast, awakens at approximately 1100 reporting increased anxiety. He is unsure what this anxiety was caused by. Pt. requests PRN Ativan, administered with effectiveness. He reports a history of panic attacks, however states, "I used to have 15 of them a day back to back, I'm doing better now." Pt. is observed interacting with others and napping intermittently throughout the rest of the shift. S/I, H/I: Denies A/VH: Denies, does not appear internally preoccupied Sleep: Pt. reports he slept well, 7 hours reported. Also naps periodically throughout the shift. ADL's: Independent Group attendance: No Were meds taken: Yes Any med S/E: None Mental Status Exam Appearance: Neat and appropriately dressed Eye contact: Good Behavior: Cooperative, anxious, fatigued, and withdrawn Mood: Pleasant, however withdrawn Affect: Constricted Thought process: Circumstantial Thought Content: Continued anxiety r/t upcoming court date and intrusive dreams Cognition: A&O X4 Insight: Fair Judgment: Fair Interventions PRN's used: Atrax, Motrin, and Ativan Therapeutic interventions: Maintained a safe and therapeutic environment, ensured contract for safety, provided clear and simple instructions, encouraged interactions with others, monitored behavior and need for intervention, provided active listening and positive encouragement, and maintained Q 15min safety checks. Restraints/seclusion/emergency medication: N/A Justification of Continued Inpatient Treatment: Pt. continues to be restored to competency so he can be returned to custodial and stand trial.
[2020-02-17 19:48] VITALS: BP 103/72
[2020-02-17] MEDS: CLONAZEPAM 0.25 MG oral disentigrating tablet (ODT) PO SCH (20:26)
[2020-02-17] MEDS: lithium carbonate 150mg capsule PO SCH (20:26)
[2020-02-17] MEDS: zolpidem 5mg tablet PO PRN (21:10)
--- NOTE | 2020-02-17 23:25 | NUR ---
NURSING PROGRESS NOTE Legal hold: 1370 Client on involuntary status for 1370 Report received from WALESKA Honeycutt with use of SBAR Why are they here: Pt. admitted directly from the [facility] accompanied by state troopers. Pt. 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 Pt was demonstrating psychotic/paranoid behavior, trying to barricade himself into his friends house and "speaking in unknown languages". Pt. arrested in 2013 for cruelty to animals. During his incarceration, pt.'s behavior described as "constantly provocative", pt. "throwing water on people and dumping water under the doors of other inmates; and continually yelling through his cell door and challenging both deputies and inmates to a fight". Pt. also had been refusing medical treatment. Pt. was considered a risk due to his aggression and refusal of treatment for his psychosis. According to Psychologist report, pt. is found incompetent to stand trial and requires antipsychotic medication in order to return him to competency and is a danger to himself and to others if un-medicated. Assessment What has happened this shift: Pt was seen ambulating the isles during shift change. Requested ibuprofen for knee pain. When asked how his day had gone, he states it was good but he had a panic attack that woke him up. He started to talk about how in 2011 he suffered from a stroke and it took him a while to fully recover from it. PT was cooperative during 1:1 physical assessment and took all his HS meds without any issues, requesting Atarax. Pt denies any A/VH, S/I, H/I, and just states that he feels a little anxious. He states that it just happens with no real reason. He cannot identify the reasons why he feels anxious. Pt continued to pace the isles and appeared to be socializing appropriately with other patients. He requested Ambien for sleep and states that his anxiety is still at a 5/10. He states its not like a panic attack but its still there. Pt requested come hot chocolate as he claims this helps him calm his anxiety down. there was agitation or other delusional statements made per this shift. 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 Normal rate and rhythm. Mood: Anxious Affect: Constricted Thought process: Circumstantial Thought Content: Trying to avoid panic attacks and ways to bring his anxiety down Cognition: A/Ox4 Insight: Poor Judgment: Poor Interventions PRN's used: Atarax 50mg, Ambien 10mg Therapeutic interventions: Provided 1:1 therapeutic communication and active listening. Medication administration/education and monitoring, q 15min safety checks. Restraints/seclusion/emergency medication: N/A Justification: Patient is on a 1370 and will return to Court to determine competency.
[2020-02-18 08:00] VITALS: BP 96/60
[2020-02-18] MEDS: propranolol 10mg tablet PO SCH ×3 (08:00→20:08)
[2020-02-18] MEDS: lactose-reduced food (Ensure High Protein) 237ml bottle PO SCH ×3 (08:15→18:06)
[2020-02-18] MEDS: vitamin D (cholecalciferol) 1,000 unit tablet PO SCH (08:20)
[2020-02-18] MEDS: lithium carbonate 450mg CR tablet PO SCH (08:21)
[2020-02-18] MEDS: multivitamins, therapeutics tablet PO SCH (08:21)
[2020-02-18] MEDS: ascorbic acid 500mg tablet PO SCH ×2 (08:22→17:14)
[2020-02-18] MEDS: benztropine 1mg tablet PO SCH ×2 (08:22→20:08)
[2020-02-18] MEDS: vitamin E 400 unit capsule PO SCH (08:22)
[2020-02-18] MEDS: OMEGA-3/DHA/EPA/FISH OIL 1 EACH CAPSULE.DR PO SCH ×2 (08:22→20:08)
[2020-02-18] MEDS: hydrOXYzine 25 MG tablet PO PRN ×2 (08:23→20:09)
[2020-02-18] MEDS: vitamin B comp w/Vit. C tab 1 TAB TABLET PO SCH (08:23)
[2020-02-18] MEDS: LORazepam 0.5 MG tablet PO PRN (10:57)
[2020-02-18] MEDS: mag hydrox/Alum hydrox/simeth 30ml oral suspension PO PRN (17:14)
--- NOTE | 2020-02-18 17:44 | NUR ---
NURSING PROGRESS NOTE Legal hold: 1370 Client on involuntary status for 1370 Report received from WALESKA Chavarria with use of SBAR Why are they here: Pt. admitted directly from the [facility] accompanied by state troopers. Pt. 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 Pt was demonstrating psychotic/paranoid behavior, trying to barricade himself into his friends house and "speaking in unknown languages". Pt. arrested in 2013 for cruelty to animals. During his incarceration, pt.'s behavior described as "constantly provocative", pt. "throwing water on people and dumping water under the doors of other inmates; and continually yelling through his cell door and challenging both deputies and inmates to a fight". Pt. also had been refusing medical treatment. Pt. was considered a risk due to his aggression and refusal of treatment for his psychosis. According to Psychologist report, pt. is found incompetent to stand trial and requires antipsychotic medication in order to return him to competency and is a danger to himself and to others if un-medicated. Assessment What has happened this shift: Pt was sleeping at the beginning of shift. He then requested Atarax with am medication and states he didnt know what he was thinking but was feeling anxious. Later he requested Ativan and states he keeps waking up with anxiety or panic attacks. During 1:1 assessment he states he had nightmares about being buried alive and deputies breaking his neck and killing him. He mentioned he is glad the doctor wrote a letter for him for court; I think this will help. He talked again about the stroke he previously had. He later asked for maalox for an upset stomach. He isolated to his room most of the day. S/I, H/I: Denies A/VH: Denies Sleep: 7 h per noc assessment ADL's: Independent Group attendance: None at this time Were meds taken: Yes Any med S/E: None Mental Status Exam Appearance: Wearing his own pajamas all day and either a wool hat or ball cap Eye contact: Good Behavior: Isolative. Speech: Mumbles and becomes manic when talking about anxiety. Mood: Depressed Affect: Withdrawn Thought process: Linear Thought Content: Upcoming court appearance Cognition: A/Ox4 Insight: Poor Judgment: Poor Interventions PRN's used: Atarax , Ativan, Maalox Therapeutic interventions: Provided 1:1 therapeutic communication and active listening. Medication administration/education and monitoring, q 15min safety checks. Restraints/seclusion/emergency medication: N/A Justification: Patient is on a 1370 and will return to Court to determine competency.
[2020-02-18 19:28] VITALS: BP 105/66
[2020-02-18] MEDS: CLONAZEPAM 0.25 MG oral disentigrating tablet (ODT) PO SCH (20:08)
[2020-02-18] MEDS: lithium carbonate 150mg capsule PO SCH (20:09)
[2020-02-18] MEDS: zolpidem 5mg tablet PO PRN (21:04)
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
[2020-02-19] MEDS: ibuprofen tablet 400 MG TABLET PO PRN (07:13)
[2020-02-19 07:41] VITALS: BP 101/63
[2020-02-19] MEDS: OMEGA-3/DHA/EPA/FISH OIL 1 EACH CAPSULE.DR PO SCH ×2 (08:49→20:08)
[2020-02-19] MEDS: lithium carbonate 450mg CR tablet PO SCH (08:49)
[2020-02-19] MEDS: vitamin B comp w/Vit. C tab 1 TAB TABLET PO SCH (08:49)
[2020-02-19] MEDS: benztropine 1mg tablet PO SCH ×2 (08:49→20:08)
[2020-02-19] MEDS: vitamin E 400 unit capsule PO SCH (08:50)
[2020-02-19] MEDS: ascorbic acid 500mg tablet PO SCH ×2 (08:50→18:10)
[2020-02-19] MEDS: vitamin D (cholecalciferol) 1,000 unit tablet PO SCH (08:50)
[2020-02-19] MEDS: propranolol 10mg tablet PO SCH ×3 (08:50→20:08)
[2020-02-19] MEDS: multivitamins, therapeutics tablet PO SCH (08:50)
[2020-02-19] MEDS: lactose-reduced food (Ensure High Protein) 237ml bottle PO SCH ×3 (08:52→18:10)
[2020-02-19] MEDS: hydrOXYzine 25 MG tablet PO PRN ×2 (12:12→20:09)
[2020-02-19 13:50] VITALS: BP 111/72
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
[2020-02-19 20:00] VITALS: BP 119/77
[2020-02-19] MEDS: CLONAZEPAM 0.25 MG oral disentigrating tablet (ODT) PO SCH (20:08)
[2020-02-19] MEDS: lithium carbonate 150mg capsule PO SCH (20:08)
[2020-02-19] MEDS: zolpidem 5mg tablet PO PRN (20:56)
--- NOTE | 2020-02-20 02:29 | NUR ---
Nursing Progress Note: Legal hold: 1370 Client on involuntary status for 1370 Report received from nurse with use of SBAR: DAISY Honeycutt Why are they here: Pt. admitted directly from the [facility] accompanied by state troopers. Pt. 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 Pt was demonstrating psychotic/paranoid behavior, trying to barricade himself into his friends house and "speaking in unknown languages". Pt. arrested in 2013 for cruelty to animals. During his incarceration, pt.'s behavior described as "constantly provocative", pt. "throwing water on people and dumping water under the doors of other inmates; and continually yelling through his cell door and challenging both deputies and inmates to a fight". Pt. also had been refusing medical treatment. Pt. was considered a risk due to his aggression and refusal of treatment for his psychosis. According to Psychologist report, pt. is found incompetent to stand trial and requires antipsychotic medication in order to return him to competency and is a danger to himself and to others if unmedicated. Assessment What has happened this shift: Pt was walking in the solomon at change of shift. Spent time interacting w/peers. Pt requests ativan for anxiety but then declines ativan stating he doesnt want ativan if he cant have atarax with evening meds. Pt decided to wait until evening med pass for atarax. Pt is med compliant. S/I, H/I: Denies A/VH: Denies, does not appear internally preoccupied Sleep: see sleep hours ADL's: Independent Group attendance: No Were meds taken: Yes Any med S/E: None Mental Status Exam Appearance: Neat and appropriately dressed Eye contact: Good Behavior: Cooperative, anxious, Mood: anxious Affect: Constricted Thought process: Circumstantial Thought Content: feeling anxious, getting pills on time and court date Cognition: A&O X4 Insight: Fair Judgment: Fair Interventions PRN's used: Atrax and Motrin Therapeutic interventions: Maintained a safe and therapeutic environment, ensured contract for safety, provided clear and simple instructions, encouraged interactions with others, monitored behavior and need for intervention, provided active listening and positive encouragement, monitored bruised area on left hand and obtained pictures, and maintained Q 15min safety checks. Restraints/seclusion/emergency medication: N/A Justification of Continued Inpatient Treatment: Pt. continues to be restored to competency so he can be returned to senior care and stand trial.
[2020-02-20 08:00] VITALS: BP 110/60
[2020-02-20] MEDS: multivitamins, therapeutics tablet PO SCH (08:01)
[2020-02-20] MEDS: propranolol 10mg tablet PO SCH ×3 (08:01→20:06)
[2020-02-20] MEDS: vitamin E 400 unit capsule PO SCH (08:01)
[2020-02-20] MEDS: benztropine 1mg tablet PO SCH ×2 (08:01→20:05)
[2020-02-20] MEDS: OMEGA-3/DHA/EPA/FISH OIL 1 EACH CAPSULE.DR PO SCH ×2 (08:01→20:05)
[2020-02-20] MEDS: vitamin B comp w/Vit. C tab 1 TAB TABLET PO SCH (08:01)
[2020-02-20] MEDS: lithium carbonate 450mg CR tablet PO SCH (08:01)
[2020-02-20] MEDS: ascorbic acid 500mg tablet PO SCH ×2 (08:01→16:59)
[2020-02-20] MEDS: vitamin D (cholecalciferol) 1,000 unit tablet PO SCH (08:01)
[2020-02-20] MEDS: hydrOXYzine 25 MG tablet PO PRN ×2 (08:05→20:05)
[2020-02-20] MEDS: lactose-reduced food (Ensure High Protein) 237ml bottle PO SCH ×3 (08:12→18:41)
[2020-02-20] MEDS: LORazepam 0.5 MG tablet PO PRN (11:37)
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
[2020-02-20] MEDS: CLONAZEPAM 0.25 MG oral disentigrating tablet (ODT) PO SCH (20:05)
[2020-02-20] MEDS: lithium carbonate 150mg capsule PO SCH (20:32)
[2020-02-20] MEDS: zolpidem 5mg tablet PO PRN ×2 (20:32→20:58)
[2020-02-20 20:45] VITALS: BP 129/70
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
[2020-02-21 07:30] VITALS: BP 98/60
[2020-02-21] MEDS: hydrOXYzine 25 MG tablet PO PRN ×2 (07:57→20:05)
[2020-02-21] MEDS: vitamin B comp w/Vit. C tab 1 TAB TABLET PO SCH (07:58)
[2020-02-21] MEDS: multivitamins, therapeutics tablet PO SCH (07:58)
[2020-02-21] MEDS: vitamin E 400 unit capsule PO SCH (07:58)
[2020-02-21] MEDS: OMEGA-3/DHA/EPA/FISH OIL 1 EACH CAPSULE.DR PO SCH ×2 (07:58→20:04)
[2020-02-21] MEDS: lithium carbonate 450mg CR tablet PO SCH (07:59)
[2020-02-21] MEDS: ascorbic acid 500mg tablet PO SCH ×2 (07:59→17:45)
[2020-02-21] MEDS: ibuprofen tablet 400 MG TABLET PO PRN ×2 (07:59→17:45)
[2020-02-21] MEDS: lactose-reduced food (Ensure High Protein) 237ml bottle PO SCH ×3 (08:00→18:01)
[2020-02-21] MEDS: propranolol 10mg tablet PO SCH ×3 (08:00→20:04)
[2020-02-21] MEDS: benztropine 1mg tablet PO SCH ×2 (08:00→20:05)
[2020-02-21] MEDS: vitamin D (cholecalciferol) 1,000 unit tablet PO SCH (08:00)
--- NOTE | 2020-02-21 10:31 | NUR ---
Reassessment: Pt PO 100% ensure high protein TIDWM And regular diet meeting needs. LBM 02/18. No nutrition concerns at this time. Will continue to monitor. Recommend: 1. continue regular diet 2. Ensure High Protein TID 3. bowel care as needed 4. wt per rx Addendum: 02/21/20 at [address] Amended: Links added.
[2020-02-21] MEDS: acetaminophen 325mg tablet PO PRN (11:47)
--- NOTE | 2020-02-21 17:56 | NUR ---
Legal hold: 1370 Client on involuntary status for 1370 Report received from nurse with use of SBAR: DAISY Prather Why are they here: Pt. admitted directly from the [facility] accompanied by state troopers. Pt. 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 Pt was demonstrating psychotic/paranoid behavior, trying to barricade himself into his friends house and "speaking in unknown languages" Pt. arrested in 2013 for cruelty to animals. During his incarceration, pt.'s behavior described as "constantly provocative", pt. "throwing water on people and dumping water under the doors of other inmates; and continually yelling through his cell door and challenging both deputies and inmates to a fight". Pt. also had been refusing medical treatment. Pt. was considered a risk due to his aggression and refusal of treatment for his psychosis. According to Psychologist report, pt. is found incompetent to stand trial and requires antipsychotic medication in order to return him to competency and is a danger to himself and to others if unmedicated. Assessment What has happened this shift: Pt. asleep at start of shift. Pt. awake for medications and breakfast. Pt. took all medications and ate all meals in his room. 1:1 done at bedside. Pt. reporting increased anxiety r/t future unknowns. Pt. reports feeling angry about multiple changes to his Ativan regimen. Pt. talking at length about interest in homeopathic treatments. Pt. c/o of left knee pain and right foot pain and given Tylenol 650mg and Motrin 400mg with good effect. Pt. isolated to his room most of the afternoon. Pt. requested Motrin 400mg before shift change. S/I, H/I: Denies A/VH: Denies Sleep: Pt. napped x2 hours on day shift. ADL's: Independent Group attendance: N/A Were meds taken: Yes Any med S/E: None Mental Status Exam Appearance: Neat and appropriately dressed Eye contact: Good Behavior: Anxious, but cooperative and engaging with staff and peers. Pacing hallways at times. Mood: Agitated and anxious at times. Affect: Flat Thought process: Linear with some paranoia. Thought Content: Continued anxiety r/t upcoming court date and some paranoid delusional thinking Cognition: A&O X4 Insight: Fair Judgment: Fair Interventions PRN's used: Atarax and Ativan PO x1, Tylenol x1, Motrin x2 Therapeutic interventions: Maintained a safe and therapeutic environment, ensured contract for safety, provided clear and simple instructions, encouraged interactions with others, monitored behavior and need for intervention, provided active listening and positive encouragement, monitored bruised area on left hand and obtained pictures, and maintained Q 15min safety checks. Restraints/seclusion/emergency medication: N/A Justification of Continued Inpatient Treatment: Pt. continues to be restored to competency so he can be returned to longterm and stand trial.
[2020-02-21 19:26] VITALS: BP 103/56
[2020-02-21] MEDS: lithium carbonate 150mg capsule PO SCH (20:04)
[2020-02-21] MEDS: CLONAZEPAM 0.25 MG oral disentigrating tablet (ODT) PO SCH (20:04)
[2020-02-21] MEDS: zolpidem 5mg tablet PO PRN (20:55)
--- NOTE | 2020-02-21 21:25 | NUR ---
Legal hold: 1370 Client on involuntary status for 1370 Report received from nurse with use of SBAR: DAISY Prather Why are they here: Pt. admitted directly from the [facility] accompanied by state troopers. Pt. 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 Pt was demonstrating psychotic/paranoid behavior, trying to barricade himself into his friends house and "speaking in unknown languages" Pt. arrested in 2013 for cruelty to animals. During his incarceration, pt.'s behavior described as "constantly provocative", pt. "throwing water on people and dumping water under the doors of other inmates; and continually yelling through his cell door and challenging both deputies and inmates to a fight". Pt. also had been refusing medical treatment. Pt. was considered a risk due to his aggression and refusal of treatment for his psychosis. According to Psychologist report, pt. is found incompetent to stand trial and requires antipsychotic medication in order to return him to competency and is a danger to himself and to others if unmedicated. Assessment What has happened this shift: Pt was walking in the hallway at change of shift. He says he had a good day and is happy his ativan order was changed, however patient didnt request any ativan this evening. Pt spent evening watching movies with other patients and enjoyed snacks this evening before med pass. Pt reports feeling tired tonight and states his symptoms of restless legs have improved. S/I, H/I: Denies A/VH: Denies Sleep: reports sleeping well at night ADL's: Independent Group attendance: N/A Were meds taken: Yes Any med S/E: None Mental Status Exam Appearance: Neat and appropriately dressed wearing jeans tshirt and ball cap Eye contact: Good Behavior: Anxious, but cooperative and engaging with staff and peers. Pacing hallways at times. Mood: happy, somewhat anxious Affect: Flat Thought process: Linear with some paranoia. Thought Content: talking Cognition: A&O X4 Insight: Fair Judgment: Fair Interventions PRN's used: nicolás priest Therapeutic interventions: Maintained a safe and therapeutic environment, ensured contract for safety, provided clear and simple instructions, encouraged interactions with others, monitored behavior and need for intervention, provided active listening and positive encouragement, monitored bruised area on left hand and obtained pictures, and maintained Q 15min safety checks. Restraints/seclusion/emergency medication: N/A Justification of Continued Inpatient Treatment: Pt. continues to be restored to competency so he can be returned to detention and stand trial.
[2020-02-22 07:51] VITALS: BP 104/66
[2020-02-22] MEDS: acetaminophen 325mg tablet PO PRN ×3 (08:11→20:07)
[2020-02-22] MEDS: ascorbic acid 500mg tablet PO SCH ×2 (08:11→18:01)
[2020-02-22] MEDS: OMEGA-3/DHA/EPA/FISH OIL 1 EACH CAPSULE.DR PO SCH ×2 (08:11→20:07)
[2020-02-22] MEDS: vitamin E 400 unit capsule PO SCH (08:11)
[2020-02-22] MEDS: benztropine 1mg tablet PO SCH ×2 (08:12→20:08)
[2020-02-22] MEDS: propranolol 10mg tablet PO SCH ×3 (08:12→20:08)
[2020-02-22] MEDS: vitamin D (cholecalciferol) 1,000 unit tablet PO SCH (08:12)
[2020-02-22] MEDS: lithium carbonate 450mg CR tablet PO SCH (08:13)
[2020-02-22] MEDS: multivitamins, therapeutics tablet PO SCH (08:13)
[2020-02-22] MEDS: lactose-reduced food (Ensure High Protein) 237ml bottle PO SCH ×3 (08:13→18:01)
[2020-02-22] MEDS: vitamin B comp w/Vit. C tab 1 TAB TABLET PO SCH (08:13)
[2020-02-22] MEDS: hydrOXYzine 25 MG tablet PO PRN ×2 (08:21→20:15)
[2020-02-22] MEDS: LORazepam 0.5 MG tablet PO PRN (10:20)
[2020-02-22] MEDS: ibuprofen tablet 400 MG TABLET PO PRN (10:21)
--- NOTE | 2020-02-22 17:14 | NUR ---
Nursing Progress Note: Legal hold: 1370 Client on involuntary status for 1370 Report received from nurse with use of SBAR: DAISY Prather Why are they here: Pt. admitted directly from the [facility] accompanied by state troopers. Pt. 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 Pt was demonstrating psychotic/paranoid behavior, trying to barricade himself into his friends house and "speaking in unknown languages" Pt. arrested in 2013 for cruelty to animals. During his incarceration, pt.'s behavior described as "constantly provocative", pt. "throwing water on people and dumping water under the doors of other inmates; and continually yelling through his cell door and challenging both deputies and inmates to a fight". Pt. also had been refusing medical treatment. Pt. was considered a risk due to his aggression and refusal of treatment for his psychosis. According to Psychologist report, pt. is found incompetent to stand trial and requires antipsychotic medication in order to return him to competency and is a danger to himself and to others if unmedicated. Assessment What has happened this shift: Pt. asleep at start of shift. Pt. awake for medications and breakfast. Pt. ate all meals in his room and took all medications. Pt. requesting PRN for right ankle pain and received Tylenol with good effect. Pt. requesting anxiolytic and received Atarax with minimal effect. Pt. reports he is anxious today because he overheard staff talk about a pt. getting picked up and he thought they were talking about him. Pt. later reported a panic attack because of this and received Ativan 0.5mg po with good effect. Pt. denies SI/HI, A/V. hallucinations. Pt. requested motrin in afternoon for right ankle pain. Pt. states, "I think i'm getting gout in my right ankle, but I don't want to do anything about it, I think it will go away on it's own". S/I, H/I: Denies A/VH: Denies Sleep: Pt. napped for 3 hours on day shift. ADL's: Independent Group attendance: N/A Were meds taken: Yes Any med S/E: None Mental Status Exam Appearance: Neat and appropriately dressed Eye contact: Good Behavior: Anxious, but cooperative and engaging with staff and peers. Pacing hallways at times. Mood: Agitated and anxious at times. Affect: Flat Thought process: Linear with some paranoia. Thought Content: Continued anxiety r/t upcoming court date Cognition: A&O X4 Insight: Fair Judgment: Fair Interventions PRN's used: Atarax, Ativan, Tylenol, Motrin x2 Therapeutic interventions: Maintained a safe and therapeutic environment, ensured contract for safety, provided clear and simple instructions, encouraged interactions with others, monitored behavior and need for intervention, provided active listening and positive encouragement, monitored bruised area on left hand and obtained pictures, and maintained Q 15min safety checks. Restraints/seclusion/emergency medication: N/A Justification of Continued Inpatient Treatment: Pt. continues to be restored to competency so he can be returned to nursing home and stand trial.
[2020-02-22 20:00] VITALS: BP 129/74
[2020-02-22] MEDS: lithium carbonate 150mg capsule PO SCH (20:07)
[2020-02-22] MEDS: CLONAZEPAM 0.25 MG oral disentigrating tablet (ODT) PO SCH (20:08)
[2020-02-22] MEDS: zolpidem 5mg tablet PO PRN (21:01)
[2020-02-22] MEDS: mag hydrox/Alum hydrox/simeth 30ml oral suspension PO PRN (21:28)
--- NOTE | 2020-02-23 03:22 | NUR ---
Nursing Progress Note: Legal hold: 1370 Client on involuntary status for 1370 Report received from nurse with use of SBAR: DAISY Barcenas Why are they here: Pt. admitted directly from the [facility] accompanied by state troopers. Pt. 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 Pt was demonstrating psychotic/paranoid behavior, trying to barricade himself into his friends house and "speaking in unknown languages" Pt. arrested in 2013 for cruelty to animals. During his incarceration, pt.'s behavior described as "constantly provocative", pt. "throwing water on people and dumping water under the doors of other inmates; and continually yelling through his cell door and challenging both deputies and inmates to a fight". Pt. also had been refusing medical treatment. Pt. was considered a risk due to his aggression and refusal of treatment for his psychosis. According to Psychologist report, pt. is found incompetent to stand trial and requires antipsychotic medication in order to return him to competency and is a danger to himself and to others if unmedicated. Assessment What has happened this shift: Pt was pacing back and forth down the hallway at the beginning of the shift. He came up to his nurse and made sure the nurse was aware of what time his medications were due. Pt took his medications with no problem. He c/o pain in his right ankle and was given Tylenol to help with his pain. He states he always has this pain and it will eventually go away. Pt was feeling a little anxious this evening and was given Atarax. Pt was also given Ambien to help him sleep. Pt did c/o heartburn after eating pizza this evening and was given some Maalox. S/I, H/I: Denies A/VH: Denies Sleep: Pt. slept well. ADL's: Independent Group attendance: N/A Were meds taken: Yes Any med S/E: None Mental Status Exam Appearance: Neat and appropriately dressed Eye contact: Good Behavior: Anxious, but cooperative and engaging with staff and peers. Pacing hallways at times. Mood: Agitated and anxious at times. Affect: Flat Thought process: Linear with some paranoia. Thought Content: Continued anxiety r/t upcoming court date Cognition: A&O X4 Insight: Fair Judgment: Fair Interventions PRN's used: Atarax, Ambien, Tylenol, Maalox Therapeutic interventions: Maintained a safe and therapeutic environment, ensured contract for safety, provided clear and simple instructions, encouraged interactions with others, monitored behavior and need for intervention, provided active listening and positive encouragement, monitored bruised area on left hand and obtained pictures, and maintained Q 15min safety checks. Restraints/seclusion/emergency medication: N/A Justification of Continued Inpatient Treatment: Pt. continues to be restored to competency so he can be returned to group home and stand trial.
[2020-02-23] MEDS: multivitamins, therapeutics tablet PO SCH (07:55)
[2020-02-23] MEDS: lithium carbonate 450mg CR tablet PO SCH (07:56)
[2020-02-23] MEDS: OMEGA-3/DHA/EPA/FISH OIL 1 EACH CAPSULE.DR PO SCH ×2 (07:56→20:21)
[2020-02-23] MEDS: vitamin E 400 unit capsule PO SCH (07:56)
[2020-02-23] MEDS: hydrOXYzine 25 MG tablet PO PRN ×2 (07:57→20:23)
[2020-02-23] MEDS: propranolol 10mg tablet PO SCH ×3 (07:57→20:21)
[2020-02-23] MEDS: benztropine 1mg tablet PO SCH ×2 (07:57→20:21)
[2020-02-23] MEDS: acetaminophen 325mg tablet PO PRN (07:58)
[2020-02-23] MEDS: vitamin D (cholecalciferol) 1,000 unit tablet PO SCH (07:58)
[2020-02-23] MEDS: vitamin B comp w/Vit. C tab 1 TAB TABLET PO SCH (07:58)
[2020-02-23] MEDS: ascorbic acid 500mg tablet PO SCH ×2 (07:58→17:32)
[2020-02-23 08:00] VITALS: BP 103/65
[2020-02-23] MEDS: lactose-reduced food (Ensure High Protein) 237ml bottle PO SCH ×3 (08:37→18:01)
[2020-02-23] MEDS: LORazepam 0.5 MG tablet PO PRN ×2 (10:42→23:14)
--- NOTE | 2020-02-23 17:55 | NUR ---
Nursing Progress Note: Legal hold: 1370 Client on involuntary status for 1370 Report received from nurse with use of SBAR: DAISY Prather Why are they here: Pt. admitted directly from the [facility] accompanied by state troopers. Pt. 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 Pt was demonstrating psychotic/paranoid behavior, trying to barricade himself into his friends house and "speaking in unknown languages" Pt. arrested in 2013 for cruelty to animals. During his incarceration, pt.'s behavior described as "constantly provocative", pt. "throwing water on people and dumping water under the doors of other inmates; and continually yelling through his cell door and challenging both deputies and inmates to a fight". Pt. also had been refusing medical treatment. Pt. was considered a risk due to his aggression and refusal of treatment for his psychosis. According to Psychologist report, pt. is found incompetent to stand trial and requires antipsychotic medication in order to return him to competency and is a danger to himself and to others if unmedicated. Assessment What has happened this shift: Pt. awake for medications and breakfast. Pt. requesting Atarax for anxiety and motrin for right ankle pain. Pt. received PRNs with good effect. Pt. reports he feels like his medications are finally adjusted right. Pt. ate all meals in his room. Pt. slept after medications in AM but awoke after an hour c/o panic attack. Pt. tearful, states it is the 2nd anniversary of his fathers . Pt. received Ativan 0.5mg with good effect. Pt. received legal paperwork regarding court case from his pediatric oncologist, pt. read through paper work and then mailed it to his mother. Pt. distraught, stating that he feels his case is unjust and talked at length about his innocence. Pt. states, I havent done anything wrong, these judges are just out to get me. Thats how they tried impeaching Trump and Young, going around the legal system. Im a kind man, Liset never harmed anyone. Liset been a perfect patient. Pt. also talked about fears of scientists being able to put thoughts into our minds. Pt. slept majority of afternoon. Upon awaking pt. reports he feels better and thanked RN for listening to him. S/I, H/I: Denies A/VH: Denies Sleep: Pt. napped for 3 hours on day shift. ADL's: Independent Group attendance: N/A Were meds taken: Yes Any med S/E: None Mental Status Exam Appearance: disheveled in street clothes and red eyes from crying. Eye contact: Good Behavior: Anxious, isolative, cooperative. Pacing hallways at times. Mood: Anxious and depressed. Tearful at times. Affect: Congruent with mood. Thought process: Linear with some paranoia. Thought Content: Continued anxiety r/t upcoming court date. Anger and perceived injustices done to him. Cognition: A&O X4 Insight: Fair Judgment: Fair Interventions PRN's used: Atarax, Ativan, Tylenol x1 Therapeutic interventions: Maintained a safe and therapeutic environment, ensured contract for safety, provided clear and simple instructions, encouraged interactions with others, monitored behavior and need for intervention, provided active listening and positive encouragement, monitored bruised area on left hand and obtained pictures, and maintained Q 15min safety checks. Restraints/seclusion/emergency medication: N/A Justification of Continued Inpatient Treatment: Pt. continues to be restored to competency so he can be returned to retirement and stand trial.
[2020-02-23 20:11] VITALS: BP 119/75
[2020-02-23] MEDS: CLONAZEPAM 0.25 MG oral disentigrating tablet (ODT) PO SCH (20:22)
[2020-02-23] MEDS: lithium carbonate 150mg capsule PO SCH (20:22)
[2020-02-23] MEDS: naproxen 500mg tablet PO SCH (20:22)
[2020-02-23] MEDS: zolpidem 5mg tablet PO PRN (21:17)
--- NOTE | 2020-02-24 01:48 | NUR ---
Nursing Progress Note: Legal hold: 1370 Client on involuntary status for 1370 Report received from nurse Yamilka RN with use of SBAR. Why are they here: Pt. admitted directly from the [facility] accompanied by state troopers. Pt. 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 Pt was demonstrating psychotic/paranoid behavior, trying to barricade himself into his friends house and "speaking in unknown languages" Pt. arrested in 2013 for cruelty to animals. During his incarceration, pt.'s behavior described as "constantly provocative", pt. "throwing water on people and dumping water under the doors of other inmates; and continually yelling through his cell door and challenging both deputies and inmates to a fight". Pt. also had been refusing medical treatment. Pt. was considered a risk due to his aggression and refusal of treatment for his psychosis. According to Psychologist report, pt. is found incompetent to stand trial and requires antipsychotic medication in order to return him to competency and is a danger to himself and to others if unmedicated. Assessment What has happened this shift: Patient was observed walking the halls at shift change. Patient was cooperative with care. Patient interacts appropriately with staff and peers. 1:1 was completed at bedside. Patient reports today was the 2 year anniversary of his father passing away. Pt. describes feeling sad because he was incarcerated at the time and unable to attend the service. The eulogy he wrote and mailed didnt make it on time to be read at the . Pt. began perseverating on the past and how other psychiatrists, have wrote bullshit and lies about his condition. They can write anything down and becomes part of my record. Patient talks about being a good patient. Patient voices concern about having to back to fdc and hopes to get time served. Patient takes medication then retires to bed. Patient wakes up later requesting PRN Ativan I think I may have had a nightmare. S/I, H/I: Pt. denies, none observed. A/VH: Patient denies, none observed. Sleep: Sleeping with no distress noted. Ambien 10 mg administered. See Sleep Assessment for total hours. 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 Were meds taken: Yes, taken with out issue. Any med S/E: None observed or reported. Mental Status Exam Appearance: Balding with hair on side and goatee. Wearing plaid pajama bottoms and black t-shirt. Eye contact: Good Behavior: A little anxious, cooperative, calm. Mood: Anxious and depressed. Tearful at times (2nd anniversary of fathers ) Affect: Congruent with mood. Thought process: Linear with some paranoia. Thought Content: Psychiatrists writing lies about him. Patient doesn't want to go back to fdc. Cognition: A&O X4 Insight: Fair Judgment: Fair Interventions PRN's used: Atarax, Ativan, Ambien. Therapeutic interventions: Maintained a safe and therapeutic environment, medication administration/monitoring/education, monitored behavior and need for intervention, provided active listening and positive encouragement, maintained Q 15min safety checks. Restraints/seclusion/emergency medication: N/A Justification of Continued Inpatient Treatment: Pt. continues to be restored to competency so he can be returned to fdc and stand trial.
[2020-02-24 08:00] VITALS: BP 99/62
[2020-02-24] MEDS: vitamin B comp w/Vit. C tab 1 TAB TABLET PO SCH (08:00)
[2020-02-24] MEDS: benztropine 1mg tablet PO SCH ×2 (08:00→20:39)
[2020-02-24] MEDS: multivitamins, therapeutics tablet PO SCH (08:00)
[2020-02-24] MEDS: ascorbic acid 500mg tablet PO SCH ×2 (08:00→17:45)
[2020-02-24] MEDS: propranolol 10mg tablet PO SCH ×3 (08:00→20:38)
[2020-02-24] MEDS: OMEGA-3/DHA/EPA/FISH OIL 1 EACH CAPSULE.DR PO SCH ×2 (08:00→20:38)
[2020-02-24] MEDS: lithium carbonate 450mg CR tablet PO SCH (08:00)
[2020-02-24] MEDS: vitamin D (cholecalciferol) 1,000 unit tablet PO SCH (08:00)
[2020-02-24] MEDS: vitamin E 400 unit capsule PO SCH (08:00)
[2020-02-24] MEDS: lactose-reduced food (Ensure High Protein) 237ml bottle PO SCH ×3 (08:00→17:45)
[2020-02-24] MEDS: naproxen 500mg tablet PO SCH ×2 (08:00→20:38)
[2020-02-24] MEDS: hydrOXYzine 25 MG tablet PO PRN ×2 (08:22→20:39)
[2020-02-24] MEDS: LORazepam 0.5 MG tablet PO PRN (12:27)
--- NOTE | 2020-02-24 14:26 | NUR ---
Nursing Progress Note: Legal hold: 1370 Client on involuntary status for 1370 Report received from RN with use of SBAR Why are they here: [facility] troopers. Pt. 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 Pt was demonstrating psychotic/paranoid behavior, trying to barricade himself into his friends house and "speaking in unknown languages" Pt. arrested in 2013 for cruelty to animals. During his incarceration, pt.'s behavior described as "constantly provocative", pt. "throwing water on people and dumping water under the doors of other inmates; and continually yelling through his cell door and challenging both deputies and inmates to a fight". Pt. also had been refusing medical treatment. Pt. was considered a risk due to his aggression and refusal of treatment for his psychosis. According to Psychologist report, pt. is found incompetent to stand trial and requires antipsychotic medication in order to return him to competency and is a danger to himself and to others if unmedicated. Assessment What has happened this shift: Received Pt in bed sleeping w/o distress at beginning of shift. Pt. woke for medications and breakfast and was cooperative and pleasant but anxious. Pt. took all medications and ate all meals in his room. Pt tolerated assessments well and engaged with this RN easily. 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 He escalates to a greater level and anxiety and received Atarax in AM and layed down. Pt C/O roomate shutting door and stated Im having a panic attack...I held it off for as long as i could He received Ativan PRN with good effect. He spent time walking the hallways and was later seen talking with his roommate in a calm manner. Pt remains anxious about having to go to court and face reality of his criminal charges and potential consequences. S/I, H/I: Denies A/VH: Denies Sleep: Pt. napped ADL's: Independent Group attendance: N/A Were meds taken: Yes Any med S/E: None Mental Status Exam Appearance: Neat, casual Eye contact: Good Behavior: Anxious, cooperative; engaging with staff; Pacing hallways at times. Mood: Anxious; depressed Affect: Flat Thought process: Linear with some paranoia. Thought Content: Continued anxiety r/t upcoming court date and some paranoid delusional thinking Cognition: A&O X4 Insight: Fair Judgment: Fair Interventions PRN's used: Atarax, Ativan Therapeutic interventions: Maintained a safe and therapeutic environment, ensured contract for safety, provided clear and simple instructions, encouraged interactions with others, monitored behavior and need for intervention, provided active listening and positive encouragement, monitored bruised area on left hand and obtained pictures, and maintained Q 15min safety checks. Restraints/seclusion/emergency medication: N/A Justification of Continued Inpatient Treatment: Pt. continues to be restored to competency so he can be returned to senior living and stand trial.
[2020-02-24 19:49] VITALS: BP 113/69
[2020-02-24] MEDS: CLONAZEPAM 0.25 MG oral disentigrating tablet (ODT) PO SCH (20:38)
[2020-02-24] MEDS: lithium carbonate 150mg capsule PO SCH (20:39)
[2020-02-24] MEDS: zolpidem 5mg tablet PO PRN (21:28)
--- NOTE | 2020-02-25 03:00 | NUR ---
Nursing Progress Note: Legal hold: 1370 Client on involuntary status for 1370 Report received from nurse Anna RN with use of SBAR. Why are they here: Pt. admitted directly from the [facility] accompanied by state troopers. Pt. 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 Pt was demonstrating psychotic/paranoid behavior, trying to barricade himself into his friends house and "speaking in unknown languages" Pt. arrested in 2013 for cruelty to animals. During his incarceration, pt.'s behavior described as "constantly provocative", pt. "throwing water on people and dumping water under the doors of other inmates; and continually yelling through his cell door and challenging both deputies and inmates to a fight". Pt. also had been refusing medical treatment. Pt. was considered a risk due to his aggression and refusal of treatment for his psychosis. According to Psychologist report, pt. is found incompetent to stand trial and requires antipsychotic medication in order to return him to competency and is a danger to himself and to others if unmedicated. Assessment What has happened this shift: Patient sitting in T.V room at shift change, interacting appropriately with peers. Patient is calm and cooperative. Patient later is observed walking solomon with peers. Patient states he is feeling better then yesterday in regards to his father's . Patient reports having a better day, but dealing with "stressors." Patient c/o of not liking his roommate, "he is just too much, but I am handling it." This rewriter endorsed positive reenforcement in regards to daily stressors and being able to use coping skills to handle them. Invega Enedina scheduled for 02/26/20. S/I, H/I: Pt. denies, none observed. A/VH: Patient denies, none observed. Sleep: Sleeping with no distress noted. Ambien 10 mg administered. See Sleep Assessment for total hours. ADL's: Independent Group attendance: shift leader, no group. Were meds taken: Yes, taken with out issue. Any med S/E: None observed or reported. Mental Status Exam Appearance: Balding with hair on side and goatee. Wearing plaid pajama bottoms and black t-shirt. Eye contact: Good Behavior: A little anxious, cooperative, calm. Mood: Euthymic Affect: Constricted Thought process: Circumstantial with some paranoia. Thought Content: Issues with his roommate. Cognition: A&O X4 Insight: Fair, improving. Judgment: Fair Interventions PRN's used: TiffaniexOpal. Therapeutic interventions: Maintained a safe and therapeutic environment, medication administration/monitoring/education, monitored behavior and need for intervention, provided active listening and positive encouragement, maintained Q 15min safety checks. Restraints/seclusion/emergency medication: N/A Justification of Continued Inpatient Treatment: Pt. continues to be restored to competency so he can be returned to senior living and stand trial.
[2020-02-25 07:12] VITALS: BP 98/59
[2020-02-25] MEDS: hydrOXYzine 25 MG tablet PO PRN ×2 (07:59→20:20)
[2020-02-25] MEDS: benztropine 1mg tablet PO SCH ×2 (08:00→20:19)
[2020-02-25] MEDS: vitamin E 400 unit capsule PO SCH (08:00)
[2020-02-25] MEDS: lithium carbonate 450mg CR tablet PO SCH (08:00)
[2020-02-25] MEDS: naproxen 500mg tablet PO SCH ×2 (08:00→20:19)
[2020-02-25] MEDS: vitamin B comp w/Vit. C tab 1 TAB TABLET PO SCH (08:00)
[2020-02-25] MEDS: propranolol 10mg tablet PO SCH ×3 (08:00→20:20)
[2020-02-25] MEDS: vitamin D (cholecalciferol) 1,000 unit tablet PO SCH (08:00)
[2020-02-25] MEDS: OMEGA-3/DHA/EPA/FISH OIL 1 EACH CAPSULE.DR PO SCH ×2 (08:00→20:19)
[2020-02-25] MEDS: lactose-reduced food (Ensure High Protein) 237ml bottle PO SCH ×3 (08:00→18:00)
[2020-02-25] MEDS: multivitamins, therapeutics tablet PO SCH (08:00)
[2020-02-25] MEDS: ascorbic acid 500mg tablet PO SCH ×2 (08:30→17:25)
[2020-02-25] MEDS: LORazepam 0.5 MG tablet PO PRN ×2 (10:14→13:38)
--- NOTE | 2020-02-25 17:00 | NUR ---
Nursing Progress Note: Legal hold: 1370 Client on involuntary status for 1370 Report received from nurse Night RN with use of SBAR. Why are they here: Pt. admitted directly from the [facility] accompanied by state troopers. Pt. 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 Pt was demonstrating psychotic/paranoid behavior, trying to barricade himself into his friends house and "speaking in unknown languages" Pt. arrested in 2013 for cruelty to animals. During his incarceration, pt.'s behavior described as "constantly provocative", pt. "throwing water on people and dumping water under the doors of other inmates; and continually yelling through his cell door and challenging both deputies and inmates to a fight". Pt. also had been refusing medical treatment. Pt. was considered a risk due to his aggression and refusal of treatment for his psychosis. According to Psychologist report, pt. is found incompetent to stand trial and requires antipsychotic medication in order to return him to competency and is a danger to himself and to others if unmedicated. Assessment What has happened this shift: Pt has been anxious about upcoming court date and the possibility of returning to [facility]. Woke up from am nap with feeling of constriction of his airway and chest. Ativan given and conversation with PA regarding his experience. Repeated ativan. Delusions of grandeur and exaggerated abuse from law enforcement with failure to take personal responsibility. S/I, H/I: Pt. denies, none observed. A/VH: Patient denies, none observed. 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 Were meds taken: Yes, taken with out issue. Any med S/E: None observed or reported. Mental Status Exam Appearance: Balding with hair on side and goatee. Wearing plaid pajama bottoms and black t-shirt. Eye contact: Good Behavior: A little anxious, cooperative, calm. Mood: Euthymic Affect: Constricted Thought process: Circumstantial with some paranoia. Thought Content: Issues with his roommate. Cognition: A&O X4 Insight: Fair, improving. Judgment: Fair Interventions PRN's used: Ativan x2 Therapeutic interventions: Maintained a safe and therapeutic environment, medication administration/monitoring/education, monitored behavior and need for intervention, provided active listening and positive encouragement, maintained Q 15min safety checks. Restraints/seclusion/emergency medication: N/A Justification of Continued Inpatient Treatment: Pt. continues to be restored to competency so he can be returned to [facility] and stand trial.
[2020-02-25 19:45] VITALS: BP 115/70
[2020-02-25] MEDS: lithium carbonate 150mg capsule PO SCH (20:20)
[2020-02-25] MEDS: CLONAZEPAM 0.25 MG oral disentigrating tablet (ODT) PO SCH (20:21)
[2020-02-25] MEDS: zolpidem 5mg tablet PO PRN (21:54)
--- NOTE | 2020-02-26 01:17 | NUR ---
Nursing Progress Note: Legal hold: 1370 Client on involuntary status for 1370 Report received from DAISY Castillo with use of SBAR. Why are they here: Pt. admitted directly from the [facility] accompanied by state troopers. Pt. 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 Pt was demonstrating psychotic/paranoid behavior, trying to barricade himself into his friends house and "speaking in unknown languages" Pt. arrested in 2013 for cruelty to animals. During his incarceration, pt.'s behavior described as "constantly provocative", pt. "throwing water on people and dumping water under the doors of other inmates; and continually yelling through his cell door and challenging both deputies and inmates to a fight". Pt. also had been refusing medical treatment. Pt. was considered a risk due to his aggression and refusal of treatment for his psychosis. According to Psychologist report, pt. is found incompetent to stand trial and requires antipsychotic medication in order to return him to competency and is a danger to himself and to others if unmedicated. Assessment What has happened this shift: Patient was observed walking the solomon with his roommate, engaging in conversation. Patient states "I didn't have a good day, I am just feeling uptight." Patient states a patient on unit was making accusatory statements. Patient requested his PRN Atarax with his nighttime medications. Patient remains calm and interacts appropriately with staff peers. Patient voiced his concern regarding his upcoming court hearing "I don't want to go back to care home." Patient expressed frustration regarding the patient who was accusatory earlier in day "she needs to mind her own business." This junior technical writer endorsed positive reenforcement in regards to having daily stressors and being able to use coping skills to handle them. Patient is seen pacing the halls, requests his Ambien then retires to bed. Invega Sustenna scheduled for tomorrow. Patient's Benld was increased to 600 mg. Last Benld level 0.7 on 02/08/20. S/I, H/I: Pt. denies, none observed. A/VH: Patient denies, none observed. Sleep: Sleeping with no distress noted. Ambien 10 mg administered. See Sleep Assessment for total hours. ADL's: Independent Group attendance: shift coordinator, no group. Were meds taken: Yes, taken with out issue. Any med S/E: None observed or reported. Mental Status Exam Appearance: Disheveled, unshaven. Wearing plaid pajama bottoms and black t-shirt. Eye contact: Good Behavior: A little anxious, cooperative Mood: Euthymic Affect: Constricted Thought process: Circumstantial with some paranoia. Thought Content: Issues with his roommate. Cognition: A&O X4 Insight: Fair, improving. Judgment: Fair Interventions PRN's used: Atarax, Ambien. Therapeutic interventions: Maintained a safe and therapeutic environment, medication administration/monitoring/education, monitored behavior and need for intervention, provided active listening and positive encouragement, maintained Q 15min safety checks. Restraints/seclusion/emergency medication: N/A Justification of Continued Inpatient Treatment: Patient is here to be restored to competency so that he can stand trial. Dr. Harrell composed a letter recommending patient remain on the unit while awaiting trial as being returned to care home will quickly cause decompensation.
[2020-02-26 07:37] VITALS: BP 100/65
[2020-02-26] MEDS: vitamin E 400 unit capsule PO SCH (07:55)
[2020-02-26] MEDS: vitamin D (cholecalciferol) 1,000 unit tablet PO SCH (07:55)
[2020-02-26] MEDS: ascorbic acid 500mg tablet PO SCH ×2 (07:55→17:38)
[2020-02-26] MEDS: OMEGA-3/DHA/EPA/FISH OIL 1 EACH CAPSULE.DR PO SCH ×2 (07:55→20:10)
[2020-02-26] MEDS: naproxen 500mg tablet PO SCH ×2 (07:55→20:10)
[2020-02-26] MEDS: benztropine 1mg tablet PO SCH ×2 (07:55→20:10)
[2020-02-26] MEDS: vitamin B comp w/Vit. C tab 1 TAB TABLET PO SCH (07:55)
[2020-02-26] MEDS: paliperidone palmitate inj 234 MG/1.5 ML SYRINGE IM ONE ×2 (07:55→09:03)
[2020-02-26] MEDS: propranolol 10mg tablet PO SCH ×4 (07:56→20:11)
[2020-02-26] MEDS: lithium carbonate 450mg CR tablet PO SCH (07:56)
[2020-02-26] MEDS: multivitamins, therapeutics tablet PO SCH (07:56)
[2020-02-26] MEDS: hydrOXYzine 25 MG tablet PO PRN ×2 (08:43→20:12)
[2020-02-26] MEDS: lactose-reduced food (Ensure High Protein) 237ml bottle PO SCH ×3 (08:49→17:55)
[2020-02-26 13:11] VITALS: BP 86/40
[2020-02-26] MEDS: LORazepam 0.5 MG tablet PO PRN (13:34)
[2020-02-26 14:43] VITALS: BP 124/74
--- NOTE | 2020-02-26 16:12 | NUR ---
Nursing Progress Note: Legal hold: 1370 Client on involuntary status for 1370 Report received from nurse Lakia RN with use of SBAR. Why are they here: Pt. admitted directly from the [facility] accompanied by state troopers. Pt. 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 Pt was demonstrating psychotic/paranoid behavior, trying to barricade himself into his friends house and "speaking in unknown languages" Pt. arrested in 2013 for cruelty to animals. During his incarceration, pt.'s behavior described as "constantly provocative", pt. "throwing water on people and dumping water under the doors of other inmates; and continually yelling through his cell door and challenging both deputies and inmates to a fight". Pt. also had been refusing medical treatment. Pt. was considered a risk due to his aggression and refusal of treatment for his psychosis. According to Psychologist report, pt. is found incompetent to stand trial and requires antipsychotic medication in order to return him to competency and is a danger to himself and to others if unmedicated. Assessment What has happened this shift: Received monthly antipsychotic shot into right ventrogluteal and expressed considerable appreciation for DAISY Montes's gentleness when administering then took a nap. Patient states he has nothing he'd like to discuss at this time. Patient states feeling anxious in the morning then once again in the afternoon following his nap and received PRN's both times . Patient shared in afternoon and went for an extended walk around the unit with another patient. S/I, H/I: Pt. denies, none observed. A/VH: Patient denies, none observed. Sleep: Naping at times. ADL's: Independent Group attendance: No group secondary to COVID. Were meds taken: Yes, taken with out issue. Any med S/E: None observed or reported. Mental Status Exam Appearance: Balding with hair on side and goatee. Red eyes. Eye contact: Good Behavior: A little anxious, cooperative, calm affect, paces hallways. Mood: Pleasant. Affect: Flat/calm. Thought process: Linear at this time. Thought Content: Concerns about anxiety and receiving available PRN's. Cognition: A&O X4 Insight: Fair, receives ordered medication. Judgment: Fair, obeys rules, showers, acts calmly, no discussion of delusions and recalls earlier events during the day accurately. Interventions PRN's used: Atarax x1. Ativan x1. Therapeutic interventions: Maintained a safe and therapeutic environment, medication administration/monitoring/education, monitored behavior and need for intervention, provided active listening and positive encouragement, maintained Q 15min safety checks. Restraints/seclusion/emergency medication: N/A Justification of Continued Inpatient Treatment: Pt. continues to be restored to competency so he can be returned to prison and stand trial. Addendum: 02/26/20 at 1735 by Kimmy Jara RN Patient became more talkative towards 1700. Began discussing how he was illegally imprisoned at the hospital, and how he "Exposed a money laundering ring though a local gym,". Talking was very tangental and went on at length. Stated he went into the [employer] immediately out of high school, how his arrest was unjust as he was "just staying at a friends house, " and how the doctors at [facility] didn't believe that he was consuming poisoned water and that they only wanted to do tests on him to raise the hospital bill.
[2020-02-26 19:44] VITALS: BP 129/75
[2020-02-26] MEDS: CLONAZEPAM 0.25 MG oral disentigrating tablet (ODT) PO SCH (20:10)
[2020-02-26] MEDS: lithium carbonate 150mg capsule PO SCH (20:12)
[2020-02-26] MEDS: zolpidem 5mg tablet PO PRN (21:06)
--- NOTE | 2020-02-26 22:40 | NUR ---
Nursing Progress Note: Legal hold: 1370 Client on involuntary status for 1370 Report received from Anna VILLA with use of SBAR. Why are they here: Pt. admitted directly from the [facility] accompanied by state troopers. Pt. 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 Pt was demonstrating psychotic/paranoid behavior, trying to barricade himself into his friends house and "speaking in unknown languages" Pt. arrested in 2013 for cruelty to animals. During his incarceration, pt.'s behavior described as "constantly provocative", pt. "throwing water on people and dumping water under the doors of other inmates; and continually yelling through his cell door and challenging both deputies and inmates to a fight". Pt. also had been refusing medical treatment. Pt. was considered a risk due to his aggression and refusal of treatment for his psychosis. According to Psychologist report, pt. is found incompetent to stand trial and requires antipsychotic medication in order to return him to competency and is a danger to himself and to others if unmedicated. Assessment What has happened this shift: Pt up walking on unit at start of shift. He continued to express appreciation for Jyoti's s skill in administering injection says it is not sore. Pt says he is hopeful about upcoming court date because JUNI Taylor told him the magisterial district judge almost always takes the DrPatricia's recommendation. Pt socialized with other pts and staff, pleasant and cooperative with care took all meds. S/I, H/I: Pt. denies, none observed. A/VH: Patient denies, none observed. Sleep: Naping at times. ADL's: Independent Group attendance: No group secondary to COVID. Were meds taken: Yes, taken with out issue. Any med S/E: None observed or reported. Mental Status Exam Appearance: Well groomed Eye contact: Good Behavior: A little anxious, cooperative, calm affect, paces hallways. Mood: Pleasant. Affect: Flat/calm. Thought process: Linear at this time. Thought Content: Court date Cognition: A&O X4 Insight: Fair, receives ordered medication. Judgment: Fair, Interventions PRN's used: Atarax x1. Ambien x1. Therapeutic interventions: Maintained a safe and therapeutic environment, medication administration/monitoring/education, monitored behavior and need for intervention, provided active listening and positive encouragement, maintained Q 15min safety checks. Restraints/seclusion/emergency medication: N/A Justification of Continued Inpatient Treatment: Pt. continues to be restored to competency so he can be returned to [facility] and stand trial.
[2020-02-27 07:34] VITALS: BP 104/66
[2020-02-27] MEDS: OMEGA-3/DHA/EPA/FISH OIL 1 EACH CAPSULE.DR PO SCH ×2 (08:23→20:16)
[2020-02-27] MEDS: vitamin D (cholecalciferol) 1,000 unit tablet PO SCH (08:23)
[2020-02-27] MEDS: lithium carbonate 450mg CR tablet PO SCH (08:23)
[2020-02-27] MEDS: multivitamins, therapeutics tablet PO SCH (08:23)
[2020-02-27] MEDS: benztropine 1mg tablet PO SCH ×2 (08:23→20:17)
[2020-02-27] MEDS: vitamin B comp w/Vit. C tab 1 TAB TABLET PO SCH (08:23)
[2020-02-27] MEDS: propranolol 10mg tablet PO SCH ×3 (08:23→20:16)
[2020-02-27] MEDS: vitamin E 400 unit capsule PO SCH (08:23)
[2020-02-27] MEDS: ascorbic acid 500mg tablet PO SCH ×2 (08:23→17:24)
[2020-02-27] MEDS: lactose-reduced food (Ensure High Protein) 237ml bottle PO SCH ×3 (08:24→17:24)
[2020-02-27] MEDS: naproxen 500mg tablet PO SCH ×2 (08:24→20:17)
[2020-02-27] MEDS: hydrOXYzine 25 MG tablet PO PRN ×2 (08:29→20:16)
[2020-02-27] MEDS: LORazepam 0.5 MG tablet PO PRN (10:18)
--- NOTE | 2020-02-27 12:12 | NUR ---
NURSING PROGRESS NOTE Legal hold: 1370 Client on involuntary status for 1370 Report received from ERIC Chavez with use of SBAR. Why are they here: Pt. admitted directly from the [facility] accompanied by state troopers. Pt. 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 Pt was demonstrating psychotic/paranoid behavior, trying to barricade himself into his friends house and "speaking in unknown languages" Pt. arrested in 2013 for cruelty to animals. During his incarceration, pt.'s behavior described as "constantly provocative", pt. "throwing water on people and dumping water under the doors of other inmates; and continually yelling through his cell door and challenging both deputies and inmates to a fight". Pt. also had been refusing medical treatment. Pt. was considered a risk due to his aggression and refusal of treatment for his psychosis. According to Psychologist report, pt. is found incompetent to stand trial and requires antipsychotic medication in order to return him to competency and is a danger to himself and to others if unmedicated. Assessment What has happened this shift: Asleep at change of shift. Awake for breakfast. Took morning medications, then asks for Atarax, "I get it every morning", although he did not appear anxious. Atarax was given, he went back to sleep. Mid-morning the group was getting ready to go out on patio, he came to nurse looking sleepy and stated he "just woke up and felt anxious", putting his hand on his throat and asked for an Ativan. It was suggested he try going out on the patio for some fresh air before trying the Ativan, which he refused to do. He was given Ativan, then he asked for an escort to the patio to join the others after they had already left. Some pacing in hallway and took naps throughout the day. Stated he finished the court paperwork and had a mock trial which he felt "went good." S/I, H/I: Denies A/VH: Denies Sleep: Naps ADL's: Independent Group attendance: patio Were meds taken: Yes Any med S/E: None Mental Status Exam Appearance: Disheveled, unshaven. Eye contact: fair Behavior: Cooperative Mood: Euthymic Affect: Calm Thought process: Circumstantial Thought Content: medications, court proceedings Cognition: Alert Insight: Fair Judgment: Fair Interventions PRN's used: Atarax, Ativan Therapeutic interventions: Maintained a safe and therapeutic environment, medication administration/monitoring/education, monitored behavior and need for intervention, provided active listening and positive encouragement, maintained Q 15min safety checks. Restraints/seclusion/emergency medication: N/A Justification of Continued Inpatient Treatment: Patient is here to be restored to competency so that he can stand trial. Dr. Harrell composed a letter recommending patient remain on the BH unit while awaiting trial as being returned to senior care will quickly cause decompensation.
[2020-02-27 20:00] VITALS: BP 144/78
[2020-02-27] MEDS: lithium carbonate 150mg capsule PO SCH (20:16)
[2020-02-27] MEDS: CLONAZEPAM 0.25 MG oral disentigrating tablet (ODT) PO SCH (20:17)
[2020-02-27] MEDS: zolpidem 5mg tablet PO PRN (21:23)
--- NOTE | 2020-02-28 01:24 | NUR ---
Nursing Progress Note: Legal hold: 1370 Client on involuntary status for 1370 Report received from Anna VILLA with use of SBAR. Why are they here: Pt. admitted directly from the [facility] accompanied by state troopers. Pt. 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 Pt was demonstrating psychotic/paranoid behavior, trying to barricade himself into his friends house and "speaking in unknown languages" Pt. arrested in 2013 for cruelty to animals. During his incarceration, pt.'s behavior described as "constantly provocative", pt. "throwing water on people and dumping water under the doors of other inmates; and continually yelling through his cell door and challenging both deputies and inmates to a fight". Pt. also had been refusing medical treatment. Pt. was considered a risk due to his aggression and refusal of treatment for his psychosis. According to Psychologist report, pt. is found incompetent to stand trial and requires antipsychotic medication in order to return him to competency and is a danger to himself and to others if unmedicated. Assessment What has happened this shift: Pt up walking on unit at start of shift. He paced the solomon frequently till he went to bed. Pt socialized with other pts and staff, pleasant and cooperative with care took all meds. Pt did not verbalize any concerns about his upcoming court date which he usually does. He made Pleasant small talk Said his mood is "good" S/I, H/I: Pt. denies, A/VH: Patient denies, none observed. Sleep: Naping at times. ADL's: Independent Group attendance: No group secondary to COVID. Were meds taken: Yes, taken with out issue. Any med S/E: None observed or reported. Mental Status Exam Appearance: Well groomed Eye contact: Good Behavior: A little anxious, cooperative, calm affect, paces hallways. Mood: Pleasant. Affect: Flat/calm. Thought process: Linear at this time. Thought Content: varies Cognition: A&O X4 Insight: Fair, receives ordered medication. Judgment: Fair, Interventions PRN's used: Atarax x1. Ambien x1. Therapeutic interventions: Maintained a safe and therapeutic environment, medication administration/monitoring/education, monitored behavior and need for intervention, provided active listening and positive encouragement, maintained Q 15min safety checks. Restraints/seclusion/emergency medication: N/A Justification of Continued Inpatient Treatment: Pt. continues to be restored to competency so he can be returned to halfway and stand trial.
[2020-02-28 07:55] VITALS: BP 106/65
[2020-02-28] MEDS: naproxen 500mg tablet PO SCH ×3 (08:00→20:15)
[2020-02-28] MEDS: vitamin B comp w/Vit. C tab 1 TAB TABLET PO SCH (08:00)
[2020-02-28] MEDS: multivitamins, therapeutics tablet PO SCH (08:00)
[2020-02-28] MEDS: vitamin D (cholecalciferol) 1,000 unit tablet PO SCH (08:01)
[2020-02-28] MEDS: hydrOXYzine 25 MG tablet PO PRN ×2 (08:01→20:19)
[2020-02-28] MEDS: benztropine 1mg tablet PO SCH ×2 (08:01→20:17)
[2020-02-28] MEDS: propranolol 10mg tablet PO SCH ×3 (08:01→20:15)
[2020-02-28] MEDS: lithium carbonate 450mg CR tablet PO SCH (08:02)
[2020-02-28] MEDS: ascorbic acid 500mg tablet PO SCH ×2 (08:02→17:40)
[2020-02-28] MEDS: OMEGA-3/DHA/EPA/FISH OIL 1 EACH CAPSULE.DR PO SCH ×2 (08:02→20:15)
[2020-02-28] MEDS: vitamin E 400 unit capsule PO SCH (08:03)
[2020-02-28] MEDS: lactose-reduced food (Ensure High Protein) 237ml bottle PO SCH ×3 (08:03→17:40)
[2020-02-28] MEDS: LORazepam 0.5 MG tablet PO PRN (10:01)
--- NOTE | 2020-02-28 10:27 | NUR ---
NURSING PROGRESS NOTE Legal hold: 1370 Client on involuntary status for 1370 Report received from DAISY Prather with use of SBAR. Why are they here: Pt. admitted directly from the [facility] accompanied by state troopers. Pt. 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 Pt was demonstrating psychotic/paranoid behavior, trying to barricade himself into his friends house and "speaking in unknown languages" Pt. arrested in 2013 for cruelty to animals. During his incarceration, pt.'s behavior described as "constantly provocative", pt. "throwing water on people and dumping water under the doors of other inmates; and continually yelling through his cell door and challenging both deputies and inmates to a fight". Pt. also had been refusing medical treatment. Pt. was considered a risk due to his aggression and refusal of treatment for his psychosis. According to Psychologist report, pt. is found incompetent to stand trial and requires antipsychotic medication in order to return him to competency and is a danger to himself and to others if unmedicated. Assessment What has happened this shift: Asleep at change of shift. Awake for breakfast. Took morning medications, including prn Atarax. Later in morning stated the same as yesterday, became "awake and felt panicky", asked for Ativan. Did not appear to be anxious. It was suggested he try a coping skill, but he insisted he needed the Ativan. Went back to bed. Ativan was given, he went back to sleep. No other changes. S/I, H/I: Denies A/VH: Denies Sleep: Naps ADL's: Independent Group attendance: N/A Were meds taken: Yes Any med S/E: None Mental Status Exam Appearance: Disheveled Eye contact: fair Behavior: Cooperative Mood: Euthymic Affect: Calm Thought process: Circumstantial Thought Content: medications, court proceedings Cognition: Alert Insight: poor Judgment: Fair Interventions PRN's used: Atarax, Ativan Therapeutic interventions: Maintained a safe and therapeutic environment, medication administration/monitoring/education, monitored behavior and need for intervention, provided active listening and positive encouragement, maintained Q 15min safety checks. Restraints/seclusion/emergency medication: N/A Justification of Continued Inpatient Treatment: Patient is here to be restored to competency so that he can stand trial. Dr. Harrell composed a letter recommending patient remain on the BH unit while awaiting trial as being returned to retirement will quickly cause decompensation.
--- NOTE | 2020-02-28 12:49 | NUR ---
Reassessment: Pt PO 100% ensure high protein TIDWM And regular diet meeting needs. LBM 02/27. No nutrition concerns at this time. Will continue to monitor. Recommend: 1. continue regular diet 2. Ensure High Protein TID per order 3. bowel care as needed 4. wt per rx Addendum: 02/28/20 at [address] Amended: Links added.
--- NOTE | 2020-02-28 15:16 | NUR ---
PHONE CALL W/ambulatory technologist Wilson (ph# [phone]) called to inquire about how Hayden is doing. She reported if he is released after court he will need to report to [facility]. She reported Hayden told her he would like to live with his mother, however, Ahs Richardson did not know if that is a viable option or not. Ash Richardson expressed that Hayden continues to make delusional statements when he talks to her on the phone. She reported typically the parolee would need to find their own way back to their [facility] if released. She reported she will find out if transportation can be arranged for him and will call junior technical writer back. ELLI Burciaga
[2020-02-28] MEDS: mag hydrox/Alum hydrox/simeth 30ml oral suspension PO PRN (19:56)
[2020-02-28 20:00] VITALS: BP 138/67
[2020-02-28] MEDS: lithium carbonate 150mg capsule PO SCH (20:16)
[2020-02-28] MEDS: CLONAZEPAM 0.25 MG oral disentigrating tablet (ODT) PO SCH (20:16)
[2020-02-28] MEDS: zolpidem 5mg tablet PO PRN (21:22)
--- NOTE | 2020-02-28 21:39 | NUR ---
NURSING PROGRESS NOTE Legal hold: 1370 Client on involuntary status for 1370 Report received from DAISY Barcenas with use of SBAR. Why are they here: Pt. admitted directly from the [facility] accompanied by state troopers. Pt. 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 Pt was demonstrating psychotic/paranoid behavior, trying to barricade himself into his friends house and "speaking in unknown languages" Pt. arrested in 2013 for cruelty to animals. During his incarceration, pt.'s behavior described as "constantly provocative", pt. "throwing water on people and dumping water under the doors of other inmates; and continually yelling through his cell door and challenging both deputies and inmates to a fight". Pt. also had been refusing medical treatment. Pt. was considered a risk due to his aggression and refusal of treatment for his psychosis. According to Psychologist report, pt. is found incompetent to stand trial and requires antipsychotic medication in order to return him to competency and is a danger to himself and to others if unmedicated. Assessment What has happened this shift: Pt was walking in the hallway at change of shift. States he is feeling more anxious today due to law enforcement bringing in a patient yesterday and seeing LE here is a reminder about how he was treated in fdc. Pt states he is ready to get on with his life and looks forward to getting back to work. 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 He reports eating too much today and requested PRN Maalox for indigestion. Pt was anxious before going to bed due to noise of other patients and he chose to pace the hallway to calm down after taking prn atarax. S/I, H/I: Denies A/VH: Denies Sleep: Naps ADL's: Independent Group attendance: N/A Were meds taken: Yes Any med S/E: None Mental Status Exam Appearance: Adequately groomed and dressed Eye contact: fair Behavior: Cooperative Mood: Anxious, frustrated Affect: blunted Thought process: Circumstantial Thought Content: outcome of court proceedings, future oriented, looking forward to getting on with his life Cognition: Alert Insight: fair Judgment: Fair Interventions PRN's used: Atarax Maalox Therapeutic interventions: Maintained a safe and therapeutic environment, medication administration/monitoring/education, monitored behavior and need for intervention, provided active listening and positive encouragement, maintained Q 15min safety checks. Restraints/seclusion/emergency medication: N/A Justification of Continued Inpatient Treatment: Patient is here to be restored to competency so that he can stand trial. Dr. Harrell composed a letter recommending patient remain on the BH unit while awaiting trial as being returned to fdc will quickly cause decompensation.
[2020-02-29 08:00] VITALS: BP 107/65
[2020-02-29] MEDS: propranolol 10mg tablet PO SCH ×3 (08:06→20:25)
[2020-02-29] MEDS: lithium carbonate 450mg CR tablet PO SCH (08:06)
[2020-02-29] MEDS: OMEGA-3/DHA/EPA/FISH OIL 1 EACH CAPSULE.DR PO SCH ×2 (08:06→20:27)
[2020-02-29] MEDS: benztropine 1mg tablet PO SCH ×2 (08:06→20:26)
[2020-02-29] MEDS: ascorbic acid 500mg tablet PO SCH ×2 (08:07→17:39)
[2020-02-29] MEDS: hydrOXYzine 25 MG tablet PO PRN ×2 (08:07→20:27)
[2020-02-29] MEDS: vitamin E 400 unit capsule PO SCH (08:07)
[2020-02-29] MEDS: vitamin B comp w/Vit. C tab 1 TAB TABLET PO SCH (08:07)
[2020-02-29] MEDS: vitamin D (cholecalciferol) 1,000 unit tablet PO SCH (08:07)
[2020-02-29] MEDS: multivitamins, therapeutics tablet PO SCH (08:07)
[2020-02-29] MEDS: naproxen 500mg tablet PO SCH ×2 (08:10→20:27)
[2020-02-29] MEDS: lactose-reduced food (Ensure High Protein) 237ml bottle PO SCH ×3 (08:10→17:53)
[2020-02-29] MEDS: LORazepam 0.5 MG tablet PO PRN (11:04)
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
[2020-02-29 20:00] VITALS: BP 128/68
[2020-02-29] MEDS: lithium carbonate 150mg capsule PO SCH (20:26)
[2020-02-29] MEDS: CLONAZEPAM 0.25 MG oral disentigrating tablet (ODT) PO SCH (20:27)
[2020-02-29] MEDS: zolpidem 5mg tablet PO PRN (21:28)
--- NOTE | 2020-03-01 01:02 | NUR ---
NURSING PROGRESS NOTE Legal hold: 1370 Client on involuntary status for 1370 Report received from Narinder with use of SBAR Why are they here: Pt. admitted directly from the [facility] accompanied by state troopers. Pt. 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 Pt was demonstrating psychotic/paranoid behavior, trying to barricade himself into his friends house and "speaking in unknown languages". Pt. arrested in 2013 for cruelty to animals. During his incarceration, pt.'s behavior described as "constantly provocative", pt. "throwing water on people and dumping water under the doors of other inmates; and continually yelling through his cell door and challenging both deputies and inmates to a fight". Pt. also had been refusing medical treatment. Pt. was considered a risk due to his aggression and refusal of treatment for his psychosis. According to Psychologist report, pt. is found incompetent to stand trial and requires antipsychotic medication in order to return him to competency and is a danger to himself and to others if unmedicated. Assessment What has happened this shift: Pt is visible on the unit, he is upbeat this evening. He watches TV with peers in the rec room and is observed laughing and talking with them. He tells abstract writer that he is very happy because he got a call today with good news regarding his charges. He is still perseverating on wrongful doing of police and mistreatment he reports he went through in [facility], but says he is very excited and thankful about the call he received. Pt is cooperative with 1:1 assessment and medication compliant. He requests atarax with his 2000 medications which is given to him. Pt requests PRN ambien about an hour later which was given to him. S/I, H/I: Denies A/VH: Denies Sleep: none ADL's: Independent Group attendance: No Were meds taken: Yes Any med S/E: None noted. Mental Status Exam Appearance: Clean and groomed Eye contact: direct Behavior: Calm and cooperative. Speech: Clear Mood: Depressed with some brightening Affect: blunted Thought process: Linear. Thought Content: Focused on the call he received Cognition: Alert Insight: Poor Judgment: good Interventions PRN's used: nicolás harris Therapeutic interventions: Established rapport, maintained a safe and therapeutic environment, ensured contract for safety, provided clear and simple instructions, attempted to reorient to reality as needed, monitored behavior and need for intervention, provided positive encouragement, and maintained Q 15min safety checks. Restraints/seclusion/emergency medication: N/A Justification of Continued Inpatient Treatment: Pt. Remains delusional in relation to his mental health diagnosis and criminal charges. Will need to remain under treatment until competency can be determined.
[2020-03-01] MEDS: LORazepam 0.5 MG tablet PO PRN ×2 (06:39→22:35)
[2020-03-01] MEDS: naproxen 500mg tablet PO SCH ×2 (08:00→20:01)
[2020-03-01] MEDS: benztropine 1mg tablet PO SCH ×2 (08:29→20:01)
[2020-03-01] MEDS: lithium carbonate 450mg CR tablet PO SCH (08:29)
[2020-03-01] MEDS: lactose-reduced food (Ensure High Protein) 237ml bottle PO SCH ×3 (08:29→17:52)
[2020-03-01] MEDS: OMEGA-3/DHA/EPA/FISH OIL 1 EACH CAPSULE.DR PO SCH ×2 (08:29→20:00)
[2020-03-01] MEDS: propranolol 10mg tablet PO SCH ×2 (08:30→20:01)
[2020-03-01] MEDS: multivitamins, therapeutics tablet PO SCH (08:30)
[2020-03-01] MEDS: vitamin D (cholecalciferol) 1,000 unit tablet PO SCH (08:30)
[2020-03-01] MEDS: ascorbic acid 500mg tablet PO SCH ×2 (08:30→17:52)
[2020-03-01] MEDS: vitamin E 400 unit capsule PO SCH (08:30)
[2020-03-01] MEDS: vitamin B comp w/Vit. C tab 1 TAB TABLET PO SCH (08:30)
[2020-03-01] MEDS: hydrOXYzine 25 MG tablet PO PRN ×2 (08:31→20:01)
[2020-03-01 09:11] VITALS: BP 127/65
[2020-03-01] MEDS: mag hydrox/Alum hydrox/simeth 30ml oral suspension PO PRN (11:12)
--- NOTE | 2020-03-01 13:08 | NUR ---
Nursing Progress Note: Legal hold: 1370 Client on involuntary status for 1370 Report received from nurse with use of SBAR: DAISY Prather Why are they here: Pt. admitted directly from the [facility] accompanied by state troopers. Pt. 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 Pt was demonstrating psychotic/paranoid behavior, trying to barricade himself into his friends house and "speaking in unknown languages". Pt. arrested in 2013 for cruelty to animals. During his incarceration, pt.'s behavior described as "constantly provocative", pt. "throwing water on people and dumping water under the doors of other inmates; and continually yelling through his cell door and challenging both deputies and inmates to a fight". Pt. also had been refusing medical treatment. Pt. was considered a risk due to his aggression and refusal of treatment for his psychosis. According to Psychologist report, pt. is found incompetent to stand trial and requires antipsychotic medication in order to return him to competency and is a danger to himself and to others if unmedicated. Assessment What has happened this shift: Pt. laying on his mattress on the floor (previously self-placed) sleeping at the beginning of the shift. He awakens with a "Panic attack" and requests PRN Ativan, administered with effectiveness, and pt. able to return back to sleep until breakfast time. 1:1 completed at bedside, pt. continues to deny any depression, S/I, or any A/V/JIMENEZ. He states, "I'm just restless; I'm ready to leave here." Pt. reports that he plans to go live with his mother who lives in [place] upon discharge. Pt. c/o another panic attack later in the early afternoon, he requests PRN Maalox r/t stomach upset, administered with effectiveness. When questioned by this commercial insurance underwriter regarding what he believes to be the cause of these re-occurring panic attacks, pt. states, "I'm not sure, I just wake up with them. Maybe it's my subconscious memories." He does admit that the noise from the hallway awakens him and causes him to panic sometimes. Pt. does not make any paranoid delusional statements, and no episodes of agitation exhibited this shift. He is up pacing in the hallway intermittently throughout the shift, interacting appropriately, however remains restless and withdrawn. S/I, H/I: Denies A/VH: Denies, does not appear internally preoccupied Sleep: Pt. reports he slept well, 6.75 hours reported. Also naps periodically throughout the shift. ADL's: Independent Group attendance: No Were meds taken: Yes Any med S/E: None Mental Status Exam Appearance: Neat and appropriately dressed Eye contact: Good Behavior: Cooperative, restless,anxious, and and withdrawn Mood: Pleasant, less withdrawn this shift Affect: Constricted Thought process: Circumstantial Thought Content: Continued anxiety and restlessness r/t re-occurring panic attacks and desire to discharge. Cognition: A&O X4 Insight: Fair Judgment: Fair Interventions PRN's used: Atrax, Ativan, and Maalox Therapeutic interventions: Maintained a safe and therapeutic environment, ensured contract for safety, provided clear and simple instructions, monitored behavior and need for intervention, provided active listening and positive encouragement, and maintained Q 15min safety checks. Restraints/seclusion/emergency medication: N/A Justification of Continued Inpatient Treatment: Pt. continues to be restored to competency so he can be returned to correction and stand trial.
[2020-03-01 19:51] VITALS: BP 124/84
[2020-03-01] MEDS: lithium carbonate 150mg capsule PO SCH (20:00)
[2020-03-01] MEDS: CLONAZEPAM 0.25 MG oral disentigrating tablet (ODT) PO SCH (20:00)
[2020-03-01] MEDS: zolpidem 5mg tablet PO PRN (21:49)
--- NOTE | 2020-03-01 23:57 | NUR ---
Nursing Progress Note: Legal hold: 1370 Client on involuntary status for 1370 Report received from nurse with use of SBAR: WALESKA Honeycutt Why are they here: Pt. admitted directly from the [facility] accompanied by state troopers. Pt. 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 Pt was demonstrating psychotic/paranoid behavior, trying to barricade himself into his friends house and "speaking in unknown languages". Pt. arrested in 2013 for cruelty to animals. During his incarceration, pt.'s behavior described as "constantly provocative", pt. "throwing water on people and dumping water under the doors of other inmates; and continually yelling through his cell door and challenging both deputies and inmates to a fight". Pt. also had been refusing medical treatment. Pt. was considered a risk due to his aggression and refusal of treatment for his psychosis. According to Psychologist report, pt. is found incompetent to stand trial and requires antipsychotic medication in order to return him to competency and is a danger to himself and to others if unmedicated. Assessment What has happened this shift: Pt approached this mortgage or loan underwriter and asked if he could have propranolol as he was feeling jittery. Propranolol was given at scheduled time. Pt was cooperative during 1:1 physical assessment and took all his meds. He states that he is happy about his possible discharge plans and is looking forward to going to court. He demonstrates a desire to be self -sufficient but in the mean time he is happy his mother will let him stay with him until he can get on his feet. He states that he has his own place and feels like he will be able to care for himself. Pt states that he has been feeling stressful do to the increased activity from the new patients. He states that he is doing his best to stay calm. He denies any A/VH and pt did not make any delusional statements. He does c/o of having panic attacks and anxiety but states that the panic attacks are not as bad as he used to have them. Pt approached this RN around 2300 and requested an Ativan stating that he was having some anxiety and could not sleep. This was given with good effect. S/I, H/I: Denies A/VH: Denies Sleep: Currently sleeping, see sleep assessment for total hours ADL's: Independent Group attendance: None during overnight cashier Were meds taken: Yes Any med S/E: None reported or observed Mental Status Exam Appearance: Neat and appropriately dressed, wearing personal clothing Eye contact: Good, direct Behavior: Cooperative, socializing appropriately with other patients and staff. Mood:"I'm alright" pt appeared anxious and somewhat restless Affect: Constricted Thought process: Circumstantial Thought Content: Medication, continues to perseverate on the time he was in long term and how bad he was treated there, discharge plan. Cognition: A&O X4 Insight: Fair Judgment: Fair Interventions PRN's used: Atrax, Ativan, and Ambien Therapeutic interventions: Maintained a safe and therapeutic environment, ensured contract for safety, provided clear and simple instructions, monitored behavior and need for intervention, provided active listening and positive encouragement, and maintained Q 15min safety checks. Restraints/seclusion/emergency medication: N/A Justification of Continued Inpatient Treatment: Pt. continues to be restored to competency so he can be returned to long term and stand trial.
[2020-03-02 08:00] VITALS: BP 108/68
[2020-03-02] MEDS: lactose-reduced food (Ensure High Protein) 237ml bottle PO SCH ×3 (08:09→17:56)
[2020-03-02] MEDS: OMEGA-3/DHA/EPA/FISH OIL 1 EACH CAPSULE.DR PO SCH ×2 (08:09→20:25)
[2020-03-02] MEDS: propranolol 10mg tablet PO SCH ×3 (08:09→20:25)
[2020-03-02] MEDS: benztropine 1mg tablet PO SCH ×2 (08:09→20:25)
[2020-03-02] MEDS: lithium carbonate 450mg CR tablet PO SCH (08:09)
[2020-03-02] MEDS: naproxen 500mg tablet PO SCH ×2 (08:09→20:25)
[2020-03-02] MEDS: multivitamins, therapeutics tablet PO SCH (08:10)
[2020-03-02] MEDS: vitamin D (cholecalciferol) 1,000 unit tablet PO SCH (08:10)
[2020-03-02] MEDS: vitamin B comp w/Vit. C tab 1 TAB TABLET PO SCH (08:10)
[2020-03-02] MEDS: ascorbic acid 500mg tablet PO SCH ×2 (08:10→17:56)
[2020-03-02] MEDS: hydrOXYzine 25 MG tablet PO PRN ×2 (08:10→20:25)
[2020-03-02] MEDS: vitamin E 400 unit capsule PO SCH (08:10)
[2020-03-02] MEDS: LORazepam 0.5 MG tablet PO PRN (11:35)
--- NOTE | 2020-03-02 11:58 | NUR ---
Nursing Progress Note: Legal hold: 1370 Client on involuntary status for 1370 Report received from nurse with use of SBAR: DAISY Flores Why are they here: Pt. admitted directly from the [facility] accompanied by state troopers. Pt. 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 Pt was demonstrating psychotic/paranoid behavior, trying to barricade himself into his friends house and "speaking in unknown languages". Pt. arrested in 2013 for cruelty to animals. During his incarceration, pt.'s behavior described as "constantly provocative", pt. "throwing water on people and dumping water under the doors of other inmates; and continually yelling through his cell door and challenging both deputies and inmates to a fight". Pt. also had been refusing medical treatment. Pt. was considered a risk due to his aggression and refusal of treatment for his psychosis. According to Psychologist report, pt. is found incompetent to stand trial and requires antipsychotic medication in order to return him to competency and is a danger to himself and to others if unmedicated. Assessment What has happened this shift: Received pt. sleeping at the beginning of the shift, he awoke and reported that he slept well last night. 1:1 completed at bedside, pt. continues to deny depression, however reports ongoing anxiety r/t continued flashback regarding the time he spent at the penitentiary. He continues to make some paranoid delusional statements which he reports were triggered after talking to another patient on the unit. Pt. reports that this other patient told him that they were brought in after a false report was made to the police that they were having suicidal thoughts. He states, "That is what happened to me! I'm just disgusted with the injustices! They are the ones (guards at the penitentiary) that need to be locked up!" Pt. requests PRN Atrax r/t anxiety, administered with effectiveness. Pt. c/o waking up with a panic attack later in the early afternoon, he requested PRN Ativan, administered with effectiveness. No episodes of agitation exhibited this shift. Pt. is up pacing in the hallway intermittently throughout the shift, and interacting appropriately with others. S/I, H/I: Denies A/VH: Denies, does not appear internally preoccupied Sleep: Pt. reports he slept well, 6.75 hours reported. ADL's: Independent Group attendance: No Were meds taken: Yes Any med S/E: None Mental Status Exam Appearance: Neat and appropriately dressed Eye contact: Good Behavior: Cooperative, restless, anxious, and withdrawn Mood: Restless, however pleasant Affect: Constricted Thought process: Circumstantial Thought Content: Continued anxiety and restlessness r/t re-occurring panic attacks and desire to discharge. Pt. also makes some paranoid delusional statements. Cognition: A&O X4 Insight: Fair Judgment: Fair Interventions PRN's used: Atrax and Ativan Therapeutic interventions: Maintained a safe and therapeutic environment, ensured contract for safety, provided clear and simple instructions, monitored behavior and need for intervention, provided active listening and positive encouragement, and maintained Q 15min safety checks. Restraints/seclusion/emergency medication: N/A Justification of Continued Inpatient Treatment: Pt. continues to be restored to competency so he can be returned to penitentiary and stand trial.
[2020-03-02 13:23] VITALS: BP 116/69
[2020-03-02 20:00] VITALS: BP 120/73
[2020-03-02] MEDS: CLONAZEPAM 0.25 MG oral disentigrating tablet (ODT) PO SCH (20:25)
[2020-03-02] MEDS: lithium carbonate 150mg capsule PO SCH (20:26)
[2020-03-02] MEDS: zolpidem 5mg tablet PO PRN (21:39)
--- NOTE | 2020-03-03 01:10 | NUR ---
Nursing Progress Note: Legal hold: 1370 Client on involuntary status for 1370 Report received from nurse with use of SBAR: WALESKA Honeycutt Why are they here: Pt. admitted directly from the [facility] accompanied by state troopers. Pt. 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 Pt was demonstrating psychotic/paranoid behavior, trying to barricade himself into his friends house and "speaking in unknown languages". Pt. arrested in 2013 for cruelty to animals. During his incarceration, pt.'s behavior described as "constantly provocative", pt. "throwing water on people and dumping water under the doors of other inmates; and continually yelling through his cell door and challenging both deputies and inmates to a fight". Pt. also had been refusing medical treatment. Pt. was considered a risk due to his aggression and refusal of treatment for his psychosis. According to Psychologist report, pt. is found incompetent to stand trial and requires antipsychotic medication in order to return him to competency and is a danger to himself and to others if unmedicated. Assessment What has happened this shift: Pt was in his room in his bed on the floor sleeping during shift change. Pt woke up and was observed in recreation room interacting appropriately with other patients. He was cooperative during 1:1 physical assessment and took all his HS meds including Atarax and Ambien. Pt continues talks about the anxiety and stress he was feeling earlier during the day from talking to another patient in the unit and states that this just makes him think that the same thing happened to him. He also is again perseverating about his time in detention. Pt is still looking forward to being discharged and going back home to his mom. He does make some delusional statements about when he was in detention but denies any A/VH, S/I, or H/I and was did not appear to be internally preoccupied. Pt retired to bed after receiving 10mg of Ambien. S/I, H/I: Denies A/VH: Denies Sleep: Currently sleeping, see sleep assessment for total hours ADL's: Independent Group attendance: None during overnight associate Were meds taken: Yes Any med S/E: None reported or observed Mental Status Exam Appearance: Neat and appropriately dressed, wearing personal clothing Eye contact: Good, direct Behavior: Cooperative, socializing appropriately with other patients and staff. Mood: "I'm alright", pt appeared somewhat irritated Affect: Constricted Thought process: Circumstantial Thought Content: Medication, interactions he had with other patient, discharge plan. Cognition: A&O X4 Insight: Fair Judgment: Fair Interventions PRN's used: Atrax, and Ambien Therapeutic interventions: Maintained a safe and therapeutic environment, ensured contract for safety, provided clear and simple instructions, monitored behavior and need for intervention, provided active listening and positive encouragement, and maintained Q 15min safety checks. Restraints/seclusion/emergency medication: N/A Justification of Continued Inpatient Treatment: Pt. continues to be restored to competency so he can be returned to detention and stand trial.
[2020-03-03 08:00] VITALS: BP 102/60
[2020-03-03] MEDS: benztropine 1mg tablet PO SCH ×2 (08:09→20:29)
[2020-03-03] MEDS: lithium carbonate 450mg CR tablet PO SCH (08:09)
[2020-03-03] MEDS: lactose-reduced food (Ensure High Protein) 237ml bottle PO SCH ×3 (08:09→17:46)
[2020-03-03] MEDS: vitamin D (cholecalciferol) 1,000 unit tablet PO SCH (08:10)
[2020-03-03] MEDS: naproxen 500mg tablet PO SCH ×2 (08:10→20:29)
[2020-03-03] MEDS: ascorbic acid 500mg tablet PO SCH ×2 (08:10→17:47)
[2020-03-03] MEDS: vitamin E 400 unit capsule PO SCH (08:10)
[2020-03-03] MEDS: multivitamins, therapeutics tablet PO SCH (08:10)
[2020-03-03] MEDS: OMEGA-3/DHA/EPA/FISH OIL 1 EACH CAPSULE.DR PO SCH ×2 (08:10→20:30)
[2020-03-03] MEDS: vitamin B comp w/Vit. C tab 1 TAB TABLET PO SCH (08:10)
[2020-03-03] MEDS: hydrOXYzine 25 MG tablet PO PRN (08:11)
[2020-03-03] MEDS: propranolol 10mg tablet PO SCH ×3 (08:12→20:28)
[2020-03-03] MEDS: LORazepam 0.5 MG tablet PO PRN (11:44)
--- NOTE | 2020-03-03 13:33 | NUR ---
Nursing Progress Note: Legal hold: 1370 Client on involuntary status for 1370 Report received from nurse with use of SBAR: DAISY Flores Why are they here: Pt. admitted directly from the [facility] accompanied by state troopers. Pt. 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 Pt was demonstrating psychotic/paranoid behavior, trying to barricade himself into his friends house and "speaking in unknown languages". Pt. arrested in 2013 for cruelty to animals. During his incarceration, pt.'s behavior described as "constantly provocative", pt. "throwing water on people and dumping water under the doors of other inmates; and continually yelling through his cell door and challenging both deputies and inmates to a fight". Pt. also had been refusing medical treatment. Pt. was considered a risk due to his aggression and refusal of treatment for his psychosis. According to Psychologist report, pt. is found incompetent to stand trial and requires antipsychotic medication in order to return him to competency and is a danger to himself and to others if unmedicated. Assessment What has happened this shift: Received pt. sleeping at the beginning of the shift, he awoke to eat breakfast and was compliant with all medications. 1:1 completed at bedside, pt. continues to report feeling anxious, however he states, "I am overall feeling more optimistic today" (r/t upcoming court decision regarding whether he will return to senior living). He continues to make some paranoid delusional statements regarding his time in senior living, however pt. reports that he is aware of when he is being "triggered" during different points in conversation with others. He states, "I am more aware now of what triggers me, I can't take on anyone else's issues, I have enough of my own." Pt. requests PRN Atrax r/t anxiety with AM medications, administered with effectiveness. Pt. later c/o increased anxiety after assessment with doctor, PRN Ativan administered with effectiveness. No episodes of agitation exhibited this shift. Pt. is up pacing in the hallway intermittently throughout the shift, and interacting appropriately with others. S/I, H/I: Denies A/VH: Denies, does not appear internally preoccupied Sleep: Pt. reports he slept well, 6.75 hours reported. ADL's: Independent Group attendance: No Were meds taken: Yes Any med S/E: None Mental Status Exam Appearance: Neat and appropriately dressed Eye contact: Good Behavior: Cooperative, restless, anxious, and withdrawn Mood: Guarded, however pleasant Affect: Constricted Thought process: Circumstantial Thought Content: Continued anxiety ar/t upcoming court decision and desire to discharge. Pt. also makes some paranoid delusional statements. Cognition: A&O X4 Insight: Fair Judgment: Fair Interventions PRN's used: Atrax and Ativan Therapeutic interventions: Maintained a safe and therapeutic environment, ensured contract for safety, provided clear and simple instructions, monitored behavior and need for intervention, provided active listening and positive encouragement, and maintained Q 15min safety checks. Restraints/seclusion/emergency medication: N/A Justification of Continued Inpatient Treatment: Pt. continues to be restored to competency so he can be returned to senior living and stand trial. Addendum: 03/03/20 at 1444 by Fariba Villalta RN Pt. received a visit from PT today and was given exercises to strengthen his hand
[2020-03-03 19:33] VITALS: BP 139/83
[2020-03-03] MEDS: lithium carbonate 150mg capsule PO SCH (20:29)
[2020-03-03] MEDS: CLONAZEPAM 0.25 MG oral disentigrating tablet (ODT) PO SCH (20:30)
[2020-03-03] MEDS: zolpidem 5mg tablet PO PRN (21:14)
--- NOTE | 2020-03-03 23:02 | NUR ---
Nursing Progress Note: Legal hold: 1370 Client on involuntary status for 1370 Report received from nurse with use of SBAR: WALESKA Honeycutt Why are they here: Pt. admitted directly from the [facility] accompanied by state troopers. Pt. 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 Pt was demonstrating psychotic/paranoid behavior, trying to barricade himself into his friends house and "speaking in unknown languages". Pt. arrested in 2013 for cruelty to animals. During his incarceration, pt.'s behavior described as "constantly provocative", pt. "throwing water on people and dumping water under the doors of other inmates; and continually yelling through his cell door and challenging both deputies and inmates to a fight". Pt. also had been refusing medical treatment. Pt. was considered a risk due to his aggression and refusal of treatment for his psychosis. According to Psychologist report, pt. is found incompetent to stand trial and requires antipsychotic medication in order to return him to competency and is a danger to himself and to others if unmedicated. Assessment What has happened this shift: The patient was seen in his room for 1:1. He reports that he's been having bad memories of his time in [facility]. "I'm hoping that they just give me time served." The patient says he's learning to have better conversations with people, and he's working on not getting upset. he spent the evening pacing the halls and watching documentaries before asking for Ambien. He retired to bed soon after. S/I, H/I: Denies A/VH: Denies Sleep:See sleep assessment for total hours ADL's: Independent Group attendance: None during date night caregiver Were meds taken: Yes Any med S/E: None reported or observed Mental Status Exam Appearance: Neat and appropriately dressed, wearing personal clothing Eye contact: Good, direct Behavior: Cooperative, socializing appropriately with other patients and staff. Mood: "Pretty good" Affect: Constricted Thought process: Circumstantial Thought Content: Medication, interactions he had with other patient, discharge plan. Cognition: A&O X4 Insight: Fair Judgment: Fair Interventions PRN's used: Atrax, and Ambien Therapeutic interventions: Maintained a safe and therapeutic environment, ensured contract for safety, provided clear and simple instructions, monitored behavior and need for intervention, provided active listening and positive encouragement, and maintained Q 15min safety checks. Restraints/seclusion/emergency medication: N/A Justification of Continued Inpatient Treatment: Pt. continues to be restored to competency so he can be returned to [facility] and stand trial.
--- NOTE | 2020-03-04 00:10 | NUR ---
Patient in room MH 325. I have received report from Murphy VILLA taking over assignment for Wayne VILLA and had the opportunity to ask questions and assume patient care.
[2020-03-04 08:13] VITALS: BP 103/61
[2020-03-04] MEDS: benztropine 1mg tablet PO SCH ×2 (08:43→20:19)
[2020-03-04] MEDS: naproxen 500mg tablet PO SCH ×2 (08:44→20:20)
[2020-03-04] MEDS: vitamin E 400 unit capsule PO SCH (08:44)
[2020-03-04] MEDS: multivitamins, therapeutics tablet PO SCH (08:44)
[2020-03-04] MEDS: vitamin D (cholecalciferol) 1,000 unit tablet PO SCH (08:44)
[2020-03-04] MEDS: vitamin B comp w/Vit. C tab 1 TAB TABLET PO SCH (08:44)
[2020-03-04] MEDS: OMEGA-3/DHA/EPA/FISH OIL 1 EACH CAPSULE.DR PO SCH ×2 (08:44→20:19)
[2020-03-04] MEDS: propranolol 10mg tablet PO SCH ×3 (08:44→20:19)
[2020-03-04] MEDS: ascorbic acid 500mg tablet PO SCH ×2 (08:44→17:27)
[2020-03-04] MEDS: lithium carbonate 450mg CR tablet PO SCH (08:44)
[2020-03-04] MEDS: hydrOXYzine 25 MG tablet PO PRN (08:44)
[2020-03-04] MEDS: lactose-reduced food (Ensure High Protein) 237ml bottle PO SCH ×3 (08:49→17:53)
[2020-03-04] MEDS: LORazepam 0.5 MG tablet PO PRN (09:32)
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
--- NOTE | 2020-03-04 18:40 | NUR ---
Patient ambulating hallways. He approaches this public relations writer. States "I'm feeling good today, I've discovered tanking anxiety medicine early helps me out." Patient is smiling and cooperative, socializing with others.
[2020-03-04 20:00] VITALS: BP 135/84
[2020-03-04] MEDS: CLONAZEPAM 0.25 MG oral disentigrating tablet (ODT) PO SCH (20:18)
[2020-03-04] MEDS: zolpidem 5mg tablet PO PRN (20:18)
[2020-03-04] MEDS: lithium carbonate 150mg capsule PO SCH (20:19)
--- NOTE | 2020-03-05 03:00 | NUR ---
Nursing Progress Note: Legal hold: 1370 Client on involuntary status for 1370 Report received from DAISY Honeycutt with use of SBAR Why are they here: Pt. admitted directly from the [facility] accompanied by state troopers. Pt. 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 Pt was demonstrating psychotic/paranoid behavior, trying to barricade himself into his friends house and "speaking in unknown languages" Pt. arrested in 2013 for cruelty to animals. During his incarceration, pt.'s behavior described as "constantly provocative", pt. "throwing water on people and dumping water under the doors of other inmates; and continually yelling through his cell door and challenging both deputies and inmates to a fight". Pt. also had been refusing medical treatment. Pt. was considered a risk due to his aggression and refusal of treatment for his psychosis. According to Psychologist report, pt. is found incompetent to stand trial and requires antipsychotic medication in order to return him to competency and is a danger to himself and to others if unmedicated. Assessment What has happened this shift: Patient is pacing the hallways after shift change. The patient stops on occasion to greet and converse with others. This patient exhibits linear thought. He admits to mild anxiety and explains his need for a sleep medication later in the evening. The patient explains to this scenario writer about his mental improvement since arriving at [facility]. The patient denies S/I or H/I. Day shift nursing notes describe paranoia, none is obvious this evening. Patient is medication compliant.Patient requested a PRN for sleep, Ambien was given. He retires early to his room to sleep. S/I, H/I: Denies. A/VH: Denies. Sleep: Went to sleep early in evening. Will tally in am at 0500. ADL's: Independent. Group attendance: N/A Were meds taken: Yes Any med S/E: None Mental Status Exam Appearance: Neat, casual. Eye contact: Good Behavior: Social and cooperative. Mood: Tranquil with very mild anxiety. Affect: Congruent with mood. Thought process: Linear. Thought Content: Thinking about future, the courts. Cognition: A&O X4. Insight: Fair. Judgment: Fair. Interventions PRN's used: Opal. Therapeutic interventions: Maintained a safe and therapeutic environment, ensured contract for safety, provided clear and simple instructions, encouraged interactions with others, monitored behavior and need for intervention, provided active listening and positive encouragement, monitored bruised area on left hand and obtained pictures, and maintained Q 15min safety checks. Restraints/seclusion/emergency medication: N/A Justification of Continued Inpatient Treatment: Pt. continues to be restored to competency so he can be returned to penitentiary and stand trial.
[2020-03-05] MEDS: propranolol 10mg tablet PO SCH ×3 (08:27→20:28)
[2020-03-05] MEDS: vitamin D (cholecalciferol) 1,000 unit tablet PO SCH (08:27)
[2020-03-05] MEDS: hydrOXYzine 25 MG tablet PO PRN ×2 (08:27→20:30)
[2020-03-05] MEDS: vitamin B comp w/Vit. C tab 1 TAB TABLET PO SCH (08:27)
[2020-03-05] MEDS: benztropine 1mg tablet PO SCH ×2 (08:27→20:30)
[2020-03-05] MEDS: lithium carbonate 450mg CR tablet PO SCH (08:27)
[2020-03-05] MEDS: naproxen 500mg tablet PO SCH ×2 (08:27→20:28)
[2020-03-05] MEDS: multivitamins, therapeutics tablet PO SCH (08:27)
[2020-03-05] MEDS: ascorbic acid 500mg tablet PO SCH ×2 (08:27→17:45)
[2020-03-05] MEDS: vitamin E 400 unit capsule PO SCH (08:27)
[2020-03-05] MEDS: OMEGA-3/DHA/EPA/FISH OIL 1 EACH CAPSULE.DR PO SCH ×2 (08:28→20:29)
[2020-03-05] MEDS: lactose-reduced food (Ensure High Protein) 237ml bottle PO SCH ×3 (08:28→18:18)
[2020-03-05 08:56] VITALS: BP 98/65
[2020-03-05] MEDS: LORazepam 0.5 MG tablet PO PRN ×2 (09:21→12:42)
--- NOTE | 2020-03-05 10:31 | NUR ---
Reassessment: Pt PO 100% ensure high protein TIDWM And regular diet meeting needs. LBM 03/05. No nutrition concerns at this time. Will continue to monitor. Recommend: 1. continue regular diet 2. Ensure High Protein TID per order 3. bowel care as needed 4. wt per rx Addendum: 03/05/20 at [address] Amended: Links added.
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
[2020-03-05 20:14] VITALS: BP 109/73
[2020-03-05] MEDS: lithium carbonate 150mg capsule PO SCH (20:29)
[2020-03-05] MEDS: CLONAZEPAM 0.25 MG oral disentigrating tablet (ODT) PO SCH (20:31)
[2020-03-05] MEDS: zolpidem 5mg tablet PO PRN (21:38)
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
[2020-03-06 07:36] VITALS: BP 105/69
[2020-03-06] MEDS: propranolol 10mg tablet PO SCH ×4 (08:00→20:34)
[2020-03-06] MEDS: benztropine 1mg tablet PO SCH ×2 (08:14→20:36)
[2020-03-06] MEDS: OMEGA-3/DHA/EPA/FISH OIL 1 EACH CAPSULE.DR PO SCH ×2 (08:14→20:35)
[2020-03-06] MEDS: vitamin E 400 unit capsule PO SCH (08:14)
[2020-03-06] MEDS: lithium carbonate 450mg CR tablet PO SCH (08:14)
[2020-03-06] MEDS: LORazepam 0.5 MG tablet PO PRN ×2 (08:14→14:40)
[2020-03-06] MEDS: hydrOXYzine 25 MG tablet PO PRN ×2 (08:14→20:36)
[2020-03-06] MEDS: naproxen 500mg tablet PO SCH ×2 (08:15→20:35)
[2020-03-06] MEDS: vitamin D (cholecalciferol) 1,000 unit tablet PO SCH (08:15)
[2020-03-06] MEDS: multivitamins, therapeutics tablet PO SCH (08:15)
[2020-03-06] MEDS: ascorbic acid 500mg tablet PO SCH ×2 (08:15→16:56)
[2020-03-06] MEDS: vitamin B comp w/Vit. C tab 1 TAB TABLET PO SCH (08:15)
[2020-03-06] MEDS: lactose-reduced food (Ensure High Protein) 237ml bottle PO SCH ×3 (09:54→17:53)
[2020-03-06] MEDS: diphenhydrAMINE 25mg capsule PO PRN (14:44)
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
[2020-03-06 20:16] VITALS: BP 123/74
[2020-03-06] MEDS: lithium carbonate 150mg capsule PO SCH (20:35)
[2020-03-06] MEDS: CLONAZEPAM 0.25 MG oral disentigrating tablet (ODT) PO SCH (20:37)
[2020-03-06] MEDS: zolpidem 5mg tablet PO PRN (21:27)
--- NOTE | 2020-03-07 02:44 | NUR ---
Nursing Progress Note: Legal hold: 1370 Client on involuntary status for 1370 Report received from nurse with use of SBAR: WALESKA Honeycutt Why are they here: Pt. admitted directly from the [facility] accompanied by state troopers. Pt. 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 Pt was demonstrating psychotic/paranoid behavior, trying to barricade himself into his friends house and "speaking in unknown languages". Pt. arrested in 2013 for cruelty to animals. During his incarceration, pt.'s behavior described as "constantly provocative", pt. "throwing water on people and dumping water under the doors of other inmates; and continually yelling through his cell door and challenging both deputies and inmates to a fight". Pt. also had been refusing medical treatment. Pt. was considered a risk due to his aggression and refusal of treatment for his psychosis. According to Psychologist report, pt. is found incompetent to stand trial and requires antipsychotic medication in order to return him to competency and is a danger to himself and to others if unmedicated. Assessment What has happened this shift: Pt pacing the halls and engaging with staff and peers alike, but primarily talking to a male counterpart about upcoming court. Pt endorses anxiety related to public area attendant being changed, and unsure how this will play out. Pt continues to be stressed by current court process. Pt compliant with HS medications and retired to sleep about an hour after administration. S/I, H/I: Denies A/VH: Denies Sleep: See Sleep Assessment, Continues to sleep on mattress placed on the floor ADL's: Independent Group attendance: N/A Were meds taken: Yes Any med S/E: None reported nor observed Mental Status Exam Appearance: Neat and appropriately dressed, wearing personal clothing Eye contact: Direct Behavior: Cooperative, pacing halls, watching TV, engaging in lengthy conversation with peer Mood: "Pretty good" Affect: Constricted Thought process: Circumstantial Thought Content: upcoming court and new public area attendant Cognition: A&Ox4 Insight: Fair Judgment: Fair Interventions PRN's used: Atarax, Ambien Therapeutic interventions: Maintained a safe and therapeutic environment, ensured contract for safety, provided clear and simple instructions, monitored behavior and need for intervention, provided active listening and positive encouragement, and maintained Q 15min safety checks. Restraints/seclusion/emergency medication: N/A Justification of Continued Inpatient Treatment: Pt. continues to be restored to competency so he can be returned to senior care and stand trial.
[2020-03-07 08:06] VITALS: BP 106/62
[2020-03-07] MEDS: hydrOXYzine 25 MG tablet PO PRN ×2 (08:15→21:01)
[2020-03-07] MEDS: vitamin B comp w/Vit. C tab 1 TAB TABLET PO SCH (08:16)
[2020-03-07] MEDS: naproxen 500mg tablet PO SCH ×2 (08:16→21:01)
[2020-03-07] MEDS: benztropine 1mg tablet PO SCH ×2 (08:16→21:01)
[2020-03-07] MEDS: vitamin D (cholecalciferol) 1,000 unit tablet PO SCH (08:16)
[2020-03-07] MEDS: multivitamins, therapeutics tablet PO SCH (08:16)
[2020-03-07] MEDS: vitamin E 400 unit capsule PO SCH (08:16)
[2020-03-07] MEDS: OMEGA-3/DHA/EPA/FISH OIL 1 EACH CAPSULE.DR PO SCH ×2 (08:16→21:01)
[2020-03-07] MEDS: ascorbic acid 500mg tablet PO SCH ×2 (08:16→18:25)
[2020-03-07] MEDS: lithium carbonate 450mg CR tablet PO SCH (08:16)
[2020-03-07] MEDS: propranolol 10mg tablet PO SCH ×3 (08:16→21:01)
[2020-03-07] MEDS: lactose-reduced food (Ensure High Protein) 237ml bottle PO SCH ×3 (08:17→18:25)
[2020-03-07] MEDS: LORazepam 0.5 MG tablet PO PRN (08:53)
[2020-03-07 12:56] VITALS: BP 119/75
--- NOTE | 2020-03-07 13:37 | NUR ---
Nursing Progress Note: Legal hold: 1370 Client on involuntary status for 1370 Report received from nurse with use of SBAR: DAISY Prather Why are they here: Pt. admitted directly from the [facility] accompanied by state troopers. Pt. 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 Pt was demonstrating psychotic/paranoid behavior, trying to barricade himself into his friends house and "speaking in unknown languages". Pt. arrested in 2013 for cruelty to animals. During his incarceration, pt.'s behavior described as "constantly provocative", pt. "throwing water on people and dumping water under the doors of other inmates; and continually yelling through his cell door and challenging both deputies and inmates to a fight". Pt. also had been refusing medical treatment. Pt. was considered a risk due to his aggression and refusal of treatment for his psychosis. According to Psychologist report, pt. is found incompetent to stand trial and requires antipsychotic medication in order to return him to competency and is a danger to himself and to others if unmedicated. Assessment What has happened this shift: Received pt. sleeping on his self-placed mattress on the floor at the beginning of the shift. He awoke for breakfast and appropriately greeted this lead technical writer. 1:1 completed at bedside, pt. presents as restless, anxious, and slightly agitated. He states, "I am feeling a little agitated about court, I just don't feel prepared, they switched public defenders on me and I haven't been able to talk to the new one." He requests PRN Atrax, administered with some effectiveness, however PRN Ativan requested a short while later and was effective. This lead technical writer provided positive encouragement to pt. and reminded him of all the preparation for court (paperwork) he has been completing, he reported some contentment. Pt. reports that he plans to call the public defenders office today and try to speak with who he will be working with. He continues to make some paranoid delusional statements regarding his time in skilled nursing, however is able to be redirected. In the afternoon pt. is supervised by a tech while he cuts his hair in preparation for court tomorrow. No episodes of agitation exhibited this shift. Pt. is up pacing in the hallway intermittently throughout the shift, and interacting appropriately with others. S/I, H/I: Denies A/VH: Denies, does not appear internally preoccupied Sleep: Pt. reports he slept well, 8 sleep hours reported ADL's: Independent Group attendance: No Were meds taken: Yes Any med S/E: None Mental Status Exam Appearance: Neat and appropriately dressed Eye contact: Good Behavior: Cooperative, restless, anxious, and slightly agitated Mood: Guarded, however pleasant Affect: Constricted Thought process: Circumstantial Thought Content: Continued anxiety r/t upcoming court tomorrow. Pt. also makes some paranoid delusional statements. Cognition: A&O X4 Insight: Fair Judgment: Fair Interventions PRN's used: Atrax and Ativan Therapeutic interventions: Maintained a safe and therapeutic environment, ensured contract for safety, provided clear and simple instructions, monitored behavior and need for intervention, provided active listening and positive encouragement, and maintained Q 15min safety checks. Restraints/seclusion/emergency medication: N/A Justification of Continued Inpatient Treatment: Pt. continues to be restored to competency so he can be returned to skilled nursing and stand trial. Per Dr. Harrell, staff to contact DA office to find out about discharge.
[2020-03-07 20:00] VITALS: BP 142/82
[2020-03-07] MEDS: CLONAZEPAM 0.25 MG oral disentigrating tablet (ODT) PO SCH (21:02)
[2020-03-07] MEDS: zolpidem 5mg tablet PO PRN (21:40)
[2020-03-07] MEDS: lithium carbonate 150mg capsule PO SCH (21:40)
--- NOTE | 2020-03-08 01:25 | NUR ---
Nursing Progress Note: Legal hold: 1370 Client on involuntary status for 1370 Report received from Sony Sheikh with use of SBAR Why are they here: Pt. admitted directly from the [facility] accompanied by state troopers. Pt. 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 Pt was demonstrating psychotic/paranoid behavior, trying to barricade himself into his friends house and "speaking in unknown languages". Pt. arrested in 2013 for cruelty to animals. During his incarceration, pt.'s behavior described as "constantly provocative", pt. "throwing water on people and dumping water under the doors of other inmates; and continually yelling through his cell door and challenging both deputies and inmates to a fight". Pt. also had been refusing medical treatment. Pt. was considered a risk due to his aggression and refusal of treatment for his psychosis. According to Psychologist report, pt. is found incompetent to stand trial and requires antipsychotic medication in order to return him to competency and is a danger to himself and to others if unmedicated. Assessment What has happened this shift: Patient is walking the halls with vanessa martinez at shift change. Patient is engaging appropriately. Patient is compliant with medication and care. Patient states he thinks court is cancelled for tomorrow due to transportation paperwork not being signed. Patient states "I am okay with this." "I still need to talk to the right of way supervisor." Patient continues to walk halls and retires to bed around 2200. S/I, H/I: Denies A/VH: Denies Sleep: Administered Ambien 10mg. See Sleep Assessment for total hours. 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 Were meds taken: Yes, without incident. Any med S/E: None observed or reported. Mental Status Exam Appearance: Neat, clean appropriately dressed, wearing personal clothing Eye contact: Direct Behavior: Cooperative, pacing halls, watching TV, engaging in lengthy conversation with peer Mood: "A little anxious" Affect: Constricted Thought process: Circumstantial Thought Content: Upcoming court hearing. Cognition: A&Ox4 Insight: Fair Judgment: Fair Interventions PRN's used: Opal Amin Therapeutic interventions: Maintained a safe and therapeutic environment, monitored behavior and need for intervention, provided active listening and positive encouragement, and maintained Q 15min safety checks. Restraints/seclusion/emergency medication: N/A Justification of Continued Inpatient Treatment: Patient continues to be restored to competency so he can be returned to long-term and stand trial.
[2020-03-08 07:37] VITALS: BP 92/53
[2020-03-08] MEDS: benztropine 1mg tablet PO SCH ×2 (07:42→20:42)
[2020-03-08] MEDS: LORazepam 0.5 MG tablet PO PRN ×3 (07:42→18:41)
[2020-03-08] MEDS: OMEGA-3/DHA/EPA/FISH OIL 1 EACH CAPSULE.DR PO SCH ×2 (07:42→20:42)
[2020-03-08] MEDS: vitamin D (cholecalciferol) 1,000 unit tablet PO SCH (07:42)
[2020-03-08] MEDS: ascorbic acid 500mg tablet PO SCH ×2 (07:42→17:30)
[2020-03-08] MEDS: naproxen 500mg tablet PO SCH ×3 (07:42→20:43)
[2020-03-08] MEDS: lactose-reduced food (Ensure High Protein) 237ml bottle PO SCH ×3 (07:42→18:58)
[2020-03-08] MEDS: lithium carbonate 450mg CR tablet PO SCH (07:42)
[2020-03-08] MEDS: propranolol 10mg tablet PO SCH ×3 (07:42→20:42)
[2020-03-08] MEDS: vitamin E 400 unit capsule PO SCH (07:43)
[2020-03-08] MEDS: multivitamins, therapeutics tablet PO SCH (07:43)
[2020-03-08] MEDS: vitamin B comp w/Vit. C tab 1 TAB TABLET PO SCH (07:43)
[2020-03-08] MEDS: hydrOXYzine 25 MG tablet PO PRN ×2 (08:24→20:43)
--- NOTE | 2020-03-08 10:41 | NUR ---
Hayden reported he spoke a Industrial Psychologist yesterday and was informed that court has been postponed. He did not know when it will be re-scheduled. Hayden was upset that his Industrial Psychologist has changed. He continues to be paranoid and delusional regarding events that occurred. He appeared rather depressed and stated, "I'm so sick of this, I've had it". He perseverates on how law enforcement is "crooked". ELLI Burciaga
[2020-03-08 13:09] VITALS: BP 114/78
--- NOTE | 2020-03-08 17:01 | NUR ---
Nursing Progress Note: Legal hold: 1370 Client on involuntary status for 1370 Report received from nurse with use of SBAR: DAISY Prather Why are they here: Pt. admitted directly from the [facility] accompanied by state troopers. Pt. 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 Pt was demonstrating psychotic/paranoid behavior, trying to barricade himself into his friends house and "speaking in unknown languages". Pt. arrested in 2013 for cruelty to animals. During his incarceration, pt.'s behavior described as "constantly provocative", pt. "throwing water on people and dumping water under the doors of other inmates; and continually yelling through his cell door and challenging both deputies and inmates to a fight". Pt. also had been refusing medical treatment. Pt. was considered a risk due to his aggression and refusal of treatment for his psychosis. According to Psychologist report, pt. is found incompetent to stand trial and requires antipsychotic medication in order to return him to competency and is a danger to himself and to others if unmedicated. Assessment What has happened this shift: He awoke for breakfast and appropriately greeted this automobile and property underwriter. 1:1 completed at bedside, pt. presents as restless, anxious, and slightly agitated. He states, "I am feeling a little anxious about court" He requests PRN Atarax, administered with some effectiveness, however PRN Ativan requested a short while later and was effective. No episodes of agitation exhibited this shift. Pt. is up pacing in the hallway intermittently throughout the shift, and interacting appropriately with others. S/I, H/I: Denies A/VH: Denies, does not appear internally preoccupied Sleep: Pt. reports he slept well, 8 sleep hours reported ADL's: Independent Group attendance: No Were meds taken: Yes Any med S/E: None Mental Status Exam Appearance: Neat and appropriately dressed Eye contact: Good Behavior: Cooperative, restless, anxious, and slightly agitated Mood: Guarded, however pleasant Affect: Constricted Thought process: Circumstantial Thought Content: Continued anxiety r/t upcoming court. Pt. also makes some paranoid delusional statements. Cognition: A&O X4 Insight: Fair Judgment: Fair Interventions PRN's used: Atrax and Ativan Therapeutic interventions: Maintained a safe and therapeutic environment, ensured contract for safety, provided clear and simple instructions, monitored behavior and need for intervention, provided active listening and positive encouragement, and maintained Q 15min safety checks. Restraints/seclusion/emergency medication: N/A Justification of Continued Inpatient Treatment: Pt. continues to be restored to competency so he can be returned to longterm and stand trial. Per Dr. Harrell, staff to contact DA office to find out about discharge.
[2020-03-08 19:00] VITALS: BP 101/71
[2020-03-08] MEDS: CLONAZEPAM 0.25 MG oral disentigrating tablet (ODT) PO SCH (20:43)
[2020-03-08] MEDS: lithium carbonate 150mg capsule PO SCH (21:23)
[2020-03-08] MEDS: zolpidem 5mg tablet PO PRN (21:27)
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
[2020-03-09 07:59] VITALS: BP 100/63
[2020-03-09] MEDS: multivitamins, therapeutics tablet PO SCH (08:20)
[2020-03-09] MEDS: OMEGA-3/DHA/EPA/FISH OIL 1 EACH CAPSULE.DR PO SCH ×2 (08:21→20:06)
[2020-03-09] MEDS: propranolol 10mg tablet PO SCH ×3 (08:21→20:07)
[2020-03-09] MEDS: naproxen 500mg tablet PO SCH ×2 (08:21→20:07)
[2020-03-09] MEDS: benztropine 1mg tablet PO SCH ×2 (08:21→20:07)
[2020-03-09] MEDS: vitamin B comp w/Vit. C tab 1 TAB TABLET PO SCH (08:21)
[2020-03-09] MEDS: vitamin E 400 unit capsule PO SCH (08:21)
[2020-03-09] MEDS: lithium carbonate 450mg CR tablet PO SCH (08:21)
[2020-03-09] MEDS: ascorbic acid 500mg tablet PO SCH ×2 (08:21→17:36)
[2020-03-09] MEDS: vitamin D (cholecalciferol) 1,000 unit tablet PO SCH (08:21)
[2020-03-09] MEDS: hydrOXYzine 25 MG tablet PO PRN ×2 (08:26→20:08)
[2020-03-09] MEDS: lactose-reduced food (Ensure High Protein) 237ml bottle PO SCH ×3 (08:27→17:36)
[2020-03-09] MEDS: LORazepam 0.5 MG tablet PO PRN ×2 (09:59→18:46)
[2020-03-09] MEDS ORDERED: LORazepam 0.5 MG tablet PO PRN (10:30)
--- NOTE | 2020-03-09 16:02 | NUR ---
Nursing Progress Note: Legal hold: TCON Client on involuntary status for GD. Report received from Veronica Zapata RN with use of SBAR. Why are they here: Pt admitted to [facility] on a 5150 for GD from ICU. Pt was originally admitted for ALOC and seizure disorder onto the 4th floor. Pt was found altered by a dumpster with her significant other. Pt giving vague information to questions, she has a history of schizophrenia and methamphetamine abuse. Pt does not have a viable plan to access food, clothing and snf. Pt has presented to the Emergency department 3 times in last 3 months either unresponsive or in catatonic state. Pt has history of seizures and depression. Pt.'s last seizure on 12/26/19. Assessment What has happened this shift: Pt up this morning and had breakfast in the dayroom. One of the other pts in the dining room started targeting him and he appropriately went to the staff to let them know that he was getting very upset and requested Atarax for anxiety. Pt began perseverating on how he has been mistreated and not listened to why in long term and was hyperverbal with pressured speech when someone would listen. After lunch, pt seemed to calm. Pt denies suicidal thoughts and homicidal thoughts. Pt denies hallucinations. Pt pacing the unit much of the day, interacting with select peers, usually female. Pt maintained appropriate behavior. S/I, H/I: Denies A/VH: Denies, appears internally preoccupied and is observed to be talking to an imaginary friends Sleep: no napping today ADL's: Independent with prompting. Group attendance: Yes Were Meds taken: Yes Any med S/E: None reported or observed Mental Status Exam Appearance: Hair neat, dressed appropriately Eye contact: Fair Behavior: Cooperative, restless, impulsive, and intrusive at times but able to be redirected Speech: Slurred, Mood: Restless Affect: Labile Thought process: Tangential and disorganized Thought content: Restlessness r/t desire to discharge. Appears to be internally preoccupied AEB responding to internal stimuli, and some delusional statements made Cognition: A&O X3 (not to why here) Insight: Poor Judgment: Poor to fair Interventions PRN's used: Atarax, ativan Therapeutic interventions: Maintained safe and therapeutic milieu, ensured contract for safety, provided clear and simple instructions, monitored behaviors and provided redirection as needed, maintained behavior contract and provided re-education, maintained seizure precautions, and maintained Q15 safety checks. Restraints/seclusion/emergency medication: N/A Justification of Continued Inpatient Treatment: Pt. continues to require as safe and supportive environment and is awaiting placement.
[2020-03-09 19:00] VITALS: BP 115/83
[2020-03-09] MEDS: CLONAZEPAM 0.25 MG oral disentigrating tablet (ODT) PO SCH (20:06)
[2020-03-09] MEDS: lithium carbonate 150mg capsule PO SCH (20:07)
[2020-03-09] MEDS: zolpidem 5mg tablet PO PRN (21:02)
--- NOTE | 2020-03-10 03:22 | NUR ---
Nursing Progress Note: Legal hold: 1370 Client on involuntary status for 1370 Report received from DAISY Castillo with use of SBAR Why are they here: Pt. admitted directly from the [facility] accompanied by state troopers. Pt. 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 Pt was demonstrating psychotic/paranoid behavior, trying to barricade himself into his friends house and "speaking in unknown languages". Pt. arrested in 2013 for cruelty to animals. During his incarceration, pt.'s behavior described as "constantly provocative", pt. "throwing water on people and dumping water under the doors of other inmates; and continually yelling through his cell door and challenging both deputies and inmates to a fight". Pt. also had been refusing medical treatment. Pt. was considered a risk due to his aggression and refusal of treatment for his psychosis. According to Psychologist report, pt. is found incompetent to stand trial and requires antipsychotic medication in order to return him to competency and is a danger to himself and to others if unmedicated. Assessment What has happened this shift: Patient is visible on unit at shift change. Patient immediately asks this script writer for an Ativan, patient reports anxiety 6/10 due to increased activity on unit. Patient continued to perseverate on how he felt another patient was "talking about him." A new admit came in today and patient states "I remember from care home and he is bad news." Patient perseverated on issues that happened in care home with this person. Patient was redirectable and encouraged to stay away from triggers. Patient states "this brings up how I was mistreated in care home." Patient paced halls and retired to bed shortly after receiving nighttime medications. Tracy level 0.7 drawn on 02/08/20. S/I, H/I: Denies A/VH: Denies Sleep: Ambien 10 mg administered. See Sleep Assessment for total hours. ADL's: Independent Group attendance: outreach coordinator, no group. Were meds taken: Takes medication without incident. Any med S/E: None observed or reported. Mental Status Exam Appearance: Neat and appropriately dressed, wearing personal clothing Eye contact: Good Behavior: Cooperative, restless, a little irritable. Mood: A little distressed, anxious Affect: Congruent with mood. Thought process: Tangential, perseverating. Thought Content: Too much activity on unit. Cognition: A&Ox4 Insight: Fair Judgment: Fair Interventions PRN's used: Atarax, Ambien, Ativan Therapeutic interventions: Maintained a safe and therapeutic environment, monitored behavior and need for intervention, provided active listening and positive encouragement, and maintained Q 15min safety checks. Restraints/seclusion/emergency medication: N/A Justification of Continued Inpatient Treatment: Pt. continues to be restored to competency so he can be returned to care home and stand trial.
[2020-03-10 07:42] VITALS: BP 111/74
[2020-03-10] MEDS: OMEGA-3/DHA/EPA/FISH OIL 1 EACH CAPSULE.DR PO SCH ×2 (08:06→20:21)
[2020-03-10] MEDS: vitamin E 400 unit capsule PO SCH (08:06)
[2020-03-10] MEDS: benztropine 1mg tablet PO SCH ×2 (08:06→20:21)
[2020-03-10] MEDS: hydrOXYzine 25 MG tablet PO PRN ×2 (08:06→20:24)
[2020-03-10] MEDS: LORazepam 0.5 MG tablet PO PRN ×2 (08:06→14:23)
[2020-03-10] MEDS: naproxen 500mg tablet PO SCH ×2 (08:07→20:21)
[2020-03-10] MEDS: vitamin B comp w/Vit. C tab 1 TAB TABLET PO SCH (08:07)
[2020-03-10] MEDS: propranolol 10mg tablet PO SCH ×3 (08:07→20:23)
[2020-03-10] MEDS: lithium carbonate 450mg CR tablet PO SCH (08:07)
[2020-03-10] MEDS: multivitamins, therapeutics tablet PO SCH (08:07)
[2020-03-10] MEDS: vitamin D (cholecalciferol) 1,000 unit tablet PO SCH (08:07)
[2020-03-10] MEDS: ascorbic acid 500mg tablet PO SCH ×2 (08:07→17:53)
[2020-03-10] MEDS: lactose-reduced food (Ensure High Protein) 237ml bottle PO SCH ×3 (08:16→18:20)
--- NOTE | 2020-03-10 17:28 | NUR ---
Nursing Progress Note: Legal hold: 1370 Client on involuntary status for 1370 Report received from nurse with use of SBAR: Veronica Ramirez RN Why are they here: Pt. admitted directly from the [facility] accompanied by state troopers. Pt. 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 Pt was demonstrating psychotic/paranoid behavior, trying to barricade himself into his friends house and "speaking in unknown languages". Pt. arrested in 2013 for cruelty to animals. During his incarceration, pt.'s behavior described as "constantly provocative", pt. "throwing water on people and dumping water under the doors of other inmates; and continually yelling through his cell door and challenging both deputies and inmates to a fight". Pt. also had been refusing medical treatment. Pt. was considered a risk due to his aggression and refusal of treatment for his psychosis. According to Psychologist report, pt. is found incompetent to stand trial and requires antipsychotic medication in order to return him to competency and is a danger to himself and to others if unmedicated. Assessment What has happened this shift: Pt. up for breakfast and medications, then goes back to bed until noon. Pt. reports that he had a bad day yesterday with new admit he knew from [facility], and an uncomfortable situation in dining room involving peers. Patient elects to stay in his room today and eat his meals. Requests Atarax, then Ativan with good effect. Pt. pacing hallways currently. Pt. does talk about his upcoming court date, as the same day as his daughters birthday, which makes him sad. Pt. is ready to get on with the rest of his life. S/I, H/I: Denies A/VH: Denies Sleep: Napped until noon. ADL's: Independent Group attendance: No Were meds taken: Yes Any med S/E: None Mental Status Exam Appearance: Neat and appropriately dressed Eye contact: Good Behavior: Cooperative, anxious. Mood: Slightly depressed. Affect: Constricted Thought process: Circumstantial Thought Content: Getting on with the rest of his life. Cognition: A&O X4 Insight: Fair Judgment: Fair Interventions PRN's used: Atarax and Ativan x 2. Therapeutic interventions: Maintained a safe and therapeutic environment, ensured contract for safety, provided clear and simple instructions, monitored behavior and need for intervention, provided active listening and positive encouragement, and maintained Q 15min safety checks. Restraints/seclusion/emergency medication: N/A Justification of Continued Inpatient Treatment: Pt. continues to be restored to competency so he can be returned to penitentiary and stand trial. Per Dr. Harrell, staff to contact DA office to find out about discharge.
[2020-03-10 20:00] VITALS: BP 119/72
[2020-03-10] MEDS: CLONAZEPAM 0.25 MG oral disentigrating tablet (ODT) PO SCH (20:22)
[2020-03-10] MEDS: lithium carbonate 150mg capsule PO SCH (20:23)
[2020-03-10] MEDS: zolpidem 5mg tablet PO PRN (21:14)
--- NOTE | 2020-03-11 00:48 | NUR ---
Nursing Progress Note: Legal hold: 1370 Client on involuntary status for 1370 Report received from nurse with use of SBAR: DAISY Castillo Why are they here: Pt. admitted directly from the [facility] accompanied by state troopers. Pt. 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 Pt was demonstrating psychotic/paranoid behavior, trying to barricade himself into his friends house and "speaking in unknown languages". Pt. arrested in 2013 for cruelty to animals. During his incarceration, pt.'s behavior described as "constantly provocative", pt. "throwing water on people and dumping water under the doors of other inmates; and continually yelling through his cell door and challenging both deputies and inmates to a fight". Pt. also had been refusing medical treatment. Pt. was considered a risk due to his aggression and refusal of treatment for his psychosis. According to Psychologist report, pt. is found incompetent to stand trial and requires antipsychotic medication in order to return him to competency and is a danger to himself and to others if unmedicated. Assessment What has happened this shift: Pt. up and walking the halls social with staff and peers. Pt is compliant with meds. Pt states that he is tired of being here due to the drama of some of his peers and is ready to move on to another facility or home. S/I, H/I: Denies A/VH: Denies Sleep: most of night ADL's: Independent Group attendance: No Were meds taken: Yes Any med S/E: None Mental Status Exam Appearance: Neat and appropriately dressed Eye contact: Good Behavior: Cooperative, anxious. Mood: Slightly depressed. Affect: Constricted Thought process: Circumstantial Thought Content: Getting on with the rest of his life. Cognition: A&O X4 Insight: Fair Judgment: Fair Interventions PRN's used: Atarax and Ambien Therapeutic interventions: Maintained a safe and therapeutic environment, ensured contract for safety, provided clear and simple instructions, monitored behavior and need for intervention, provided active listening and positive encouragement, and maintained Q 15min safety checks. Restraints/seclusion/emergency medication: N/A Justification of Continued Inpatient Treatment: Pt. continues to be restored to competency so he can be returned to longterm and stand trial. Per Dr. Harrell, staff to contact DA office to find out about discharge.
[2020-03-11 07:50] VITALS: BP 111/71
[2020-03-11] MEDS: vitamin E 400 unit capsule PO SCH (08:21)
[2020-03-11] MEDS: propranolol 10mg tablet PO SCH ×3 (08:21→20:35)
[2020-03-11] MEDS: ascorbic acid 500mg tablet PO SCH ×2 (08:21→17:21)
[2020-03-11] MEDS: OMEGA-3/DHA/EPA/FISH OIL 1 EACH CAPSULE.DR PO SCH ×2 (08:21→20:36)
[2020-03-11] MEDS: vitamin B comp w/Vit. C tab 1 TAB TABLET PO SCH (08:21)
[2020-03-11] MEDS: lithium carbonate 450mg CR tablet PO SCH (08:21)
[2020-03-11] MEDS: naproxen 500mg tablet PO SCH ×2 (08:21→20:37)
[2020-03-11] MEDS: hydrOXYzine 25 MG tablet PO PRN ×2 (08:21→20:38)
[2020-03-11] MEDS: multivitamins, therapeutics tablet PO SCH (08:21)
[2020-03-11] MEDS: benztropine 1mg tablet PO SCH ×2 (08:21→20:37)
[2020-03-11] MEDS: vitamin D (cholecalciferol) 1,000 unit tablet PO SCH (08:21)
[2020-03-11] MEDS: LORazepam 0.5 MG tablet PO PRN ×2 (08:22→17:21)
[2020-03-11] MEDS: lactose-reduced food (Ensure High Protein) 237ml bottle PO SCH ×3 (08:25→18:46)
--- NOTE | 2020-03-11 17:48 | NUR ---
Nursing Progress Note: Legal hold: 1370 Client on involuntary status for 1370 Report received from nurse with use of SBAR: Veronica Ramirez RN Why are they here: Pt. admitted directly from the [facility] accompanied by state troopers. Pt. 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 Pt was demonstrating psychotic/paranoid behavior, trying to barricade himself into his friends house and "speaking in unknown languages". Pt. arrested in 2013 for cruelty to animals. During his incarceration, pt.'s behavior described as "constantly provocative", pt. "throwing water on people and dumping water under the doors of other inmates; and continually yelling through his cell door and challenging both deputies and inmates to a fight". Pt. also had been refusing medical treatment. Pt. was considered a risk due to his aggression and refusal of treatment for his psychosis. According to Psychologist report, pt. is found incompetent to stand trial and requires antipsychotic medication in order to return him to competency and is a danger to himself and to others if unmedicated. Assessment What has happened this shift: Received pt sleeping in bed at shift change. Pt. eats all meals in his room, takes medications without incident. Patient up and social on the unit with peers, pacing hallways. Pt is in a good mood today and no agitation noted. Pt. reports anxiety in a.m. and requests Atarax and Ativan, then naps after breakfast. Patient is hopeful that he has served his time while inpatient on unit, and that he will be released after court. S/I, H/I: Denies A/VH: Denies Sleep: Napped ADL's: Independent Group attendance: NA Were meds taken: Yes Any med S/E: None Mental Status Exam Appearance: Pt. is neat and clean in personal attire. Eye contact: Good Behavior: Cooperative, anxious. Mood: Euthymic. Affect: Constricted Thought process: Circumstantial Thought Content: Discharge after court. Cognition: A&O X4 Insight: Fair Judgment: Fair Interventions PRN's used: Atarax and Ativan Therapeutic interventions: Maintained a safe and therapeutic environment, ensured contract for safety, provided clear and simple instructions, monitored behavior and need for intervention, provided active listening and positive encouragement, and maintained Q 15min safety checks. Restraints/seclusion/emergency medication: N/A Justification of Continued Inpatient Treatment: Pt. continues to be restored to competency so he can be returned to residential and stand trial. Per Dr. Harrell, staff to contact DA office to find out about discharge.
[2020-03-11 20:00] VITALS: BP 148/95
[2020-03-11] MEDS: CLONAZEPAM 0.25 MG oral disentigrating tablet (ODT) PO SCH (20:37)
[2020-03-11] MEDS: lithium carbonate 150mg capsule PO SCH (20:38)
[2020-03-11] MEDS: zolpidem 5mg tablet PO PRN (21:12)
--- NOTE | 2020-03-12 00:30 | NUR ---
Nursing Progress Note: Legal hold: 1370 Client on involuntary status for 1370 Report received from nurse with use of SBAR: DAISY Castillo Why are they here: Pt. admitted directly from the [facility] accompanied by state troopers. Pt. 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 Pt was demonstrating psychotic/paranoid behavior, trying to barricade himself into his friends house and "speaking in unknown languages". Pt. arrested in 2013 for cruelty to animals. During his incarceration, pt.'s behavior described as "constantly provocative", pt. "throwing water on people and dumping water under the doors of other inmates; and continually yelling through his cell door and challenging both deputies and inmates to a fight". Pt. also had been refusing medical treatment. Pt. was considered a risk due to his aggression and refusal of treatment for his psychosis. According to Psychologist report, pt. is found incompetent to stand trial and requires antipsychotic medication in order to return him to competency and is a danger to himself and to others if unmedicated. Assessment What has happened this shift: Patient was pacing the solomon at shift change stopping and talking with peers and staff. Pt states that he hopes court goes well and he will be released. Pt denies any SI/HI or AH/VH. S/I, H/I: Denies A/VH: Denies Sleep: Napped ADL's: Independent Group attendance: NA Were meds taken: Yes Any med S/E: None Mental Status Exam Appearance: Pt. is neat and clean in personal attire. Eye contact: Good Behavior: Cooperative, anxious. Mood: Euthymic. Affect: Constricted Thought process: Circumstantial Thought Content: Discharge after court. Cognition: A&O X4 Insight: Fair Judgment: Fair Interventions PRN's used: Atarax and Ambien Therapeutic interventions: Maintained a safe and therapeutic environment, ensured contract for safety, provided clear and simple instructions, monitored behavior and need for intervention, provided active listening and positive encouragement, and maintained Q 15min safety checks. Restraints/seclusion/emergency medication: N/A Justification of Continued Inpatient Treatment: Pt. continues to be restored to competency so he can be returned to [facility] and stand trial. Per Dr. Harrell, staff to contact DA office to find out about discharge.
[2020-03-12 07:51] VITALS: BP 104/69
[2020-03-12] MEDS: propranolol 10mg tablet PO SCH ×3 (08:03→20:28)
[2020-03-12] MEDS: vitamin E 400 unit capsule PO SCH (08:03)
[2020-03-12] MEDS: OMEGA-3/DHA/EPA/FISH OIL 1 EACH CAPSULE.DR PO SCH ×2 (08:03→20:31)
[2020-03-12] MEDS: multivitamins, therapeutics tablet PO SCH (08:03)
[2020-03-12] MEDS: naproxen 500mg tablet PO SCH ×2 (08:03→20:29)
[2020-03-12] MEDS: benztropine 1mg tablet PO SCH ×2 (08:03→20:28)
[2020-03-12] MEDS: ascorbic acid 500mg tablet PO SCH ×2 (08:04→18:04)
[2020-03-12] MEDS: vitamin B comp w/Vit. C tab 1 TAB TABLET PO SCH (08:04)
[2020-03-12] MEDS: vitamin D (cholecalciferol) 1,000 unit tablet PO SCH (08:04)
[2020-03-12] MEDS: lithium carbonate 450mg CR tablet PO SCH (08:04)
[2020-03-12] MEDS: lactose-reduced food (Ensure High Protein) 237ml bottle PO SCH ×3 (08:04→18:04)
[2020-03-12] MEDS: hydrOXYzine 25 MG tablet PO PRN ×2 (08:06→20:29)
[2020-03-12] MEDS: LORazepam 0.5 MG tablet PO PRN (08:14)
--- NOTE | 2020-03-12 10:02 | NUR ---
Reassessment: Pt PO 100% ensure high protein TIDWM and regular meals meeting needs. LBM 03/11. No nutrition concerns at this time. Will continue to monitor. Recommend: 1. continue regular diet 2. Ensure High Protein TID per order 3. bowel care as needed 4. wt per rx Addendum: 03/12/20 at [address] Amended: Links added.
[2020-03-12 13:00] VITALS: BP 129/79
--- NOTE | 2020-03-12 14:50 | NUR ---
Nursing Progress Note: Legal hold: 1370 Client on involuntary status for 1370 Report received from nurse with use of SBAR: DAISY Curran Why are they here: Pt. admitted directly from the [facility] accompanied by state troopers. Pt. 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 Pt was demonstrating psychotic/paranoid behavior, trying to barricade himself into his friends house and "speaking in unknown languages". Pt. arrested in 2013 for cruelty to animals. During his incarceration, pt.'s behavior described as "constantly provocative", pt. "throwing water on people and dumping water under the doors of other inmates; and continually yelling through his cell door and challenging both deputies and inmates to a fight". Pt. also had been refusing medical treatment. Pt. was considered a risk due to his aggression and refusal of treatment for his psychosis. According to Psychologist report, pt. is found incompetent to stand trial and requires antipsychotic medication in order to return him to competency and is a danger to himself and to others if unmedicated. Assessment What has happened this shift: Pt was up for breakfast then returned to bed immediately afterwards. Pt was lying in bed with his eyes closed when this RN went to give him his morning medication. Pt got out of bed for meds. He asked this RN if he could have his Atarax and his Ativan as well together like the nurse did yesterday. Told pt he could have his Atarax and if it was not effective, could then have Ativan. Pt stated that Isabel ALFREDO told him it was okay to take them both together to prevent panic attacks. Let pt know that this RN would discuss it with Dr Harrell. Gave prn Atarax 50 mg @ [address] Harrell who stated it was okay to give the Ativan. Prn Ativan 1 mg given at 0814. Pt paces the unit and socializes with select peers. S/I, H/I: Pt denies. A/VH: Pt denies. Sleep: Pt slept 7.25 hours per noc shift report, napped after breakfast and for short intervals throughout the day. ADL's: Independent Group attendance: N/A Were meds taken: Yes Any med S/E: None noted or reported. Mental Status Exam Appearance: Neat, clean, dressed in sweats, a t-shirt, a baseball cap, and sandal. Eye contact: Good Behavior: Cooperative, naps, paces unit, socializes with select peers. Mood: Anxious. Affect: Internally preoccupied. Thought process: Internally preoccupied, ruminates on legal situation, fixed delusions of persecution by law enforcement. Thought Content: Pending court, wants to prevent panic attacks. Cognition: A/O X 4 Insight: Fair Judgment: Fair Interventions PRN's used: Atarax 50 mg, Ativan 1 mg Therapeutic interventions: 1:1 assessment, active listening, therapeutic conversation, medication administration/education/monitoring, maintained Q 15min safety checks. Restraints/seclusion/emergency medication: N/A Justification of Continued Inpatient Treatment: Pt. continues to be restored to competency so he can be returned to assisted and stand trial. Per Dr. Harrell, staff to contact DA office to find out about discharge.
[2020-03-12 20:00] VITALS: BP 118/75
[2020-03-12] MEDS: CLONAZEPAM 0.25 MG oral disentigrating tablet (ODT) PO SCH (20:30)
[2020-03-12] MEDS: lithium carbonate 150mg capsule PO SCH (20:31)
[2020-03-12] MEDS: zolpidem 5mg tablet PO PRN (20:59)
--- NOTE | 2020-03-13 01:29 | NUR ---
Nursing Progress Note: Legal hold: 1370 Client on involuntary status for 1370 Report received from nurse with use of SBAR: DAISY Castillo Why are they here: Pt. admitted directly from the [facility] accompanied by state troopers. Pt. 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 Pt was demonstrating psychotic/paranoid behavior, trying to barricade himself into his friends house and "speaking in unknown languages". Pt. arrested in 2013 for cruelty to animals. During his incarceration, pt.'s behavior described as "constantly provocative", pt. "throwing water on people and dumping water under the doors of other inmates; and continually yelling through his cell door and challenging both deputies and inmates to a fight". Pt. also had been refusing medical treatment. Pt. was considered a risk due to his aggression and refusal of treatment for his psychosis. According to Psychologist report, pt. is found incompetent to stand trial and requires antipsychotic medication in order to return him to competency and is a danger to himself and to others if unmedicated. Assessment What has happened this shift: Pt was up and pacing the solomon at the start of shift. Pt states that he is waiting to change rooms. Pt moved to room 330B. He said he thinks that being at the end of the solomon will be quieter not so many people hanging around his door. Pt states he is concerned about upcoming court date. S/I, H/I: Pt denies. A/VH: Pt denies. Sleep: Pt slept 7.25 hours per noc shift report, napped after breakfast and for short intervals throughout the day. ADL's: Independent Group attendance: N/A Were meds taken: Yes Any med S/E: None noted or reported. Mental Status Exam Appearance: Neat, clean, dressed in sweats, a t-shirt, a baseball cap, and sandal. Eye contact: Good Behavior: Cooperative, naps, paces unit, socializes with select peers. Mood: Anxious. Affect: Internally preoccupied. Thought process: Internally preoccupied, ruminates on legal situation, fixed delusions of persecution by law enforcement. Thought Content: Pending court, wants to prevent panic attacks. Cognition: A/O X 4 Insight: Fair Judgment: Fair Interventions PRN's used: Atarax 50 mg Therapeutic interventions: 1:1 assessment, active listening, therapeutic conversation, medication administration/education/monitoring, maintained Q 15min safety checks. Restraints/seclusion/emergency medication: N/A Justification of Continued Inpatient Treatment: Pt. continues to be restored to competency so he can be returned to long term and stand trial. Per Dr. Harrell, staff to contact DA office to find out about discharge.
[2020-03-13 08:00] VITALS: BP 114/78
[2020-03-13] MEDS: benztropine 1mg tablet PO SCH ×2 (08:14→20:34)
[2020-03-13] MEDS: lithium carbonate 450mg CR tablet PO SCH (08:14)
[2020-03-13] MEDS: OMEGA-3/DHA/EPA/FISH OIL 1 EACH CAPSULE.DR PO SCH ×2 (08:14→20:34)
[2020-03-13] MEDS: vitamin D (cholecalciferol) 1,000 unit tablet PO SCH (08:15)
[2020-03-13] MEDS: vitamin B comp w/Vit. C tab 1 TAB TABLET PO SCH (08:15)
[2020-03-13] MEDS: multivitamins, therapeutics tablet PO SCH (08:15)
[2020-03-13] MEDS: ascorbic acid 500mg tablet PO SCH ×2 (08:15→17:35)
[2020-03-13] MEDS: propranolol 10mg tablet PO SCH ×3 (08:15→20:37)
[2020-03-13] MEDS: vitamin E 400 unit capsule PO SCH (08:15)
[2020-03-13] MEDS: naproxen 500mg tablet PO SCH ×2 (08:15→20:35)
[2020-03-13] MEDS: lactose-reduced food (Ensure High Protein) 237ml bottle PO SCH ×3 (08:18→18:08)
[2020-03-13] MEDS: hydrOXYzine 25 MG tablet PO PRN ×2 (08:30→20:36)
[2020-03-13] MEDS: LORazepam 0.5 MG tablet PO PRN (09:56)
--- NOTE | 2020-03-13 09:59 | NUR ---
director recreation Héctor called to confirm that Hayden' next court date is 03/15/20 at [address] in [address]
--- NOTE | 2020-03-13 16:45 | NUR ---
Nursing Progress Note: Legal hold: 1370 Client on involuntary status for 1370 Report received from RN with use of SBAR Why are they here: Pt. admitted directly from the [facility] accompanied by state troopers. Pt. 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 Pt was demonstrating psychotic/paranoid behavior, trying to barricade himself into his friends house and "speaking in unknown languages" Pt. arrested in 2013 for cruelty to animals. During his incarceration, pt.'s behavior described as "constantly provocative", pt. "throwing water on people and dumping water under the doors of other inmates; and continually yelling through his cell door and challenging both deputies and inmates to a fight". Pt. also had been refusing medical treatment. Pt. was considered a risk due to his aggression and refusal of treatment for his psychosis. According to Psychologist report, pt. is found incompetent to stand trial and requires antipsychotic medication in order to return him to competency and is a danger to himself and to others if unmedicated. Assessment What has happened this shift: Received Pt in bed sleeping w/o distress at beginning of shift. Pt. woke for vitals and was pleasant and cooperative. Pt tolerated assessments well, ate all meals and interacted minimally with others today. He is anxious that he may have to return to [facility] and wait for sentencing there. Pt received Ativan with moderate effect in the morning. Pt appears depressed and speaks anxiously about the future which may involve usp time. Pt has a court date on 03/15 and is concerned he may not come back to [facility]. S/I, H/I: Denies A/VH: Denies Sleep: Pt. napped ADL's: Independent Group attendance: N/A Were meds taken: Yes Any med S/E: None Mental Status Exam Appearance: Casual Eye contact: Good Behavior: Anxious, cooperative Mood: Anxious Affect: Congruent with mood Thought process: Linear with some paranoia. Thought Content: Future plans, usp time Cognition: A&O X4 Insight: Fair Judgment: Fair Interventions PRN's used: Atarax, Ativan Therapeutic interventions: Maintained a safe and therapeutic environment, ensured contract for safety, provided clear and simple instructions, encouraged interactions with others, monitored behavior and need for intervention, provided active listening and positive encouragement, monitored bruised area on left hand and obtained pictures, and maintained Q 15min safety checks. Restraints/seclusion/emergency medication: N/A Justification of Continued Inpatient Treatment: Pt. continues to be restored to competency so he can be returned to [facility] and stand trial.
[2020-03-13] MEDS: CLONAZEPAM 0.25 MG oral disentigrating tablet (ODT) PO SCH (20:35)
[2020-03-13] MEDS: lithium carbonate 150mg capsule PO SCH (20:36)
[2020-03-13 20:40] VITALS: BP 125/77
[2020-03-13] MEDS: zolpidem 5mg tablet PO PRN (21:23)
--- NOTE | 2020-03-13 23:16 | NUR ---
Nursing Progress Note: Legal hold: 1370 Client on involuntary status for 1370 Report received from RN with use of SBAR Why are they here: Pt. admitted directly from the [facility] accompanied by state troopers. Pt. 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 Pt was demonstrating psychotic/paranoid behavior, trying to barricade himself into his friends house and "speaking in unknown languages" Pt. arrested in 2013 for cruelty to animals. During his incarceration, pt.'s behavior described as "constantly provocative", pt. "throwing water on people and dumping water under the doors of other inmates; and continually yelling through his cell door and challenging both deputies and inmates to a fight". Pt. also had been refusing medical treatment. Pt. was considered a risk due to his aggression and refusal of treatment for his psychosis. According to Psychologist report, pt. is found incompetent to stand trial and requires antipsychotic medication in order to return him to competency and is a danger to himself and to others if unmedicated. Assessment What has happened this shift: Pt up and on the unit pacing and talking with peers. He states that he feels anxious about up coming court not knowing if he will be picked up the day before or day of court. He is woried about having to spent a night in prison and not getting his meds. S/I, H/I: Denies A/VH: Denies Sleep: Pt. napped ADL's: Independent Group attendance: N/A Were meds taken: Yes Any med S/E: None Mental Status Exam Appearance: Casual Eye contact: Good Behavior: Anxious, cooperative Mood: Anxious Affect: Congruent with mood Thought process: Linear with some paranoia. Thought Content: Future plans, prison time Cognition: A&O X4 Insight: Fair Judgment: Fair Interventions PRN's used: Opal Amin. Therapeutic interventions: Maintained a safe and therapeutic environment, ensured contract for safety, provided clear and simple instructions, encouraged interactions with others, monitored behavior and need for intervention, provided active listening and positive encouragement, monitored bruised area on left hand and obtained pictures, and maintained Q 15min safety checks. Restraints/seclusion/emergency medication: N/A Justification of Continued Inpatient Treatment: Pt. continues to be restored to competency so he can be returned to prison and stand trial.
[2020-03-14] MEDS: vitamin B comp w/Vit. C tab 1 TAB TABLET PO SCH (07:50)
[2020-03-14] MEDS: OMEGA-3/DHA/EPA/FISH OIL 1 EACH CAPSULE.DR PO SCH ×2 (07:50→20:33)
[2020-03-14] MEDS: lithium carbonate 450mg CR tablet PO SCH ×2 (07:50→20:33)
[2020-03-14] MEDS: naproxen 500mg tablet PO SCH ×2 (07:50→20:34)
[2020-03-14] MEDS: vitamin E 400 unit capsule PO SCH (07:50)
[2020-03-14] MEDS: multivitamins, therapeutics tablet PO SCH (07:50)
[2020-03-14] MEDS: hydrOXYzine 25 MG tablet PO PRN ×3 (07:50→20:34)
[2020-03-14] MEDS: benztropine 1mg tablet PO SCH ×2 (07:50→20:34)
[2020-03-14] MEDS: propranolol 10mg tablet PO SCH ×3 (07:50→20:34)
[2020-03-14] MEDS: ascorbic acid 500mg tablet PO SCH ×2 (07:50→17:36)
[2020-03-14] MEDS: lactose-reduced food (Ensure High Protein) 237ml bottle PO SCH ×4 (07:51→21:33)
[2020-03-14] MEDS: vitamin D (cholecalciferol) 1,000 unit tablet PO SCH (07:51)
[2020-03-14 08:00] VITALS: BP 127/83
[2020-03-14] MEDS: LORazepam 0.5 MG tablet PO PRN (08:55)
[2020-03-14 12:45] VITALS: BP 124/76
--- NOTE | 2020-03-14 14:15 | NUR ---
Nursing Progress Note: Legal hold: 1370 Client on involuntary status for 1370 Report received from Yamilka VILLA with use of SBAR Why are they here: Pt. admitted directly from the [facility] accompanied by state troopers. Pt. 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 Pt was demonstrating psychotic/paranoid behavior, trying to barricade himself into his friends house and "speaking in unknown languages" Pt. arrested in 2013 for cruelty to animals. During his incarceration, pt.'s behavior described as "constantly provocative", pt. "throwing water on people and dumping water under the doors of other inmates; and continually yelling through his cell door and challenging both deputies and inmates to a fight". Pt. also had been refusing medical treatment. Pt. was considered a risk due to his aggression and refusal of treatment for his psychosis. According to Psychologist report, pt. is found incompetent to stand trial and requires antipsychotic medication in order to return him to competency and is a danger to himself and to others if unmedicated. Assessment What has happened this shift: Pt c/o increased anxiety today. He stated, "I don't know whether to go with Ativan or Atarax this morning, I'm really nervous this morning...they said they could pick me up today." Pt was medicated with prn Atarax 50 mg at 0750. He approached this RN again at 0855 to state that he was still feeling anxious. Medicated with prn Ativan 1 mg with good effect. Pt requested and was given prn Atarax again at 1314. Pt stated, "well, they haven't come for me yet, I think if they don't come today and come tomorrow morning then I'll have a better chance of being brought back here." Pt is supposed to be picked up for court tomorrow around 0830 but has been told that they can come at anytime today or tomorrow. Pt overheard a conversation with another pt about [employer]. Pt stated that he believed [employer] developed [employer]. Pt asked if I knew that the original [employer] computer sold for $666.67? "There you go." Pt seemed to be indicating that computers were associated with the devil. Reminded pt that Sunny Malin actually developed [employer]. Pt stated that he got the 2 confused. Pt then spoke about how the priests in [place] times used to wear a band around their wrist with the 10 commandments on them and a little strip on their foreheads with the 10 commandments written on them. Pt stated, "Maybe they were trying to pull the wool over our eyes." S/I, H/I: Pt denies A/VH: Pt denies Sleep: Pt slept 7.75 hours last night per noc shift report, he napped for short intervals throughout the day. ADL's: Independent Group attendance: No Were meds taken: Yes Any med S/E: None noted or reported. Mental Status Exam Appearance: Clean, neat, dressed in his own clothing. Eye contact: Good Behavior: Cooperative, paces the unit, socializes with select staff and peers, naps. Mood: Anxious Affect: Anxious Thought process: Linear, internally preoccupied, fixed delusions of persecution, reality distortion. Thought Content: Preoccupied with court and uncertainty of when they will come for him and what the outcome will be. Cognition: A/O X 4 with reality distortion. Insight: Fair Judgment: Fair Interventions PRN's used: Atarax 50 mg X 2, Ativan 1 mg Therapeutic interventions: 1:1 assessment, active listening, therapeutic conversation, medication administration/education/monitoring, anxiety management, encouragement and positive reinforcement, Q 15 minute safety checks. 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 Addendum: 03/14/20 at 1740 by Beth Brush RN (Lee) Pt's Clarita was changed to 450 mg CR BID.
[2020-03-14] MEDS ORDERED: ZOLP5TAB8 PO (17:43)
[2020-03-14] MEDS ORDERED: MULT-1179 PO (17:43)
[2020-03-14] MEDS ORDERED: OMEG-166 PO (17:43)
[2020-03-14] MEDS ORDERED: CHOL100046 PO (17:43)
[2020-03-14] MEDS ORDERED: BENZ2TAB7 PO (17:43)
[2020-03-14] MEDS ORDERED: PROP10TA10 PO (17:43)
[2020-03-14] MEDS ORDERED: VITA400C19 PO (17:43)
[2020-03-14] MEDS ORDERED: CLON0.252 PO (17:43)
[2020-03-14] MEDS ORDERED: HYDR-3686 PO (17:43)
[2020-03-14] MEDS ORDERED: lithium carbonate 450mg CR PO (17:43)
[2020-03-14 19:35] VITALS: BP 142/93
[2020-03-14] MEDS: CLONAZEPAM 0.25 MG oral disentigrating tablet (ODT) PO SCH (20:33)
[2020-03-14] MEDS: zolpidem 5mg tablet PO PRN (21:02)
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
[2020-03-15] MEDS: vitamin D (cholecalciferol) 1,000 unit tablet PO SCH (06:53)
[2020-03-15] MEDS: multivitamins, therapeutics tablet PO SCH (06:53)
[2020-03-15] MEDS: propranolol 10mg tablet PO SCH ×3 (06:53→20:34)
[2020-03-15] MEDS: vitamin B comp w/Vit. C tab 1 TAB TABLET PO SCH (06:54)
[2020-03-15] MEDS: vitamin E 400 unit capsule PO SCH (06:54)
[2020-03-15] MEDS: ascorbic acid 500mg tablet PO SCH ×2 (06:54→17:26)
[2020-03-15] MEDS: OMEGA-3/DHA/EPA/FISH OIL 1 EACH CAPSULE.DR PO SCH ×2 (06:54→20:33)
[2020-03-15] MEDS: naproxen 500mg tablet PO SCH ×2 (06:54→20:33)
[2020-03-15] MEDS: lithium carbonate 450mg CR tablet PO SCH ×2 (06:54→20:34)
[2020-03-15] MEDS: benztropine 1mg tablet PO SCH ×2 (06:55→20:33)
[2020-03-15] MEDS: hydrOXYzine 25 MG tablet PO PRN (06:55)
[2020-03-15 08:49] VITALS: BP 149/85
[2020-03-15] MEDS: LORazepam 0.5 MG tablet PO PRN ×2 (09:31→18:36)
[2020-03-15] MEDS: lactose-reduced food (Ensure High Protein) 237ml bottle PO SCH ×2 (12:45→17:27)
--- NOTE | 2020-03-15 15:32 | NUR ---
NURSING PROGRESS NOTE Legal hold: 1370 Client on involuntary status for 1370 Report received from DAISY Prather with use of SBAR Why are they here: Pt. admitted directly from the [facility] accompanied by state troopers. Pt. 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 Pt was demonstrating psychotic/paranoid behavior, trying to barricade himself into his friends house and "speaking in unknown languages" Pt. arrested in 2013 for cruelty to animals. During his incarceration, pt.'s behavior described as "constantly provocative", pt. "throwing water on people and dumping water under the doors of other inmates; and continually yelling through his cell door and challenging both deputies and inmates to a fight". Pt. also had been refusing medical treatment. Pt. was considered a risk due to his aggression and refusal of treatment for his psychosis. According to Psychologist report, pt. is found incompetent to stand trial and requires antipsychotic medication in order to return him to competency and is a danger to himself and to others if unmedicated. Assessment What has happened this shift: Awake at shift change awaiting to leave for court proceeding. Became anxious and asked for meds early and Atarax which was all given. Became increasingly anxious when he did not get picked up for court, a phone call was made and it was determined the rolloff driver set it up for tomorrow. He was then given Ativan for increased anxiety with good effects. He was able to use his other coping skills like walking the solomon, going out to patio, reading and talking with roommate to ease his anxiety. The rest of the day was uneventful. S/I, H/I: Denies A/VH: Denies Sleep: napped ADL's: Independent Group attendance: yes Were meds taken: Yes Any med S/E: None Mental Status Exam Appearance: Neat and clean Eye contact: Good Behavior: Anxious, cooperative Mood: Anxious Affect: Congruent with mood Thought process: Linear Thought Content: attending court proceeding Cognition: A&O X4 Insight: Fair Judgment: Fair Interventions PRN's used: Atarax, Ativan Therapeutic interventions: Maintained a safe and therapeutic environment, ensured contract for safety, provided clear and simple instructions, encouraged interactions with others, monitored behavior and need for intervention, provided active listening and positive encouragement, monitored bruised area on left hand and obtained pictures, and maintained Q 15min safety checks. Restraints/seclusion/emergency medication: N/A Justification of Continued Inpatient Treatment: Pt. continues to be restored to competency so he can be returned to intermediate and stand trial.
--- NOTE | 2020-03-15 18:32 | NUR ---
Patient is pacing the hallway. Patient approaches this leader writer complaining of anxiety and asking for anti-anxiety medication. This patient is well oriented and cooperative. Patient states "it's been a stressful day around here."
[2020-03-15 19:00] VITALS: BP 110/60
[2020-03-15] MEDS: CLONAZEPAM 0.25 MG oral disentigrating tablet (ODT) PO SCH (20:34)
[2020-03-15] MEDS: zolpidem 5mg tablet PO PRN (20:34)
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
[2020-03-16] MEDS: naproxen 500mg tablet PO SCH ×2 (07:23→20:27)
[2020-03-16] MEDS: ascorbic acid 500mg tablet PO SCH ×2 (07:23→16:46)
[2020-03-16] MEDS: benztropine 1mg tablet PO SCH ×2 (07:23→20:27)
[2020-03-16] MEDS: lithium carbonate 450mg CR tablet PO SCH ×2 (07:23→20:26)
[2020-03-16] MEDS: vitamin D (cholecalciferol) 1,000 unit tablet PO SCH (07:23)
[2020-03-16] MEDS: multivitamins, therapeutics tablet PO SCH (07:23)
[2020-03-16] MEDS: OMEGA-3/DHA/EPA/FISH OIL 1 EACH CAPSULE.DR PO SCH ×2 (07:24→20:26)
[2020-03-16] MEDS: vitamin B comp w/Vit. C tab 1 TAB TABLET PO SCH (07:24)
[2020-03-16] MEDS: vitamin E 400 unit capsule PO SCH (07:24)
[2020-03-16] MEDS: propranolol 10mg tablet PO SCH ×3 (07:24→20:26)
[2020-03-16] MEDS: hydrOXYzine 25 MG tablet PO PRN ×2 (07:24→20:28)
[2020-03-16 08:00] VITALS: BP 112/72
[2020-03-16] MEDS: lactose-reduced food (Ensure High Protein) 237ml bottle PO SCH ×3 (08:38→18:16)
[2020-03-16] MEDS: LORazepam 0.5 MG tablet PO PRN (10:21)
--- NOTE | 2020-03-16 10:27 | NUR ---
RESULT OF COURT PROCEEDING Dropped charges, time served, no probation. Released from [facility] custody and is free to leave per [facility] Ch[facility]al [facility] deputy. Copy of court findings in front of patient's chart.
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
[2020-03-16 19:52] VITALS: BP 123/83
[2020-03-16] MEDS: CLONAZEPAM 0.25 MG oral disentigrating tablet (ODT) PO SCH (20:27)
[2020-03-16] MEDS: zolpidem 5mg tablet PO PRN (21:15)
--- NOTE | 2020-03-16 22:53 | NUR ---
NURSING PROGRESS NOTE Legal hold: Vol Client on involuntary status for 1370 Report received from WALESKA Honeycutt with use of SBAR Why are they here: Pt. admitted directly from the [facility] accompanied by state troopers. Pt. 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 Pt was demonstrating psychotic/paranoid behavior, trying to barricade himself into his friends house and "speaking in unknown languages". Pt. arrested in 2013 for cruelty to animals. During his incarceration, pt.'s behavior described as "constantly provocative", pt. "throwing water on people and dumping water under the doors of other inmates; and continually yelling through his cell door and challenging both deputies and inmates to a fight". Pt. also had been refusing medical treatment. Pt. was considered a risk due to his aggression and refusal of treatment for his psychosis. According to Psychologist report, pt. is found incompetent to stand trial and requires antipsychotic medication in order to return him to competency and is a danger to himself and to others if unmedicated. Assessment What has happened this shift: Pt is visible on the unit, upbeat this evening and talkative. He watches TV with peers in the rec room and is observed laughing and talking with them. Pt is cooperative with 1:1 assessment and medication compliant. Pt states that he is excited to be going home to his mother and has plent of wood working projects to get started on and plans to make raised garden beds. He requests atarax with his 2000 medications which is given to him. Pt requests PRN ambien about an hour later. S/I, H/I: Denies A/VH: Denies Sleep: none ADL's: Independent Group attendance: No Were meds taken: Yes Any med S/E: None noted. Mental Status Exam Appearance: Clean and groomed Eye contact: direct Behavior: Calm and cooperative. Speech: Clear Mood: Depressed with some brightening Affect: blunted Thought process: Linear. Thought Content: forward thinking Cognition: Alert Insight: Poor Judgment: good Interventions PRN's used: atarax, ambien Therapeutic interventions: Established rapport, maintained a safe and therapeutic environment, ensured contract for safety, provided clear and simple instructions, attempted to reorient to reality as needed, monitored behavior and need for intervention, provided positive encouragement, and maintained Q 15min safety checks. Restraints/seclusion/emergency medication: N/A Justification of Continued Inpatient Treatment: Pt. [place]
[2020-03-17] MEDS: vitamin B comp w/Vit. C tab 1 TAB TABLET PO SCH (07:56)
[2020-03-17] MEDS: naproxen 500mg tablet PO SCH ×2 (07:56→20:25)
[2020-03-17] MEDS: benztropine 1mg tablet PO SCH ×2 (07:56→20:26)
[2020-03-17] MEDS: propranolol 10mg tablet PO SCH ×3 (07:56→20:27)
[2020-03-17] MEDS: hydrOXYzine 25 MG tablet PO PRN ×2 (07:56→20:25)
[2020-03-17] MEDS: multivitamins, therapeutics tablet PO SCH (07:56)
[2020-03-17] MEDS: lactose-reduced food (Ensure High Protein) 237ml bottle PO SCH ×2 (07:57→12:17)
[2020-03-17] MEDS: vitamin E 400 unit capsule PO SCH (07:57)
[2020-03-17] MEDS: OMEGA-3/DHA/EPA/FISH OIL 1 EACH CAPSULE.DR PO SCH ×2 (07:57→20:22)
[2020-03-17] MEDS: ascorbic acid 500mg tablet PO SCH ×2 (07:57→17:27)
[2020-03-17] MEDS: lithium carbonate 450mg CR tablet PO SCH ×2 (07:57→20:24)
[2020-03-17] MEDS: vitamin D (cholecalciferol) 1,000 unit tablet PO SCH (07:57)
[2020-03-17 08:00] VITALS: BP 103/69
[2020-03-17] MEDS: LORazepam 0.5 MG tablet PO PRN ×2 (09:09→17:27)
--- NOTE | 2020-03-17 12:54 | NUR ---
NURSING PROGRESS NOTE Legal hold: Vol Client on voluntary status Report received from DAISY Pierre with use of SBAR Why are they here: Pt. admitted directly from the [facility] accompanied by state troopers. Pt. 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 Pt was demonstrating psychotic/paranoid behavior, trying to barricade himself into his friends house and "speaking in unknown languages" Pt. arrested in 2013 for cruelty to animals. During his incarceration, pt.'s behavior described as "constantly provocative", pt. "throwing water on people and dumping water under the doors of other inmates; and continually yelling through his cell door and challenging both deputies and inmates to a fight". Pt. also had been refusing medical treatment. Pt. was considered a risk due to his aggression and refusal of treatment for his psychosis. According to Psychologist report, pt. is found incompetent to stand trial and requires antipsychotic medication in order to return him to competency and is a danger to himself and to others if unmedicated. Assessment What has happened this shift: Awake at change of shift, pacing in hallway, says good morning to others. Med compliant. Reports increased anxiety about having to wait 4 more days (Vol) to go home. Given Ativan with good effects. Talks in detail [place] the [place] and also looking forward to his "shop full of tools." Is planning on doing some woodworking and helping his mother out fixing things up. He is relieved and happy about his court case. S/I, H/I: Denies A/VH: Denies Sleep: napped ADL's: Independent Group attendance: yes Were meds taken: Yes Any med S/E: None Mental Status Exam Appearance: Neat and clean Eye contact: Good Behavior: Anxious, cooperative Mood: Euthymic Affect: Calm but anxious occasionally Thought process: Linear Thought Content: discharging and going home Cognition: A&O X4 Insight: Fair Judgment: Fair Interventions PRN's used: Atarax, Ativan Therapeutic interventions: Maintained a safe and therapeutic environment, ensured contract for safety, provided clear and simple instructions, encouraged interactions with others, monitored behavior and need for intervention, provided active listening and positive encouragement, monitored bruised area on left hand and obtained pictures, and maintained Q 15min safety checks. Restraints/seclusion/emergency medication: N/A Justification of Continued Inpatient Treatment: Pt. continues to be restored to competency so he can be returned to [facility] and stand trial.
[2020-03-17 19:52] VITALS: BP 122/64
[2020-03-17] MEDS: CLONAZEPAM 0.25 MG oral disentigrating tablet (ODT) PO SCH (20:23)
[2020-03-17] MEDS: zolpidem 5mg tablet PO PRN (21:15)
--- NOTE | 2020-03-18 00:49 | NUR ---
NURSING PROGRESS NOTE Legal hold: Vol Client on involuntary status for 1370 Report received from WALESKA Honeycutt with use of SBAR Why are they here: Pt. admitted directly from the [facility] accompanied by state troopers. Pt. 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 Pt was demonstrating psychotic/paranoid behavior, trying to barricade himself into his friends house and "speaking in unknown languages". Pt. arrested in 2013 for cruelty to animals. During his incarceration, pt.'s behavior described as "constantly provocative", pt. "throwing water on people and dumping water under the doors of other inmates; and continually yelling through his cell door and challenging both deputies and inmates to a fight". Pt. also had been refusing medical treatment. Pt. was considered a risk due to his aggression and refusal of treatment for his psychosis. According to Psychologist report, pt. is found incompetent to stand trial and requires antipsychotic medication in order to return him to competency and is a danger to himself and to others if unmedicated. Assessment What has happened this shift: Pt is observed walking the halls and socializing with staff and peers at shift change. He appears slightly depressed, but the conversation is hopeful, and future oriented. He wishes he could leave sooner, but is trying to "stay busy" while here. He is cooperative with 1:1 assessment and medication compliant. He requests atarax with his 2000 medications which is given to him. Pt requests PRN ambien about an hour later. S/I, H/I: Denies A/VH: Denies Sleep: none ADL's: Independent Group attendance: No Were meds taken: Yes Any med S/E: None noted. Mental Status Exam Appearance: Clean and groomed Eye contact: direct Behavior: Calm and cooperative. Speech: Clear Mood: Depressed with some brightening Affect: blunted Thought process: Linear. Thought Content: forward thinking Cognition: Alert Insight: Poor Judgment: good Interventions PRN's used: atarax, ambien Therapeutic interventions: Established rapport, maintained a safe and therapeutic environment, ensured contract for safety, provided clear and simple instructions, attempted to reorient to reality as needed, monitored behavior and need for intervention, provided positive encouragement, and maintained Q 15min safety checks. Restraints/seclusion/emergency medication: N/A Justification of Continued Inpatient Treatment: Pt. is [place]
[2020-03-18 07:54] LABS: BASOPHILS # (AUTO) 0.1 X10'3 (0-0.2); BASOPHILS % (AUTO) 0.7 % (0-1); EOSINOPHILS # (AUTO) 0.5 X10'3 (0-0.9); EOSINOPHILS % (AUTO) 5.9 % (0-6); HEMATOCRIT 44.4 % (42.0-52.0); LYMPHOCYTES % (AUTO) 23.7 % (21-51); MEAN CORPUSCULAR HGB CONC 33.7 g/dL (33.0-36.5); MEAN CORPUSCULAR VOLUME 92.2 FL (78-98); MEAN PLATELET VOLUME 7.8 FL (7.4-10.4); MONOCYTES # (AUTO) 0.5 X10'3 (0-0.9); MONOCYTES % (AUTO) 6.6 % (2-12); NEUTROPHILS # (AUTO) 5.2 X10'3 (1.8-7.7); NEUTROPHILS % (AUTO) 63.1 % (42-75); PLATELET COUNT 166 X10'3 (140-440); RED BLOOD COUNT 4.82 X10'6 (4.70-6.10); RED CELL DISTRIBUTION WIDTH 13.2 % (11.5-14.5); WHITE BLOOD COUNT 8.2 X10'3 (4.5-11.0)
[2020-03-18 07:58] LABS: ALANINE AMINOTRANSFERASE 34 U/L (12-78); ALBUMIN 3.8 G/DL (3.4-5.0); ALBUMIN/GLOBULIN RATIO 1.3 (1.1-1.5); ALKALINE PHOSPHATASE 55 IU/L (46-116); ANION GAP 5 (8-16); ASPARTATE AMINO TRANSFERASE 23 U/L (10-37); BILIRUBIN,TOTAL 0.5 MG/DL (0.1-1.0); BLOOD UREA NITROGEN 18 MG/DL (7-18); BUN/CREATININE RATIO 17.5 (5.4-32.0); CALCIUM 8.9 MG/DL (8.5-10.1); CHLORIDE 107 MMOL/L (99-107); CREATININE 1.03 MG/DL (0.60-1.10); GLUCOSE 122 MG/DL (70-104); POTASSIUM 4.2 MMOL/L (3.5-5.1); SODIUM 141 MMOL/L (135-145); TOTAL CARBON DIOXIDE 29.3 MMOL/L (24-32); TOTAL PROTEIN 6.7 G/DL (6.4-8.2); eGFR 76 ML/MIN
[2020-03-18 08:00] VITALS: BP 110/64
[2020-03-18] MEDS: multivitamins, therapeutics tablet PO SCH (08:38)
[2020-03-18] MEDS: propranolol 10mg tablet PO SCH ×3 (08:38→20:32)
[2020-03-18] MEDS: OMEGA-3/DHA/EPA/FISH OIL 1 EACH CAPSULE.DR PO SCH ×2 (08:38→20:35)
[2020-03-18] MEDS: lithium carbonate 450mg CR tablet PO SCH ×2 (08:38→20:33)
[2020-03-18] MEDS: naproxen 500mg tablet PO SCH ×2 (08:38→20:33)
[2020-03-18] MEDS: vitamin B comp w/Vit. C tab 1 TAB TABLET PO SCH (08:38)
[2020-03-18] MEDS: vitamin D (cholecalciferol) 1,000 unit tablet PO SCH (08:38)
[2020-03-18] MEDS: benztropine 1mg tablet PO SCH ×2 (08:38→20:32)
[2020-03-18] MEDS: vitamin E 400 unit capsule PO SCH (08:39)
[2020-03-18] MEDS: hydrOXYzine 25 MG tablet PO PRN ×2 (08:39→20:32)
[2020-03-18] MEDS: ascorbic acid 500mg tablet PO SCH ×2 (08:39→18:00)
[2020-03-18] MEDS: lactose-reduced food (Ensure High Protein) 237ml bottle PO SCH ×3 (08:42→18:04)
[2020-03-18] MEDS: LORazepam 0.5 MG tablet PO PRN ×2 (10:57→19:22)
--- NOTE | 2020-03-18 14:47 | NUR ---
Nursing Progress Note: Legal hold: Voluntary Report received from RN with use of SBAR Why are they here: Pt. admitted directly from the [facility] accompanied by state troopers. Pt. 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 Pt was demonstrating psychotic/paranoid behavior, trying to barricade himself into his friends house and "speaking in unknown languages" Pt. arrested in 2013 for cruelty to animals. During his incarceration, pt.'s behavior described as "constantly provocative", pt. "throwing water on people and dumping water under the doors of other inmates; and continually yelling through his cell door and challenging both deputies and inmates to a fight". Pt. also had been refusing medical treatment. Pt. was considered a risk due to his aggression and refusal of treatment for his psychosis. According to Psychologist report, pt. is found incompetent to stand trial and requires antipsychotic medication in order to return him to competency and is a danger to himself and to others if unmedicated. Assessment What has happened this shift: Received Pt in bed sleeping w/o distress at beginning of shift. Pt. woke for vitals and was pleasant and cooperative. Pt tolerated assessments well, ate all meals and interacted minimally with others today. He is excited about going to live with his mom at the [facility] and concerned about what parole will require of him e.g. An ankle bracelet. He c/o anxiety in the morning and received Atarax and Ativan with good effect. He spoke about continuing his Hyde but not Invega because it doesnt do anything and makes it worse. Pt encouraged to stay on meds upon discharge. S/I, H/I: Denies A/VH: Denies Sleep: Pt. napped ADL's: Independent Group attendance: N/A Were meds taken: Yes Any med S/E: None Mental Status Exam Appearance: Casual Eye contact: Good Behavior: Anxious, cooperative Mood: Anxious Affect: Congruent with mood Thought process: Linear with some paranoia. Thought Content: Future plans, work Cognition: A&O X4 Insight: Fair Judgment: Fair Interventions PRN's used: Atarax, Ativan Therapeutic interventions: Maintained a safe and therapeutic environment, ensured contract for safety, provided clear and simple instructions, encouraged interactions with others, monitored behavior and need for intervention, provided active listening and positive encouragement, and maintained Q 15min safety checks. Restraints/seclusion/emergency medication: N/A Justification of Continued Inpatient Treatment: Pt. needs to establish a discharge plan to continue out pt tx and prevent readmission.
[2020-03-18 20:13] VITALS: BP 127/77
[2020-03-18] MEDS: CLONAZEPAM 0.25 MG oral disentigrating tablet (ODT) PO SCH (20:35)
[2020-03-18] MEDS: zolpidem 5mg tablet PO PRN (21:36)
--- NOTE | 2020-03-19 00:17 | NUR ---
Nursing Progress Note: Legal hold: Voluntary Report received from RN with use of SBAR Why are they here: Pt. admitted directly from the [facility] accompanied by state troopers. Pt. 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 Pt was demonstrating psychotic/paranoid behavior, trying to barricade himself into his friends house and "speaking in unknown languages" Pt. arrested in 2013 for cruelty to animals. During his incarceration, pt.'s behavior described as "constantly provocative", pt. "throwing water on people and dumping water under the doors of other inmates; and continually yelling through his cell door and challenging both deputies and inmates to a fight". Pt. also had been refusing medical treatment. Pt. was considered a risk due to his aggression and refusal of treatment for his psychosis. According to Psychologist report, pt. is found incompetent to stand trial and requires antipsychotic medication in order to return him to competency and is a danger to himself and to others if unmedicated. Assessment What has happened this shift: Pt in room talking with roommate at start of the shift. Pt states that he is leaving this week to go home and live. He reports anxiety due to the unknown. He is worried about getting a job and settling into normal life. He paced the halls and was social with staff. S/I, H/I: Denies A/VH: Denies Sleep: Pt. napped ADL's: Independent Group attendance: N/A Were meds taken: Yes Any med S/E: None Mental Status Exam Appearance: Casual Eye contact: Good Behavior: Anxious, cooperative Mood: Anxious Affect: Congruent with mood Thought process: Linear with some paranoia. Thought Content: Future plans, work Cognition: A&O X4 Insight: Fair Judgment: Fair Interventions PRN's used: Atarax, Ativan, Ambien Therapeutic interventions: Maintained a safe and therapeutic environment, ensured contract for safety, provided clear and simple instructions, encouraged interactions with others, monitored behavior and need for intervention, provided active listening and positive encouragement, and maintained Q 15min safety checks. Restraints/seclusion/emergency medication: N/A Justification of Continued Inpatient Treatment: Pt. needs to establish a discharge plan to continue out pt tx and prevent readmission.
[2020-03-19 07:30] VITALS: BP 119/69
[2020-03-19] MEDS: propranolol 10mg tablet PO SCH ×3 (08:26→20:20)
[2020-03-19] MEDS: OMEGA-3/DHA/EPA/FISH OIL 1 EACH CAPSULE.DR PO SCH ×2 (08:26→20:20)
[2020-03-19] MEDS: ascorbic acid 500mg tablet PO SCH ×2 (08:27→18:02)
[2020-03-19] MEDS: multivitamins, therapeutics tablet PO SCH (08:27)
[2020-03-19] MEDS: vitamin B comp w/Vit. C tab 1 TAB TABLET PO SCH (08:27)
[2020-03-19] MEDS: vitamin E 400 unit capsule PO SCH (08:27)
[2020-03-19] MEDS: lithium carbonate 450mg CR tablet PO SCH ×2 (08:28→20:20)
[2020-03-19] MEDS: vitamin D (cholecalciferol) 1,000 unit tablet PO SCH (08:28)
[2020-03-19] MEDS: lactose-reduced food (Ensure High Protein) 237ml bottle PO SCH ×3 (08:29→18:03)
[2020-03-19] MEDS: hydrOXYzine 25 MG tablet PO PRN ×2 (08:29→20:20)
[2020-03-19] MEDS: benztropine 1mg tablet PO SCH ×2 (08:29→20:19)
[2020-03-19] MEDS: naproxen 500mg tablet PO SCH ×2 (08:29→20:20)
[2020-03-19] MEDS: LORazepam 0.5 MG tablet PO PRN (12:55)
--- NOTE | 2020-03-19 17:50 | NUR ---
Nursing Progress Note: Legal hold: Voluntary Report received from Yinka VILLA with use of SBAR Why are they here: Pt. admitted directly from the [facility] accompanied by state troopers. Pt. 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 Pt was demonstrating psychotic/paranoid behavior, trying to barricade himself into his friends house and "speaking in unknown languages" Pt. arrested in 2013 for cruelty to animals. During his incarceration, pt.'s behavior described as "constantly provocative", pt. "throwing water on people and dumping water under the doors of other inmates; and continually yelling through his cell door and challenging both deputies and inmates to a fight". Pt. also had been refusing medical treatment. Pt. was considered a risk due to his aggression and refusal of treatment for his psychosis. According to Psychologist report, pt. is found incompetent to stand trial and requires antipsychotic medication in order to return him to competency and is a danger to himself and to others if unmedicated. Assessment What has happened this shift: Received Pt in bed sleeping w/o distress at beginning of shift. Pt. woke for vitals and was pleasant and cooperative. Pt tolerated assessments well, ate all meals and interacted apporopriately with other patients and staff. 1:1 done at bedside, pt. reports strong desire for discharge. Pt. knows he is taking a bus to his mother's house this Thursday. Pt. denies SI/HI, A/V hallucinations. Pt. received Atarax 50mg po x1 and Ativan 1mg po x1. Pt. isolates to his room frequently. Also seen pacing in the halls, Pt. joking states, "I've been putting on too much weight!" S/I, H/I: Denies A/VH: Denies Sleep: Pt. napped ADL's: Independent Group attendance: N/A Were meds taken: Yes Any med S/E: None Mental Status Exam Appearance: Casual Eye contact: Good Behavior: pacing in the halls Mood: Anxious Affect: Congruent with mood Thought process: Linear with some paranoia. Thought Content: Anxious for discharge and to start working again. Cognition: A&O X4 Insight: Fair Judgment: Fair Interventions PRN's used: Atarax, Ativan x1 Therapeutic interventions: Maintained a safe and therapeutic environment, ensured contract for safety, provided clear and simple instructions, encouraged interactions with others, monitored behavior and need for intervention, provided active listening and positive encouragement, and maintained Q 15min safety checks. Restraints/seclusion/emergency medication: N/A Justification of Continued Inpatient Treatment: Pt. needs to establish a discharge plan to continue out pt tx and prevent readmission.
[2020-03-19] MEDS: CLONAZEPAM 0.25 MG oral disentigrating tablet (ODT) PO SCH (20:19)
[2020-03-19 20:28] VITALS: BP 151/97
[2020-03-19] MEDS: zolpidem 5mg tablet PO PRN (21:21)
--- NOTE | 2020-03-20 01:16 | NUR ---
Nursing Progress Note: Legal hold: Voluntary Report received from Yinka VILLA with use of SBAR Why are they here: Pt. admitted directly from the [facility] accompanied by state troopers. Pt. 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 Pt was demonstrating psychotic/paranoid behavior, trying to barricade himself into his friends house and "speaking in unknown languages" Pt. arrested in 2013 for cruelty to animals. During his incarceration, pt.'s behavior described as "constantly provocative", pt. "throwing water on people and dumping water under the doors of other inmates; and continually yelling through his cell door and challenging both deputies and inmates to a fight". Pt. also had been refusing medical treatment. Pt. was considered a risk due to his aggression and refusal of treatment for his psychosis. According to Psychologist report, pt. is found incompetent to stand trial and requires antipsychotic medication in order to return him to competency and is a danger to himself and to others if unmedicated. Assessment What has happened this shift: Patient in rec room watching tv with peers for a whike then pacing the solomon social with peers. 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 Pt states that he might try building thing like planter beds and walking bridges to sell. S/I, H/I: Denies A/VH: Denies Sleep: Pt. napped ADL's: Independent Group attendance: N/A Were meds taken: Yes Any med S/E: None Mental Status Exam Appearance: Casual Eye contact: Good Behavior: pacing in the halls Mood: Anxious Affect: Congruent with mood Thought process: Linear with some paranoia. Thought Content: Anxious for discharge and to start working again. Cognition: A&O X4 Insight: Fair Judgment: Fair Interventions PRN's used: Opal Amin
[2020-03-20 07:30] VITALS: BP 121/70
[2020-03-20] MEDS: vitamin B comp w/Vit. C tab 1 TAB TABLET PO SCH (08:04)
[2020-03-20] MEDS: lithium carbonate 450mg CR tablet PO SCH ×2 (08:05→20:16)
[2020-03-20] MEDS: OMEGA-3/DHA/EPA/FISH OIL 1 EACH CAPSULE.DR PO SCH ×2 (08:05→20:17)
[2020-03-20] MEDS: hydrOXYzine 25 MG tablet PO PRN ×2 (08:05→20:17)
[2020-03-20] MEDS: multivitamins, therapeutics tablet PO SCH (08:05)
[2020-03-20] MEDS: vitamin E 400 unit capsule PO SCH (08:06)
[2020-03-20] MEDS: ascorbic acid 500mg tablet PO SCH ×2 (08:06→18:12)
[2020-03-20] MEDS: propranolol 10mg tablet PO SCH ×3 (08:06→20:16)
[2020-03-20] MEDS: vitamin D (cholecalciferol) 1,000 unit tablet PO SCH (08:06)
[2020-03-20] MEDS: naproxen 500mg tablet PO SCH ×2 (08:06→20:00)
[2020-03-20] MEDS: benztropine 1mg tablet PO SCH ×2 (08:07→20:17)
[2020-03-20] MEDS: lactose-reduced food (Ensure High Protein) 237ml bottle PO SCH ×3 (08:07→18:16)
[2020-03-20] MEDS: magnesium hydroxide 30ml (MOM) UD suspension PO PRN (08:27)
[2020-03-20] MEDS: LORazepam 0.5 MG tablet PO PRN (09:31)
[2020-03-20] MEDS ORDERED: RISP2TAB3 PO (11:46)
[2020-03-20] MEDS ORDERED: LITH300C PO (11:46)
[2020-03-20] MEDS ORDERED: HYDR50TA65 PO (11:46)
[2020-03-20] MEDS ORDERED: PROP10TA10 PO (11:46)
[2020-03-20] MEDS ORDERED: BENZ2TAB7 PO (12:07)
--- NOTE | 2020-03-20 13:49 | NUR ---
DISCHARGE PLANNING Reviewed bus route for Hayden. Took out $20 from [employer] to give to Hayden for bus ticket from [place] to [place] (cost $10) and from [place] to [place] (cost $10). Bus leaves at 10:30 AM from [facility] on Thu. Gave signed Rx's to pharmacy to access indigent med program through [facility]. ELLI Burciaga
--- NOTE | 2020-03-20 16:53 | NUR ---
Picked up Uzma meds from [facility] to assist with discharge tomorrow. ELLI Burciaga
--- NOTE | 2020-03-20 17:42 | NUR ---
Nursing Progress Note: Legal hold: Voluntary Report received from Yamilka VILLA with use of SBAR Why are they here: Pt. admitted directly from the [facility] accompanied by state troopers. Pt. 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 Pt was demonstrating psychotic/paranoid behavior, trying to barricade himself into his friends house and "speaking in unknown languages" Pt. arrested in 2013 for cruelty to animals. During his incarceration, pt.'s behavior described as "constantly provocative", pt. "throwing water on people and dumping water under the doors of other inmates; and continually yelling through his cell door and challenging both deputies and inmates to a fight". Pt. also had been refusing medical treatment. Pt. was considered a risk due to his aggression and refusal of treatment for his psychosis. According to Psychologist report, pt. is found incompetent to stand trial and requires antipsychotic medication in order to return him to competency and is a danger to himself and to others if unmedicated. Assessment What has happened this shift: Received Pt in bed sleeping w/o distress at beginning of shift. Pt. woke for vitals and was pleasant and cooperative. Pt tolerated assessments well, ate all meals and interacted apporopriately with other patients and staff. Pt. requested anxyiolitic with his breakfast and received Atarax with poor effect. Pt. states, "Atarax does nothing for me". An hour later pt. received Ativan 1mg po with good effect. Pt. reports anxiety about discharge. Pt. catastrophizing, states, "What if the bus breaks down?" Pt. denies SI/HI, A/V hallucinations. Pt. seen pacing in the halls. Pt. given schedule for bus route. Pt. informed that social worker aide has $ for him to be given tomorrow for his [place] tickets. Pt.'s bus leaves at 10:30. RN faxed down request for sack lunch with breakfast tomorrow. Pt.'s medications are in [facility]. S/I, H/I: Denies A/VH: Denies Sleep: Pt. napped frequently on day shift. ADL's: Independent Group attendance: No Were meds taken: Yes Any med S/E: None Mental Status Exam Appearance: Well groomed, wearing baggy street clothes Eye contact: Good Behavior: pacing in the halls, napping in his room, socializing with peers Mood: Anxious Affect: Congruent with mood Thought process: Linear with some paranoia. Thought Content: Anxious about his discharge going smoothly tomorrow. Cognition: A&O X4 Insight: Fair Judgment: Fair Interventions PRN's used: Atarax, Ativan x1 Therapeutic interventions: Maintained a safe and therapeutic environment, ensured contract for safety, provided clear and simple instructions, encouraged interactions with others, monitored behavior and need for intervention, provided active listening and positive encouragement, and maintained Q 15min safety checks. Restraints/seclusion/emergency medication: N/A Justification of Continued Inpatient Treatment: Pt. needs to establish a discharge plan to continue out pt tx and prevent readmission.
[2020-03-20] MEDS: CLONAZEPAM 0.25 MG oral disentigrating tablet (ODT) PO SCH (20:18)
[2020-03-20 20:19] VITALS: BP 129/75
[2020-03-20] MEDS: zolpidem 5mg tablet PO PRN (21:15)
--- NOTE | 2020-03-21 00:30 | NUR ---
Nursing Progress Note: Legal hold: Voluntary Report received from Yinka VILLA. admitted directly from the [facility] accompanied by state troopers. Pt. 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 Pt was demonstrating psychotic/paranoid behavior, trying to barricade himself into his friends house and "speaking in unknown languages" Pt. arrested in 2013 for cruelty to animals. During his incarceration, pt.'s behavior described as "constantly provocative", pt. "throwing water on people and dumping water under the doors of other inmates; and continually yelling through his cell door and challenging both deputies and inmates to a fight". Pt. also had been refusing medical treatment. Pt. was considered a risk due to his aggression and refusal of treatment for his psychosis. According to Psychologist report, pt. is found incompetent to stand trial and requires antipsychotic medication in order to return him to competency and is a danger to himself and to others if unmedicated. Assessment What has happened this shift: Pt up and walking the halls at shift change. He reports feeling anxious about d/c and is fabricating multiple What ifs scenarios about [place].Pt is medcompliant and cheerful. S/I, H/I: Denies A/VH: Denies Sleep: Pt. napped frequently on day shift. ADL's: Independent Group attendance: No Were meds taken: Yes Any med S/E: None Mental Status Exam Appearance: Well groomed, wearing baggy street clothes Eye contact: Good Behavior: pacing in the halls, napping in his room, socializing with peers Mood: Anxious Affect: Congruent with mood Thought process: Linear with some paranoia. Thought Content: Anxious about his discharge going smoothly tomorrow. Cognition: A&O X4 Insight: Fair Judgment: Fair Interventions PRN's used: Atarax, Ativan x1 Therapeutic interventions: Maintained a safe and therapeutic environment, ensured contract for safety, provided clear and simple instructions, encouraged interactions with others, monitored behavior and need for intervention, provided active listening and positive encouragement, and maintained Q 15min safety checks. Restraints/seclusion/emergency medication: N/A Justification of Continued Inpatient Treatment: Pt. needs to establish a discharge plan to continue out pt tx and prevent readmission.
[2020-03-21] MEDS: lactose-reduced food (Ensure High Protein) 237ml bottle PO SCH ×2 (08:00→13:07)
[2020-03-21] MEDS: naproxen 500mg tablet PO SCH (08:00)
[2020-03-21 08:09] VITALS: BP 111/68
[2020-03-21] MEDS: vitamin E 400 unit capsule PO SCH (08:21)
[2020-03-21] MEDS: propranolol 10mg tablet PO SCH ×2 (08:21→12:39)
[2020-03-21] MEDS: benztropine 1mg tablet PO SCH (08:21)
[2020-03-21] MEDS: hydrOXYzine 25 MG tablet PO PRN (08:21)
[2020-03-21] MEDS: OMEGA-3/DHA/EPA/FISH OIL 1 EACH CAPSULE.DR PO SCH (08:21)
[2020-03-21] MEDS: vitamin B comp w/Vit. C tab 1 TAB TABLET PO SCH (08:21)
[2020-03-21] MEDS: vitamin D (cholecalciferol) 1,000 unit tablet PO SCH (08:21)
[2020-03-21] MEDS: lithium carbonate 450mg CR tablet PO SCH (08:21)
[2020-03-21] MEDS: ascorbic acid 500mg tablet PO SCH (08:21)
[2020-03-21] MEDS: multivitamins, therapeutics tablet PO SCH (08:21)
--- NOTE | 2020-03-21 09:46 | NUR ---
DISCHARGE NOTE: Patient's belongings were re-inventoried, medications were given to patient at discharge. Patient denies SI/HI. [place] States that he is going to go out and "lay on the grass and kiss the earth." A taxi was called for patient to transport to bus station. Patient is in good spirits. Discharged in stable condition.
--- NOTE | 2020-03-21 11:38 | NUR ---
NURSES NOTE: Hayden was discharged per order, he waited at bus station for half an hour after bus was supposed to arrive. He found a hospital security officer who told him that the buses were not running for another couple of weeks. Patient readmitted, skin check performed, inventoried belongings.
[2020-03-21] MEDS: LORazepam 0.5 MG tablet PO PRN (12:39)
--- NOTE | 2020-03-21 14:00 | NUR ---
DISCHARGE NOTE: Patient stayed at facility until further discharge options could be worked out. [facility] sent two drivers to safely transport to [facility] to his mothers house. Patient is discharged in stable condition, and in good spirits.
== END 2020-03-21 13:50 | disposition home or self-care (01) | DRG 750 ==
LOC: ADULT MH 11:19 → UNDODISIN 03-21 09:35
PROVIDERS: ADMIT Psychiatry & Neurology Psychiatry; ATTEND Psychiatry & Neurology Psychiatry
DX: F25.0 Schizoaffective disorder, bipolar type (principal); I95.9 Hypotension, unspecified; Z78.1 Physical restraint status; F39 Unspecified mood [affective] disorder; M79.644 Pain in right finger(s); R00.1 Bradycardia, unspecified; F41.9 Anxiety disorder, unspecified; M25.551 Pain in right hip; M25.552 Pain in left hip; M25.562 Pain in left knee; M25.571 Pain in right ankle and joints of right foot; Z79.899 Other long term (current) drug therapy; Z88.8 Allergy status to other drugs, medicaments and biological substances
CPT/HCPCS: 36415; 80048; 80053; 80178; 85025; 87081; 87502; 87503; 97110; 97161; 97530; 99285; J1200; J1630; J2060; J3490; Q0163; Q0177